=== PATIENT | male | born 1950 | race American Indian/Alaskan Native ===

== ENCOUNTER → 2017-07-09 | Outpatient (CLI) | payer MEDICARE ==
--- NOTE | 2017-07-09 12:11 | RADIOLOGY REPORT (SQ) ---
EXAM DESCRIPTION: HIP LEFT AP/LATERAL COMPLETED DATE/TIME: 07/09/2017 11:06 am REASON FOR STUDY: LEFT HIP PAIN (M25.552) M25.552 PAIN IN LEFT HIP COMPARISON: CT abdomen pelvis 08/07/2016 Left hip films 02/12/2010 NUMBER OF VIEWS: Two views. TECHNIQUE: AP pelvis and additional frog-leg view of the left hip. LIMITATIONS: None. FINDINGS: MINERALIZATION: Osteoporotic LEFT HIP: An old left femoral intertrochanteric fracture is present, stabilized by a left femoral rosa g intramedullary nail and lag screw. Hardware is unchanged from CT 08/07/2016. Healed fracture. No acute fracture. Moderate left hip joint space narrowing. RIGHT HIP: High-grade right hip joint space narrowing and bony spurring. No right proximal femoral f racture. PUBIS AND ISCHIUM: No fracture. PELVIS: No fracture. SACRUM: No fracture or dislocation. No worrisome bone lesions. LOWER LUMBAR SPINE: No fracture or dislocation. No worrisome bone lesions. No significant disc disea se. SOFT TISSUES: Right-sided pain pump at the edge of the field of view OTHER: No other significant finding. IMPRESSION: No acute fracture or malalignment left hip. Bony pelvis osteoporotic without fracture. No gross fracture right hip TECHNICAL DOCUMENTATION: JOB ID: [id number] [employer]- All Rights Reserved
== END ==
LOC: RAD 10:37
PROVIDERS: ATTEND Internal Medicine
DX: M25.552 Pain in left hip (principal)

== ENCOUNTER 2017-08-03 12:43 | Inpatient (IN) | payer MEDICARE ==
--- NOTE | 2017-08-03 13:10 | ER Document Report ---
ED General - General Chief Complaint: Chest Pain > 30 Stated Complaint: GENERAL WEAKNESS Time Seen by Provider: 08/03/17 12:55 Notes: This is a 66-year-old male who presents by EMS with chief complaint of chest pain, dizziness and constipation. Patient states he has long standing rheumatoid arthritis. Having nausea this morning. Thinks it is because he has not had good bowel movements. He did have a bowel movement this morning however he did not think it was enough. Started having some palpitations and feeling nauseated which his called EMS. TRAVEL OUTSIDE OF THE [place] IN LAST 30 DAYS: No - Related Data Allergies/Adverse Reactions: No Known Allergies Allergy (Verified 08/14/16 09:29) Past Medical History - General Information source: Patient - Social History Smoking Status: Current Every Day Smoker Family History: Reviewed & Not Pertinent - Past Medical History Cardiac Medical History: Reports: Hx Hypertension Denies: Hx Coronary Artery Disease, Hx Heart Attack Pulmonary Medical History: Denies: Hx Asthma, Hx Bronchitis, Hx COPD, Hx Pneumonia, Hx Tuberculosis Neurological Medical History: Denies: Hx Cerebrovascular Accident, Hx Seizures Musculoskeltal Medical History: Reports Hx Arthritis - rheumatoid arthritis Past Surgical History: Reports: Hx Orthopedic Surgery - pins in hip. Denies: Hx Pacemaker - Immunizations Hx Diphtheria, Pertussis, Tetanus Vaccination: Yes Review of Systems - Review of Systems Constitutional: No symptoms reported, Weakness EENT: No symptoms reported Cardiovascular: No symptoms reported, Palpitations, Heart racing, Lightheaded Respiratory: No symptoms reported Gastrointestinal: No symptoms reported, Constipation Genitourinary: No symptoms reported Male Genitourinary: No symptoms reported Musculoskeletal: No symptoms reported Skin: No symptoms reported Hematologic/Lymphatic: No symptoms reported, Other - Chronic joint pain from rheumatoid arthritis Neurological/Psychological: No symptoms reported Physical Exam - Vital signs Vitals: Resp 26 H 08/03/17 12:57 Interpretation: Normal - General General appearance: Appears well, Alert - HEENT Head: Normocephalic, Atraumatic Eyes: Normal Pupils: PERRL - Respiratory Respiratory status: No respiratory distress Chest status: Nontender Breath sounds: Normal Chest palpation: Normal - Cardiovascular Rhythm: Regular, Irregularly irregular Heart sounds: Normal auscultation Murmur: No - Abdominal Inspection: Normal - Implanted device in the right lower abdomen consistent with stated history of a pain pump Distension: No distension Bowel sounds: Normal Tenderness: Nontender Organomegaly: No organomegaly - Back Back: Normal, Nontender - Extremities General upper extremity: Normal inspection - Multiple joint deformities consistent with rheumatoid arthritis disease, Nontender, Normal color, Normal ROM, Normal temperature General lower extremity: Normal inspection, Nontender, Normal color, Normal ROM , Normal temperature, Normal weight bearing. No: Cammy's sign - Neurological Neuro grossly intact: Yes Cognition: Normal Orientation: AAOx4 Olegario Coma Scale Eye Opening: Spontaneous Olegario Coma Scale Verbal: Oriented Lyman Coma Scale Motor: Obeys Commands Lyman Coma Scale Total: 15 Speech: Normal Motor strength normal: LUE, RUE, LLE, RLE Sensory: Normal - Psychological Associated symptoms: Normal affect, Normal mood - Skin Skin Temperature: Warm Skin Moisture: Dry Skin Color: Normal Course - Re-evaluation Re-evalutation: 08/03/17 14:18 Patient with intermittent runs of SVT with an occasional run of V. tach. Having chest pain. Comfortable discharging at this time. Patient will need to be admitted. An initial dose of Cardizem was given as well as potassium as he has a potassium of 3.0 which could be causing some irritation as well. Of note patient had a heart rate of 212 nurses at bedside. Valsalva maneuver was performed and heart rate came back down. There could be an element of SVT versus A. fib with RVR. Either way uncomfortable discharging so will consult for admit. 08/03/17 14:24 consulted hospitsalist who recommended talk to the field operator. Spoke with field operator who is comfortable admitting here. Will reconsult with the hospitalist. Manager [employer] recommends getting him a stat echo as well. 08/03/17 15:[address] Nickerson who is agreed to admit patient at this time. Also consulted with field operator. - Vital Signs Vital signs: Temp Pulse Resp BP Pulse Ox 98.0 F 106 H 22 H 173/87 H 99 08/03/17 13:15 08/03/17 13:15 08/03/17 13:15 08/03/17 13:15 08/03/17 13:15 - Laboratory Result Diagrams: 08/03/17 13:05 08/03/17 13:05 Laboratory results interpreted by me: 08/03/17 08/03/17 13:05 13:05 WBC 11.6 H Seg Neutrophils % 82.1 H Lymphocytes % 10.2 L Absolute Neutrophils 9.5 H Potassium 3.0 L* BUN 21 H Glucose 123 H Direct Bilirubin 0.6 H Total Protein 8.7 H - EKG Interpretation by Me Rhythm: A.Fib Critical Care Note - Critical Care Note Total time excluding time spent on procedures (mins): 60 Comments: SVT, arrhythmia, hypertension Discharge - Discharge Clinical Impression: Chest pain, Atrial fibrillation with rapid ventricular response, SVT ( supraventricular tachycardia) Condition: Fair Disposition: ADMITTED INPATIENT Admitting Provider: Nellie Unit Admitted: [facility] Referrals: DIONICIO ROWLAND MD [Primary Care Provider] - Follow up as needed
[2017-08-03 13:23] LABS: ABSOLUTE BASOPHILS # (AUTO) 0.1 10^3/uL (0.0-0.2); ABSOLUTE LYMPHOCYTES (AUTO) 1.2 10^3/uL (0.5-4.7); ABSOLUTE MONOCYTES (AUTO) 0.8 10^3/uL (0.1-1.4); ABSOLUTE NEUT (AUTO) 9.5 10^3/uL (1.7-8.2); BASOPHILS % (AUTO) 0.5 % (0-2); EOSINOPHILS % (AUTO) 0.2 % (0-6); HEMATOCRIT 48.2 % (37.9-51.0); HEMOGLOBIN 16.4 g/dL (13.5-17.0); LYMPHOCYTES % (AUTO) 10.2 % (13-45); MEAN CORPUSCULAR HEMOGLOBIN 31.5 pg (27.0-33.4); MEAN CORPUSCULAR HGB CONC 34.1 g/dL (32.0-36.0); MEAN CORPUSCULAR VOLUME 93 fl (80-97); RED BLOOD COUNT 5.21 10^6/uL (4.35-5.55); RED CELL DISTRIBUTION WIDTH 13.8 % (11.5-14.0); SEGMENTED NEUTROPHILS % (AUTO) 82.1 % (42-78); WHITE BLOOD COUNT 11.6 10^3/uL (4.0-10.5)
--- NOTE | 2017-08-03 13:41 | EKG REPORT ---
SEVERITY:- ABNORMAL ECG - SINUS TACHYCARDIA ATRIAL PREMATURE COMPLEXES : Confirmed by: Corey Jimenes MD 03-Aug-2017 13:41:00
[2017-08-03 13:47] LABS: ALANINE AMINOTRANSFERASE 27 U/L (21-72); ALBUMIN 4.7 g/dL (3.5-5.0); ALKALINE PHOSPHATASE 96 U/L (38-126); ANION GAP 17 (5-19); ASPARTATE AMINO TRANSFERASE 26 U/L (17-59); BILIRUBIN,DIRECT 0.6 mg/dL (0.0-0.4); BILIRUBIN,TOTAL 1.1 mg/dL (0.2-1.3); BLOOD UREA NITROGEN 21 mg/dL (7-20); CALCIUM 10.1 mg/dL (8.4-10.2); CARBON DIOXIDE 26 mmol/L (22-30); CHLORIDE 102 mmol/L (98-107); CREATINE KINASE 114 U/L (55-170); CREATININE RESULT 0.77 mg/dL (0.52-1.25); GLUCOSE 123 mg/dL (75-110); SODIUM 144.5 mmol/L (137-145); TOTAL PROTEIN 8.7 g/dL (6.3-8.2)
[2017-08-03 13:57] LABS: CREATINE KINASE MB 1.77 ng/mL (<4.55)
[2017-08-03 13:58] LABS: TROPONIN I < 0.012 ng/mL
[2017-08-03] MEDS ORDERED: DILTIAZEM HCL INJ 25 MG/5 ML VIAL IV ONE (14:13)
[2017-08-03] MEDS ORDERED: DILTIAZEM HCL 30 MG TABLET PO ONE (14:13)
[2017-08-03] MEDS ORDERED: ONDANSETRON HCL INJ/PF 4 MG/2 ML SDV IV ONE (14:13)
[2017-08-03] MEDS ORDERED: POTASSIUM CHLORIDE 10 MEQ TABLET.SA PO ONE (14:13)
--- NOTE | 2017-08-03 14:14 | RADIOLOGY REPORT (SQ) ---
EXAM DESCRIPTION: ACUTE ABDOMEN SERIES COMPLETED DATE/TIME: 08/03/2017 1:49 pm REASON FOR STUDY: abdominal pain COMPARISON: Two-view chest 02/26/2015 CT abdomen pelvis 01/24/2016, 08/07/2016 NUMBER OF VIEWS: Three views. TECHNIQUE: Frontal chest, supine abdomen and upright abdomen radiographic images acquired. LIMITATIONS: None. FINDINGS: CHEST: No acute infiltrates. Bandlike scarring right lung apex, very mild increased inter stitial markings are stable compared to chest films from 2015. Calcified granuloma left lung base. No pleural effusion. No pneumothorax. FREE AIR: None. No abnormal gas collections. BOWEL GAS PATTERN: Nonspecific bowel gas pattern. Air-fluid level in the stomach. Air in nondistend ed small bowel loops in the mid abdomen. No constipation. CALCIFICATIONS: No suspicious calcifications. HARDWARE: There is a intrathecal baclofen pump or pain pump over the right lower quadrant. Left-side d intramedullary nail post ORIF intertrochanteric fracture. SOFT TISSUES: No gross mass or suggestion of organomegaly. BONES: Osteoporotic. Multiple old healed bilateral rib fractures. OTHER: No other significant finding. IMPRESSION: Nonspecific bowel gas pattern. No acute infiltrates. Osteoporosis. Pain pump and left hip hardware as above TECHNICAL DOCUMENTATION: JOB ID: [id number] [employer]- All Rights Reserved
[2017-08-03] MEDS ORDERED: ASPIRIN 325 MG TABLET PO ONE (15:17)
[2017-08-03] MEDS ORDERED: ENOXAPARIN SODIUM INJ 60 MG/0.6 ML DISP.SYRIN SUBCUT ONE (15:18)
[2017-08-03] MEDS ORDERED: DILTIAZEM HCL/D5W 125 MG/125 ML RTUINJ IV PRN (15:21)
[2017-08-03] MEDS ORDERED: POTASSI CL 20 MEQ/50 ML RIDER 20 MEQ/50 ML RTUPB IV ONE (15:22)
[2017-08-03] MEDS ORDERED: ACETAMINOPHEN 325 MG TABLET PO PRN (17:20)
[2017-08-03] MEDS ORDERED: POLYETHYLENE GLYCOL 3350 POWDER 17 GM/1 PACKET PO PRN (17:29)
[2017-08-03] MEDS ORDERED: DIAZEPAM 5 MG TABLET PO PRN (17:29)
--- NOTE | 2017-08-03 17:54 | PDOC H&P ---
History of Present Illness Admission Date/PCP: 08/03/17 15:42 DIONICIO ROWLAND Patient complains of: Chest pain, dyspnea, palpitaions, nausea, constipation History of Present Illness: CHERRY ROLDAN is a 66 year old male with hx of HTN/ A-fib/Rheumatoid arthritis /Back pain/Neck pain/OA/Hep. C/Constipation/BPH/Chronic smoker who started having chest pain. dyspnea, associated with palpaitations, dizziness and nausea this am; he also has worsening constipation. He called EMS and was brought to ER for eval. At ER he was in Afib with RVR and potassium was 3.3. He was given KCL 60 MEQ at ED; was given Cardizem IV and Cardizem drip at 5mg /hr; he is admitted to [facility] for mgt. Past Medical History Cardiac Medical History: Reports: Hypertension Denies: Coronary Artery Disease, Myocardial Infarction Pulmonary Medical History: Denies: Asthma, Bronchitis, Chronic Obstructive Pulmonary Disease (COPD), Pneumonia, Tuberculosis Neurological Medical History: Denies: Seizures Musculoskeltal Medical History: Reports: Arthritis - rheumatoid arthritis Hematology: Denies: Anemia Past Surgical History Past Surgical History: Reports: Orthopedic Surgery - pins in hip Denies: Pacemaker Social History Smoking Status: Current Every Day Smoker Hx Recreational Drug Use: No Hx Prescription Drug Abuse: No Family History Family History: Reviewed & Not Pertinent Parental Family History Reviewed: Yes Children Family History Reviewed: Yes Sibling(s) Family History Reviewed.: Yes Medication/Allergy Home Medications: Amlodipine Besylate [Norvasc 10 mg Tablet] 10 mg PO DAILY 08/03/17 Celecoxib [Celebrex 200 mg Capsule] 200 mg PO DAILY 08/03/17 Diazepam [Valium 5 mg Tablet] 5 mg PO DAILYP PRN 08/03/17 Finasteride [Proscar 5 mg Tablet] 5 mg PO DAILY 08/03/17 Linaclotide [Linzess] 290 mcg PO QAM 08/03/17 Lisinopril/Hydrochlorothiazide [Lisinopril-Hctz 20-12.5 mg Tab] 1 each PO DAILY 08/03/17 Oxycodone HCl [Oxy-Ir 5 mg Tablet] 15 mg PO QIDP PRN 08/03/17 Polyethylene Glycol 3350 [Miralax Powder 17 gm/Packet] 17 gm PO DAILYP PRN 08/03 Prednisone [Deltasone 5 mg Tablet] 10 mg PO DAILY 08/03/17 Allergies/Adverse Reactions: No Known Allergies Allergy (Verified 08/14/16 09:29) Review of Systems All systems: as per PMH Constitutional: PRESENT: weakness Eyes: PRESENT: as per HPI Ears: PRESENT: as per HPI Nose, Mouth, and Throat: PRESENT: as per HPI Cardiovascular: PRESENT: chest pain, dyspnea on exertion, palpitations Respiratory: PRESENT: as per HPI, dyspnea Gastrointestinal: PRESENT: constipation, nausea Genitourinary: PRESENT: as per HPI Musculoskeletal: PRESENT: as per HPI Integumentary: PRESENT: as per HPI Neurological: PRESENT: dizziness Psychiatric: PRESENT: as per HPI Endocrine: PRESENT: as per HPI Hematologic/Lymphatic: PRESENT: as per HPI Physical Exam Vital Signs: Temp Pulse Resp BP Pulse Ox 98.0 F 106 H 22 H 173/87 H 99 08/03/17 13:15 08/03/17 13:15 08/03/17 13:15 08/03/17 13:15 08/03/17 13:15 General appearance: PRESENT: no acute distress, well-developed, well-nourished Head exam: PRESENT: atraumatic, normocephalic Eye exam: PRESENT: EOMI, PERRLA Ear exam: PRESENT: TM's normal bilaterally Mouth exam: PRESENT: moist, neck supple, tongue midline Respiratory exam: PRESENT: clear to auscultation karina, symmetrical Cardiovascular exam: PRESENT: irregular rhythm, +S1, +S2 Pulses: PRESENT: +2 pedal pulses bilateral Vascular exam: PRESENT: normal capillary refill GI/Abdominal exam: PRESENT: normal bowel sounds, soft Rectal exam: PRESENT: deferred Extremities exam: PRESENT: full ROM Neurological exam: PRESENT: alert, awake, oriented to person, oriented to place , oriented to time, CN II-XII grossly intact Psychiatric exam: PRESENT: normal mood Results Impressions: Acute Abdomen Series 08/03/17 13:12 IMPRESSION: Nonspecific bowel gas pattern. No acute infiltrates. Osteoporosis. Pain pump and left hip hardware as above Assessment & Plan - Diagnosis (1) Atrial fibrillation with rapid ventricular response Is this a current diagnosis for this admission?: Yes Plan: Ct with Cardizem drip at 5 mg/hr; Eliquis 5 mg BID po; f/u ECHO and cardologist consult with Dr Park. (2) Chest pain Qualifiers: Chest pain type: unspecified Qualified Code(s): R07.9 - Chest pain, unspecified Is this a current diagnosis for this admission?: Yes Plan: Ct with ASA 81 mg qd po; EKG and cardiac enzymes to rule out GA; F/U ECHO; F/U goggles assembler consult with Dr Park. (3) Hypokalemia Is this a current diagnosis for this admission?: Yes Plan: He was given KCL - total of 60 MEQ at ED; we will add KCL 10 MEQ qd po; f/u daily chem. 7. (4) Leukocytosis Qualifiers: Leukocytosis type: unspecified Qualified Code(s): D72.829 - Elevated white blood cell count, unspecified Is this a current diagnosis for this admission?: Yes Plan: F/u UA and repeat CBC. This may be due to medications- Xeljanz. (5) Constipation Qualifiers: Constipation type: unspecified constipation type Qualified Code(s): K59.00 - Constipation, unspecified Is this a current diagnosis for this admission?: Yes Plan: Ct with Linzess 290 mg qd po; Colace 100 mg BID prn PO; Miralax 17 g qd po prn. (6) Lumbago Qualifiers: Back pain laterality: unspecified Is this a current diagnosis for this admission?: Yes Plan: Ct with Celebrex 200 mg qd; Oxycodone 15 mg q6h prn po. (7) Rheumatoid arthritis Qualifiers: Rheumatoid arthritis location: unspecified site Is this a current diagnosis for this admission?: Yes Plan: Ct with Prednisone 10 mg qd po; Xeljanz 5 mg qd po. (8) BPH (benign prostatic hyperplasia) Qualifiers: Lower urinary tract symptom detail: unspecified Is this a current diagnosis for this admission?: Yes Plan: Ct with Flomax 4 mg qd po; Proscar 5 mg qd po. (9) Anxiety disorder Qualifiers: Phobia type: social phobia, unspecified Is this a current diagnosis for this admission?: Yes Plan: Ct with Diazepam 5 mg qd prn po. (10) DVT prophylaxis Is this a current diagnosis for this admission?: Yes Plan: Ct with SCD; ct with Eliquis 5mg BID. (11) Smoker Is this a current diagnosis for this admission?: Yes Plan: Ct with Nicotine patch 14 mg qd . - Time Time Spent: 30 to 50 Minutes Smoking Cessation Education: 3 to 10 minutes Medications reviewed and adjusted accordingly: Yes Anticipated discharge: Home Within: within 72 hours - Inpatient Certification Based on my medical assessment, after consideration of the patient's comorbidities, presenting symptoms, or acuity I expect that the services needed warrant INPATIENT care.: Yes I certify that my determination is in accordance with my understanding of Medicare's requirements for reasonable and necessary INPATIENT services [42 CFR 412.3e].: Yes Medical Necessity: Failure to Improve With Outpatient Therapy, Significant Comorbidiites Make Outpatient Treatment Too Risky, Need Close Monitoring Due to Risk of Patient Decompensation, Need For Continuous Telemetry Monitoring, Need for IV Antibiotics, Risk of Complication if Not Cared For in Hospital, Risk of Diagnosis Which Will Require Inpatient Eval/Care/Monitoring
[2017-08-03] MEDS ORDERED: NICOTINE 14 MG/24 HR PATCH.TD24 TD ONE (19:00)
[2017-08-03] MEDS ORDERED: DILTIAZEM HCL 120 MG CAP.SR.24H PO ONE (19:00)
[2017-08-03 19:03] LABS: APPEARANCE,URINE CLEAR; BILIRUBIN,URINE NEGATIVE (NEGATIVE); GLUCOSE, URINE NEGATIVE (NEGATIVE); KETONES,URINE TRACE mg/dL (NEGATIVE); LEUKOCYTE ESTERASE,URINE NEGATIVE (NEGATIVE); NITRITE,URINE NEGATIVE (NEGATIVE); PROTEIN,URINE NEGATIVE (NEGATIVE); URINE SPECIFIC GRAVITY 1.006; UROBILINOGEN,URINE NEGATIVE mg/dL (<2.0)
--- NOTE | 2017-08-03 19:44 | PDOC CONSULTATION ---
Consultation Consult Date: 08/03/17 Attending physician:: DIONICIO ROWLAND Consult reason:: Shortness of breath and palpitations History of Present Illness Admission Date/PCP: 08/03/17 17:20 DIONICIO ROWLAND Patient complains of: Shortness of breath History of Present Illness: CHERRY ROLDAN is a 66 year old male with hx of HTN/ A-fib/Rheumatoid arthritis /Back pain/Neck pain/OA/Hep. C/Constipation/BPH/Chronic smoker who started having chest pain. dyspnea, associated with palpaitations, dizziness and nausea this am; he also has worsening constipation. He called EMS and was brought to ER for eval. At ER he was in Afib with RVR and potassium was 3.3. He was given KCL 60 MEQ at ED; was given Cardizem IV and Cardizem drip at 5mg /hr; he is admitted to [facility] for mgt. This history was reviewed and confirmed. Patient had telemetry strips available for review. Patient was noted to have atrial fibrillation with very rapid ventricular response of over 200 bpm. In addition patient also had wide- complex tachycardia which is felt to be related to aberrant conduction rather than ventricular tachycardia. Patient currently converted spontaneously to sinus rhythm. Orders written in the chart. Patient actually denied any chest pain when interviewed by me. Patient however did mention that he had chest pain to the ER physician. He claims that he does not feel palpitations and did not feel particularly bad. Recent however is noted to be a poor historian. Past Medical History Cardiac Medical History: Reports: Hypertension Denies: Coronary Artery Disease, Myocardial Infarction Pulmonary Medical History: Denies: Asthma, Bronchitis, Chronic Obstructive Pulmonary Disease (COPD), Pneumonia, Tuberculosis Neurological Medical History: Denies: Seizures Musculoskeltal Medical History: Reports: Arthritis - rheumatoid arthritis Hematology: Denies: Anemia Past Surgical History Past Surgical History: Reports: Orthopedic Surgery - pins in hip Denies: Pacemaker Social History Information Source: Patient Smoking Status: Current Every Day Smoker Hx Recreational Drug Use: No Hx Prescription Drug Abuse: No - Advance Directive Resuscitation Status: Full Code Surrogate healthcare decision maker:: Patient daughter who lives in [place] is the surrogate decision-maker. Patient does not have close relatives locally. Family History Family History: Hypertension Parental Family History Reviewed: Yes Children Family History Reviewed: Yes Sibling(s) Family History Reviewed.: Yes Medication/Allergy Home Medications: Celecoxib [Celebrex 200 mg Capsule] 200 mg PO DAILY 08/03/17 Diazepam [Valium 5 mg Tablet] 5 mg PO DAILYP PRN 08/03/17 Finasteride [Proscar 5 mg Tablet] 5 mg PO DAILY 08/03/17 Linaclotide [Linzess] 290 mcg PO QAM 08/03/17 Oxycodone HCl [Oxy-Ir 5 mg Tablet] 15 mg PO QIDP PRN 08/03/17 Polyethylene Glycol 3350 [Miralax Powder 17 gm/Packet] 17 gm PO DAILYP PRN 08/03 Prednisone [Deltasone 5 mg Tablet] 10 mg PO DAILY 08/03/17 Apixaban [Eliquis 5 mg Tablet] 5 mg PO BID #60 tablet 08/05/17 Aspirin [Aspirin 81 mg Chewable Tablet] 81 mg PO DAILY #30 tab.chew 08/05/17 Diltiazem HCl [Cardizem Cd 120 mg Capsule] 120 mg PO DAILY #30 cap.sr.24h Ondansetron HCl [Zofran 4 mg Tablet] 1 tab PO TID #60 tablet 08/05/17 Potassium Chloride [Klor-Con 10 Meq Tablet.sa] 10 meq PO DAILY #30 tablet.sa 09/11 Allergies/Adverse Reactions: No Known Allergies Allergy (Verified 08/14/16 09:29) Review of Systems Review of Systems: Please see history of present illness and past medical history as wall. Constitutional: No fever or chills reported. Head : No recent chronic headaches, recent head injury. Eyes: No recent eye pain, diplopia, redness, discharge, acute visual changes. Ears: No recent chronic ear pain, acute hearing loss, ear discharge. Oral cavity: No recent ulcerations, bleeding, oral cavity discomfort. Neck: No recent acute neck pain reported. Hematologic: No recent easy bruising or bleeding or hematologic malignancy reported. Lymphatic: No recent lymphatic malignancy, chronic lymphadenopathy reported yet Cardiovascular system review: See history of present illness. Patient denies any previous cardiac problems. Please see HPI for details Respiratory system review: No recent chronic cough, hemoptysis, blood clots in the lungs reported. Mild Shortness of breath on exertion Gastrointestinal system review: Negative for any recent acute or chronic abdominal pain, hematemesis, melena, recent change in bowel habits. Vented with some nausea. Patient denied any chronic GI problem. Genitourinary system review: No recent acute or chronic hematuria, flank pain, UTI etc. reported. Skin system review: Negative for any recent abnormal bruising, no rash, no pruritus reported. Neurologic: No prior history of strokes, mini strokes, seizure disorder. Psychologic: No history of major psychosis or major depression reported. Musculoskeletal: Minor aches and pains reported. No acute joint swelling reported. Endocrine: No recent polyuria, polydipsia, recent heat or cold intolerance. Physical Exam Vital Signs: Temp Pulse Resp BP Pulse Ox 98.0 F 88 18 137/84 H 99 08/03/17 13:15 08/03/17 18:25 08/03/17 17:01 08/03/17 17:01 08/03/17 15:46 Exam: GENERAL: well-nourished and in no acute distress. Alert and oriented x3 HEAD: Atraumatic, normocephalic. EYES: Pupils equal round and reactive to light, extraocular movements intact, sclera anicteric, conjunctiva are normal. ENT: TMs normal, nares patent, oropharynx clear without exudates. Moist mucous membranes. No oral ulcerations or bleeding gums noted NECK: supple without lymphadenopathy. Trachea is central. No cervical or axillary lymphadenopathy noted. Carotids are 2+, JVD WNL LUNGS: Respiration seems nonlabored, no significant accessory muscle action noted. Breath sounds clear to auscultation bilaterally and equal noted. No wheezes rales or rhonchi noted. No significant dullness noted on percussion. CHEST: Palpation of the chest wall shows no significant chest wall tenderness. No other significant abnormalities noted. 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 ABDOMEN: Soft, no significant tenderness appreciated, normoactive bowel sounds. No guarding, no rebound. No rigidity noted . No masses appreciated. EXTREMITIES: Pedal pulses are 1-2+, no calf tenderness noted. No clubbing or cyanosis.trace pedal edema noted NEUROLOGICAL: Focused neurological exam showed no significant neurologic deficit. Normal speech, no focal weakness appreciated. PSYCH: Normal mood, normal affect. Judgment and insight within normal limits. SKIN: No significant ecchymosis, rash, ulcerations or signs of pruritus noted. MUSCULOSKELETAL EXAM: No significant joint swelling noted. Osteoarthritic and rheumatoid arthritis changes noted on both upper extremity and lower extremity. Patient walks with a cane. Results Laboratory Results: 08/03/17 18:50 Urine Color STRAW Urine Appearance CLEAR Urine pH 6.0 Ur Specific [place] 1.006 Urine Protein NEGATIVE Urine Glucose (UA) NEGATIVE Urine Ketones TRACE H Urine Blood SMALL H Urine Nitrite NEGATIVE Ur Leukocyte Esterase NEGATIVE Urine WBC (Auto) 0 Urine RBC (Auto) 0 EKG Comments: Twelve-lead EKG, multiple reviewed. Initial one showed atrial fibrillation with rapid ventricular response. EKG strips shows wide-complex tachycardia and also narrow complex tachycardia with some secondary ST-T wave changes. Impressions: Acute Abdomen Series 08/03/17 13:12 IMPRESSION: Nonspecific bowel gas pattern. No acute infiltrates. Osteoporosis. Pain pump and left hip hardware as above Assessment & Plan - Diagnosis (1) Atrial fibrillation with rapid ventricular response Is this a current diagnosis for this admission?: Yes (2) Hypokalemia Is this a current diagnosis for this admission?: Yes (3) Rheumatoid arthritis Qualifiers: Rheumatoid arthritis location: unspecified site Is this a current diagnosis for this admission?: Yes (4) Smoker Is this a current diagnosis for this admission?: Yes (5) Anxiety disorder Qualifiers: Phobia type: social phobia, unspecified Is this a current diagnosis for this admission?: Yes (6) Chest pain Qualifiers: Chest pain type: unspecified Qualified Code(s): R07.9 - Chest pain, unspecified Is this a current diagnosis for this admission?: Yes - Notes Notes: Atrial fibrillation with rapid ventricular response: Agree with Juno boles. Patient has converted to sinus rhythm by the time I saw the patient and was noted to be quite comfortable. Patient has no other significant risk factors and his chads score seems to be low and possibly at increased risk of bleeding. Feel that just aspirin therapy would be enough. Patient denied any prior history of strokes or mini strokes. Chest pain: Most likely related to supply demand mismatch. Patient has not had any recurrence of chest pain. Hypokalemia: Recommend replacement therapy. Check magnesium level and replace his hypomagnesemia noted Rheumatoid arthritis: Currently is stable. Tobacco abuse: Patient has been advised to quit smoking. Anxiety disorder: Currently stable. Patient to report any further problems. - Time Time Spent: 30 to 50 Minutes - CODE STATUS was discussed, patient remains full code. Surrogate decision-maker unchanged. Multiple medical problems were addressed. More than 50% of the time spent coordinating care, discussing management plans with involved caregivers. Management plans discussed with involved personnels. Medical decision making was of moderate to high complexity , patient's has multiple comorbidities. Orders written in the chart as regards management plans. Medications reviewed and adjusted accordingly: Yes
[2017-08-03] MEDS: ONDANSETRON HCL INJ/PF 4 MG/2 ML SDV IV PRN (19:48)
[2017-08-03] MEDS ORDERED: WATER IV ONE (20:00)
[2017-08-03] MEDS ORDERED: DEXTROSE 5% IV ONE (20:00)
[2017-08-03] MEDS ORDERED: AMIODARONE HCL IV ONE (20:00)
[2017-08-03] MEDS: APIXABAN 5 MG TABLET PO SCH (20:26)
[2017-08-03] MEDS: DOCUSATE SODIUM 100 MG CAPSULE PO PRN (20:28)
[2017-08-03] MEDS ORDERED: DEXTROSE 5%-WATER 500 ML with AMIODARONE HCL 900 MG IV PRN ×2 (20:30)
[2017-08-03] MEDS: TOFACITINIB 5 MG PO SCH (21:01)
[2017-08-03] MEDS: OXYCODONE HCL IR 5 MG TABLET PO PRN (21:01)
[2017-08-03] MEDS: ZOLPIDEM TARTRATE 5 MG TABLET PO PRN (21:01)
[2017-08-03] MEDS ORDERED: DILTIAZEM HCL 60 MG TABLET PO SCH (22:00)
[2017-08-03] MEDS ORDERED: AMIODARONE HCL INJ 150 MG/3 ML VIAL IV ONE (22:42)
[2017-08-04] MEDS ORDERED: INFLUENZA ADLT QUAD (36MOS+) 2017-18 VAC 0.5 ML SYR IM PRN (00:10)
[2017-08-04 00:44] LABS: CREATINE KINASE MB 0.94 ng/mL (<4.55); TROPONIN I 0.025 ng/mL
[2017-08-04] MEDS: LANSOPRAZOLE 30 MG TAB.RAP.DR PO SCH (05:39)
[2017-08-04 06:03] LABS: ABSOLUTE BASOPHILS # (AUTO) 0.1 10^3/uL (0.0-0.2); ABSOLUTE EOSINOPHILS # (AUTO) 0.1 10^3/uL (0.0-0.6); ABSOLUTE LYMPHOCYTES (AUTO) 2.4 10^3/uL (0.5-4.7); ABSOLUTE NEUT (AUTO) 5.9 10^3/uL (1.7-8.2); BASOPHILS % (AUTO) 0.7 % (0-2); EOSINOPHILS % (AUTO) 0.9 % (0-6); HEMATOCRIT 43.9 % (37.9-51.0); HEMOGLOBIN 14.9 g/dL (13.5-17.0); HGB HCT DIFFERENCE 0.8; LYMPHOCYTES % (AUTO) 25.8 % (13-45); MEAN CORPUSCULAR HEMOGLOBIN 31.4 pg (27.0-33.4); MEAN CORPUSCULAR VOLUME 92 fl (80-97); MONOCYTES % (AUTO) 10.6 % (3-13); RED BLOOD COUNT 4.75 10^6/uL (4.35-5.55); RED CELL DISTRIBUTION WIDTH 13.7 % (11.5-14.0); WHITE BLOOD COUNT 9.5 10^3/uL (4.0-10.5)
[2017-08-04 06:22] LABS: ALANINE AMINOTRANSFERASE 26 U/L (21-72); ALBUMIN 3.7 g/dL (3.5-5.0); ALKALINE PHOSPHATASE 66 U/L (38-126); ANION GAP 13 (5-19); ASPARTATE AMINO TRANSFERASE 18 U/L (17-59); BILIRUBIN,DIRECT 0.5 mg/dL (0.0-0.4); BILIRUBIN,TOTAL 1.2 mg/dL (0.2-1.3); BLOOD UREA NITROGEN 16 mg/dL (7-20); CALCIUM 9.4 mg/dL (8.4-10.2); CARBON DIOXIDE 27 mmol/L (22-30); CHLORIDE 105 mmol/L (98-107); CHOLESTEROL 186.29 mg/dL (0-200); CREATININE RESULT 1.25 mg/dL (0.52-1.25); Direct HDL 37 mg/dL (>40); GLUCOSE 103 mg/dL (75-110); POTASSIUM 3.8 mmol/L (3.6-5.0); TOTAL PROTEIN 6.6 g/dL (6.3-8.2); TRIGLYCERIDES 136 mg/dL (<150)
[2017-08-04 06:26] LABS: CREATINE KINASE MB 0.82 ng/mL (<4.55); TROPONIN I 0.022 ng/mL
[2017-08-04 06:33] LABS: DIRECT LDL 136 mg/dL (<100)
[2017-08-04] MEDS: PREDNISONE 5 MG TABLET PO SCH (08:09)
[2017-08-04] MEDS: CELECOXIB 200 MG CAPSULE PO SCH (08:09)
[2017-08-04] MEDS: TOFACITINIB 5 MG PO SCH ×2 (08:10→21:48)
--- NOTE | 2017-08-04 08:15 | EKG REPORT ---
SEVERITY:- ABNORMAL ECG - SINUS TACHYCARDIA RUN OF VENTRICULAR PREMATURE COMPLEXES VS SUPRAVENTRICULAR ABERRENCY BORDERLINE LEFT AXIS DEVIATION : Confirmed by: Corey Jimenes MD 04-Aug-2017 08:14:28
--- NOTE | 2017-08-04 08:15 | EKG REPORT ---
SEVERITY:- ABNORMAL ECG - SINUS TACHYCARDIA MULTIPLE ATRIAL PREMATURE COMPLEXES LEFT AXIS DEVIATION : Confirmed by: Corey Jimenes MD 04-Aug-2017 08:14:37
[2017-08-04] MEDS: POTASSIUM CHLORIDE 10 MEQ TABLET.SA PO SCH (09:48)
[2017-08-04] MEDS: NICOTINE 14 MG/24 HR PATCH.TD24 TD SCH (09:48)
[2017-08-04] MEDS: FINASTERIDE 5 MG TABLET PO SCH (09:48)
[2017-08-04] MEDS: DOCUSATE SODIUM 100 MG CAPSULE PO PRN ×2 (09:48→17:31)
[2017-08-04] MEDS: DILTIAZEM HCL 120 MG CAP.SR.24H PO SCH (09:48)
[2017-08-04] MEDS: APIXABAN 5 MG TABLET PO SCH ×2 (09:48→17:31)
[2017-08-04] MEDS: ASPIRIN 81 MG TABLET, CHEWABLE PO SCH (09:48)
[2017-08-04] MEDS: OXYCODONE HCL IR 5 MG TABLET PO PRN ×2 (09:49→15:56)
[2017-08-04] MEDS ORDERED: LISINOPRIL 10 MG TABLET PO SCH (10:00)
[2017-08-04] MEDS ORDERED: AMLODIPINE BESYLATE 10 MG TABLET PO SCH (10:00)
[2017-08-04] MEDS ORDERED: HYDROCHLOROTHIAZIDE 12.5 MG CAPSULE PO SCH (10:00)
[2017-08-04] MEDS ORDERED: (PENDING PHARMACY ID) (Lisinopril/Hydrochlorothiazide [Lisinopril-Hctz 20-12.5 Mg Tab] 1 E PO SCH (10:00)
[2017-08-04] MEDS ORDERED: XELJANZ 5 MG PO SCH (10:00)
--- NOTE | 2017-08-04 13:02 | XCELERA REPORT ---
[address] [address] Transthoracic Echocardiogram Report Name: CHERRY ROLDAN Age: 66 yrs Gender: Male : 1950 Patient Status: Emergency Patient Location: ER Study Date: 08/03/2017 02:49 PM Height: 66 in Weight: 132 lb BSA: 1.7 m2 Procedure: A complete two-dimensional transthoracic echocardiogram was performed (2D, M-mode, spectral and color flow Doppler). The study was technically difficult with many images being suboptimal in quality. Reason For Study: tachycardia Ordering Physician: LINDA LEMUS Performed By: Marry Prasad Interpretation Summary The study was technically difficult with many images being suboptimal in quality. The left ventricular ejection fraction is normal. There is borderline concentric left ventricular hypertrophy. Doppler measurements suggest pseudonormalized left ventricular relaxation, which is associated with grade II/IV or mild to moderate diastolic dysfunction The left ventricle is grossly normal size. Wall motion cannot be accurately commented on, but no definite regional wall motion abnormalities noted. The right ventricle is mild to moderately dilated. Borderline left atrial enlargement. The right atrium is normal in size There is a trace amount of mitral regurgitation There is no mitral valve stenosis. No aortic regurgitation is present. There is no aortic valve stenosis The aortic root is not well visualized but is probably normal size. The inferior vena cava appeared normal and decreased > 50% with respiration (RAP 5-10 mmHg) There is no pericardial effusion. MMode/2D Measurements & Calculations RVDd: 2.7 cm LVIDd: 4.6 cm FS: 37.7 % Ao root diam: 3.0 cm IVSd: 0.97 cm LVIDs: 2.9 cm EDV(Teich): 97.3 ml LVPWd: 1.0 cm ESV(Teich): 31.3 ml Ao root area: 6.9 cm2 EF(Teich): 67.8 % LA dimension: 3.7 cm Doppler Measurements & Calculations MV E max prince: MV P1/2t max prince: Ao V2 max: LV V1 max P.2 cm/sec 63.7 cm/sec 169.7 cm/sec 4.2 mmHg MV A max prince: MV P1/2t: 85.9 msec Ao max PG: LV V1 max: 88.8 cm/sec 11.5 mmHg 102.2 cm/sec MV E/A: 0.72 MVA(P1/2t): 2.6 cm2 MV dec slope: 217.1 cm/sec2 MV dec time: 0.28 sec PA V2 max: TR max prince: 86.9 cm/sec 291.8 cm/sec PA max PG: TR max P.1 mmHg 3.0 mmHg Left Ventricle The left ventricle is grossly normal size. There is borderline concentric left ventricular hypertrophy. The left ventricular ejection fraction is normal. Doppler measurements suggest pseudonormalized left ventricular relaxation, which is associated with grade II/IV or mild to moderate diastolic dysfunction. Wall motion cannot be accurately commented on, but no definite regional wall motion abnormalities noted. Right Ventricle The right ventricle is mild to moderately dilated. There is normal right ventricular wall thickness. The right ventricular systolic function is normal. Atria The right atrium is normal in size. Borderline left atrial enlargement. Interarterial septum not well visualized and not well dopplered. Cannot comment on ASD/PFO presence. Mitral Valve The mitral valve leaflets are sclerotic, but show no functional abnormalities. There is no mitral valve stenosis. There is a trace amount of mitral regurgitation. Aortic Valve The aortic valve is mildly calcified. There is no aortic valve stenosis. No aortic regurgitation is present. Tricuspid Valve The tricuspid valve is not well visualized, but is grossly normal. There is no tricuspid stenosis. There is a trace to mild amount of tricuspid regurgitation. There is mild pulmonary hypertension by echo. Right ventricular systolic pressure is estimated to be elevated at 30-40mmHg. Pulmonic Valve The pulmonic valve is not well visualized. Great Vessels The aortic root is not well visualized but is probably normal size. The inferior vena cava appeared normal and decreased > 50% with respiration (RAP 5-10 mmHg). Effusions There is no pericardial effusion. : LINDA LEMUS > [place]
--- NOTE | 2017-08-04 14:58 | PDOC PROGRESS REPORT ---
Subjective Progress Note for:: 08/04/17 Subjective:: He is feeling better; no chest pain, dyspnea, dizziness. Potassium is normal and he is no longer in A-fib , but in sinus rhythm. We appreciate input of dye colorist dyer, Dr Park in the management of this pt. Physical Exam Vital Signs: Temp Pulse Resp BP Pulse Ox 98.6 F 82 18 90/60 L 93 08/04/17 11:57 08/04/17 11:57 08/04/17 08:01 08/04/17 12:24 08/04/17 11:57 Intake & Output 08/03/17 08/04/17 08/05/17 06:59 06:59 06:59 Output Total 625 Balance -625 Weight 64.5 kg General appearance: PRESENT: no acute distress, cooperative, well-developed, well-nourished Head exam: PRESENT: atraumatic, normocephalic Eye exam: PRESENT: EOMI, PERRLA Ear exam: PRESENT: normal external ear exam, TM's normal bilaterally Mouth exam: PRESENT: moist, neck supple, tongue midline Neck exam: PRESENT: full ROM Respiratory exam: PRESENT: clear to auscultation karina, symmetrical Cardiovascular exam: PRESENT: +S1, +S2 Pulses: PRESENT: +2 pedal pulses bilateral GI/Abdominal exam: PRESENT: normal bowel sounds, soft Rectal exam: PRESENT: deferred Extremities exam: PRESENT: full ROM Musculoskeletal exam: PRESENT: full ROM Neurological exam: PRESENT: alert, awake, oriented to person, oriented to place , oriented to time Psychiatric exam: PRESENT: normal mood Results Laboratory Results: 08/04/17 05:18 08/04/17 05:18 08/03/17 08/04/17 08/04/17 18:50 05:18 05:18 WBC 9.5 RBC 4.75 Hgb 14.9 Hct 43.9 MCV 92 MCH 31.4 MCHC 34.0 RDW 13.7 Plt Count 257 Seg Neutrophils % 62.0 Lymphocytes % 25.8 Monocytes % 10.6 Eosinophils % 0.9 Basophils % 0.7 Absolute Neutrophils 5.9 Absolute Lymphocytes 2.4 Absolute Monocytes 1.0 Absolute Eosinophils 0.1 Absolute Basophils 0.1 Sodium 145.0 Potassium 3.8 Chloride 105 Carbon Dioxide 27 Anion Gap 13 BUN 16 Creatinine 1.25 Est GFR ( Amer) > 60 Est GFR (Non-Af Amer) 58 L Glucose 103 Calcium 9.4 Magnesium 2.0 Total Bilirubin 1.2 AST 18 ALT 26 Alkaline Phosphatase 66 Total Protein 6.6 Albumin 3.7 Triglycerides 136 Cholesterol 186.29 LDL Cholesterol Direct 136 H VLDL Cholesterol 27.0 HDL Cholesterol 37 L TSH Urine Color STRAW Urine Appearance CLEAR Urine pH 6.0 Ur Specific [place] 1.006 Urine Protein NEGATIVE Urine Glucose (UA) NEGATIVE Urine Ketones TRACE H Urine Blood SMALL H Urine Nitrite NEGATIVE Ur Leukocyte Esterase NEGATIVE Urine WBC (Auto) 0 Urine RBC (Auto) 0 08/04/17 05:18 WBC RBC Hgb Hct MCV MCH MCHC RDW Plt Count Seg Neutrophils % Lymphocytes % Monocytes % Eosinophils % Basophils % Absolute Neutrophils Absolute Lymphocytes Absolute Monocytes Absolute Eosinophils Absolute Basophils Sodium Potassium Chloride Carbon Dioxide Anion Gap BUN Creatinine Est GFR ( Amer) Est GFR (Non-Af Amer) Glucose Calcium Magnesium Total Bilirubin AST ALT Alkaline Phosphatase Total Protein Albumin Triglycerides Cholesterol LDL Cholesterol Direct VLDL Cholesterol HDL Cholesterol TSH 5.07 H Urine Color Urine Appearance Urine pH Ur Specific [place] Urine Protein Urine Glucose (UA) Urine Ketones Urine Blood Urine Nitrite Ur Leukocyte Esterase Urine WBC (Auto) Urine RBC (Auto) 08/03/17 08/03/17 08/04/17 23:10 23:10 05:18 Creatine Kinase 90 74 CK-MB (CK-2) 0.94 Troponin I 0.025 08/04/17 05:18 Creatine Kinase CK-MB (CK-2) 0.82 Troponin I 0.022 Impressions: Acute Abdomen Series 08/03/17 13:12 IMPRESSION: Nonspecific bowel gas pattern. No acute infiltrates. Osteoporosis. Pain pump and left hip hardware as above Assessment & Plan - Diagnosis (1) Atrial fibrillation with rapid ventricular response Is this a current diagnosis for this admission?: Yes Plan: Ct with Cardizem CD 120 mg qd po Eliquis 5 mg BID po; f/u ECHO report and cardologist, Dr Park. (2) Chest pain Qualifiers: Chest pain type: unspecified Qualified Code(s): R07.9 - Chest pain, unspecified Is this a current diagnosis for this admission?: Yes Plan: Ct with ASA 81 mg qd po; OK has been ruled out. F/U ECHO report; F/U dye colorist dyer, Dr Park. (3) Hypokalemia Is this a current diagnosis for this admission?: Yes Plan: He was given KCL - total of 60 MEQ at ED; we will add KCL 10 MEQ qd po; f/u daily chem. 7. (4) Leukocytosis Qualifiers: Leukocytosis type: unspecified Qualified Code(s): D72.829 - Elevated white blood cell count, unspecified Is this a current diagnosis for this admission?: Yes Plan: Leukocytosis- resolved.This may be due to medications- Xeljanz/Prednisone.. (5) Constipation Qualifiers: Constipation type: unspecified constipation type Qualified Code(s): K59.00 - Constipation, unspecified Is this a current diagnosis for this admission?: Yes Plan: Ct with Linzess 290 mg qd po; Colace 100 mg BID prn PO; Miralax 17 g qd po prn. (6) Lumbago Qualifiers: Back pain laterality: unspecified Is this a current diagnosis for this admission?: Yes Plan: Ct with Celebrex 200 mg qd; Oxycodone 15 mg q6h prn po. (7) Rheumatoid arthritis Qualifiers: Rheumatoid arthritis location: unspecified site Is this a current diagnosis for this admission?: Yes Plan: Ct with Prednisone 10 mg qd po; Xeljanz 5 mg qd po. (8) BPH (benign prostatic hyperplasia) Qualifiers: Lower urinary tract symptom detail: unspecified Is this a current diagnosis for this admission?: Yes Plan: Ct with Flomax 4 mg qd po; Proscar 5 mg qd po. (9) Anxiety disorder Qualifiers: Phobia type: social phobia, unspecified Is this a current diagnosis for this admission?: Yes Plan: Ct with Diazepam 5 mg qd prn po. (10) DVT prophylaxis Is this a current diagnosis for this admission?: Yes Plan: Ct with SCD; ct with Eliquis 5mg BID. (11) Smoker Is this a current diagnosis for this admission?: Yes Plan: Ct with Nicotine patch 14 mg qd .
[2017-08-04] MEDS: ZOLPIDEM TARTRATE 5 MG TABLET PO PRN (21:48)
[2017-08-05 05:03] LABS: HEMATOCRIT 41.5 % (37.9-51.0); HEMOGLOBIN 14.2 g/dL (13.5-17.0); HGB HCT DIFFERENCE 1.1; MEAN CORPUSCULAR HEMOGLOBIN 31.8 pg (27.0-33.4); MEAN CORPUSCULAR HGB CONC 34.2 g/dL (32.0-36.0); MEAN CORPUSCULAR VOLUME 93 fl (80-97); RED BLOOD COUNT 4.47 10^6/uL (4.35-5.55); RED CELL DISTRIBUTION WIDTH 13.9 % (11.5-14.0); WHITE BLOOD COUNT 9.7 10^3/uL (4.0-10.5)
[2017-08-05] MEDS: LANSOPRAZOLE 30 MG TAB.RAP.DR PO SCH (05:16)
[2017-08-05 05:25] LABS: ALANINE AMINOTRANSFERASE 27 U/L (21-72); ALBUMIN 3.6 g/dL (3.5-5.0); ALKALINE PHOSPHATASE 58 U/L (38-126); ANION GAP 9 (5-19); ASPARTATE AMINO TRANSFERASE 14 U/L (17-59); BILIRUBIN,DIRECT 0.4 mg/dL (0.0-0.4); BILIRUBIN,TOTAL 0.6 mg/dL (0.2-1.3); BLOOD UREA NITROGEN 30 mg/dL (7-20); CALCIUM 9.5 mg/dL (8.4-10.2); CARBON DIOXIDE 28 mmol/L (22-30); CHLORIDE 105 mmol/L (98-107); CREATININE RESULT 1.05 mg/dL (0.52-1.25); GLUCOSE 101 mg/dL (75-110); POTASSIUM 3.7 mmol/L (3.6-5.0); SODIUM 142.4 mmol/L (137-145); TOTAL PROTEIN 6.6 g/dL (6.3-8.2)
[2017-08-05 05:32] LABS: APPEARANCE,URINE CLEAR; BILIRUBIN,URINE NEGATIVE (NEGATIVE); GLUCOSE, URINE NEGATIVE (NEGATIVE); KETONES,URINE NEGATIVE (NEGATIVE); LEUKOCYTE ESTERASE,URINE NEGATIVE (NEGATIVE); NITRITE,URINE NEGATIVE (NEGATIVE); PROTEIN,URINE NEGATIVE (NEGATIVE); URINE SPECIFIC GRAVITY 1.032
[2017-08-05] MEDS: OXYCODONE HCL IR 5 MG TABLET PO PRN (07:39)
[2017-08-05] MEDS: ONDANSETRON HCL INJ/PF 4 MG/2 ML SDV IV PRN (07:45)
[2017-08-05 08:26] VITALS: BP 140/83
[2017-08-05] MEDS: TOFACITINIB 5 MG PO SCH (09:55)
[2017-08-05] MEDS: DOCUSATE SODIUM 100 MG CAPSULE PO PRN (09:56)
[2017-08-05] MEDS: POTASSIUM CHLORIDE 10 MEQ TABLET.SA PO SCH (09:56)
[2017-08-05] MEDS: PREDNISONE 5 MG TABLET PO SCH (09:56)
[2017-08-05] MEDS: FINASTERIDE 5 MG TABLET PO SCH (09:57)
[2017-08-05] MEDS: DILTIAZEM HCL 120 MG CAP.SR.24H PO SCH (09:57)
[2017-08-05] MEDS: ASPIRIN 81 MG TABLET, CHEWABLE PO SCH (09:57)
[2017-08-05] MEDS: CELECOXIB 200 MG CAPSULE PO SCH (09:58)
[2017-08-05] MEDS: NICOTINE 14 MG/24 HR PATCH.TD24 TD SCH (09:58)
[2017-08-05] MEDS: APIXABAN 5 MG TABLET PO SCH (09:59)
--- NOTE | 2017-08-05 10:42 | PDOC DISCHARGE SUMMARY ---
General - Admit/Disc Date/PCP Admission Date/Primary Care Provider: 08/03/17 17:20 DIONICIO ROWLAND Discharge Date: 08/05/17 - Discharge Diagnosis (1) Atrial fibrillation with rapid ventricular response Is this a current diagnosis for this admission?: Yes (2) Chest pain Is this a current diagnosis for this admission?: Yes (3) Hypokalemia Is this a current diagnosis for this admission?: Yes (4) Leukocytosis Is this a current diagnosis for this admission?: Yes (5) Constipation Is this a current diagnosis for this admission?: Yes (6) Lumbago Is this a current diagnosis for this admission?: Yes (7) Rheumatoid arthritis Is this a current diagnosis for this admission?: Yes (8) BPH (benign prostatic hyperplasia) Is this a current diagnosis for this admission?: Yes (9) Anxiety disorder Is this a current diagnosis for this admission?: Yes (10) DVT prophylaxis Is this a current diagnosis for this admission?: Yes (11) Smoker Is this a current diagnosis for this admission?: Yes - Additional Information Resuscitation Status: Full Code Discharge Activity: Activity As Tolerated Home Medications: Celecoxib [Celebrex 200 mg Capsule] 200 mg PO DAILY 08/03/17 Diazepam [Valium 5 mg Tablet] 5 mg PO DAILYP PRN 08/03/17 Finasteride [Proscar 5 mg Tablet] 5 mg PO DAILY 08/03/17 Linaclotide [Linzess] 290 mcg PO QAM 08/03/17 Oxycodone HCl [Oxy-Ir 5 mg Tablet] 15 mg PO QIDP PRN 08/03/17 Polyethylene Glycol 3350 [Miralax Powder 17 gm/Packet] 17 gm PO DAILYP PRN 08/03 Prednisone [Deltasone 5 mg Tablet] 10 mg PO DAILY 08/03/17 Apixaban [Eliquis 5 mg Tablet] 5 mg PO BID #60 tablet 08/05/17 Aspirin [Aspirin 81 mg Chewable Tablet] 81 mg PO DAILY #30 tab.chew 08/05/17 Diltiazem HCl [Cardizem Cd 120 mg Capsule] 120 mg PO DAILY #30 cap.sr.24h Ondansetron HCl [Zofran 4 mg Tablet] 1 tab PO TID #60 tablet 08/05/17 Potassium Chloride [Klor-Con 10 Meq Tablet.sa] 10 meq PO DAILY #30 tablet.sa 09/11 History of Present Illness History of Present Illness: CHERRY ROLDAN is a 66 year old male with hx of HTN/ A-fib/Rheumatoid arthritis /Back pain/Neck pain/OA/Hep. C/Constipation/BPH/Chronic smoker who started having chest pain. dyspnea, associated with palpaitations, dizziness and nausea this am; he also has worsening constipation. He called EMS and was brought to ER for eval. At ER he was in Afib with RVR and potassium was 3.3. He was given KCL 60 MEQ at ED; was given Cardizem IV and Cardizem drip at 5mg /hr; he is admitted to [facility] for mgt. Hospital Course Hospital Course: 66 year old man who was admitted for A-fib with RVR/Hypokalemia and Chest pain- MA ruled out. He was put on Cardizem drip and eventually switched to cardizem CD 120 mg qd;was started on Eliquis 5 mg BID po.Had potassium replacement and continued on KCL 10 MEQ qd po. Had serial EKG and cardiac enzymes and mI was ruled out. Had ECHO- normal EF and no regional wall motion abnormalities. We appreciate input of yolk spray drier, Dr Park in management of this patient. Amlodipine and Lisinopril/HCTZ were discontinued due to relative hypotension. He is stable and will discharged home today to follow up with PCP and Dr Park within 1 week. Physical Exam Vital Signs: Temp Pulse Resp BP Pulse Ox 97.8 F 81 18 140/83 H 97 08/05/17 07:50 08/05/17 07:50 08/05/17 07:50 08/05/17 07:50 08/05/17 07:50 Intake & Output 08/04/17 08/05/17 08/06/17 06:59 06:59 06:59 Intake Total 1528 Output Total 625 1002 Balance -625 526 Weight 64.5 kg 64.9 kg General appearance: PRESENT: no acute distress, cooperative, well-developed, well-nourished Head exam: PRESENT: atraumatic, normocephalic Eye exam: PRESENT: EOMI, PERRLA Ear exam: PRESENT: normal external ear exam, TM's normal bilaterally Mouth exam: PRESENT: moist, neck supple, tongue midline Neck exam: PRESENT: full ROM Respiratory exam: PRESENT: clear to auscultation karina, symmetrical Cardiovascular exam: PRESENT: +S1, +S2 Pulses: PRESENT: +2 pedal pulses bilateral GI/Abdominal exam: PRESENT: normal bowel sounds, soft Rectal exam: PRESENT: deferred Extremities exam: PRESENT: full ROM Neurological exam: PRESENT: alert, awake, oriented to person, oriented to place , oriented to time Psychiatric exam: PRESENT: normal mood Results Laboratory Results: 08/05/17 04:44 08/05/17 04:44 08/05/17 08/05/17 08/05/17 04:44 04:44 04:50 WBC 9.7 RBC 4.47 Hgb 14.2 Hct 41.5 MCV 93 MCH 31.8 MCHC 34.2 RDW 13.9 Plt Count 265 Sodium 142.4 Potassium 3.7 Chloride 105 Carbon Dioxide 28 Anion Gap 9 BUN 30 H Creatinine 1.05 Est GFR ( Amer) > 60 Est GFR (Non-Af Amer) > 60 Glucose 101 Calcium 9.5 Total Bilirubin 0.6 AST 14 L ALT 27 Alkaline Phosphatase 58 Total Protein 6.6 Albumin 3.6 Urine Color YELLOW Urine Appearance CLEAR Urine pH 5.0 Ur Specific [place] 1.032 Urine Protein NEGATIVE Urine Glucose (UA) NEGATIVE Urine Ketones NEGATIVE Urine Blood NEGATIVE Urine Nitrite NEGATIVE Ur Leukocyte Esterase NEGATIVE Urine WBC (Auto) 2 Urine RBC (Auto) 5 08/03/17 08/03/17 08/04/17 23:10 23:10 05:18 Creatine Kinase 90 74 CK-MB (CK-2) 0.94 Troponin I 0.025 08/04/17 05:18 Creatine Kinase CK-MB (CK-2) 0.82 Troponin I 0.022 Impressions: Acute Abdomen Series 08/03/17 13:12 IMPRESSION: Nonspecific bowel gas pattern. No acute infiltrates. Osteoporosis. Pain pump and left hip hardware as above
--- NOTE | 2017-08-05 19:45 | PDOC PROGRESS REPORT ---
Subjective Progress Note for:: 08/04/17 Subjective:: Patient seems to be doing better with gradual improvement. Pt is denying any chest arm or neck discomfort. Patient denying any PND, orthopnea. Patient denied any sustained palpitations, dizziness, syncope, near syncope. Patient denying any fever chills. Patient denying any other significant discomfort. Patient is maintaining sinus rhythm. Patient had short episode transition to atrial fibrillation, but converted back to sinus rhythm. Review of systems: Rest review of systems negative. Medications: Medications have been reviewed. Physical Exam Vital Signs: Temp Pulse Resp BP Pulse Ox 98.5 F 77 18 81/47 L 96 08/04/17 16:42 08/04/17 19:00 08/04/17 16:42 08/04/17 16:42 08/04/17 16:42 Intake & Output 08/03/17 08/04/17 08/05/17 06:59 06:59 06:59 Intake Total 532 Output Total 625 301 Balance -625 231 Weight 64.5 kg 64.5 kg Exam: GENERAL: well-nourished and in no acute distress. Alert and oriented x3 HEAD: Atraumatic, normocephalic. EYES: Pupils equal round and reactive to light, extraocular movements intact, sclera anicteric, conjunctiva are normal. ENT: TMs normal, nares patent, oropharynx clear without exudates. Moist mucous membranes. No oral ulcerations or bleeding gums noted NECK: supple without lymphadenopathy. Trachea is central. No cervical or axillary lymphadenopathy noted. Carotids are 2+, JVD WNL LUNGS: Respiration seems nonlabored, no significant accessory muscle action noted. Breath sounds clear to auscultation bilaterally and equal noted. No wheezes rales or rhonchi noted. No significant dullness noted on percussion. CHEST: Palpation of the chest wall shows no significant chest wall tenderness. No other significant abnormalities noted. 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 ABDOMEN: Soft, no significant tenderness appreciated, normoactive bowel sounds. No guarding, no rebound. No rigidity noted . No masses appreciated. EXTREMITIES: Pedal pulses are 1-2+, no calf tenderness noted. No clubbing or cyanosis.trace pedal edema noted NEUROLOGICAL: Focused neurological exam showed no significant neurologic deficit. Normal speech, no focal weakness appreciated. PSYCH: Normal mood, normal affect. Judgment and insight within normal limits. SKIN: No significant ecchymosis, rash, ulcerations or signs of pruritus noted. MUSCULOSKELETAL EXAM: No significant joint swelling noted. Osteoarthritic and rheumatoid arthritic changes noted both upper and lower extremity. Results Laboratory Results: 08/04/17 05:18 08/04/17 05:18 08/04/17 08/04/17 08/04/17 05:18 05:18 05:18 WBC 9.5 RBC 4.75 Hgb 14.9 Hct 43.9 MCV 92 MCH 31.4 MCHC 34.0 RDW 13.7 Plt Count 257 Seg Neutrophils % 62.0 Lymphocytes % 25.8 Monocytes % 10.6 Eosinophils % 0.9 Basophils % 0.7 Absolute Neutrophils 5.9 Absolute Lymphocytes 2.4 Absolute Monocytes 1.0 Absolute Eosinophils 0.1 Absolute Basophils 0.1 Sodium 145.0 Potassium 3.8 Chloride 105 Carbon Dioxide 27 Anion Gap 13 BUN 16 Creatinine 1.25 Est GFR ( Amer) > 60 Est GFR (Non-Af Amer) 58 L Glucose 103 Calcium 9.4 Magnesium 2.0 Total Bilirubin 1.2 AST 18 ALT 26 Alkaline Phosphatase 66 Total Protein 6.6 Albumin 3.7 Triglycerides 136 Cholesterol 186.29 LDL Cholesterol Direct 136 H VLDL Cholesterol 27.0 HDL Cholesterol 37 L TSH 5.07 H 08/03/17 08/03/17 08/04/17 23:10 23:10 05:18 Creatine Kinase 90 74 CK-MB (CK-2) 0.94 Troponin I 0.025 08/04/17 05:18 Creatine Kinase CK-MB (CK-2) 0.82 Troponin I 0.022 EKG Comments: Telemetry strips shows patient maintaining sinus rhythm with short transition to atrial fibrillation last night Impressions: Acute Abdomen Series 08/03/17 13:12 IMPRESSION: Nonspecific bowel gas pattern. No acute infiltrates. Osteoporosis. Pain pump and left hip hardware as above Assessment & Plan - Diagnosis (1) Atrial fibrillation with rapid ventricular response Is this a current diagnosis for this admission?: Yes (2) Chest pain Qualifiers: Chest pain type: unspecified Qualified Code(s): R07.9 - Chest pain, unspecified Is this a current diagnosis for this admission?: Yes (3) Hypokalemia Is this a current diagnosis for this admission?: Yes (4) Smoker Is this a current diagnosis for this admission?: Yes (5) Anxiety disorder Qualifiers: Phobia type: social phobia, unspecified Is this a current diagnosis for this admission?: Yes - Notes Notes: Chest pain: Most likely related to supply demand mismatch. No recurrence since heart rate has been well controlled. Will consider a nuclear stress test as an outpatient. Atrial fibrillation with rapid ventricular response: Agree with Cardizem drip. Patient has converted to sinus rhythm. Patient has no other significant risk factors and his chads score seems to be low and possibly at increased risk of bleeding. Feel that just aspirin therapy would be enough. Patient denied any prior history of strokes or mini strokes. Hypokalemia: Recommend replacement therapy. Check magnesium level and replace his hypomagnesemia noted Rheumatoid arthritis: Currently is stable. Tobacco abuse: Patient has been advised to quit smoking. Anxiety disorder: Currently stable. Patient to report any further problems. - Time Time with patient: 15-25 minutes - CODE STATUS was discussed, patient remains full code. Surrogate decision-maker unchanged. Multiple medical problems were addressed. More than 50% of the time spent coordinating care, discussing management plans with involved caregivers. Management plans discussed with involved personnels. Medical decision making was of moderate to high complexity , patient's has multiple comorbidities. Medications reviewed and adjusted accordingly: Yes
--- NOTE | 2017-08-05 19:48 | PDOC PROGRESS REPORT ---
Subjective Progress Note for:: 08/05/17 Subjective:: Patient seems to be doing better with significant improvement. There was no recurrence of atrial fibrillation over the last 24 hours.. Pt is denying any chest arm or neck discomfort. Patient denying any PND, orthopnea. Patient denied any sustained palpitations, dizziness, syncope, near syncope. Patient denying any fever chills. Patient denying any other significant discomfort. Patient is maintaining sinus rhythm. Review of systems: Rest review of systems negative. Medications: Medications have been reviewed. Physical Exam Vital Signs: Temp Pulse Resp BP Pulse Ox 97.8 F 81 18 140/83 H 97 08/05/17 11:14 08/05/17 11:14 08/05/17 11:14 08/05/17 11:14 08/05/17 11:14 Intake & Output 08/04/17 08/05/17 08/06/17 06:59 06:59 06:59 Intake Total 1528 Output Total 625 1002 Balance -625 526 Weight 64.5 kg 64.9 kg Exam: GENERAL: well-nourished and in no acute distress. Alert and oriented x3 HEAD: Atraumatic, normocephalic. EYES: Pupils equal round and reactive to light, extraocular movements intact, sclera anicteric, conjunctiva are normal. ENT: TMs normal, nares patent, oropharynx clear without exudates. Moist mucous membranes. No oral ulcerations or bleeding gums noted NECK: supple without lymphadenopathy. Trachea is central. No cervical or axillary lymphadenopathy noted. Carotids are 2+, JVD WNL LUNGS: Respiration seems nonlabored, no significant accessory muscle action noted. Breath sounds clear to auscultation bilaterally and equal noted. No wheezes rales or rhonchi noted. No significant dullness noted on percussion. CHEST: Palpation of the chest wall shows no significant chest wall tenderness. No other significant abnormalities noted. 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 ABDOMEN: Soft, no significant tenderness appreciated, normoactive bowel sounds. No guarding, no rebound. No rigidity noted . No masses appreciated. EXTREMITIES: Pedal pulses are 1-2+, no calf tenderness noted. No clubbing or cyanosis.trace to 1+ pedal edema noted NEUROLOGICAL: Focused neurological exam showed no significant neurologic deficit. Normal speech, no focal weakness appreciated. PSYCH: Normal mood, normal affect. Judgment and insight within normal limits. SKIN: No significant ecchymosis, rash, ulcerations or signs of pruritus noted. MUSCULOSKELETAL EXAM: No significant joint swelling noted. Rheumatoid arthritic changes noted both both hands. Patient does walk with a cane. Results Laboratory Results: 08/05/17 04:44 08/05/17 04:44 08/05/17 08/05/17 08/05/17 04:44 04:44 04:50 WBC 9.7 RBC 4.47 Hgb 14.2 Hct 41.5 MCV 93 MCH 31.8 MCHC 34.2 RDW 13.9 Plt Count 265 Sodium 142.4 Potassium 3.7 Chloride 105 Carbon Dioxide 28 Anion Gap 9 BUN 30 H Creatinine 1.05 Est GFR ( Amer) > 60 Est GFR (Non-Af Amer) > 60 Glucose 101 Calcium 9.5 Total Bilirubin 0.6 AST 14 L ALT 27 Alkaline Phosphatase 58 Total Protein 6.6 Albumin 3.6 Urine Color YELLOW Urine Appearance CLEAR Urine pH 5.0 Ur Specific [place] 1.032 Urine Protein NEGATIVE Urine Glucose (UA) NEGATIVE Urine Ketones NEGATIVE Urine Blood NEGATIVE Urine Nitrite NEGATIVE Ur Leukocyte Esterase NEGATIVE Urine WBC (Auto) 2 Urine RBC (Auto) 5 08/03/17 08/03/17 08/04/17 23:10 23:10 05:18 Creatine Kinase 90 74 CK-MB (CK-2) 0.94 Troponin I 0.025 08/04/17 05:18 Creatine Kinase CK-MB (CK-2) 0.82 Troponin I 0.022 EKG Comments: Patient noted to be maintaining sinus rhythm. Impressions: Acute Abdomen Series 08/03/17 13:12 IMPRESSION: Nonspecific bowel gas pattern. No acute infiltrates. Osteoporosis. Pain pump and left hip hardware as above Assessment & Plan - Diagnosis (1) Atrial fibrillation with rapid ventricular response Is this a current diagnosis for this admission?: Yes (2) Hypokalemia Is this a current diagnosis for this admission?: Yes (3) Rheumatoid arthritis Qualifiers: Rheumatoid arthritis location: unspecified site Is this a current diagnosis for this admission?: Yes (4) Smoker Is this a current diagnosis for this admission?: Yes (5) Anxiety disorder Qualifiers: Phobia type: social phobia, unspecified Is this a current diagnosis for this admission?: Yes (6) Chest pain Qualifiers: Chest pain type: unspecified Qualified Code(s): R07.9 - Chest pain, unspecified Is this a current diagnosis for this admission?: Yes - Notes Notes: Chest pain: Resolved. No recurrence. Atrial fibrillation with rapid ventricular response: Patient has been switched over to Cardizem. Patient has maintained sinus rhythm for last 24 hours. 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 Agree with this. Hypokalemia: Recommend replacement therapy. Potassium level has normalized. Rheumatoid arthritis: Currently is stable. Tobacco abuse: Patient has been advised to quit smoking. Anxiety disorder: Currently stable. Patient to report any further problems. - Time Time with patient: 15-25 minutes Medications reviewed and adjusted accordingly: Yes
== END 2017-08-05 11:57 | disposition home or self-care (01) | DRG 310 ==
LOC: ER 12:43 → EH 15:42 → UNDOADMIN 15:42 → 3W 17:20 → EH 17:43
PROVIDERS: ADMIT Internal Medicine; ATTEND Internal Medicine
DX: I48.0 Paroxysmal atrial fibrillation (principal); R07.9 Chest pain, unspecified; E83.42 Hypomagnesemia; E87.6 Hypokalemia; I10 Essential (primary) hypertension; I47.1 Supraventricular tachycardia; F41.9 Anxiety disorder, unspecified; M06.9 Rheumatoid arthritis, unspecified; N40.0 Benign prostatic hyperplasia without lower urinary tract symptoms; M54.5 Low back pain; D72.829 Elevated white blood cell count, unspecified; K59.00 Constipation, unspecified; F17.210 Nicotine dependence, cigarettes, uncomplicated
CPT/HCPCS: 36415; 74022; 80053; 80061; 81001; 82550; 82553; 83735; 84443; 84484; 85025; 85027; 93005; 93010; 93306; 99291; G8978-GP; G8979-GP; G8980-GP; G8987-GO; G8988-GO; G8989-GO; J1650; J2405; J3480; J3490; J7512

== ENCOUNTER 2017-10-17 13:27 | Emergency (ER) | payer MEDICARE, MEDICAID ==
[2017-10-17] MEDS ORDERED: PANTOPRAZOLE SODIUM 40 MG VIAL IV ONE (14:08)
[2017-10-17] MEDS ORDERED: DILTIAZEM HCL INJ 25 MG/5 ML VIAL IV ONE (14:09)
[2017-10-17] MEDS ORDERED: PANTOPRAZOLE SODIUM 40 MG VIAL IV PRN (14:14)
[2017-10-17 14:27] LABS: ABSOLUTE BASOPHILS # (AUTO) 0.1 10^3/uL (0.0-0.2); ABSOLUTE MONOCYTES (AUTO) 0.5 10^3/uL (0.1-1.4); ABSOLUTE NEUT (AUTO) 9.4 10^3/uL (1.7-8.2); BASOPHILS % (AUTO) 0.7 % (0-2); EOSINOPHILS % (AUTO) 0.2 % (0-6); HEMATOCRIT 50.2 % (37.9-51.0); HEMOGLOBIN 17.2 g/dL (13.5-17.0); HGB HCT DIFFERENCE 1.4; LYMPHOCYTES % (AUTO) 9.4 % (13-45); MEAN CORPUSCULAR HEMOGLOBIN 31.8 pg (27.0-33.4); MEAN CORPUSCULAR HGB CONC 34.2 g/dL (32.0-36.0); MEAN CORPUSCULAR VOLUME 93 fl (80-97); MONOCYTES % (AUTO) 4.8 % (3-13); RED CELL DISTRIBUTION WIDTH 14.9 % (11.5-14.0); SEGMENTED NEUTROPHILS % (AUTO) 84.9 % (42-78); WHITE BLOOD COUNT 11.1 10^3/uL (4.0-10.5)
[2017-10-17] MEDS: NORMAL SALINE 1000 ML 1,000 ML IV PRN ×2 (14:35→15:05)
[2017-10-17] MEDS: DILTIAZEM HCL/D5W 125 MG/125 ML RTUINJ IV PRN ×2 (14:36→15:06)
[2017-10-17 14:38] LABS: PROTHROMBIN TIME 23.4 SEC (11.4-15.4)
--- NOTE | 2017-10-17 14:41 | ER Document Report ---
ED General - General Chief Complaint: Black/Tarry Stools Stated Complaint: BLOODY STOOL Time Seen by Provider: 10/17/17 13:50 Mode of Arrival: Ambulatory Information source: Patient Notes: 67-year-old male history of atrial fibrillation who is on Xarelto presents with complaints of rectal bleeding. Patient is a bleeding started this morning. He denies any abdominal pain denies any shortness of breath difficulty breathing. Patient does note that the blood in dark red. Patient did take his xarelto this morning TRAVEL OUTSIDE OF THE [place] IN LAST 30 DAYS: No - HPI Onset: Just prior to arrival Onset/Duration: Sudden Quality of pain: No pain Severity: Moderate Pain Level: Denies Associated symptoms: Other Exacerbated by: Denies Relieved by: Denies Similar symptoms previously: Yes Recently seen / treated by doctor: Yes - Related Data Allergies/Adverse Reactions: No Known Allergies Allergy (Verified 08/14/16 09:29) Past Medical History - Social History Smoking Status: Current Every Day Smoker Cigarette use (# per day): Yes Chew tobacco use (# tins/day): No Smoking Education Provided: No Family History: Hypertension - Past Medical History Cardiac Medical History: Reports: Hx Hypertension Denies: Hx Coronary Artery Disease, Hx Heart Attack Pulmonary Medical History: Denies: Hx Asthma, Hx Bronchitis, Hx COPD, Hx Pneumonia, Hx Tuberculosis Neurological Medical History: Denies: Hx Cerebrovascular Accident, Hx Seizures Renal/ Medical History: Denies: Hx Peritoneal Dialysis Musculoskeltal Medical History: Reports Hx Arthritis - rheumatoid arthritis Psychiatric Medical History: Denies: Hx Depression Past Surgical History: Reports: Hx Abdominal Surgery, Hx Orthopedic Surgery - pins in hip. Denies: Hx Pacemaker - Immunizations Hx Diphtheria, Pertussis, Tetanus Vaccination: Yes Review of Systems - Review of Systems Notes: REVIEW OF SYSTEMS: CONSTITUTIONAL : Denies fever, chills, or sweats. Denies recent illness. EENT: Denies eye, ear, throat, or mouth pain or symptoms. Denies nasal or sinus congestion or discharge. Denies throat, tongue, or mouth swelling or difficulty swallowing. CARDIOVASCULAR: Denies chest pain. Denies palpitations or racing or irregular heart beat. Denies ankle edema. RESPIRATORY: Denies cough, cold, or chest congestion. Denies shortness of breath, difficulty breathing, or wheezing. GASTROINTESTINAL: Admits to rectal bleeding GENITOURINARY: Denies difficulty urinating, painful urination, burning, frequency, blood in urine, or discharge. MUSCULOSKELETAL: Denies back or neck pain or stiffness. Denies joint pain or swelling. SKIN: Denies rash, lesions or sores. HEMATOLOGIC : Denies easy bruising or bleeding. LYMPHATIC: Denies swollen, enlarged glands. NEUROLOGICAL: Denies confusion or altered mental status. Denies passing out or loss of consciousness. Denies dizziness or lightheadedness. Denies headache. Denies weakness or paralysis or loss of use of either side. Denies problems with gait or speech. Denies sensory loss, numbness, or tingling. Denies seizures. PSYCHIATRIC: Denies anxiety or stress. Denies depression, suicidal ideation, or homicidal ideation. ALL OTHER SYSTEMS REVIEWED AND NEGATIVE. Dictation was performed using [employer] voice recognition software PHYSICAL EXAMINATION: GENERAL: Well-appearing, well-nourished and in no acute distress. HEAD: Atraumatic, normocephalic. EYES: Pupils equal round and reactive to light, extraocular movements intact, sclera anicteric, conjunctiva are normal. ENT: Nares patent, oropharynx clear without exudates. Moist mucous membranes. NECK: Normal range of motion, supple without lymphadenopathy LUNGS: Breath sounds clear to auscultation bilaterally and equal. No wheezes rales or rhonchi. HEART: A. fib RVR ABDOMEN: Soft, nontender, nondistended abdomen. No guarding, no rebound. No masses appreciated. Bright red rectal blood noted Musculoskeletal: Normal range of motion, no pitting or edema. No cyanosis. NEUROLOGICAL: Cranial nerves grossly intact. Normal speech, normal gait. Normal sensory, motor exams PSYCH: Normal mood, normal affect. SKIN: Warm, Dry, normal turgor, no rashes or lesions noted. Physical Exam - Vital signs Vitals: Temp Pulse Resp BP Pulse Ox 99.3 F 92 14 152/83 H 96 10/17/17 13:39 10/17/17 13:39 10/17/17 13:39 10/17/17 13:39 10/17/17 13:39 Course - Re-evaluation Re-evalutation: Patient is on Xarelto and currently bleeding and has taken his dose today, he is also noted to be in A. fib RVR, Cardizem bolus drip ordered, Protonix bolus drip ordered, 2 L normal saline ordered 10/17/17 14:39 sara astorga paged 10/17/17 15:43 Dr Spivey accepts patient for transfer, request transfusion of blood while patient waits 10/17/17 16:04 - Vital Signs Vital signs: Temp Pulse Resp BP Pulse Ox 99.3 F 92 14 152/83 H 96 10/17/17 13:39 10/17/17 13:39 10/17/17 13:39 10/17/17 13:39 10/17/17 13:39 - Laboratory Result Diagrams: 10/17/17 14:05 10/17/17 14:05 Laboratory results interpreted by me: 10/17/17 10/17/17 10/17/17 14:05 14:05 14:05 WBC 11.1 H Hgb 17.2 H RDW 14.9 H Seg Neutrophils % 84.9 H Lymphocytes % 9.4 L Absolute Neutrophils 9.4 H PT 23.4 H Sodium 145.1 H BUN 28 H Glucose 161 H Calcium 10.6 H ALT 19 L Alkaline Phosphatase 138 H Total Protein 8.3 H Crossmatch 10/17/17 14:05 WBC Hgb RDW Seg Neutrophils % Lymphocytes % Absolute Neutrophils PT Sodium BUN Glucose Calcium ALT Alkaline Phosphatase Total Protein Crossmatch See Detail Critical Care Note - Critical Care Note Total time excluding time spent on procedures (mins): 51 Comments: 51 minutes of critical care time spent in direct contact evaluating and reevaluating the patient, treating symptoms, reviewing labs and studies and speaking with family and consultants excluding any procedures Discharge - Discharge Clinical Impression: Atrial fibrillation with rapid ventricular response, Rectal bleed Condition: Serious Disposition: [facility] Referrals: DIONICIO ROWLAND MD [Primary Care Provider] - Follow up as needed
[2017-10-17 14:46] LABS: ALANINE AMINOTRANSFERASE 19 U/L (21-72); ALBUMIN 4.9 g/dL (3.5-5.0); ALKALINE PHOSPHATASE 138 U/L (38-126); ANION GAP 15 (5-19); ASPARTATE AMINO TRANSFERASE 20 U/L (17-59); BILIRUBIN,DIRECT 0.3 mg/dL (0.0-0.4); BILIRUBIN,TOTAL 0.7 mg/dL (0.2-1.3); BLOOD UREA NITROGEN 28 mg/dL (7-20); CALCIUM 10.6 mg/dL (8.4-10.2); CARBON DIOXIDE 27 mmol/L (22-30); CHLORIDE 103 mmol/L (98-107); CREATININE RESULT 1.04 mg/dL (0.52-1.25); GLUCOSE 161 mg/dL (75-110); POTASSIUM 3.7 mmol/L (3.6-5.0); SODIUM 145.1 mmol/L (137-145); TOTAL PROTEIN 8.3 g/dL (6.3-8.2)
[2017-10-17] MEDS ORDERED: NORMAL SALINE 250 ML IV PRN ×2 (15:42)
[2017-10-17 21:42] LABS: ABSOLUTE LYMPHOCYTES (AUTO) 1.3 10^3/uL (0.5-4.7); ABSOLUTE MONOCYTES (AUTO) 0.8 10^3/uL (0.1-1.4); ABSOLUTE NEUT (AUTO) 7.2 10^3/uL (1.7-8.2); BASOPHILS % (AUTO) 0.4 % (0-2); EOSINOPHILS % (AUTO) 0.5 % (0-6); HEMATOCRIT 41.4 % (37.9-51.0); HGB HCT DIFFERENCE 0.3; LYMPHOCYTES % (AUTO) 13.8 % (13-45); MEAN CORPUSCULAR HEMOGLOBIN 31.2 pg (27.0-33.4); MEAN CORPUSCULAR HGB CONC 33.7 g/dL (32.0-36.0); MEAN CORPUSCULAR VOLUME 93 fl (80-97); MONOCYTES % (AUTO) 8.1 % (3-13); RED BLOOD COUNT 4.46 10^6/uL (4.35-5.55); RED CELL DISTRIBUTION WIDTH 14.4 % (11.5-14.0); SEGMENTED NEUTROPHILS % (AUTO) 77.2 % (42-78); WHITE BLOOD COUNT 9.4 10^3/uL (4.0-10.5)
[2017-10-17 22:26] LABS: HEMOGLOBIN 13.9 g/dL (13.5-17.0)
[2017-10-17 22:47] VITALS: BP 102/65
== END 2017-10-17 23:15 | disposition short-term general hospital (02) ==
LOC: ER 13:27
DX: I48.91 Unspecified atrial fibrillation (principal); R19.5 Other fecal abnormalities; Z79.01 Long term (current) use of anticoagulants; F17.210 Nicotine dependence, cigarettes, uncomplicated
CPT/HCPCS: 96376; 99291; 96365; 96366; 96368; 86900; 86901; 36415; 86850; 85025; 85610; 82272; 80053; 86920; J3490 ×2; C9113; J7030; S0164

== ENCOUNTER 2019-09-26 03:25 | Emergency (ER) | payer MEDICARE, MEDICAID ==
[2019-09-26 04:12] LABS: ABSOLUTE BASOPHILS # (AUTO) 0.1 10^3/uL (0.0-0.2); ABSOLUTE EOSINOPHILS # (AUTO) 0.1 10^3/uL (0.0-0.6); ABSOLUTE LYMPHOCYTES (AUTO) 1.3 10^3/uL (0.5-4.7); ABSOLUTE MONOCYTES (AUTO) 1.2 10^3/uL (0.1-1.4); ABSOLUTE NEUT (AUTO) 7.2 10^3/uL (1.7-8.2); BASOPHILS % (AUTO) 0.7 % (0-2); EOSINOPHILS % (AUTO) 1.3 % (0-6); HEMATOCRIT 43.4 % (37.9-51.0); HEMOGLOBIN 14.7 g/dL (13.5-17.0); LYMPHOCYTES % (AUTO) 13.1 % (13-45); MEAN CORPUSCULAR HEMOGLOBIN 30.7 pg (27.0-33.4); MEAN CORPUSCULAR HGB CONC 33.9 g/dL (32.0-36.0); MEAN CORPUSCULAR VOLUME 91 fl (80-97); MONOCYTES % (AUTO) 12.5 % (3-13); PLATELET COUNT 327 10^3/uL (150-450); RED BLOOD COUNT 4.79 10^6/uL (4.35-5.55); RED CELL DISTRIBUTION WIDTH 14.7 % (11.5-14.0); SEGMENTED NEUTROPHILS % (AUTO) 72.4 % (42-78); TOTAL CELLS COUNTED % (AUTO) 100 %
[2019-09-26 04:27] LABS: APPEARANCE,URINE CLEAR; BILIRUBIN,URINE NEGATIVE (NEGATIVE); COLOR,URINE COLORLESS; GLUCOSE, URINE NEGATIVE (NEGATIVE); KETONES,URINE NEGATIVE (NEGATIVE); LEUKOCYTE ESTERASE,URINE NEGATIVE (NEGATIVE); NITRITE,URINE NEGATIVE (NEGATIVE); PROTEIN,URINE NEGATIVE (NEGATIVE); URINE SPECIFIC GRAVITY 1.005; UROBILINOGEN,URINE NEGATIVE mg/dL (<2.0)
[2019-09-26 04:34] LABS: ALBUMIN 4.8 g/dL (3.5-5.0); ALKALINE PHOSPHATASE 82 U/L (38-126); ANION GAP 12 (5-19); ASPARTATE AMINO TRANSFERASE 37 U/L (17-59); BILIRUBIN,DIRECT 0.2 mg/dL (0.0-0.4); BILIRUBIN,TOTAL 0.9 mg/dL (0.2-1.3); BLOOD UREA NITROGEN 12 mg/dL (7-20); CALCIUM 10.4 mg/dL (8.4-10.2); CARBON DIOXIDE 33 mmol/L (22-30); CHLORIDE 96 mmol/L (98-107); GLUCOSE 136 mg/dL (75-110); POTASSIUM 3.7 mmol/L (3.6-5.0); TOTAL PROTEIN 8.6 g/dL (6.3-8.2)
[2019-09-26] MEDS ORDERED: KETOROLAC TROMETHAMINE INJ/PF 30 MG/1 ML SDV IV ONE (04:52)
[2019-09-26] MEDS ORDERED: MAGNESIUM CITRATE 296 ML BOTTLE PO ONE (05:01)
--- NOTE | 2019-09-26 05:05 | RADIOLOGY REPORT (SQ) ---
EXAM DESCRIPTION: XR ABDOMEN 1 VIEW (KUB) COMPLETED DATE/TME: 09/26/2019 04:12 CLINICAL HISTORY: 68 years, Male, pain and constipation COMPARISON: None. NUMBER OF VIEWS: 1 TECHNIQUE: AP abdomen LIMITATIONS: None. FINDINGS: Catheter projects over the lower thoracic spine. The bowel gas pattern is nonspecific. Osteopenia. Large amount of stool in the colon. Post surgical change left hip IMPRESSION: Abundant stool in the colon copyright 2010 [employer]- All Rights Reserved
--- NOTE | 2019-09-26 05:06 | ER Document Report ---
HPI - HPI Time Seen by Provider: 09/26/19 04:10 Pain Level: 5 Context: 68-year-old male on a chronic morphine subcutaneous LOG DECK TENDER with PRN oxycodone that he takes multiple times a day presents to the emergency department with constipation x3 days. Patient states last bowel movement was very little. Patient is passing gas. Patient denies any fevers, denies any nausea or vomiting, is able to tolerate oral intake, no bloody stools or bloody diarrhea. No other complaints - CONSTITUTIONAL Constitutional: DENIES: Fever, Chills - REPRODUCTIVE Reproductive: DENIES: : Past Medical History - Social History Smoking Status: Current Every Day Smoker Frequency of alcohol use: None Drug Abuse: None Family History: Hypertension Patient has suicidal ideation: No Patient has homicidal ideation: No - Past Medical History Cardiac Medical History: Reports: Hx Atrial Fibrillation - with RVR, Hx Hypertension Denies: Hx Coronary Artery Disease, Hx Heart Attack Pulmonary Medical History: Denies: Hx Asthma, Hx Bronchitis, Hx COPD, Hx Pneumonia, Hx Tuberculosis Neurological Medical History: Denies: Hx Cerebrovascular Accident, Hx Seizures Renal/ Medical History: Denies: Hx Peritoneal Dialysis Musculoskeletal Medical History: Reports Hx Arthritis - rheumatoid arthritis Psychiatric Medical History: Denies: Hx Depression Past Surgical History: Reports: Hx Abdominal Surgery, Hx Orthopedic Surgery - pins in hip. Denies: Hx Pacemaker - Immunizations Hx Diphtheria, Pertussis, Tetanus Vaccination: Yes Vertical Provider Document - CONSTITUTIONAL Notes: PHYSICAL EXAMINATION: Reviewed vital signs and charting by RN GENERAL: Alert, interacts well. Lactic HEAD: Normocephalic, atraumatic. EYES: Pupils equal and round. Extraocular movements intact. ENT: Oral mucosa moist, tongue midline. NECK: Full range of motion. Trachea midline. LUNGS: Clear to auscultation bilaterally, no wheezes, rales, or rhonchi. No respiratory distress. HEART: Regular rate and rhythm. No murmur ABDOMEN: soft, non-tender. Subcutaneous LOG DECK TENDER pump protruding from the right lower quadrant no distention. Bowel sounds present EXTREMITIES: Moves all 4 extremities spontaneously. No edema, No cyanosis. PSYCH: Normal affect, normal mood. SKIN: Warm, dry, normal turgor. No rashes or lesions noted. - INFECTION CONTROL TRAVEL OUTSIDE OF THE [place] IN LAST 30 DAYS: No Course - Re-evaluation Re-evalutation: 09/26/19 05:04 Overall nontoxic-appearing. Patient is passing gas and a KUB was obtained it did not show any air-fluid levels but showed moderate constipation. 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 I have very low suspicion for any other acute intra-abdominal pathology and do not feel we need to do any advanced imaging at this point. I am going to give him a bottle of magnesium citrate and have instructed him on MiraLAX use. I also instructed him to follow-up with his primary doctor in the next 24 to 48 hours to discuss Relistor prescription. He is stable for discharge. - Vital Signs Vital signs: Temp Pulse Resp BP Pulse Ox 97.7 F 88 22 H 190/108 H 99 09/26/19 03:33 09/26/19 03:33 09/26/19 03:33 09/26/19 03:33 09/26/19 03:33 - Laboratory Result Diagrams: 09/26/19 03:50 09/26/19 03:50 Laboratory results interpreted by me: 09/26/19 09/26/19 09/26/19 03:50 03:50 03:50 RDW 14.7 H Chloride 96 L Carbon Dioxide 33 H Glucose 136 H Calcium 10.4 H Total Protein 8.6 H Lipase 15.6 L Urine Blood MODERATE H Discharge - Discharge Clinical Impression: Therapeutic opioid-induced constipation (OIC) Condition: Good Disposition: HOME, SELF-CARE Additional Instructions: You are constipated. The x-ray was reassuring and there were no air-fluid levels to be concerned about a bowel obstruction. Also you are passing gas. Please chicken picker some [id number] MiraLAX and start taking it per directions on the bottle. Also, follow-up with your primary doctor in the next 24 to 48 hours. Please return if you develop severe abdominal pain and are unable to pass gas, your abdomen becomes extremely rigid, you have intractable nausea or vomiting, or you have any other concerning symptoms. Referrals: DIONICOI ROWLAND MD [Primary Care Provider] - 09/26/19
[2019-09-26 08:36] VITALS: BP 169/89
== END 2019-09-26 10:00 | disposition home or self-care (01) ==
LOC: ER 03:25
DX: K59.03 Drug induced constipation (principal); Z79.899 Other long term (current) drug therapy; F17.200 Nicotine dependence, unspecified, uncomplicated; I48.91 Unspecified atrial fibrillation; I10 Essential (primary) hypertension
CPT/HCPCS: 99284; 96374; 36415; 83690; 85025; 80053; 81001; 74018; A9270; J1885; J3490

== ENCOUNTER 2019-10-14 11:45 | Emergency (ER) | payer MEDICARE, MEDICAID ==
--- NOTE | 2019-10-14 12:25 | ER Document Report ---
ED Medical Screen (RME) - General Chief Complaint: Black/Tarry Stools Stated Complaint: DARK STOOL Time Seen by Provider: 10/14/19 12:20 Primary Care Provider: DIONICIO ROWLAND MD [Primary Care Provider] - Follow up as needed Mode of Arrival: Wheelchair Information source: Patient Notes: 69-year-old male presented to ED for complaint of achy crampy lower pain in his abdomen with nausea and black tarry stools. He has a history of GI bleed. He states that the dark stools have been for a while he just noticed the more this morning as they were darker. Patient is alert oriented respirations regular nonlabored speaking in full sentences. He states he does not know what his diagnosis was last time he had bloody stools. He denies colon cancer or diverticulitis. He states he does have COPD. I have greeted and performed a rapid initial assessment of this patient. A comprehensive ED assessment and evaluation of the patient, analysis of test results and completion of medical decision making process will be conducted by an additional ED providers. He has a history of: TRAVEL OUTSIDE OF THE [place] IN LAST 30 DAYS: No - Related Data Allergies/Adverse Reactions: No Known Allergies Allergy (Verified 08/14/16 09:29) Past Medical History - Social History Cigarette use (# per day): Yes - 15 cigarettes a day any alcohol Lives with: Friend - He has a history of - Past Medical History Cardiac Medical History: Reports: Hx Atrial Fibrillation - with RVR, Hx Hypercholesterolemia, Hx Hypertension Pulmonary Medical History: Reports: None EENT Medical History: Reports: None Neurological Medical History: Reports: None Endocrine Medical History: Reports: None Renal/ Medical History: Reports: Other - Acute renal failure last week Malignancy Medical History: Reports None GI Medical History: Reports: Hx Colonoscopy, Hx Endoscopy, Other - GI bleed last colonoscopy Musculoskeltal Medical History: Reports Hx Arthritis - rheumatoid arthritis Skin Medical History: Reports None Psychiatric Medical History: Reports: None Traumatic Medical History: Reports: None Infectious Medical History: Reports: None Past Surgical History: Reports: Hx Orthopedic Surgery - pins in hip, neck fusion, Other - Morphine pump placement - Immunizations Hx Diphtheria, Pertussis, Tetanus Vaccination: Yes Physical Exam - Vital signs Vitals: Temp Pulse Resp BP Pulse Ox 97.7 F 72 16 106/50 L 90 L 10/14/19 12:16 10/14/19 12:16 10/14/19 12:16 10/14/19 12:16 10/14/19 12:16 Course - Vital Signs Vital signs: Temp Pulse Resp BP Pulse Ox 97.7 F 72 16 106/50 L 90 L 10/14/19 12:16 10/14/19 12:16 10/14/19 12:16 10/14/19 12:16 10/14/19 12:16 Doctor's Discharge - Discharge Referrals: DIONICIO ROWLAND MD [Primary Care Provider] - Follow up as needed
[2019-10-14] MEDS ORDERED: NORMAL SALINE 500 ML IV ONE (12:27)
--- NOTE | 2019-10-14 13:39 | ER Document Report ---
ED General - General Chief Complaint: Black/Tarry Stools Stated Complaint: DARK STOOL Time Seen by Provider: 10/14/19 12:20 Primary Care Provider: DIONICIO ROWLAND MD [Primary Care Provider] - Follow up as needed Mode of Arrival: Wheelchair TRAVEL OUTSIDE OF THE [place] IN LAST 30 DAYS: No - HPI Notes: 69 year old male to the ED with C/O black tarry stool that has been present for sometime, but got much deeper in color this AM. Patient states he has some intermittent lower abdominal pain but nothing significant in pain. States he has had a GI bleed in the past and had a recent colonoscopy but he is not sure when or who did that colonoscopy. Denies fevers, chills. Does admit to dizziness and weakness but denies syncope. Denies CP or SOB. He is on Eliquis 5 mg BID and on daily aspirin. States he has had increase in stool production today but denies any diarrhea. - Related Data Allergies/Adverse Reactions: No Known Allergies Allergy (Verified 10/14/19 12:20) Past Medical History - General Information source: Patient - Social History Smoking Status: Current Every Day Smoker Cigarette use (# per day): Yes - 15 cigarettes a day any alcohol Lives with: Friend - He has a history of Family History: Hypertension Patient has suicidal ideation: No Patient has homicidal ideation: No - Past Medical History Cardiac Medical History: Reports: Hx Atrial Fibrillation - with RVR, Hx Hypercholesterolemia, Hx Hypertension Pulmonary Medical History: Reports: None EENT Medical History: Reports: None Neurological Medical History: Reports: None Endocrine Medical History: Reports: None Renal/ Medical History: Reports: Other - Acute renal failure last week Malignancy Medical History: Reports None GI Medical History: Reports: Hx Colonoscopy, Hx Endoscopy, Other - GI bleed last colonoscopy Musculoskeletal Medical History: Reports Hx Arthritis - rheumatoid arthritis Skin Medical History: Reports None Psychiatric Medical History: Reports: None Traumatic Medical History: Reports: None Infectious Medical History: Reports: None Past Surgical History: Reports: Hx Orthopedic Surgery - pins in hip, neck f usion, Other - Morphine pump placement - Immunizations Hx Diphtheria, Pertussis, Tetanus Vaccination: Yes Review of Systems - Review of Systems Constitutional: denies: Chills, Fever EENT: No symptoms reported Cardiovascular: denies: Chest pain, Palpitations, Heart racing, Orthopnea, Dyspnea, Syncope, Dizziness, Lightheaded Respiratory: denies: Cough, Short of breath Gastrointestinal: See HPI, Abdominal pain, Black stools. denies: Diarrhea, Nausea, Vomiting Genitourinary: No symptoms reported Male Genitourinary: No symptoms reported Musculoskeletal: No symptoms reported Skin: No symptoms reported Hematologic/Lymphatic: No symptoms reported Neurological/Psychological: No symptoms reported -: Yes All other systems reviewed and negative Physical Exam - Vital signs Vitals: Temp Pulse Resp BP Pulse Ox 97.7 F 72 16 106/50 L 90 L 10/14/19 12:16 10/14/19 12:16 10/14/19 12:16 10/14/19 12:16 10/14/19 12:16 Interpretation: Normal - General General appearance: Appears well, Alert In distress: None - HEENT Head: Normocephalic, Atraumatic Eyes: Normal Pupils: PERRL - Respiratory Respiratory status: No respiratory distress Chest status: Nontender Breath sounds: Normal. No: Rales, Rhonchi, Stridor, Wheezing Chest palpation: Normal - Cardiovascular Rhythm: Regular Heart sounds: Normal auscultation Murmur: No - Abdominal Inspection: Normal Distension: No distension Bowel sounds: Normal Tenderness: Nontender. No: Tender, McBurney's point, Eagle's sign, Guarding, Rebound Organomegaly: No organomegaly, Mass - morphine pump to the right lower quadrant - Rectal Stool: Other - stool provided -- it is dark in color. no amanda bright red blood. - Skin Skin Temperature: Warm Skin Moisture: Dry Skin Color: Ecchymosis - several areas of ecchymosis to the arms, neck. Course - Re-evaluation Re-evalutation: 10/14/[address] Casey. He suggest going ahead and covering patient for possible pneumonia and hospital-acquired. Will place phone call for [facility] for transfer for GI coverage since we do not have GI superintendent radio communications for GI bleed. Spoke with Dr. Broussard, hospitalist for [facility]. He is aware of patient's H&H, positive fecal occult test, black tarry stool, Eliquis 5 mg twice daily, aspirin. He did request for an NG tube to be placed in a Gastroccult but patient could not tolerate. Also discussed CT findings with him with leukocytosis and recent discharge from the hospital. Concern for possible pneumonia. He agrees with plan for giving Zosyn and vancomycin for hospital-a cquired pneumonia. He accepts patient to his service and request that a demographics sheet as well as a complete transfer summary be sent to [facility]. We will also send a disc for his CT. Updated patient about the plan. He agrees with the plan. Dr. Casey, ER attending agrees with the plan. IMpression: GI bleed on eliquis and ASA daily, anemia. Possible pneumonia on CT of the abdomen with leukocytosis and left shift. Will transfer to [facility] in [place], predominantly for the capability to have GI consultation. Dr. Kingsley Broussard is the accepting physician. - Vital Signs Vital signs: Temp Pulse Resp BP Pulse Ox 97.7 F 72 20 117/73 95 10/14/19 12:20 10/14/19 12:20 10/14/19 17:00 10/14/19 16:02 10/14/19 20:00 - Laboratory Result Diagrams: 10/14/19 14:20 10/14/19 14:20 Laboratory results interpreted by me: 10/14/19 10/14/19 10/14/19 14:20 14:20 14:29 WBC 15.2 H RBC 3.35 L Hgb 10.2 L Hct 30.6 L RDW 15.3 H Seg Neuts % (Manual) 92 H Band Neutrophils % 1 L Lymphocytes % (Manual) 2 L Abs Neuts (Manual) 14.1 H Abs Lymphs (Manual) 0.3 L Carbon Dioxide 32 H BUN 24 H Glucose 128 H AST 14 L Total Protein 5.8 L Albumin 3.2 L Urine Glucose (UA) 50 H Urine Ketones TRACE H Urine Blood SMALL H Urine Urobilinogen 4.0 H - Diagnostic Test Radiology reviewed: Image reviewed, Reports reviewed Discharge - Discharge Clinical Impression: Leukocytosis GI bleed Qualifiers: GI bleed type/associated pathology: unspecified gastrointestinal hemorrhage type Qualified Code(s): K92.2 - Gastrointestinal hemorrhage, unspecified Pneumonia Qualifiers: Pneumonia type: due to unspecified organism Condition: Stable Disposition: [facility] Referrals: DIONICIO ROWLAND MD [Primary Care Provider] - Follow up as needed
[2019-10-14] MEDS ORDERED: PANTOPRAZOLE SODIUM 40 MG VIAL IV ONE (13:51)
[2019-10-14] MEDS ORDERED: PANTOPRAZOLE SODIUM 40 MG VIAL IV PRN (13:51)
[2019-10-14 14:41] LABS: HEMATOCRIT 30.6 % (37.9-51.0); HEMOGLOBIN 10.2 g/dL (13.5-17.0); MEAN CORPUSCULAR HEMOGLOBIN 30.3 pg (27.0-33.4); MEAN CORPUSCULAR HGB CONC 33.2 g/dL (32.0-36.0); MEAN CORPUSCULAR VOLUME 91 fl (80-97); PLATELET COUNT 282 10^3/uL (150-450); RED BLOOD COUNT 3.35 10^6/uL (4.35-5.55); RED CELL DISTRIBUTION WIDTH 15.3 % (11.5-14.0); WHITE BLOOD COUNT 15.2 10^3/uL (4.0-10.5)
[2019-10-14 14:53] LABS: APPEARANCE,URINE CLEAR; BILIRUBIN,URINE NEGATIVE (NEGATIVE); COLOR,URINE YELLOW; GLUCOSE, URINE 50 mg/dL (NEGATIVE); KETONES,URINE TRACE mg/dL (NEGATIVE); PROTEIN,URINE NEGATIVE (NEGATIVE); URINE SPECIFIC GRAVITY 1.014
[2019-10-14 15:04] LABS: ALBUMIN 3.2 g/dL (3.5-5.0); ALKALINE PHOSPHATASE 52 U/L (38-126); ANION GAP 7 (5-19); ASPARTATE AMINO TRANSFERASE 14 U/L (17-59); BILIRUBIN,DIRECT 0.3 mg/dL (0.0-0.4); BILIRUBIN,TOTAL 0.7 mg/dL (0.2-1.3); BLOOD UREA NITROGEN 24 mg/dL (7-20); CALCIUM 8.9 mg/dL (8.4-10.2); CARBON DIOXIDE 32 mmol/L (22-30); CHLORIDE 99 mmol/L (98-107); GLUCOSE 128 mg/dL (75-110); POTASSIUM 4.4 mmol/L (3.6-5.0); TOTAL PROTEIN 5.8 g/dL (6.3-8.2)
[2019-10-14 15:05] LABS: ABSOLUTE LYMPHOCYTES# (MANUAL) 0.3 10^3/uL (0.5-4.7); ABSOLUTE MONOCYTES # (MANUAL) 0.8 10^3/uL (0.1-1.4); ANISOCYTOSIS SLIGHT; BAND NEUTROPHILS % (MANUAL) 1 % (3-5); BASOPHILS % (MANUAL) 0 % (0-2); EOSINOPHILS % (MANUAL) 0 % (0-6); LYMPHOCYTES % (MANUAL) 2 % (13-45); MONOCYTES % (MANUAL) 5 % (3-13); SEGMENTED NEUTROPHILS % (MAN) 92 % (42-78); TOTAL CELLS COUNTED 100
[2019-10-14 15:06] LABS: PLATELET COMMENT ADEQUATE
--- NOTE | 2019-10-14 16:49 | RADIOLOGY REPORT (SQ) ---
EXAM DESCRIPTION: CT ABD/PELVIS WITH IV ONLY COMPLETED DATE/TIME: 10/14/2019 4:25 pm REASON FOR STUDY: low abd pain, tarry stools, leukocytosis COMPARISON: None. TECHNIQUE: CT scan of the abdomen and pelvis performed using helical scanning technique with dynamic intravenous contrast injection. No oral contrast. Images reviewed with lung, soft tissue, and bone windows. Reconstructed coronal and sagittal MPR images reviewed. Delayed images for evaluation of the urinary system also acquired. All images stored on PACS. All CT scanners at this facility use dose modulation, iterative reconstruction, and/or weight based d osing when appropriate to reduce radiation dose to as low as reasonably achievable (ALARA). [facility]: Dose Right [facility]: CareDose [facility]: Dose Right [facility]: Teradose 4D [facility]: [employer] CONTRAST TYPE AND DOSE: Contrast/concentration: Isovue 350.00 mg/ml; Total Contrast Delivered: 70.0 ml; Total Saline Delivered: 54.8 ml RENAL FUNCTION: Creatinine 0.84 milligrams/deciliter RADIATION DOSE: CT Rad equipment meets quality standard of care and radiation dose reduction techniq ues were employed. CTDIvol: 6.7 - 9.4 mGy. DLP: 802 mGy-cm.. LIMITATIONS: None. FINDINGS: LOWER CHEST: The heart is enlarged and there is severe atherosclerotic calcification of th e coronary arteries. There is no pericardial effusion. There are small bilateral pleural effusions associated with patchy areas of consolidation in the lower lobes that could represent either atelecta sis or pneumonia. There is a calcified granuloma in the left lower lobe (image 6 of series 3). LIVER: The morphology of the liver is non cirrhotic. The subcentimeter hypodensities within segments 3 and 7 of the liver that measure less than 10 mm are too small to characterize. The portal veins a re patent. There is no hepatic mass. SPLEEN: No splenomegaly or splenic mass. PANCREAS: No abnormality of the pancreas. GALLBLADDER: Mild thickening of the gallbladder wall. The intra- and extrahepatic bile ducts are nor mal in caliber. ADRENAL GLANDS: No mass or asymmetry. RIGHT KIDNEY AND URETER: The subcentimeter hypodense lesion that projects from the posterior cortex o f the lower pole (image 37 of series 3) is too small to characterize. There is a 3 mm calculus withi n an interpolar calyx. There is no associated hydronephrosis, hydroureter or ureterolithiasis. LEFT KIDNEY AND URETER: Dilated extrarenal pelvis. There is a 3 mm calcification in the ureterovesic ular junction (image 32 of 601 and 37 of series 3). AORTA AND VESSELS: No aneurysm or dissection of the abdominal aorta. RETROPERITONEUM: No retroperitoneal adenopathy, hemorrhage or mass. BOWEL AND PERITONEAL CAVITY: Colonic diverticulosis without other associated ancillary findings to in dicate an acute diverticulitis. There is no bowel obstruction, bowel wall thickening, or pericolonic / perienteric inflammation. There is no mesenteric adenopathy, free intraperitoneal fluid or mesente martine/ omental inflammation. APPENDIX: Normal. PELVIS: The urinary bladder is partially distended. The prostate gland measures 3.6 cm in transvers e diameter. ABDOMINAL WALL: The generator pack of a spinal stimulator is located in the right ventral abdomen. There is anasarca. BONES: No acute findings. OTHER: No other finding. IMPRESSION: 1. Cardiomegaly with findings of volume overload including anasarca and bilateral pleura l effusions. As stated above, the patchy areas of consolidation in the lower lobes could represent e ither atelectasis or pneumonia - clinical correlation is recommended. 2. 3 mm calculus in the ureterovesicular junction associated with mild dilatation of the extrarenal pelvis ; the renal calices are nondilated. 3. Thickening of the gallbladder wall is nonspecific and could be related to the generalized volume overload. 4. Colonic diverticulosis without diverticulitis. TECHNICAL DOCUMENTATION: JOB ID: [id number] Quality ID # [id number]: Final reports with documentation of one or more dose reduction techniques (e.g., Au tomated exposure control, adjustment of the mA and/or kV according to patient size, use of iterative reconstruction technique) 2010 [employer]- All Rights Reserved Reading location - IP/workstation name: [email or web address]
[2019-10-14] MEDS ORDERED: PHARMACY COMMUNICATION ORDER MC NR (19:15)
[2019-10-14] MEDS ORDERED: PIPERACILLIN/TAZOBACTAM 3.375 GM VIAL IV ONE (20:20)
[2019-10-14] MEDS ORDERED: VANCOMYCIN HCL INJ 1000 MG VIAL IV ONE (21:00)
[2019-10-14 22:06] VITALS: BP 114/62
== END 2019-10-14 22:21 | disposition short-term general hospital (02) ==
LOC: ER 11:45
DX: K92.2 Gastrointestinal hemorrhage, unspecified (principal); D64.9 Anemia, unspecified; R58 Hemorrhage, not elsewhere classified; J18.9 Pneumonia, unspecified organism; D72.829 Elevated white blood cell count, unspecified; R10.30 Lower abdominal pain, unspecified; Z98.890 Other specified postprocedural states; R42 Dizziness and giddiness; R53.1 Weakness; F17.210 Nicotine dependence, cigarettes, uncomplicated; I10 Essential (primary) hypertension; I48.91 Unspecified atrial fibrillation; Z79.01 Long term (current) use of anticoagulants; Z79.82 Long term (current) use of aspirin
CPT/HCPCS: 99285; 96365; 96366; 96368; 86900; 86901; 36415; 87040; 87045; 89055; 87205; 86850; 85025; 87077; 80053; 81001; 87150 ×26; 74177; C9113; J7040; J3370; J2543; 87186

== ENCOUNTER 2020-01-19 04:58 | Inpatient (IN) | payer MEDICARE, MEDICAID ==
--- NOTE | 2020-01-19 05:15 | ER Document Report ---
ED General - General Chief Complaint: Low Blood Pressure Stated Complaint: HYPOTENSION Time Seen by Provider: 01/19/20 05:06 Notes: Patient is a 69-year-old male that comes emergency department for chief complaint of generalized weakness. He comes by EMS. EMS reports that family stated that for the past several days he has been very weak and has no energy, they also state that he has barely been eating or drinking anything at all. On arrival EMS found patient to have hypotension with initial blood pressure of 70/50, patient was given a bolus of lactated Ringer's reportedly, after the bolus his blood pressure did normalize. Patient denies any pain, fever, vomiting, abdominal pain, or any other complaints. He denies bloody stools. Patient does have history of A. fib, hypertension, rheumatoid arthritis with chronic pain including morphine pump in the lower abdominal wall on the right. He is also on oxycodone 20 mg 4 times daily. He is on Eliquis for afib. TRAVEL OUTSIDE OF THE [place] IN LAST 30 DAYS: No - Related Data Allergies/Adverse Reactions: No Known Allergies Allergy (Verified 10/14/19 12:20) Past Medical History - General Information source: Patient, Emergency Med Personnel - Social History Smoking Status: Unknown if Ever Smoked Frequency of alcohol use: None Drug Abuse: None Lives with: Family Family History: Hypertension - Past Medical History Cardiac Medical History: Reports: Hx Atrial Fibrillation - with RVR, Hx Hypercholesterolemia, Hx Hypertension GI Medical History: Reports: Hx Colonoscopy, Hx Endoscopy Musculoskeletal Medical History: Reports Hx Arthritis - rheumatoid arthritis Past Surgical History: Reports: Hx Orthopedic Surgery - pins in hip, neck fusion, Other - Morphine pump placement - Immunizations Hx Diphtheria, Pertussis, Tetanus Vaccination: Yes Review of Systems - Review of Systems Constitutional: See HPI EENT: No symptoms reported Cardiovascular: See HPI Respiratory: No symptoms reported Gastrointestinal: No symptoms reported Genitourinary: No symptoms reported Male Genitourinary: No symptoms reported Musculoskeletal: No symptoms reported Skin: No symptoms reported Hematologic/Lymphatic: No symptoms reported Neurological/Psychological: No symptoms reported Physical Exam - Vital signs Vitals: Resp 15 01/19/20 05:05 - Notes Notes: GENERAL: Slightly sluggish but does not appear to be in distress. Cooperative. HEAD: Normocephalic, atraumatic. EYES: Pupils equal, round, and reactive to light. Extraocular movements intact. ENT: Oral mucosa moist, tongue midline. Oropharynx unremarkable. Airway patent. LUNGS: Clear to auscultation bilaterally, no wheezes, rales, or rhonchi. No respiratory distress. HEART: Regular rate and rhythm. No murmur ABDOMEN: Soft, non-tender. Non-distended. Morphine pump in place in the right midabdomen. EXTREMITIES: Moves all 4 extremities spontaneously. No edema, normal radial and dorsalis pedis pulses bilaterally. No cyanosis. BACK: no cervical, thoracic, lumbar midline tenderness. No saddle anesthesia, normal distal neurovascular exam. Moves all extremities in full range of motion. NEUROLOGICAL: Alert and oriented x3. Normal speech. Cranial nerves II through XII grossly intact. PSYCH: Slightly irritable but cooperative SKIN: Warm, dry, normal turgor. Course - Re-evaluation Re-evalutation: Patient is alert, asymptomatic, well-appearing. After IV fluid bolus from EMS patient's blood pressure is normal. He will be monitored, work-up pending. 01/19/20 We are having difficulty obtaining good IV access and lab workup, work-up still pending. 01/19/20 06:30 I noticed on the monitor that patient suddenly dropped into the 60s systolic. I reevaluated patient at bedside, he is slightly more sluggish but he is still alert and talkative. He denies any symptoms. He is not diaphoretic. This was rechecked on the monitor and confirmed, rechecked manually and his manual blood pressure is 68 systolic. Patient placed in Trendelenburg, I placed an additional IV, giving IV fluid bolus. Patient states that he probably "took an extra one of my medications". He states he is unsure if he took the morning or evening one and he is unable to tell me which when he might of taken extra for, he states he has done this in the past and gets confused. Unfortunately patient is both on calcium channel amador and beta-blockers in addition to the opiates. 01/19/20 06:36 Recycled blood pressure is 87 systolic. Patient is improving with IV fluid resuscitation. Unfortunately initial labs hemolyzed with chemistry, still pending. Chest x-ray unremarkable. 01/19/20 07:24 Patient's blood pressure did drop back down into the 60s systolic. He remained alert and interactive, he did not report any symptoms. Heart rate did not change. We lost 2 more peripheral IVs. Because he was not respond IV fluids, discussed with Dr. Dickerson, will place central line (will place femoral because patient is on Eliquis), will start on Levophed and admit to the ICU for suspected beta-amador and calcium channel amador overdose causing hypotension. Patient was noted to have very flat blood vessels during central line placement, we will continue IV fluid resuscitation. 01/19/20 07:30 Systolic blood pressure is 102 on vasopressor, patient is much more alert, he states he feels much better. Updated Dr. Dickerson unfortunately labs are still pending, however I will discuss with ICU financial supervisor for additional recommendations. 01/19/20 07:[address] Denson, financial supervisor, patient accepted to his service. 01/19/20 08:[address] Denson back, updated him on chemistry findings including cre atinine of greater than 6 which was previously normal. - Vital Signs Vital signs: Temp Pulse Resp BP Pulse Ox 12 102/68 99 01/19/20 08:01 01/19/20 08:01 01/19/20 08:01 - Laboratory Result Diagrams: 01/19/20 05:20 01/19/20 07:20 Laboratory results interpreted by me: 01/19/20 01/19/20 01/19/20 05:20 07:20 07:20 WBC 12.7 H RDW 15.3 H Lymph % (Auto) 12.0 L Absolute Neuts (auto) 9.6 H VBG pH VBG pCO2 Sodium 133.0 L Chloride 94 L BUN 66 H Creatinine 6.07 H Est GFR ( Amer) 11 L Est GFR (MDRD) Non-Af 9 L Glucose 114 H Lactic Acid 0.6 L Direct Bilirubin 0.5 H Total Protein 5.9 L Albumin 3.1 L 01/19/20 07:20 WBC RDW Lymph % (Auto) Absolute Neuts (auto) VBG pH 7.19 L* VBG pCO2 77.3 H* Sodium Chloride BUN Creatinine Est GFR ( Amer) Est GFR (MDRD) Non-Af Glucose Lactic Acid Direct Bilirubin Total Protein Albumin Procedures - Central Line Right Femoral Consent obtained: Yes - verbal Central line pre-insertion: Sterile PPE donned, Chloraprep applied, Sterile drapes applied Central line lumen type: Triple Anesthetic type: 1% Lidocaine mL's of anesthesia: 4 Ultrasound guided: Yes Line secured with sutures: Yes Central line post-insertion: Blood return from lumens - left only, all flush easily, Biopatch applied, Sutured, Sterile dressing applied Number of attempts: 1 Complications: No Critical Care Note - Critical Care Note Total time excluding time spent on procedures (mins): 40 - hypotension, acute renal failure Comments: Please allow 40 minutes of critical care time for management of patient with severe hypotension requiring IV fluid resuscitation, vasopressor. Patient with acute renal failure. Multiple re-evaluations performed. Time spent discussing with patient and in consultation and admission to the ICU. Discharge - Discharge Clinical Impression: Generalized weakness Hypotension Qualifiers: Hypotension type: unspecified hypotension type Qualified Code(s): I95.9 - Hypotension, unspecified Acute renal failure Qualifiers: Acute renal failure type: unspecified Qualified Code(s): N17.9 - Acute kidney failure, unspecified Condition: Serious Disposition: ADMITTED INPATIENT Admitting Provider: Dr. Denson ([facility] Operator) Unit Admitted: ICU
[2020-01-19 05:37] LABS: ABSOLUTE BASOPHILS # (AUTO) 0.1 10^3/uL (0.0-0.2); ABSOLUTE EOSINOPHILS # (AUTO) 0.2 10^3/uL (0.0-0.6); ABSOLUTE LYMPHOCYTES (AUTO) 1.5 10^3/uL (0.5-4.7); ABSOLUTE MONOCYTES (AUTO) 1.3 10^3/uL (0.1-1.4); ABSOLUTE NEUT (AUTO) 9.6 10^3/uL (1.7-8.2); BASOPHILS % (AUTO) 0.9 % (0-2); EOSINOPHILS % (AUTO) 1.2 % (0-6); HEMATOCRIT 42.7 % (37.9-51.0); HEMOGLOBIN 14.2 g/dL (13.5-17.0); MEAN CORPUSCULAR HEMOGLOBIN 29.6 pg (27.0-33.4); MEAN CORPUSCULAR HGB CONC 33.2 g/dL (32.0-36.0); MEAN CORPUSCULAR VOLUME 89 fl (80-97); MONOCYTES % (AUTO) 10.4 % (3-13); PLATELET COUNT 324 10^3/uL (150-450); RED BLOOD COUNT 4.78 10^6/uL (4.35-5.55); RED CELL DISTRIBUTION WIDTH 15.3 % (11.5-14.0); SEGMENTED NEUTROPHILS % (AUTO) 75.5 % (42-78); TOTAL CELLS COUNTED % (AUTO) 100 %; WHITE BLOOD COUNT 12.7 10^3/uL (4.0-10.5)
--- NOTE | 2020-01-19 06:00 | RADIOLOGY REPORT (SQ) ---
EXAM: XR Chest, 1 View EXAM DATE/TIME: 01/19/2020 5:33 AM CLINICAL HISTORY: The patient is 69 years old and is Male; hypotension TECHNIQUE: Frontal view of the chest. COMPARISON: Chest radiograph from 09/30/2019, CT thorax from 01/10/2020 FINDINGS: LUNGS: There is mild right apical scarring. The lungs are otherwise clear. No consolidation. PLEURAL SPACE: Unremarkable. No pneumothorax. HEART: No significant enlargement of the cardiac silhouette. MEDIASTINUM: Unremarkable. BONES/JOINTS: No acute osseous findings. IMPRESSION: No acute findings visualized in the chest.
[2020-01-19] MEDS ORDERED: NORMAL SALINE 1000 ML 1,000 ML IV ONE ×2 (06:32→07:18)
[2020-01-19] MEDS ORDERED: NOREPINEPHRINE BITARTRATE INJ/PF 4 MG/4 ML SDV IV ONE (06:53)
[2020-01-19] MEDS ORDERED: DEXTROSE 5%-WATER 250 ML with NOREPINEPHRINE BITARTRATE 4 MG IV PRN ×4 (07:18→17:23)
[2020-01-19 07:54] LABS: VENOUS BLOOD BASE EXCESS -2.4 mmol/L; VENOUS BLOOD HCO3 28.5 mmol/L (20-32)
[2020-01-19 07:56] LABS: VENOUS BLOOD PCO2 77.3 mmHg (35-63); VENOUS BLOOD PH 7.19 (7.30-7.42)
[2020-01-19 08:05] LABS: ALBUMIN 3.1 g/dL (3.5-5.0); ALKALINE PHOSPHATASE 62 U/L (38-126); ANION GAP 11 (5-19); ASPARTATE AMINO TRANSFERASE 18 U/L (17-59); BILIRUBIN,DIRECT 0.5 mg/dL (0.0-0.4); BILIRUBIN,TOTAL 0.5 mg/dL (0.2-1.3); BLOOD UREA NITROGEN 66 mg/dL (7-20); CALCIUM 8.4 mg/dL (8.4-10.2); CARBON DIOXIDE 28 mmol/L (22-30); CHLORIDE 94 mmol/L (98-107); GLUCOSE 114 mg/dL (75-110); POTASSIUM 3.9 mmol/L (3.6-5.0); TOTAL PROTEIN 5.9 g/dL (6.3-8.2)
[2020-01-19] MEDS ORDERED: ACETAMINOPHEN 325 MG TABLET PO PRN (08:25)
--- NOTE | 2020-01-19 08:34 | EKG REPORT ---
SEVERITY:- NORMAL ECG - SINUS RHYTHM : Confirmed by: Corey Jimenes MD 19-Jan-2020 08:32:08
--- NOTE | 2020-01-19 08:34 | EKG REPORT ---
SEVERITY:- ABNORMAL ECG - SINUS RHYTHM NONSPECIFIC INTRAVENTRICULAR CONDUCTION DELAY : Confirmed by: Corey Jimenes MD 19-Jan-2020 08:32:34
[2020-01-19 09:11] LABS: APPEARANCE,URINE CLOUDY; BILIRUBIN,URINE NEGATIVE (NEGATIVE); COLOR,URINE DARK YELLOW; GLUCOSE, URINE NEGATIVE (NEGATIVE); KETONES,URINE NEGATIVE (NEGATIVE); LEUKOCYTE ESTERASE,URINE TRACE (NEGATIVE); NITRITE,URINE NEGATIVE (NEGATIVE); PROTEIN,URINE NEGATIVE (NEGATIVE); URINE SPECIFIC GRAVITY 1.018
[2020-01-19] MEDS ORDERED: NORMAL SALINE INJ/PF 0.9% 10 ML SDV IV PRN (10:01)
[2020-01-19] MEDS: NORMAL SALINE 1000 ML 1,000 ML IV PRN (11:09)
--- NOTE | 2020-01-19 11:23 | CRITICAL CARE ADMISSION REPORT ---
HPI Date:: 01/19/20 Reason for ICU Reason:: Hypotension, acute renal failure HPI: 69-year-old white male with a long history of rheumatoid arthritis. He has chronic pain and has an implantable morphine pump over his right lower quadrant managed by Dr. Marquez. He has had poor p.o. intake recently. He states he broke his left knee several weeks ago but did not need any intervention. At cruz t time he could no longer live on his own and has been staying with some friends. He is not a very good historian but he almost certainly is very chronically debilitated and has difficulty caring for himself. He does acknowledge that poor p.o. intake probably contributed to this presentation along with the multiple antihypertensives that he is on. - Diagnosis/Plan (1) Hypotension Qualifiers: Hypotension type: hypotension due to hypovolemia Qualified Code(s): I95.89 - Other hypotension; E86.1 - Hypovolemia Is this a current diagnosis for this admission?: Yes Past Medical History Cardiac Medical History: Reports: Atrial Fibrillation - with RVR, Hyperlipidema, Hypertension Musculoskeltal Medical History: Reports: Arthritis - rheumatoid arthritis Hematology: Denies: Anemia Past Surgical History Past Surgical History: Reports: Orthopedic Surgery - pins in hip, neck fusion, Other - Morphine pump placement Social/Family History - Social History Lives with: Friend Smoking Status: Former Smoker Frequency of Alcohol Use: None Hx Recreational Drug Use: No Drugs: None Hx Prescription Drug Abuse: No - Medication/Allergies Home Medications: Diltiazem HCl [Diltiazem 24Hr ER (Cd)] 120 mg PO DAILY 09/30/19 Finasteride [Proscar 5 mg Tablet] 5 mg PO DAILY 09/30/19 Lisinopril [Prinivil 40 mg Tablet] 40 mg PO DAILY 09/30/19 Prednisone [Deltasone 10 mg Tablet] 10 mg PO DAILY 09/30/19 Tamsulosin HCl [Flomax 0.4 mg Cap.sr] 0.4 mg PO DAILY 09/30/19 Amiodarone HCl [Cordarone 200 mg Tablet] 200 mg PO DAILY #30 tablet 10/09/19 Metoprolol Succinate [Kapspargo Sprinkle] 50 mg PO Q12 01/19/20 Pantoprazole Sodium [Protonix [address] Tablet] 40 mg PO BID 03/26/20 Allergies/Adverse Reactions: No Known Allergies Allergy (Verified 10/14/19 12:20) Review of Systems Constitutional: PRESENT: headache(s), weight loss. ABSENT: fever(s) Nose, Mouth, and Throat: ABSENT: headache(s), sore throat Cardiovascular: ABSENT: edema Respiratory: ABSENT: cough, dyspnea Gastrointestinal: ABSENT: melena, nausea, vomiting Musculoskeletal: PRESENT: joint swelling. ABSENT: deformity Neurological: PRESENT: focal weakness Physical Exam Vital Signs: Temp Pulse Resp BP Pulse Ox 97.3 F 68 20 107/65 100 01/19/20 09:34 01/19/20 09:34 01/19/20 09:34 01/19/20 09:34 01/19/20 09:34 Intake & Output 01/18/20 01/19/20 01/20/20 06:59 06:59 06:59 Intake Total 1999 Balance 1999 Weight 58.3 kg 61.2 kg Weight/Height Weight 61.2 kg Height 5 ft 6 in General appearance: PRESENT: mild distress Head exam: PRESENT: normocephalic Eye exam: PRESENT: conjunctival injection, EOMI, PERRLA Mouth exam: PRESENT: dry mucosa Throat exam: ABSENT: tonsillogmegaly Neck exam: ABSENT: JVD, lymphadenopathy Respiratory exam: PRESENT: unlabored. ABSENT: accessory muscle use, rales, tachypnea Cardiovascular exam: PRESENT: RRR. ABSENT: systolic murmur Pulses: PRESENT: +1 pedal pulses bilateral GI/Abdominal exam: PRESENT: soft. ABSENT: tenderness Rectal exam: PRESENT: deferred Extremities exam: PRESENT: other - Typical changes of rheumatoid arthritis. ABSENT: pedal edema Neurological exam: PRESENT: alert Skin exam: PRESENT: dry, warm Laboratory/Radiographs Laboratory Results: 01/19/20 05:20 01/19/20 07:20 01/19/20 01/19/20 01/19/20 05:20 05:20 07:20 WBC 12.7 H RBC 4.78 Hgb 14.2 Hct 42.7 MCV 89 MCH 29.6 MCHC 33.2 RDW 15.3 H Plt Count 324 Seg Neutrophils % 75.5 VBG pH VBG pCO2 VBG HCO3 VBG Base Excess Sodium Cancelled 133.0 L Potassium Cancelled 3.9 Chloride Cancelled 94 L Carbon Dioxide Cancelled 28 Anion Gap Cancelled 11 BUN Cancelled 66 H Creatinine Cancelled 6.07 H Est GFR ( Amer) Cancelled 11 L Est GFR (Non-Af Amer) Cancelled Glucose Cancelled 114 H Lactic Acid Calcium Cancelled 8.4 Total Bilirubin Cancelled 0.5 AST Cancelled 18 Alkaline Phosphatase Cancelled 62 Total Protein Cancelled 5.9 L Albumin Cancelled 3.1 L Urine Color Urine Appearance Urine pH Ur Specific Kerby Urine Protein Urine Glucose (UA) Urine Ketones Urine Blood Urine Nitrite Ur Leukocyte Esterase Urine WBC (Auto) Urine RBC (Auto) 01/19/20 01/19/20 01/19/20 07:20 07:20 08:46 WBC RBC Hgb Hct MCV MCH MCHC RDW Plt Count Seg Neutrophils % VBG pH 7.19 L* VBG pCO2 77.3 H* VBG HCO3 28.5 VBG Base Excess -2.4 Sodium Potassium Chloride Carbon Dioxide Anion Gap BUN Creatinine Est GFR ( Amer) Est GFR (Non-Af Amer) Glucose Lactic Acid 0.6 L Calcium Total Bilirubin AST Alkaline Phosphatase Total Protein Albumin Urine Color DARK YELLOW Urine Appearance CLOUDY Urine pH 5.0 Ur Specific Kerby 1.018 Urine Protein NEGATIVE Urine Glucose (UA) NEGATIVE Urine Ketones NEGATIVE Urine Blood NEGATIVE Urine Nitrite NEGATIVE Ur Leukocyte Esterase TRACE H Urine WBC (Auto) 13 Urine RBC (Auto) 5 01/19/20 01/19/20 05:20 07:20 Troponin I Cancelled < 0.012 Impressions: Chest X-Ray 01/19/20 05:15 IMPRESSION: No acute findings visualized in the chest. Impression: Rheumatoid arthritis Chronic pain History of hypertension with multiple medications Poor p.o. intake Hypovolemia and hypotension Acute renal failure likely secondary to above Plan: 2 L saline given in ER Continue 75 an hour Right femoral line placed in ER Check CVP to guide fluid resuscitation Hold all BP meds He was on low-dose prednisone so he will be covered Further care will depend on his clinical course Critical Time Critical Time (minutes): 40 -: The care of a critically ill patient is dynamic. This note represents a static moment in the admission process. Orders and treatments may be given simultaneously and urgently, and time is not customer development representative of the treatment process. This patient requires Critical Care secondary to life threatening organ or limb dysfunction. Without Critical Care services, the patient is at risk for increased mortality and morbidity.
[2020-01-19] MEDS ORDERED: INFLUENZA QUAD (6MOS+) 2019-20 VAC 0.5 ML SYR IM ONE (13:22)
[2020-01-19] MEDS: HYDROCORTISONE SOD SUCCINATE INJ/PF 100 MG/2 ML SDV IV SCH ×2 (14:49→21:11)
[2020-01-20] MEDS: NORMAL SALINE 1000 ML 1,000 ML IV PRN ×3 (00:21→18:46)
[2020-01-20 03:48] LABS: ARTERIAL BLOOD BASE EXCESS -2.3 mmol/L; ARTERIAL BLOOD H2CO3 1.56 mmol/L (1.05-1.35); ARTERIAL BLOOD HCO3 24.7 mmol/L (20-24); ARTERIAL BLOOD O2 SATURATION 95.4 % (94-98); ARTERIAL BLOOD PCO2 51.7 mmHg (35-45); ARTERIAL BLOOD PO2 85.6 mmHg (80-100); ARTERIAL BLOOD TOTAL CO2 26.3 mmol/L (23-27)
[2020-01-20 03:50] LABS: ARTERIAL BLOOD FIO2 ROOM AIR; HEMATOCRIT 37.8 % (37.9-51.0); HEMOGLOBIN 12.5 g/dL (13.5-17.0); MEAN CORPUSCULAR HEMOGLOBIN 29.5 pg (27.0-33.4); MEAN CORPUSCULAR HGB CONC 33.2 g/dL (32.0-36.0); MEAN CORPUSCULAR VOLUME 89 fl (80-97); PLATELET COUNT 262 10^3/uL (150-450); RED BLOOD COUNT 4.25 10^6/uL (4.35-5.55); RED CELL DISTRIBUTION WIDTH 14.6 % (11.5-14.0); WHITE BLOOD COUNT 11.6 10^3/uL (4.0-10.5)
[2020-01-20 03:59] LABS: INTERNATIONAL RATION (INR) 1.16; PROTHROMBIN TIME 14.8 SEC (11.4-15.4)
[2020-01-20 04:00] LABS: PARTIAL THROMBOPLASTIN TIME 37.2 SEC (23.5-35.8)
[2020-01-20 04:06] LABS: ALBUMIN 2.7 g/dL (3.5-5.0); ALKALINE PHOSPHATASE 61 U/L (38-126); ANION GAP 10 (5-19); ASPARTATE AMINO TRANSFERASE 12 U/L (17-59); BILIRUBIN,DIRECT 0.4 mg/dL (0.0-0.4); BILIRUBIN,TOTAL 0.4 mg/dL (0.2-1.3); BLOOD UREA NITROGEN 55 mg/dL (7-20); CALCIUM 8.3 mg/dL (8.4-10.2); CARBON DIOXIDE 26 mmol/L (22-30); CHLORIDE 101 mmol/L (98-107); GLUCOSE 141 mg/dL (75-110); POTASSIUM 4.6 mmol/L (3.6-5.0); TOTAL PROTEIN 5.4 g/dL (6.3-8.2)
[2020-01-20 04:10] LABS: ABSOLUTE LYMPHOCYTES# (MANUAL) 0.5 10^3/uL (0.5-4.7); ABSOLUTE MONOCYTES # (MANUAL) 0.6 10^3/uL (0.1-1.4); BAND NEUTROPHILS % (MANUAL) 1 % (3-5); BASOPHILS % (MANUAL) 0 % (0-2); EOSINOPHILS % (MANUAL) 0 % (0-6); LYMPHOCYTES % (MANUAL) 0 % (13-45); MONOCYTES % (MANUAL) 5 % (3-13); SEGMENTED NEUTROPHILS % (MAN) 90 % (42-78); TOTAL CELLS COUNTED 100
[2020-01-20 04:11] LABS: ANISOCYTOSIS SLIGHT; PLATELET COMMENT ADEQUATE
[2020-01-20] MEDS: HYDROCORTISONE SOD SUCCINATE INJ/PF 100 MG/2 ML SDV IV SCH ×2 (05:41→13:35)
[2020-01-20] MEDS ORDERED: PANTOPRAZOLE SODIUM 40 MG TABLET.DR PO SCH (06:00)
[2020-01-20] MEDS ORDERED: NORMAL SALINE 1000 ML 1,000 ML IV PRN (12:33)
--- NOTE | 2020-01-20 14:27 | Progress Note ---
Provider Note Provider Note: ICU downgrade to medical floor. Received signout from latin americ[place] studies professor. Briefly, patient is a 69-year-old male with a history of rheumatoid arthritis, chronic atrial fibrillation, hypertension, BPH, who was brought in to the hospital yesterday with generalized weakness and significant fatigue. In the ER patient was noted to be hypotensive and given multiple IV fluid boluses. He was subsequently sent to the ICU where he was started on Levophed. Patient was suspected to be in hypovolemic shock secondary to poor p.o. intake. Patient was also notably on antihypertensive lisinopril and several medications for his atrial fibrillation including metoprolol, diltiazem and amiodarone which will held. Patient has received several fluid boluses and his blood pressure has normalized and has been taken off Levophed at this time. Notably, patient also has severe RAISSA upon presentation and has improved with IV fluids. Carrington was placed in the ER. It is uncertain and was not documented how much was retrieved upon placement of the Carrington. Patient's creatinine continues to improve with fluids. On discussion with the lat[place] american studies professor, it was believed that patient's metabolic acidosis was secondary to his RAISSA. On discussion with patient today, patient does not have very good memories about why he was brought into the hospital but does state that he has not been eating or drinking much recently. He also states that he has deformity in his hands from his rheumatoid arthritis limits his ability to feed himself. Otherwise he states he feels well. Denies any chest pain, fevers chills, nausea, vomiting, abdomen pain. Vital signs within normal limits though mildly hypertensive. Mild ptosis of the left eye. No acute distress, lungs are clear bilaterally, S1-S2 auscultated, breathing is unlabored, abdomen is nontender and not distended, patient is fully awake and alert. Patient is fully conversational. No evidence of pedal edema. A/P Hypovolemic shock-from poor p.o. intake. Resolved with IV fluids. Off Levophed. Hypotension-likely secondary to hypovolemia as well as metabolic acidosis. Resolved at this time. RAISSA-prerenal azotemia from hypotension or postrenal RAISSA from BPH. Continue IV fluids through today. Carrington in place. I will resume tamsulosin and finasteride. Attempt to remove Carrington tomorrow and perform voiding trials. Trend BMP. Anion gap metabolic acidosis-secondary to RAISSA. Currently resolved. Chronic atrial fibrillation-I will resume amiodarone and diltiazem today. If blood pressure still adequate tomorrow, can consider resuming metoprolol as patient notably bounced into A. fib with RVR on prior admission after these meds were held. Rheumatoid arthritis-resume prednisone. Discontinue hydrocortisone which was started in ICU. Patient's deformity his hands seem to be significantly affecting his ability to feed himself which may have contributed to his hypovolemic shock. Poor p.o. intake
[2020-01-20] MEDS ORDERED: AMIODARONE HCL 200 MG TABLET PO ONE (15:00)
[2020-01-20] MEDS: PANTOPRAZOLE SODIUM 40 MG TABLET.DR PO SCH (17:04)
[2020-01-20] MEDS: HEPARIN SOD (PORCINE) 5,000 UNIT/ML 1 ML VIAL SUBCUT SCH (22:12)
[2020-01-21] MEDS: NORMAL SALINE 1000 ML 1,000 ML IV PRN (07:39)
[2020-01-21 08:34] LABS: ABSOLUTE BASOPHILS # (AUTO) 0.1 10^3/uL (0.0-0.2); ABSOLUTE EOSINOPHILS # (AUTO) 0.1 10^3/uL (0.0-0.6); ABSOLUTE LYMPHOCYTES (AUTO) 1.4 10^3/uL (0.5-4.7); ABSOLUTE MONOCYTES (AUTO) 0.8 10^3/uL (0.1-1.4); ABSOLUTE NEUT (AUTO) 6.4 10^3/uL (1.7-8.2); BASOPHILS % (AUTO) 0.7 % (0-2); EOSINOPHILS % (AUTO) 1.1 % (0-6); HEMATOCRIT 35.1 % (37.9-51.0); HEMOGLOBIN 11.9 g/dL (13.5-17.0); MEAN CORPUSCULAR HEMOGLOBIN 29.7 pg (27.0-33.4); MEAN CORPUSCULAR HGB CONC 33.9 g/dL (32.0-36.0); MEAN CORPUSCULAR VOLUME 88 fl (80-97); PLATELET COUNT 309 10^3/uL (150-450); RED CELL DISTRIBUTION WIDTH 14.6 % (11.5-14.0); SEGMENTED NEUTROPHILS % (AUTO) 73.2 % (42-78); TOTAL CELLS COUNTED % (AUTO) 100 %; WHITE BLOOD COUNT 8.7 10^3/uL (4.0-10.5)
[2020-01-21 08:53] LABS: ALBUMIN 2.7 g/dL (3.5-5.0); ALKALINE PHOSPHATASE 55 U/L (38-126); ANION GAP 7 (5-19); ASPARTATE AMINO TRANSFERASE 13 U/L (17-59); BILIRUBIN,DIRECT 0.4 mg/dL (0.0-0.4); BILIRUBIN,TOTAL 0.5 mg/dL (0.2-1.3); BLOOD UREA NITROGEN 37 mg/dL (7-20); CALCIUM 8.7 mg/dL (8.4-10.2); CARBON DIOXIDE 26 mmol/L (22-30); CHLORIDE 107 mmol/L (98-107); GLUCOSE 88 mg/dL (75-110); POTASSIUM 3.5 mmol/L (3.6-5.0); TOTAL PROTEIN 5.5 g/dL (6.3-8.2)
[2020-01-21] MEDS: PREDNISONE 10 MG TABLET PO SCH (10:42)
[2020-01-21] MEDS: HEPARIN SOD (PORCINE) 5,000 UNIT/ML 1 ML VIAL SUBCUT SCH ×2 (10:42→21:16)
[2020-01-21] MEDS: PANTOPRAZOLE SODIUM 40 MG TABLET.DR PO SCH ×2 (10:42→17:09)
[2020-01-21] MEDS: AMIODARONE HCL 200 MG TABLET PO SCH (10:42)
[2020-01-21] MEDS: TAMSULOSIN HCL 0.4 MG CAP.SR.24H PO SCH (10:42)
[2020-01-21] MEDS: FINASTERIDE 5 MG TABLET PO SCH (10:43)
[2020-01-21] MEDS: DILTIAZEM HCL 120 MG CAP.SR.24H PO SCH (10:43)
--- NOTE | 2020-01-21 11:33 | PDOC PROGRESS REPORT ---
Subjective Progress Note for:: 01/21/20 Subjective:: 01/21/[id number]-pcuy-old male with history of rheumatoid arthritis, chronic atrial fibrillation, hypertension, BPH came to the hospital for generalized weakness and significant fatigue. In the ER he was found to be hypotensive given multiple IV fluid boluses. And he was admitted to ICU started on Levophed. He was also presented with RAISSA. Once the blood pressures are stabilized patient was downgraded to medical floor. This morning blood pressure is 112/60. Pulse ox is 95%. Comfortable in the bed communicating well. Requesting to remove the Carrington's catheter. Reason For Visit: HYPOTENSION,ACUTE RENAL FAILURE Physical Exam Vital Signs: Temp Pulse Resp BP Pulse Ox 98.4 F 79 21 H 150/57 H 94 01/21/20 08:00 01/21/20 08:00 01/21/20 08:00 01/21/20 08:00 01/21/20 08:00 Intake & Output 01/20/20 01/21/20 01/22/20 06:59 06:59 06:59 Intake Total 3079 1009 1000 Output Total 1260 960 Balance 1819 49 1000 Weight 61.9 kg 60.4 kg General appearance: PRESENT: no acute distress, well-developed Head exam: PRESENT: atraumatic Eye exam: PRESENT: PERRLA Mouth exam: PRESENT: moist, tongue midline Teeth exam: PRESENT: poor dentation Neck exam: ABSENT: carotid bruit, JVD, lymphadenopathy, thyromegaly Respiratory exam: PRESENT: decreased breath sounds Cardiovascular exam: PRESENT: RRR. ABSENT: diastolic murmur, rubs, systolic murmur GI/Abdominal exam: PRESENT: normal bowel sounds, soft. ABSENT: distended, guarding, mass, organolmegaly, rebound, tenderness Rectal exam: PRESENT: deferred Gentrourinary exam: PRESENT: indwelling catheter Extremities exam: PRESENT: full ROM. ABSENT: calf tenderness, clubbing, pedal edema Neurological exam: PRESENT: alert, awake, oriented to person, oriented to place, oriented to time, oriented to situation, CN II-XII grossly intact. ABSENT: motor sensory deficit Psychiatric exam: PRESENT: appropriate affect, normal mood. ABSENT: homicidal ideation, suicidal ideation Skin exam: PRESENT: dry, intact, warm. ABSENT: cyanosis, rash Results Laboratory Results: 01/21/20 08:15 03/28/20 08:15 01/21/20 01/21/20 08:15 08:15 WBC 8.7 RBC 4.00 L Hgb 11.9 L Hct 35.1 L MCV 88 MCH 29.7 MCHC 33.9 RDW 14.6 H Plt Count 309 Seg Neutrophils % 73.2 Sodium 139.9 Potassium 3.5 L Chloride 107 Carbon Dioxide 26 Anion Gap 7 BUN 37 H Creatinine 0.97 Est GFR ( Amer) > 60 Glucose 88 Calcium 8.7 Magnesium 2.2 Total Bilirubin 0.5 AST 13 L Alkaline Phosphatase 55 Total Protein 5.5 L Albumin 2.7 L 01/19/20 01/19/20 01/20/20 05:20 07:20 03:33 Troponin I Cancelled < 0.012 NT-Pro-B Natriuret Pep 1460 H Impressions: Chest X-Ray 01/19/20 05:15 IMPRESSION: No acute findings visualized in the chest. Assessment and Plan - Diagnosis (1) Acute renal failure Qualifiers: Acute renal failure type: unspecified Qualified Code(s): N17.9 - Acute kidney failure, unspecified Is this a current diagnosis for this admission?: Yes Plan: 01/21/2020-acute renal failure is resolved. Creatinine today is 0.97. Admission creatinine is 6.07. Plan is to discontinue IV fluids from today. (2) Generalized weakness Is this a current diagnosis for this admission?: Yes Plan: 01/21/2020-patient came in with generalized weakness resolving. It may be secondary to underlying rheumatoid arthritis. Physical therapy consult will be requested. (3) Hypotension Qualifiers: Hypotension type: hypotension due to hypovolemia Qualified Code(s): I95.89 - Other hypotension; E86.1 - Hypovolemia Is this a current diagnosis for this admission?: Yes Plan: 01/21/2020-patient admitted with significant hypotension requiring pressors in the ICU. Today blood pressure is 112/60 improved. Plan is to discontinue IV fluids from today. (4) Atrial fibrillation Is this a current diagnosis for this admission?: No Plan: 01/21/2020-heart rate today is in the 60s. Presently on amiodarone and diltiazem . (5) Rheumatoid arthritis Qualifiers: Rheumatoid arthritis location: unspecified site Is this a current diagnosis for this admission?: No Plan: 01/21/2020-patient has history of chronic rheumatoid arthritis to resume prednisone.
[2020-01-22 07:08] LABS: ABSOLUTE BASOPHILS # (AUTO) 0.1 10^3/uL (0.0-0.2); ABSOLUTE EOSINOPHILS # (AUTO) 0.1 10^3/uL (0.0-0.6); ABSOLUTE LYMPHOCYTES (AUTO) 1.4 10^3/uL (0.5-4.7); ABSOLUTE MONOCYTES (AUTO) 0.7 10^3/uL (0.1-1.4); ABSOLUTE NEUT (AUTO) 4.9 10^3/uL (1.7-8.2); BASOPHILS % (AUTO) 1.2 % (0-2); EOSINOPHILS % (AUTO) 1.1 % (0-6); HEMATOCRIT 35.9 % (37.9-51.0); HEMOGLOBIN 12.4 g/dL (13.5-17.0); LYMPHOCYTES % (AUTO) 19.7 % (13-45); MEAN CORPUSCULAR HEMOGLOBIN 30.1 pg (27.0-33.4); MEAN CORPUSCULAR HGB CONC 34.5 g/dL (32.0-36.0); MEAN CORPUSCULAR VOLUME 87 fl (80-97); MONOCYTES % (AUTO) 9.8 % (3-13); PLATELET COUNT 336 10^3/uL (150-450); RED BLOOD COUNT 4.11 10^6/uL (4.35-5.55); RED CELL DISTRIBUTION WIDTH 14.3 % (11.5-14.0); SEGMENTED NEUTROPHILS % (AUTO) 68.2 % (42-78); TOTAL CELLS COUNTED % (AUTO) 100 %; WHITE BLOOD COUNT 7.2 10^3/uL (4.0-10.5)
[2020-01-22 07:30] LABS: ALBUMIN 2.8 g/dL (3.5-5.0); ALKALINE PHOSPHATASE 54 U/L (38-126); ANION GAP 5 (5-19); ASPARTATE AMINO TRANSFERASE 18 U/L (17-59); BILIRUBIN,TOTAL 0.5 mg/dL (0.2-1.3); CALCIUM 8.6 mg/dL (8.4-10.2); CARBON DIOXIDE 30 mmol/L (22-30); CHLORIDE 105 mmol/L (98-107); GLUCOSE 84 mg/dL (75-110); POTASSIUM 3.3 mmol/L (3.6-5.0); TOTAL PROTEIN 5.5 g/dL (6.3-8.2)
[2020-01-22 07:50] LABS: BLOOD UREA NITROGEN 17 mg/dL (7-20)
[2020-01-22] MEDS: HEPARIN SOD (PORCINE) 5,000 UNIT/ML 1 ML VIAL SUBCUT SCH (09:46)
[2020-01-22] MEDS: DILTIAZEM HCL 120 MG CAP.SR.24H PO SCH (09:55)
[2020-01-22] MEDS: FINASTERIDE 5 MG TABLET PO SCH (09:56)
[2020-01-22] MEDS: TAMSULOSIN HCL 0.4 MG CAP.SR.24H PO SCH (09:56)
[2020-01-22] MEDS: AMIODARONE HCL 200 MG TABLET PO SCH (09:57)
[2020-01-22] MEDS: PREDNISONE 10 MG TABLET PO SCH (09:58)
[2020-01-22] MEDS: PANTOPRAZOLE SODIUM 40 MG TABLET.DR PO SCH (09:58)
--- NOTE | 2020-01-22 09:58 | PDOC DISCHARGE SUMMARY ---
Impression - Admit/DC Date/PCP Admission Date/Primary Care Provider: 01/19/20 07:58 DIONICIO ROWLAND Discharge Date: 01/22/20 - Discharge Diagnosis (1) Hypotension Is this a current diagnosis for this admission?: Yes (2) Hypovolemic shock Is this a current diagnosis for this admission?: Yes (3) RAISSA (acute kidney injury) Is this a current diagnosis for this admission?: Yes (4) Normal anion gap metabolic acidosis Is this a current diagnosis for this admission?: Yes (5) Chronic atrial fibrillation, unspecified Is this a current diagnosis for this admission?: Yes (6) Hypertension Is this a current diagnosis for this admission?: Yes (7) Dehydration Is this a current diagnosis for this admission?: Yes (8) Rheumatoid arthritis Is this a current diagnosis for this admission?: Yes - Additional Information Discharge Diet: Cardiac Discharge Activity: Activity As Tolerated Referrals: DIONICIO ROWLAND MD [Primary Care Provider] - Prescriptions: Prednisone [Deltasone 10 mg Tablet] 10 mg PO DAILY #20 Tamsulosin HCl [Flomax 0.4 mg Cap.sr] 0.4 mg PO DAILY #30 Lisinopril [Prinivil 10 mg Tablet] 10 mg PO DAILY #30 tablet Finasteride [Proscar 5 mg Tablet] 5 mg PO DAILY #30 Metoprolol Succinate [Toprol Xl 25 mg Tab.sr] 25 mg PO Q12 #60 tab.sr.24h Home Medications: Diltiazem HCl [Diltiazem 24Hr ER (Cd)] 120 mg PO DAILY 09/30/19 Amiodarone HCl [Cordarone 200 mg Tablet] 200 mg PO DAILY #30 tablet 10/09/19 Pantoprazole Sodium [Protonix [address] Tablet] 40 mg PO BID 01/19/20 Finasteride [Proscar 5 mg Tablet] 5 mg PO DAILY #30 01/22/20 Lisinopril [Prinivil 10 mg Tablet] 10 mg PO DAILY #30 tablet 01/22/20 Metoprolol Succinate [Toprol Xl 25 mg Tab.sr] 25 mg PO Q12 #60 tab.sr.24h 01/22/20 Prednisone [Deltasone 10 mg Tablet] 10 mg PO DAILY #20 01/22/20 Tamsulosin HCl [Flomax 0.4 mg Cap.sr] 0.4 mg PO DAILY #30 01/22/20 History of Present Illiness History of Present Illness: CHERRY ROLDAN is a 69-year-old white male with a long history of rheumatoid arthritis. He has chronic pain and has an implantable morphine pump over his right lower quadrant managed by Dr. Marquez. He has had poor p.o. intake recently. He states he broke his left knee several weeks ago but did not need any intervention. At that time he could no longer live on his own and has been staying with some friends. He is not a very good historian but he almost certainly is very chronically debilitated and has difficulty caring for himself. He does acknowledge that poor p.o. intake probably contributed to this presentation along with the multiple antihypertensives that he is on. Hospital Course Hospital Course: 69-year-old male with a history of rheumatoid arthritis, chronic atrial fibrillation, hypertension, BPH, who was brought in to the hospital yesterday with generalized weakness and significant fatigue. In the ER patient was noted to be hypotensive and given multiple IV fluid boluses. He was subsequently sent to the ICU where he was started on Levophed. Patient was suspected to be in hypovolemic shock secondary to poor p.o. intake. Also contributing to patient's hypotension was his severe metabolic acidosis on presentation likely from his RAISSA. Patient was also notably on antihypertensive lisinopril and several medications for his atrial fibrillation including metoprolol, diltiazem and amiodarone which were held. Patient received several fluid boluses and his blood pressure has normalized and has been taken off Levophed at this time. Notably, patient also has severe RAISSA upon presentation and has improved with IV fluids. Carrington was placed in the ER. It is uncertain and was not documented how much was retrieved upon placement of the Carrington. Patient's creatinine improved back to normal limits with fluids. His tamsulosin and finasteride were also resumed. Patient's hypotension resolved and patient actually became hypertensive once again. His medications for atrial fibrillation were restarted. His metoprolol succinate was also restarted at a decreased dose of 25 mg twice a day from 50 mg twice daily and his lisinopril was restarted at a decreased dose of 10 mg daily. Patient is doing well and his Carrington has been removed. He has been voiding adequately since Carrington removal. At this time patient is being discharged to follow-up outpatient with his primary care provider. He is being set up with home health with PT, OT and nursing home to help with medication administration. Physical Exam Vital Signs: Temp Pulse Resp BP Pulse Ox 98.9 F 72 14 148/84 H 94 01/22/20 07:25 01/22/20 07:25 01/22/20 07:25 01/22/20 07:25 01/22/20 07:25 Intake & Output 01/21/20 01/22/20 01/23/20 06:59 06:59 06:59 Intake Total 1009 2520 Output Total 960 1000 Balance 49 1520 Weight 60.4 kg 61.3 kg General appearance: PRESENT: no acute distress, cooperative Eye exam: PRESENT: EOMI Respiratory exam: PRESENT: unlabored. ABSENT: accessory muscle use, retraction, tachypnea Extremities exam: ABSENT: calf tenderness, pedal edema Musculoskeletal exam: PRESENT: deformity - hands fingers Neurological exam: PRESENT: alert, awake Results Laboratory Results: WBC 7.2 10^3/uL (4.0-10.5) 01/22/20 05:55 RBC 4.11 10^6/uL (4.35-5.55) L 01/22/20 05:55 Hgb 12.4 g/dL (13.5-17.0) L 01/22/20 05:55 Hct 35.9 % (37.9-51.0) L 01/22/20 05:55 MCV 87 fl (80-97) 01/22/20 05:55 MCH 30.1 pg (27.0-33.4) 01/22/20 05:55 MCHC 34.5 g/dL (32.0-36.0) 01/22/20 05:55 RDW 14.3 % (11.5-14.0) H 01/22/20 05:55 Plt Count 336 10^3/uL (150-450) 01/22/20 05:55 Lymph % (Auto) 19.7 % (13-45) 01/22/20 05:55 [place] % (Auto) 9.8 % (3-13) 01/22/20 05:55 Eos % (Auto) 1.1 % (0-6) 01/22/20 05:55 Baso % (Auto) 1.2 % (0-2) 01/22/20 05:55 Absolute Neuts (auto) 4.9 10^3/uL (1.7-8.2) 01/22/20 05:55 Absolute Lymphs (auto) 1.4 10^3/uL (0.5-4.7) 01/22/20 05:55 Absolute Monos (auto) 0.7 10^3/uL (0.1-1.4) 01/22/20 05:55 Absolute Eos (auto) 0.1 10^3/uL (0.0-0.6) 01/22/20 05:55 Absolute Basos (auto) 0.1 10^3/uL (0.0-0.2) 01/22/20 05:55 Total Counted 100 01/20/20 03:33 Seg Neutrophils % 68.2 % (42-78) 01/22/20 05:55 Seg Neuts % (Manual) 90 % (42-78) H 01/20/20 03:33 Band Neutrophils % 1 % (3-5) L 01/20/20 03:33 Lymphocytes % (Manual) 0 % (13-45) L 01/20/20 03:33 Atypical Lymphs % 4 % (0) 01/20/20 03:33 Monocytes % (Manual) 5 % (3-13) 01/20/20 03:33 Eosinophils % (Manual) 0 % (0-6) 01/20/20 03:33 Basophils % (Manual) 0 % (0-2) 01/20/20 03:33 Abs Neuts (Manual) 10.6 10^3/uL (1.7-8.2) H 01/20/20 03:33 Abs Lymphs (Manual) 0.5 10^3/uL (0.5-4.7) 01/20/20 03:33 Abs Monocytes (Manual) 0.6 10^3/uL (0.1-1.4) 01/20/20 03:33 Absolute Eos (Manual) 0.0 10^3/uL (0.0-0.6) 01/20/20 03:33 Abs Basophils (Manual) 0.0 10^3/uL (0.0-0.2) 01/20/20 03:33 Platelet Comment ADEQUATE 01/20/20 03:33 Anisocytosis SLIGHT 01/20/20 03:33 PT 14.8 SEC (11.4-15.4) 01/20/20 03:33 INR 1.16 01/20/20 03:33 APTT 37.2 SEC (23.5-35.8) H 01/20/20 03:33 Carbonic Acid 1.56 mmol/L (1.05-1.35) H 01/20/20 03:33 HCO3/H2CO3 Ratio 15:1 01/20/20 03:33 ABG pH 7.30 (7.35-7.45) L 01/20/20 03:33 ABG pCO2 51.7 mmHg (35-45) H 01/20/20 03:33 ABG pO2 85.6 mmHg (80-100) 01/20/20 03:33 ABG HCO3 24.7 mmol/L (20-24) H 01/20/20 03:33 ABG Total CO2 26.3 mmol/L (23-27) 01/20/20 03:33 ABG O2 Saturation 95.4 % (94-98) 01/20/20 03:33 ABG Base Excess -2.3 mmol/L 01/20/20 03:33 VBG pH 7.19 (7.30-7.42) L* 01/19/20 07:20 VBG pCO2 77.3 mmHg (35-63) H* 01/19/20 07:20 VBG HCO3 28.5 mmol/L (20-32) 01/19/20 07:20 VBG Base Excess -2.4 mmol/L 01/19/20 07:20 FiO2 ROOM AIR 01/20/20 03:33 Sodium 140.3 mmol/L (137-145) 01/22/20 05:55 Potassium 3.3 mmol/L (3.6-5.0) L 01/22/20 05:55 Chloride 105 mmol/L (98-107) 01/22/20 05:55 Carbon Dioxide 30 mmol/L (22-30) 01/22/20 05:55 Anion Gap 5 (5-19) 01/22/20 05:55 BUN 17 mg/dL (7-20) D 01/22/20 05:55 Creatinine 0.61 mg/dL (0.52-1.25) 01/22/20 05:55 Est GFR ( Amer) > 60 (>60) 01/22/20 05:55 Est GFR (Non-Af Amer) Cancelled 01/19/20 05:20 Est GFR (MDRD) Non-Af > 60 (>60) 01/22/20 05:55 Glucose 84 mg/dL (75-110) 01/22/20 05:55 Lactic Acid 0.6 mmol/L (0.7-2.1) L 01/19/20 07:20 Calcium 8.6 mg/dL (8.4-10.2) 01/22/20 05:55 Magnesium 1.8 mg/dL (1.6-2.3) 01/22/20 05:55 Total Bilirubin 0.5 mg/dL (0.2-1.3) 01/22/20 05:55 Direct Bilirubin 0.0 mg/dL (0.0-0.4) 01/22/20 05:55 Neonat Total Bilirubin Not Reportable 01/22/20 05:55 Neonat Direct Bilirubin Not Reportable 01/22/20 05:55 Neonat Indirect Bili Not Reportable 01/22/20 05:55 AST 18 U/L (17-59) 01/22/20 05:55 ALT 9 U/L (<50) 01/22/20 05:55 Alkaline Phosphatase 54 U/L (38-126) 01/22/20 05:55 Troponin I < 0.012 ng/mL 01/19/20 07:20 NT-Pro-B Natriuret Pep 1460 pg/mL (<125) H 01/20/20 03:33 Total Protein 5.5 g/dL (6.3-8.2) L 01/22/20 05:55 Albumin 2.8 g/dL (3.5-5.0) L 01/22/20 05:55 EGFR Cancelled 01/19/20 05:20 Urine Color DARK YELLOW 01/19/20 08:46 Urine Appearance CLOUDY 01/19/20 08:46 Urine pH 5.0 (5.0-9.0) 01/19/20 08:46 Ur Specific [place] 1.018 01/19/20 08:46 Urine Protein NEGATIVE mg/dL (NEGATIVE) 01/19/20 08:46 Urine Glucose (UA) NEGATIVE mg/dL (NEGATIVE) 01/19/20 08:46 Urine Ketones NEGATIVE mg/dL (NEGATIVE) 01/19/20 08:46 Urine Blood NEGATIVE (NEGATIVE) 01/19/20 08:46 Urine Nitrite NEGATIVE (NEGATIVE) 01/19/20 08:46 Urine Bilirubin NEGATIVE (NEGATIVE) 01/19/20 08:46 Urine Urobilinogen 2.0 mg/dL (<2.0) H 01/19/20 08:46 Ur Leukocyte Esterase TRACE (NEGATIVE) H 01/19/20 08:46 Urine WBC (Auto) 13 /HPF 01/19/20 08:46 Urine RBC (Auto) 5 /HPF 01/19/20 08:46 U Hyaline Cast (Auto) 27 /LPF 01/19/20 08:46 Urine Bacteria (Auto) TRACE /HPF 01/19/20 08:46 Squamous Epi Cells Auto 1 /HPF 01/19/20 08:46 Urine Mucus (Auto) OCC /LPF 01/19/20 08:46 Urine Ascorbic Acid NEGATIVE (NEGATIVE) 01/19/20 08:46 01/19/20 01/19/20 01/20/20 05:20 07:20 03:33 Troponin I Cancelled < 0.012 NT-Pro-B Natriuret Pep 1460 H Impressions: Chest X-Ray 01/19/20 05:15 IMPRESSION: No acute findings visualized in the chest. Plan Time Spent: Less than 30 Minutes Stroke Is this a Stroke Patient?: No Acute Heart Failure - Is this a Heart Failure Patient?: No
[2020-01-22] MEDS ORDERED: METOPROLOL SUCCINATE 25 MG TAB.SR.24H PO SCH (10:00)
[2020-01-22] MEDS ORDERED: LISINOPRIL 10 MG TABLET PO SCH (10:00)
[2020-01-22 11:44] VITALS: BP 171/87
== END 2020-01-22 12:50 | disposition home health service (06) | DRG 314 ==
LOC: ER 04:58 → EH 07:58 → ICU 09:22 → 4S 01-20 17:49
PROVIDERS: ADMIT Family Medicine; ATTEND Family Medicine
PROC: 06HY33Z Insertion of Infusion Device into Lower Vein, Percutaneous Approach (ICD-10-PCS; principal; 2020-01-19)
DX: I95.9 Hypotension, unspecified (principal); R57.1 Hypovolemic shock; N17.9 Acute kidney failure, unspecified; E87.2 Acidosis; I48.91 Unspecified atrial fibrillation; M06.9 Rheumatoid arthritis, unspecified; N40.0 Benign prostatic hyperplasia without lower urinary tract symptoms; Z96.89 Presence of other specified functional implants; Z79.01 Long term (current) use of anticoagulants; Z79.52 Long term (current) use of systemic steroids; Z79.899 Other long term (current) drug therapy
CPT/HCPCS: 36415; 71045; 80053; 81001; 82803; 83605; 83735; 83880; 84484; 85025; 85610; 85730; 93005; 93010; 96361; 96365; 99291; J1642; J1644; J1720; J3490; J7030; J7060; J7512

== ENCOUNTER 2020-03-20 09:07 | Emergency (ER) | payer MEDICARE, MEDICAID ==
--- NOTE | 2020-03-20 09:40 | ER Document Report ---
ED GI/ - General Chief Complaint: Urinary Frequency Stated Complaint: URINARY ISSUE Time Seen by Provider: 03/20/20 09:13 Primary Care Provider: DIONICIO ROWLAND MD [Primary Care Provider] - Follow up tomorrow Notes: Patient is a 69-year-old male who presents to the emergency department with a chief complaints of 2 days of urinary frequency and urgency. Patient states that he feels that there is urine there, but states that he does not want to push too hard because he is afraid of defecating on himself. Patient also reports dark urine. He is currently on finasteride. He states that he may have not been taking this medication correctly. He stopped taking his Finasteride because he thought he was urinating too much. Patient also has a history of atrial fibrillation, chronic pain, GERD, arthritis, renal failure a month ago, and hypertension. Patient also states that his last bowel movement was yester day. Patient denies any pain, he just states that he feels he has the urge to urinate. Current medications include Cardizem, amiodarone, oxycodone, morphine pump, temocillin, prednisone, Proscar, metoprolol, pantoprazole, and lisinopril. TRAVEL OUTSIDE OF THE [place] IN LAST 30 DAYS: No - Related Data Allergies/Adverse Reactions: No Known Allergies Allergy (Verified 10/14/19 12:20) Past Medical History - General Information source: Patient - Social History Smoking Status: Former Smoker Family History: Reviewed & Not Pertinent, Hypertension - Past Medical History Cardiac Medical History: Reports: Hx Atrial Fibrillation - with RVR, Hx Hypercholesterolemia, Hx Hypertension GI Medical History: Reports: Hx Colonoscopy, Hx Endoscopy Musculoskeletal Medical History: Reports Hx Arthritis - rheumatoid arthritis Past Surgical History: Reports: Hx Orthopedic Surgery - pins in hip, neck fusion, Other - Morphine pump placement - Immunizations Hx Diphtheria, Pertussis, Tetanus Vaccination: Yes Review of Systems - Review of Systems Notes: REVIEW OF SYSTEMS: CONSTITUTIONAL : Denies recent illness. Denies recent unintentional weight loss. Denies fever, chills, or sweats. EENT: Denies eye, ear, throat, or mouth pain, discharge, or symptoms. Denies nasal or sinus congestion. CARDIOVASCULAR: Denies chest pain. RESPIRATORY: Denies shortness of breath, cough, congestion, difficulty breathing, or wheezing. GASTROINTESTINAL: Denies nausea, vomiting, and diarrhea. Denies abdominal pain. Denies constipation. GENITOURINARY: See HPI. MUSCULOSKELETAL: Denies neck and back pain. Denies joint pain or swelling. SKIN: Denies rash, itchiness, or lesions HEMATOLOGIC : Denies easy bruising or bleeding. LYMPHATIC: Denies swollen, painful, enlarged glands. NEUROLOGICAL: Denies no numbness or tingling denies weakness. Denies headache. Denies altered mental status. Denies alteration in speech. PSYCHIATRIC: Denies stress, anxiety, alteration in sleep patterns, or depression. All other systems reviewed and negative. Physical Exam - Vital signs Vitals: Temp Pulse Resp BP Pulse Ox 99.8 F 89 18 178/80 H 93 03/20/20 09:27 03/20/20 09:27 03/20/20 09:27 03/20/20 09:03/20/20 09:27 - Notes Notes: PHYSICAL EXAMINATION: GENERAL: Appears well, healthy, well-nourished, no acute distress. HEAD: Normocephalic, atraumatic. EYES: PERRL, conjunctiva normal, all extraocular movements intact, sclera nonicteric ENT: Moist mucous membranes. NECK: Supple, no noticeable swelling, redness, rash. Normal range of motion. LUNGS: Equal breath sounds bilaterally and clear to auscultation. No wheezes rales or rhonchi. CARDIOVASCULAR: S1-S2, regular rate, regular rhythm. Radial pulses 2+, normal. ABDOMEN: Normoactive bowel sounds. Soft, mildly tender mid lower abdomen, mild guarding, no rebound tenderness, and no masses palpated. EXTREMITIES: Normal strength and range of motion, no pitting or edema. No cyanosis. NEUROLOGICAL: Moves all extremities upon command. Strength 5/5 in all extremities. PSYCH: Normal mood, normal affect. SKIN: Warm, dry. No rash, lesions, ulcerations noted. Normal skin turgor. Course - Re-evaluation Re-evalutation: 03/20/20 12:26 Nursing staff had a hard time finding IV access on the patient. I use ultrasound and did not find very good veins. Dr. Felipe came to bedside and I placed a left EJ. Patient tolerated procedure well. Labs also drawn. 03/20/20 14:49 Patient has a mild leukocytosis of 11,100 with a left shift. Urine culture has been sent. Urinalysis shows trace amount of leukocytes. He is 17 white blood cells and 1+ bacteria. Patient sodium was 131. He was given a liter of IV fluids. I had a lengthy conversation with the patient about the importance of taking his finasteride. He states that he will take it. He took his last pill today. I will refill that. His urine has cleared up now that he received IV fluids. He will follow-up with his primary care provider. Follow-up p recautions were given. Verbal discharge instructions were given to the patient. They verbalized understanding. They are stable for discharge. - Vital Signs Vital signs: Temp Pulse Resp BP Pulse Ox 100.5 F H 86 18 141/74 H 88 L 03/20/20 17:11 03/20/20 17:11 03/20/20 17:11 03/20/20 17:11 03/20/20 17:11 - Laboratory Result Diagrams: 03/20/20 12:06 03/20/20 12:06 Laboratory results interpreted by me: 03/20/20 03/20/20 03/20/20 09:59 12:06 12:06 WBC 11.1 H Hgb 12.5 L Hct 37.2 L RDW 15.1 H Lymph % (Auto) 8.2 L Absolute Neuts (auto) 8.9 H Seg Neutrophils % 80.5 H Sodium 131.3 L Chloride 93 L Total Protein 5.9 L Albumin 3.1 L Urine Ketones 20 H Urine Urobilinogen 4.0 H Ur Leukocyte Esterase TRACE H Discharge - Discharge Clinical Impression: Acute urinary retention Condition: Good Disposition: HOME, SELF-CARE Additional Instructions: You were seen today in the emergency department for urinary retention. You were very dehydrated and received IV fluids here in the emergency department. Please make sure you are drinking plenty of fluids. Please have your finasteride refilled and make sure you are taking it every day. This helps you urinate. Follow-up with your primary care provider tomorrow. Prescriptions: Finasteride [Proscar 5 mg Tablet] 5 mg PO DAILY #30 tablet Referrals: DIONICIO ROWLAND MD [Primary Care Provider] - Follow up tomorrow
[2020-03-20] MEDS ORDERED: NORMAL SALINE 1000 ML 1,000 ML IV ONE (09:51)
[2020-03-20 10:45] LABS: APPEARANCE,URINE SLIGHTLY-CLOUDY; BILIRUBIN,URINE NEGATIVE (NEGATIVE); COLOR,URINE YELLOW; GLUCOSE, URINE NEGATIVE (NEGATIVE); KETONES,URINE 20 mg/dL (NEGATIVE); LEUKOCYTE ESTERASE,URINE TRACE (NEGATIVE); NITRITE,URINE NEGATIVE (NEGATIVE); PROTEIN,URINE NEGATIVE (NEGATIVE); URINE SPECIFIC GRAVITY 1.012
[2020-03-20 12:38] LABS: ABSOLUTE BASOPHILS # (AUTO) 0.1 10^3/uL (0.0-0.2); ABSOLUTE EOSINOPHILS # (AUTO) 0.1 10^3/uL (0.0-0.6); ABSOLUTE LYMPHOCYTES (AUTO) 0.9 10^3/uL (0.5-4.7); ABSOLUTE NEUT (AUTO) 8.9 10^3/uL (1.7-8.2); BASOPHILS % (AUTO) 0.8 % (0-2); EOSINOPHILS % (AUTO) 1.2 % (0-6); HEMATOCRIT 37.2 % (37.9-51.0); HEMOGLOBIN 12.5 g/dL (13.5-17.0); LYMPHOCYTES % (AUTO) 8.2 % (13-45); MEAN CORPUSCULAR HEMOGLOBIN 27.6 pg (27.0-33.4); MEAN CORPUSCULAR HGB CONC 33.7 g/dL (32.0-36.0); MEAN CORPUSCULAR VOLUME 82 fl (80-97); MONOCYTES % (AUTO) 9.3 % (3-13); PLATELET COUNT 384 10^3/uL (150-450); RED BLOOD COUNT 4.54 10^6/uL (4.35-5.55); RED CELL DISTRIBUTION WIDTH 15.1 % (11.5-14.0); SEGMENTED NEUTROPHILS % (AUTO) 80.5 % (42-78); TOTAL CELLS COUNTED % (AUTO) 100 %; WHITE BLOOD COUNT 11.1 10^3/uL (4.0-10.5)
[2020-03-20 12:54] LABS: ALBUMIN 3.1 g/dL (3.5-5.0); ALKALINE PHOSPHATASE 51 U/L (38-126); ANION GAP 9 (5-19); ASPARTATE AMINO TRANSFERASE 21 U/L (17-59); BILIRUBIN,DIRECT 0.3 mg/dL (0.0-0.4); BLOOD UREA NITROGEN 14 mg/dL (7-20); CALCIUM 8.5 mg/dL (8.4-10.2); CARBON DIOXIDE 29 mmol/L (22-30); CHLORIDE 93 mmol/L (98-107); GLUCOSE 81 mg/dL (75-110); POTASSIUM 3.9 mmol/L (3.6-5.0); TOTAL PROTEIN 5.9 g/dL (6.3-8.2)
[2020-03-20 17:15] VITALS: BP 141/74
== END 2020-03-20 17:15 | disposition home or self-care (01) ==
LOC: ER 09:07
DX: R33.9 Retention of urine, unspecified (principal); R39.198 Other difficulties with micturition; R35.0 Frequency of micturition; R39.15 Urgency of urination; Z79.899 Other long term (current) drug therapy; I10 Essential (primary) hypertension; Z87.891 Personal history of nicotine dependence; I48.91 Unspecified atrial fibrillation; E78.00 Pure hypercholesterolemia, unspecified
CPT/HCPCS: 99283; 96360; 96361; 51702; 36415; 87086; 85025; 87088; 80053; 81001; J7030; 87186

== ENCOUNTER 2020-05-23 14:06 | Emergency (ER) | payer MEDICARE, MEDICAID ==
[2020-05-23 14:45] LABS: ABSOLUTE BASOPHILS # (AUTO) 0.1 10^3/uL (0.0-0.2); ABSOLUTE LYMPHOCYTES (AUTO) 1.1 10^3/uL (0.5-4.7); ABSOLUTE MONOCYTES (AUTO) 0.5 10^3/uL (0.1-1.4); ABSOLUTE NEUT (AUTO) 4.9 10^3/uL (1.7-8.2); BASOPHILS % (AUTO) 1.3 % (0-2); EOSINOPHILS % (AUTO) 0.5 % (0-6); HEMATOCRIT 35.5 % (37.9-51.0); HEMOGLOBIN 11.8 g/dL (13.5-17.0); LYMPHOCYTES % (AUTO) 16.9 % (13-45); MEAN CORPUSCULAR HEMOGLOBIN 26.6 pg (27.0-33.4); MEAN CORPUSCULAR HGB CONC 33.1 g/dL (32.0-36.0); MEAN CORPUSCULAR VOLUME 80 fl (80-97); MONOCYTES % (AUTO) 7.3 % (3-13); PLATELET COUNT 321 10^3/uL (150-450); RED BLOOD COUNT 4.42 10^6/uL (4.35-5.55); RED CELL DISTRIBUTION WIDTH 18.3 % (11.5-14.0); TOTAL CELLS COUNTED % (AUTO) 100 %; WHITE BLOOD COUNT 6.6 10^3/uL (4.0-10.5)
--- NOTE | 2020-05-23 14:59 | ER Document Report ---
ED Dizziness/Weakness - General Chief Complaint: Weakness Stated Complaint: WEAKNESS Time Seen by Provider: 05/23/20 14:34 Primary Care Provider: DIONICIO ROWLAND MD [Primary Care Provider] - Follow up tomorrow Mode of Arrival: Medic Information source: Patient Notes: Patient presents complaining of generalized weakness and increased sleeping for the past 2 days. Patient states that he has not ate or drink anything over the past 2 days due to increased sleepiness. Patient states that he has had something similar to this in the past. Patient states that he did get up this morning and took his usual medications. Patient denies any cough, fever, nausea vomiting or diarrhea. Patient denies any new pain symptoms aside from his usual chronic pain. Patient has chronic back pain as well as generalized difficulty walking joint pain due to rheumatoid arthritis. TRAVEL OUTSIDE OF THE [place] IN LAST 30 DAYS: No - HPI Patient complains to provider of: Weakness, Other - Increased sleepiness Onset: Other - 2 days Onset/Duration: Persistent Quality of pain: Achy Context: denies: Vertigo Associated symptoms: Weak all over. denies: Chest pain, Confused, Dizzy, Fainted, Nausea, Vomiting Baseline gait: Does not stand or walk - Related Data Allergies/Adverse Reactions: No Known Allergies Allergy (Verified 10/14/19 12:20) Past Medical History - General Information source: Patient - Social History Smoking Status: Current Every Day Smoker Frequency of alcohol use: None Drug Abuse: None Occupation: None Lives with: Friend Family History: Reviewed & Not Pertinent, Hypertension - Past Medical History Cardiac Medical History: Reports: Hx Atrial Fibrillation - with RVR, Hx Hypercholesterolemia, Hx Hypertension Pulmonary Medical History: Reports: Hx COPD GI Medical History: Reports: Hx Colonoscopy, Hx Endoscopy Musculoskeletal Medical History: Reports Hx Arthritis - rheumatoid arthritis Past Surgical History: Reports: Hx Orthopedic Surgery - pins in hip, neck fusion, Other - Morphine pump placement - Immunizations Hx Diphtheria, Pertussis, Tetanus Vaccination: Yes Review of Systems - Review of Systems Constitutional: Weakness, Other - Increased sleepiness. denies: Fever EENT: No symptoms reported Cardiovascular: No symptoms reported. denies: Chest pain Respiratory: No symptoms reported. denies: Cough, Short of breath Gastrointestinal: No symptoms reported. denies: Abdominal pain, Diarrhea, Nausea, Vomiting Genitourinary: No symptoms reported. denies: Dysuria Male Genitourinary: No symptoms reported Musculoskeletal: Back pain - Chronic back pain Skin: No symptoms reported Hematologic/Lymphatic: No symptoms reported Neurological/Psychological: Weakness Physical Exam - Vital signs Vitals: Temp Pulse Resp BP Pulse Ox 98 F 69 16 125/63 98 05/23/20 14:33 05/23/20 14:33 05/23/20 14:33 05/23/20 14:33 05/23/20 14:33 - General General appearance: Appears well, Alert In distress: None - HEENT Head: Normocephalic, Atraumatic Eyes: Normal Conjunctiva: Normal Nasal: Normal Mouth/Lips: Normal Mucous membranes: Normal Neck: Normal, Supple. No: Lymphadenopathy - Respiratory Respiratory status: No respiratory distress Chest status: Nontender Breath sounds: Normal. No: Rales, Rhonchi, Stridor, Wheezing Chest palpation: Normal - Cardiovascular Rhythm: Regular Heart sounds: S1 appreciated, S2 appreciated Murmur: No - Abdominal Inspection: Other - Notable bulge to right lower quadrant, patient reports this is his morphine pump Distension: No distension Bowel sounds: Normal Tenderness: Nontender Organomegaly: No organomegaly - Back Back: Normal. No: CVA tenderness - Extremities General upper extremity: Normal inspection, Normal strength General lower extremity: Nontender, Other - Neurological Neuro grossly intact: Yes Cognition: Normal [place] Coma Scale Eye Opening: Spontaneous [place] Coma Scale Verbal: Oriented [place] Coma Scale Motor: Obeys Commands [place]leg[place] Coma Scale Total: 15 - Psychological Associated symptoms: Normal affect, Normal mood - Skin Skin Temperature: Warm Skin Moisture: Dry Skin Color: Pale Course - Re-evaluation Re-evalutation: 05/23/20 15:02 Patient asked to use bedpan, RN states that patient is having a difficult to pass stool and is requesting something to help move his bowels. Fleets enema ordered at this time. 05/23/20 17:[address] galarza regarding patient presentation diagnostic evaluation. Advises adding on urine drug screen. Agrees with plan to culture and treat urine at this time. Patient on heavy doses of narcotics from his morphine pump in addition to his oral oxycodone that he takes 20 mg 4 times a day. Suspect that patient is likely overmedicated although patient denies any concerns about this at this time. 05/23/20 20:07 Urine drug screen positive for opiates, benzodiazepine drugs as well as marijuana. Patient advised that the medications that he is on can cause adverse interactions including sedation, increased sleepiness as well as . Patient advised that he needs to discuss with his primary doctor his increased drow siness in case his medications need to be adjusted. Patient also advised of UTI finding. Urine culture has been placed. Discussed worsening symptoms that patient should return immediately for. Patient verbalized understanding is agreeable with discharge plan of care. - Vital Signs Vital signs: Temp Pulse Resp BP Pulse Ox 98 F 69 16 114/64 99 05/23/20 14:33 05/23/20 14:33 05/23/20 14:33 05/23/20 20:00 05/23/20 20:00 - Laboratory Result Diagrams: 05/23/20 14:25 05/23/20 14:25 Laboratory results interpreted by me: 05/23/20 05/23/20 05/23/20 14:25 14:25 16:10 Hgb 11.8 L Hct 35.5 L MCH 26.6 L RDW 18.3 H Sodium 132.9 L BUN 22 H Albumin 3.1 L Urine Ketones 20 H Urine Urobilinogen 2.0 H Ur Leukocyte Esterase TRACE H - Diagnostic Test Radiology reviewed: Image reviewed, Reports reviewed - EKG Interpretation by Me EKG shows normal: Sinus rhythm Rate: Normal When compared to previous EKG there are: Changes noted Additional EKG results interpreted by me: 05/23/20 16:24 Sinus rhythm with a rate of 67, QTc 406. Patient with nonspecific T wave changes in anterior leads noted when compared to prior EKG from 01/19/2020 Discharge - Discharge Clinical Impression: Marijuana use, Sleepiness, Overuse of medication UTI (urinary tract infection) Qualifiers: Urinary tract infection type: site unspecified Hematuria presence: without hematuria Qualified Code(s): N39.0 - Urinary tract infection, site not specified Condition: Stable Disposition: HOME, SELF-CARE Instructions: Ciprofloxacin ([facility]), Urinary Tract Infection ([facility]) Additional Instructions: Speak with your doctor about your medication regimen. It is possible that the combination of your morphine pump, in addition to your oxycodone, in addition to the benzodiazepine drugs that you are taking are causing you to have increased sedation. Your doctor may need to adjust your medications to prevent any potential lethal interaction of these medications. Return immediately for any new or worsening symptoms Followup with your primary care provider, call tomorrow to make a followup appointment Urine culture is pending, we will call if you need any different treatment. Prescriptions: Ciprofloxacin HCl [Cipro 500 mg Tablet] 500 mg PO BID #14 tablet Referrals: DIONICIO ROWLAND MD [Primary Care Provider] - Follow up tomorrow
[2020-05-23] MEDS ORDERED: NA PHOS,M-B/NA PHOS,DI-BA (ADULT) 133 ML ENEMA PR ONE (15:05)
[2020-05-23 15:12] LABS: ALBUMIN 3.1 g/dL (3.5-5.0); ALKALINE PHOSPHATASE 51 U/L (38-126); ANION GAP 6 (5-19); ASPARTATE AMINO TRANSFERASE 19 U/L (17-59); BILIRUBIN,DIRECT 0.2 mg/dL (0.0-0.4); BILIRUBIN,TOTAL 0.7 mg/dL (0.2-1.3); BLOOD UREA NITROGEN 22 mg/dL (7-20); CALCIUM 8.7 mg/dL (8.4-10.2); CARBON DIOXIDE 28 mmol/L (22-30); CHLORIDE 99 mmol/L (98-107); GLUCOSE 100 mg/dL (75-110); POTASSIUM 3.9 mmol/L (3.6-5.0); TOTAL PROTEIN 6.4 g/dL (6.3-8.2)
--- NOTE | 2020-05-23 15:47 | RADIOLOGY REPORT (SQ) ---
EXAM DESCRIPTION: CHEST SINGLE VIEW IMAGES COMPLETED DATE/TIME: 05/23/2020 3:39 pm REASON FOR STUDY: general weakness COMPARISON: 01/19/2020 EXAM PARAMETERS: NUMBER OF VIEWS: One view. TECHNIQUE: Single frontal radiographic view of the chest acquired. RADIATION DOSE: NA LIMITATIONS: None. FINDINGS: LUNGS AND PLEURA: Emphysematous change with hyperinflation and flattening of the hemidiaph ragms. Unchanged right apical scarring in biapical pleural thickening. No new airspace disease, ple ural effusion or pneumothorax. MEDIASTINUM AND HILAR STRUCTURES: No masses. Contour normal. HEART AND VASCULAR STRUCTURES: Normal heart size. Vascular calcifications. BONES: No acute findings. HARDWARE: None in the chest. OTHER: No other significant finding. IMPRESSION: Emphysematous change without evidence of acute cardiopulmonary process. Unchanged right apical scarring. TECHNICAL DOCUMENTATION: JOB ID: [id number] 2010 [employer]- All Rights Reserved Reading location - IP/workstation name: [email or web address]
[2020-05-23 16:43] LABS: APPEARANCE,URINE SLIGHTLY-CLOUDY; BILIRUBIN,URINE NEGATIVE (NEGATIVE); COLOR,URINE YELLOW; GLUCOSE, URINE NEGATIVE (NEGATIVE); KETONES,URINE 20 mg/dL (NEGATIVE); LEUKOCYTE ESTERASE,URINE TRACE (NEGATIVE); NITRITE,URINE NEGATIVE (NEGATIVE); PROTEIN,URINE NEGATIVE (NEGATIVE); URINE SPECIFIC GRAVITY 1.013
[2020-05-23] MEDS ORDERED: CEFTRIAXONE 1 GM/D5W RTU 1 GM/50 ML RTUPB IV ONE (17:44)
[2020-05-23 19:25] LABS: URINE AMPHETAMINES SCREEN NEGATIVE; URINE BARBITURATES SCREEN NEGATIVE; URINE COCAINE SCREEN NEGATIVE; URINE METHADONE SCREEN NEGATIVE; URINE PHENCYCLIDINE SCREEN NEGATIVE
[2020-05-23 19:27] LABS: URINE BENZODIAZEPINES SCREEN UNCONFIRMED POSITIVE; URINE MARIJUANA (THC) SCREEN UNCONFIRMED POSITIVE
--- NOTE | 2020-05-23 20:07 | EKG REPORT ---
SEVERITY:- ABNORMAL ECG - SINUS RHYTHM BORDERLINE LEFT AXIS DEVIATION NONSPECIFIC T ABNORMALITIES, ANTERIOR LEADS : Confirmed by: Rufina Núñez MD 23-May-2020 20:05:58
[2020-05-23 22:16] VITALS: BP 106/62
== END 2020-05-23 22:27 | disposition home or self-care (01) ==
LOC: ER 14:06
DX: N39.0 Urinary tract infection, site not specified (principal); F12.10 Cannabis abuse, uncomplicated; Z91.14 Patient's other noncompliance with medication regimen; R53.1 Weakness; M54.9 Dorsalgia, unspecified; G89.29 Other chronic pain; F17.200 Nicotine dependence, unspecified, uncomplicated; J44.9 Chronic obstructive pulmonary disease, unspecified
CPT/HCPCS: 93005; 99285; 96365; 36415; 87086; 83735; 84443; 85025; 87088; 80053; 81001; 84484; 87186; 80307; 71045; 93010; J0696

== ENCOUNTER 2020-06-03 09:47 | Inpatient (IN) | payer MEDICAID, MEDICARE ==
--- NOTE | 2020-06-03 10:15 | RADIOLOGY REPORT (SQ) ---
EXAM DESCRIPTION: CHEST SINGLE VIEW IMAGES COMPLETED DATE/TIME: 06/03/2020 10:03 am REASON FOR STUDY: bed 9 sepsis alert COMPARISON: 05/23/2020 EXAM PARAMETERS: NUMBER OF VIEWS: One view. TECHNIQUE: Single frontal radiographic view of the chest acquired. RADIATION DOSE: NA LIMITATIONS: None. FINDINGS: LUNGS AND PLEURA: Hazy ground-glass attenuation in the right lung with sparing of the lung base. Calcified granuloma left costophrenic angle. Left lung otherwise clear. MEDIASTINUM AND HILAR STRUCTURES: No masses. Contour normal. HEART AND VASCULAR STRUCTURES: Heart normal in size. Normal vasculature. BONES: No acute findings. HARDWARE: None in the chest. OTHER: No other significant finding. IMPRESSION: Right upper lobe pneumonia. TECHNICAL DOCUMENTATION: JOB ID: [id number] 2010 [email or web address]- All Rights Reserved Reading location - IP/workstation name: [email or web address]
[2020-06-03] MEDS ORDERED: NORMAL SALINE 1000 ML 1,000 ML IV ONE ×3 (10:41→12:17)
[2020-06-03] MEDS ORDERED: ACETAMINOPHEN 325 MG SUPP.RECT PR ONE (10:45)
[2020-06-03] MEDS ORDERED: PANTOPRAZOLE SODIUM 40 MG VIAL IV ONE (10:49)
[2020-06-03] MEDS ORDERED: ONDANSETRON HCL INJ/PF 4 MG/2 ML SDV IV ONE (10:49)
[2020-06-03] MEDS ORDERED: VANCOMYCIN HCL INJ 1000 MG VIAL IV ONE (10:59)
[2020-06-03] MEDS ORDERED: CEFEPIME 1 GM/D5W RTU 1 GM/50 ML RTUPB IV ONE (10:59)
[2020-06-03 11:00] LABS: INTERNATIONAL RATION (INR) 1.42; PROTHROMBIN TIME 17.5 SEC (11.4-15.4)
[2020-06-03 11:02] LABS: ABSOLUTE EOSINOPHILS # (AUTO) 0.1 10^3/uL (0.0-0.6); ABSOLUTE LYMPHOCYTES (AUTO) 0.3 10^3/uL (0.5-4.7); ABSOLUTE MONOCYTES (AUTO) 0.6 10^3/uL (0.1-1.4); ABSOLUTE NEUT (AUTO) 5.2 10^3/uL (1.7-8.2); BASOPHILS % (AUTO) 0.4 % (0-2); EOSINOPHILS % (AUTO) 1.2 % (0-6); HEMATOCRIT 32.3 % (37.9-51.0); HEMOGLOBIN 10.5 g/dL (13.5-17.0); LYMPHOCYTES % (AUTO) 5.6 % (13-45); MEAN CORPUSCULAR HEMOGLOBIN 25.6 pg (27.0-33.4); MEAN CORPUSCULAR HGB CONC 32.4 g/dL (32.0-36.0); MEAN CORPUSCULAR VOLUME 79 fl (80-97); MONOCYTES % (AUTO) 10.1 % (3-13); PLATELET COUNT 468 10^3/uL (150-450); RED BLOOD COUNT 4.09 10^6/uL (4.35-5.55); RED CELL DISTRIBUTION WIDTH 18.6 % (11.5-14.0); SEGMENTED NEUTROPHILS % (AUTO) 82.7 % (42-78); TOTAL CELLS COUNTED % (AUTO) 100 %; WHITE BLOOD COUNT 6.2 10^3/uL (4.0-10.5)
[2020-06-03 11:11] LABS: VENOUS BLOOD BASE EXCESS -3.8 mmol/L; VENOUS BLOOD HCO3 23.3 mmol/L (20-32); VENOUS BLOOD PCO2 51.2 mmHg (35-63); VENOUS BLOOD PH 7.28 (7.30-7.42)
[2020-06-03 11:12] LABS: ALBUMIN 2.9 g/dL (3.5-5.0); ALKALINE PHOSPHATASE 45 U/L (38-126); ANION GAP 15 (5-19); ASPARTATE AMINO TRANSFERASE 26 U/L (17-59); BILIRUBIN,DIRECT 0.3 mg/dL (0.0-0.4); BILIRUBIN,TOTAL 0.8 mg/dL (0.2-1.3); BLOOD UREA NITROGEN 59 mg/dL (7-20); CALCIUM 8.1 mg/dL (8.4-10.2); CARBON DIOXIDE 21 mmol/L (22-30); CHLORIDE 96 mmol/L (98-107); GLUCOSE 91 mg/dL (75-110); POTASSIUM 4.6 mmol/L (3.6-5.0); TOTAL PROTEIN 6.3 g/dL (6.3-8.2)
--- NOTE | 2020-06-03 12:09 | RADIOLOGY REPORT (SQ) ---
EXAM DESCRIPTION: ABDOMEN 2 VIEWS IMAGES COMPLETED DATE/TIME: 06/03/2020 11:56 am REASON FOR STUDY: abd pain/hemetemesis COMPARISON: 09/30/2019 NUMBER OF VIEWS: Two views. TECHNIQUE: Supine and erect/decubitus radiographic images of the abdomen acquired. LIMITATIONS: None. FINDINGS: FREE AIR: None. No abnormal gas collections. LUNG BASES: Clear. BOWEL GAS PATTERN: Abundant gas and fecal material throughout nondilated colon. CALCIFICATIONS: No suspicious calcifications. SOFT TISSUES: No gross mass or suggestion of organomegaly. HARDWARE: Battery pack right lower quadrant. Compression screw left hip. BONES: No acute fracture. No worrisome bone lesions. OTHER: No other significant finding. IMPRESSION: Mild fecal retention. TECHNICAL DOCUMENTATION: JOB ID: [id number] 2010 [email or web address]- All Rights Reserved Reading location - IP/workstation name: [email or web address]
[2020-06-03] MEDS ORDERED: AZITHROMYCIN INJ 500 MG VIAL IV ONE (12:20)
--- NOTE | 2020-06-03 12:50 | RADIOLOGY REPORT (SQ) ---
EXAM DESCRIPTION: CT ABD/PELVIS NO ORAL OR IV IMAGES COMPLETED DATE/TIME: 06/03/2020 12:38 pm REASON FOR STUDY: nausea/vomiting/pain COMPARISON: None recent. TECHNIQUE: CT scan of the abdomen and pelvis performed with oral contrast and no intravenous contras t. Images reviewed with lung, soft tissue, and bone windows. Reconstructed coronal and sagittal MPR i mages reviewed. All images stored on PACS. All CT scanners at this facility use dose modulation, iterative reconstruction, and/or weight based d osing when appropriate to reduce radiation dose to as low as reasonably achievable (ALARA). [facility]: Dose Right [facility]: CareDose [facility]: Dose Right [facility]: Teradose 4D [facility]: [employer] RADIATION DOSE: CT Rad equipment meets quality standard of care and radiation dose reduction techniq ues were employed. CTDIvol: 4.8 mGy. DLP: 236 mGy-cm. mGy. LIMITATIONS: Artifact from right lower quadrant battery pack. FINDINGS: LOWER CHEST: Gastroesophageal reflux. Trace pleural effusions. NON-CONTRASTED LIVER, SPLEEN, ADRENALS: Evaluation limited by lack of IV contrast. No identified sign ificant masses. PANCREAS: No masses. No peripancreatic inflammatory changes. GALLBLADDER: No identified stones by CT criteria. No inflammatory changes to suggest cholecystitis. RIGHT KIDNEY AND URETER: No suspicious masses. Assessment limited by lack of IV contrast. 2 mm ston e upper pole. No hydronephrosis or hydroureter. LEFT KIDNEY AND URETER: No suspicious masses. Assessment limited by lack of IV contrast. No signifi cant calcifications. No hydronephrosis or hydroureter. AORTA AND RETROPERITONEUM: No aneurysm. No retroperitoneal masses or adenopathy. BOWEL AND PERITONEAL CAVITY: No obvious masses or inflammatory changes. No free fluid. APPENDIX: Not visualized. PELVIS, BLADDER, AND ABDOMINAL WALL: No abnormal pelvic masses. No abdominal wall hernias. Bladder un remarkable. BONES: No significant findings. OTHER: No other significant finding. IMPRESSION: No acute findings. Small nonobstructing stone right kidney. TECHNICAL DOCUMENTATION: JOB ID: [id number] Quality ID # [id number]: Final reports with documentation of one or more dose reduction techniques (e.g., Au tomated exposure control, adjustment of the mA and/or kV according to patient size, use of iterative reconstruction technique) 2010 [employer]- All Rights Reserved Reading location - IP/workstation name: [email or web address]
[2020-06-03 13:17] LABS: AMORPHOUS SEDIMENT,URINE TRACE /HPF; APPEARANCE,URINE SLIGHTLY-CLOUDY; BILIRUBIN,URINE NEGATIVE (NEGATIVE); COLOR,URINE YELLOW; GLUCOSE, URINE NEGATIVE (NEGATIVE); KETONES,URINE TRACE mg/dL (NEGATIVE); PROTEIN,URINE 30 mg/dL (NEGATIVE); URINE SPECIFIC GRAVITY 1.013; UROBILINOGEN,URINE NEGATIVE mg/dL (<2.0)
[2020-06-03] MEDS ORDERED: DEXTROSE 5%-WATER 250 ML with NOREPINEPHRINE BITARTRATE 4 MG IV PRN ×2 (13:54)
[2020-06-03] MEDS ORDERED: NOREPINEPHRINE BITARTRATE INJ/PF 4 MG/4 ML SDV IV ONE (14:14)
[2020-06-03] MEDS: NORMAL SALINE 1000 ML 1,000 ML IV PRN ×2 (14:48→16:25)
--- NOTE | 2020-06-03 15:08 | EKG REPORT ---
SEVERITY:- ABNORMAL ECG - SINUS RHYTHM ST ELEVATION SUGGESTS PERICARDITIS PROLONGED QT INTERVAL : Confirmed by: Corey Jimenes MD 03-Jun-2020 15:07:46
[2020-06-03 17:30] LABS: ANION GAP 11 (5-19); BLOOD UREA NITROGEN 44 mg/dL (7-20); CARBON DIOXIDE 16 mmol/L (22-30); CHLORIDE 105 mmol/L (98-107); GLUCOSE 144 mg/dL (75-110); POTASSIUM 4.3 mmol/L (3.6-5.0)
[2020-06-03 17:54] LABS: CALCIUM 6.8 mg/dL (8.4-10.2)
[2020-06-03] MEDS ORDERED: CALCIUM CHLORIDE 10% PF/INJ 1000 MG/10 ML SDV IV STA (17:59)
[2020-06-03] MEDS ORDERED: CALCIUM CHLORIDE 10% PF/INJ 1000 MG/10 ML SDV IV ONE (19:15)
[2020-06-03] MEDS ORDERED: CALCIUM GLUCONATE 1000 MG/10 ML INJ IV ONE ×2 (19:31→21:36)
--- NOTE | 2020-06-03 20:32 | RADIOLOGY REPORT (SQ) ---
EXAM DESCRIPTION: X-ray, single view of the chest CLINICAL HISTORY: 69 years Male, post left IJ central line attempt COMPARISON: Portable view of the chest obtained earlier in the day at 10:00 AM FINDINGS: Lungs: Increasing multifocal parenchymal opacification is identified in both lungs. This is most pronounced in the right upper lobe. Right-sided pleural effusion has developed along the right lateral chest wall. No pneumothorax. Mediastinum: Cardiac and mediastinal silhouette are widened. Bones: Osseous structures are normal. IMPRESSION: Interval development of multifocal parenchymal opacification as well as a right-sided pleural effusion. No pneumothorax.
[2020-06-03] MEDS: MAGNESIUM SULFATE/D5W 1 GM/100 ML RTUPB IV SCH ×2 (21:51→23:46)
--- NOTE | 2020-06-03 23:46 | ER Document Report ---
Entered by JOSE GALLEGOS SCRIBE 06/03/20 1146 Acting as scribe for:KHANG ZAIDI MD ED General - General Information source: Patient, FORMERLY [facility], [facility]–1983 Records TRAVEL OUTSIDE OF THE [place] IN LAST 30 DAYS: No <KHANG ZAIDI - Last Filed: 06/03/20 23:46> <EDWIN MONET JOSE - Last Filed: 06/03/20 23:48> - General Chief Complaint: Fever Stated Complaint: FEVER Time Seen by Provider: 06/03/20 10:08 Primary Care Provider: DIONICIO ROWLAND MD [Primary Care Provider] - Follow up as needed Notes: This 69 year old male patient presents to the emergency department today with a fever and N/V. Patient states he recently visited the ED for a UTI. Patient states there has been light blood in his vomit. Denies chills, chest pain, or ulcers. Patient states he has not been eating or drinking the past x2 days. Per nurses, patient lives with a friend and has been acting differently. Patient is also bed ridden, with a history of Afib, HTN, COPD, and kidney failure. Patient states he also has chronic rheumatoid arthritis and a morphine pump in his abdomen. (KHANG ZAIDI) - Related Data Allergies/Adverse Reactions: No Known Allergies Allergy (Verified 10/14/19 12:20) Past Medical History - General Information source: Patient, FORMERLY [facility], 1928–[facility] Records - Social History Smoking Status: Unknown if Ever Smoked Lives with: Friend Family History: Reviewed & Not Pertinent, Hypertension - Past Medical History Cardiac Medical History: Reports: Hx Atrial Fibrillation - with RVR, Hx Hypercholesterolemia, Hx Hypertension Pulmonary Medical History: Reports: Hx COPD Renal/ Medical History: Reports: Other - Renal failure GI Medical History: Reports: Hx Colonoscopy, Hx Endoscopy Musculoskeletal Medical History: Reports Hx Arthritis - rheumatoid arthritis Psychiatric Medical History: Reports: Hx Anxiety Past Surgical History: Reports: Hx Orthopedic Surgery - pins in hip, neck fusion, Other - Morphine pump placement - Immunizations Hx Diphtheria, Pertussis, Tetanus Vaccination: Yes <KHANG ZAIDI - Last Filed: 06/03/20 23:46> Review of Systems - Review of Systems Constitutional: See HPI, Fever. denies: Chills EENT: No symptoms reported Cardiovascular: See HPI. denies: Chest pain Respiratory: No symptoms reported Gastrointestinal: See HPI, Nausea, Vomiting, Poor appetite, Poor fluid intake, Blood in vomit Genitourinary: See HPI, Other - recent UTI Male Genitourinary: No symptoms reported Musculoskeletal: No symptoms reported Skin: No symptoms reported Hematologic/Lymphatic: No symptoms reported Neurological/Psychological: See HPI -: Yes All other systems reviewed and negative <KHANG ZAIDI - Last Filed: 06/03/20 23:46> Physical Exam - General General appearance: Lethargic, Other - Emaciated - HEENT Head: Normocephalic, Atraumatic Eyes: Normal Pupils: PERRL - Respiratory Respiratory status: No respiratory distress Chest status: Nontender Breath sounds: Normal Chest palpation: Normal - Cardiovascular Rhythm: Regular Heart sounds: Normal auscultation, S1 appreciated, S2 appreciated Murmur: No - Abdominal Inspection: Other - MUSHROOM PACKER pump in RUQ Distension: No distension Bowel sounds: Normal Tenderness: Nontender. No: Rebound - Neurological Neuro grossly intact: Yes Cognition: Normal, Other - Arousable Orientation: AAOx4 Speech: Normal Sensory: Normal - Psychological Associated symptoms: Normal affect, Normal mood - Skin Skin Temperature: Warm Skin Moisture: Dry Skin Color: Normal <KHANG ZAIDI - Last Filed: 06/03/20 23:46> - Vital signs Vitals: Resp Pulse Ox 22 H 98 06/03/20 09:58 06/03/20 09:58 - Extremities Notes: Ecchymosis of bilateral upper and lower extremities. Bilateral lower extremities without edema. (KHANG ZAIDI) Course - Laboratory Result Diagrams: 06/03/20 10:40 06/03/20 16:47 - Diagnostic Test Radiology reviewed: Image reviewed, Reports reviewed <KHANG ZAIDI - Last Filed: 06/03/20 23:46> - Laboratory Result Diagrams: 06/03/20 10:40 06/03/20 16:47 - Consults FERMÍN Pimentel, dental ceramist assistant service Time consulted: 22:00 Dr. Holliday Time consulted: 23:00 - Dr. Holliday agreed to admit pt to IMCU <EDWIN MONET IV - Last Filed: 06/03/20 23:48> - Re-evaluation Re-evalutation: 06/03/20 19:55 Patient's course has been episodic with with episodes of hypotension requiring fluid challenge which patient's blood pressure responded beautifully over the day. Patient has received a total of 6 L of normal saline and is now showing urine output notes pastel yellow in color. Case discussed with the dental ceramist assistant team and they are coming down to evaluate patient for possible admission to the ICU. 06/03/20 20:01 Patient's vital signs now show a temp of 95 core temperature therefore patient will be placed on Deanne hugger warmer. Also will begin low-dose nor epi to maintain his systolic blood pressure between 95 and 100. 06/03/20 21:55 Discussed case with dental ceramist assistant service and their plan is to allow patient to be off of the nor epi for 1 hour and to reassess if patient's hemodynamic stable status is stable without the use of pressors. If patient blood pressure remains stable off norepinephrine the dental ceramist assistant service suggested patient be admitted to the hospitalist service. (KHANG ZAIDI) - Vital Signs Vital signs: Temp Pulse Resp BP Pulse Ox 96.8 F L 16 92/73 L 92 06/03/20 12:59 06/03/20 22:20 06/03/20 22:20 06/03/20 22:20 - Laboratory Laboratory results interpreted by hi: 06/03/20 06/03/20 06/03/20 10:40 10:40 10:40 RBC 4.09 L Hgb 10.5 L Hct 32.3 L MCV 79 L MCH 25.6 L RDW 18.6 H Plt Count 468 H Lymph % (Auto) 5.6 L Absolute Lymphs (auto) 0.3 L Seg Neutrophils % 82.7 H PT 17.5 H VBG pH Sodium 131.5 L Chloride 96 L Carbon Dioxide 21 L BUN 59 H Creatinine 7.96 H Est GFR ( Amer) 8 L Est GFR (MDRD) Non-Af 7 L Glucose Lactic Acid Calcium 8.1 L Magnesium Albumin 2.9 L Urine Protein Urine Ketones Urine Blood Leukocyte Esterase Rfl 06/03/20 06/03/20 06/03/20 10:51 12:39 13:28 RBC Hgb Hct MCV MCH RDW Plt Count Lymph % (Auto) Absolute Lymphs (auto) Seg Neutrophils % PT VBG pH 7.28 L Sodium Chloride Carbon Dioxide BUN Creatinine Est GFR ( Amer) Est GFR (MDRD) Non-Af Glucose Lactic Acid < 0.5 L Calcium Magnesium Albumin Urine Protein 30 H Urine Ketones TRACE H Urine Blood SMALL H Leukocyte Esterase Rfl TRACE H 06/03/20 06/03/20 16:47 16:47 RBC Hgb Hct MCV MCH RDW Plt Count Lymph % (Auto) Absolute Lymphs (auto) Seg Neutrophils % PT VBG pH Sodium 132.2 L Chloride Carbon Dioxide 16 L BUN 44 H Creatinine 6.45 H Est GFR ( Amer) 10 L Est GFR (MDRD) Non-Af 9 L Glucose 144 H Lactic Acid Calcium 6.8 L* Magnesium 1.4 L Albumin Urine Protein Urine Ketones Urine Blood Leukocyte Esterase Rfl - Diagnostic Test Radiology results interpreted by me: 06/03/20 19:53 Chest x-ray shows infiltrate in the right upper lung otherwise increased markings noted no other acute process CT abdomen and pelvis did not disclose any acute process. Incidental left nonobstructing renal stone. 06/03/20 19:55 Plain film x-ray abdomen shows stool retention otherwise no acute process. 06/03/20 20:08 Chest x-ray post central line attempt. No pneumothorax noted. (KHANG ZAIDI) - EKG Interpretation by Me Additional EKG results interpreted by me: 06/03/20 19:52 Twelve-lead EKG shows normal sinus rhythm and rate, questionable pericarditis due to anterior chest leads showing some ST elevations. Non-STEMI. No other acute ST-T wave changes. Prolonged QT interval. (KHANG ZAIDI) - Consults FERMÍN Pimentel, dental ceramist assistant service Reason for consultation: 06/03/20 23:01 FERMÍN Ruby followed up to say that given the patient's MAP is above 65 off Levophed, pt currently does not meet criteria to be admitted to ICU (EDWIN MONET IV) Dr. Holliday Reason for consultation: 06/03/20 23:03 Right upper lobe pneumonia, acute renal injury, fever, hypothermia (EDWIN KAUR IV) - Transfer of Care Notes: 06/03/20 21:[address] dugan who will discuss further with the dental ceramist assistant service over this trial. Of being off of the Norethin. 06/03/20 21:57 (KHANG ZAIDI) Procedures - Central Line Left Internal jugular Consent obtained: Yes Central line pre-insertion: Sterile PPE donned, Chloraprep applied Central line size (Fr.): 7 Central line lumen type: Triple Ultrasound guided: Yes Number of attempts: 1 - Unsuccessful in guiding triple lumen over the guidewire for complete placement of line. Complications: No <KHANG ZAIDI - Last Filed: 06/03/20 23:46> - Central Line Left Internal jugular Notes: 06/03/20 19:50 Postprocedure lungs were clear equal bilateral breath no evidence clinically for any pneumothorax patient sats respirations blood pressure remain the same. (KHANG ZAIDI) Critical Care Note - Critical Care Note Total time excluding time spent on procedures (mins): 55 - / <KHANG ZAIDI - Last Filed: 06/03/20 23:46> Discharge <KHANG ZAIDI - Last Filed: 06/03/20 23:46> - Discharge Admitting Provider: Miya (Hospitalist) Unit Admitted: IMCU <EDWIN MONET IV - Last Filed: 06/03/20 23:48> - Discharge Clinical Impression: Acute renal failure, Community acquired pneumonia of left upper lobe of lung, Rheumatoid arthritis, Chronic pain, Metabolic acidosis, Hypocalcemia, Sepsis associated hypotension Condition: Serious Disposition: ADMITTED INPATIENT Referrals: DIONICIO ROWLAND MD [Primary Care Provider] - Follow up as needed I personally performed the services described in the documentation, reviewed and edited the documentation which was dictated to the scribe in my presence, and it accurately records my words and actions.
[2020-06-04] MEDS ORDERED: MAGNESIUM HYDROXIDE SUSP 30 ML UDCUP PO PRN
[2020-06-04] MEDS ORDERED: LEVALBUTEROL HCL NEB 0.63 MG/3 ML AMPUL NEB PRN (00:08)
[2020-06-04] MEDS ORDERED: GUAIFENESIN SYRP 200 MG/10 ML UDC PO PRN (00:08)
[2020-06-04] MEDS: RINGERS SOLUTION,LACTATED 1,000 ML IV PRN ×3 (02:44→21:20)
[2020-06-04] MEDS ORDERED: DOPAMINE HCL/DEXTROSE 5%-WATER 800 MG/250 ML RTUINJ IV ONE (05:21)
[2020-06-04] MEDS: DOPAMINE HCL 800 MG/D5W 250 ML IV PRN (05:25)
[2020-06-04] MEDS ORDERED: PANTOPRAZOLE SODIUM 40 MG TABLET.DR PO SCH (06:00)
--- NOTE | 2020-06-04 06:28 | PDOC H&P ---
History of Present Illness Admission Date/PCP: 06/03/2020 23:08 DIONICIO ROWLAND Patient complains of: Fever History of Present Illness: CHERRY ROLDAN is a 69 year old male who presented the emergency room with a 3- day history of fever. He admits a persistent severe (subjective) fever with accompanying chills and associated anorexia, nausea and vomiting with small amounts of hematemesis over the course of the last 3 days. He denies other associated or accompanying signs and symptoms. He admits prior similar episodes with infections. He has not identified any aggravating or ameliorating factors for his fever. In the emergency room he was found to have a temperature 101 F and was noted to be hypotensive with a systolic blood pressure in the 70s to 80s. His chest x-ray revealed a multifocal bilateral pneumonia and his renal function studies demonstrated an acute kidney injury. Lactic acid levels were normal. He received high-volume fluids and initial antibiotic therapy in the emergency room. Patient was subsequently admitted to the hospital for further evaluation and treatment per the sepsis protocol. Past Medical History Cardiac Medical History: Reports: Atrial Fibrillation - Paroxysmal with RVR, Hyperlipidema, Hypertension Denies: Coronary Artery Disease, Myocardial Infarction Pulmonary Medical History: Reports: Chronic Obstructive Pulmonary Disease (COPD) Denies: Asthma EENT Medical History: Denies: Cataracts, Ears - Hearing aids Neurological Medical History: Denies: Hemorrhagic CVA, Ischemic CVA, Seizures Endocrine Medical History: Denies: Diabetes Mellitus Type 1, Diabetes Mellitus Type 2, Hyperthyroidism, Hypothyroidism Renal/ Medical History: Reports: Other - Acute renal failure, benign prostatic hyperplasia Denies: Chronic Kidney Disease, Nephrolithiasis Malignancy Medical History: Reports: None GI Medical History: Denies: Cirrhosis, Hepatitis, Peptic Ulcer Disease Musculoskeltal Medical History: Reports: Arthritis - rheumatoid arthritis and osteoarthritis involving multiple joints, Other - Chronic pain syndrome Skin Medical History: Denies: Eczema, Psoriasis Psychiatric Medical History: Reports: Tobacco Dependency Denies: Alcohol Dependency, Substance Abuse Traumatic Medical History: Reports: None Hematology: Denies: Anemia, Bleeding Tendencies Infectious Medical History: Reports: Hepatitis C Past Surgical History Past Surgical History: Reports: Orthopedic Surgery - ORIF left hip, cervical fusion, Other - Morphine ARTIST COLOR SEPARATION pump placement Social History Information Source: Patient Lives with: Friend Smoking Status: Former Smoker Electronic Cigarette use?: No Frequency of Alcohol Use: None Hx Recreational Drug Use: No Drugs: None Hx Prescription Drug Abuse: No - Advance Directive Resuscitation Status: Full Code Surrogate healthcare decision maker:: Kel Oliveira Family History Family History: Hypertension Parental Family History Reviewed: Yes Children Family History Reviewed: No Sibling(s) Family History Reviewed.: Yes Medication/Allergy Home Medications: Diltiazem HCl [Diltiazem 24Hr ER (Cd)] 120 mg PO DAILY 09/30/19 Amiodarone HCl [Cordarone 200 mg Tablet] 200 mg PO DAILY #30 tablet 10/09/19 Pantoprazole Sodium [Protonix [address] Tablet] 40 mg PO BID 01/19/20 Finasteride [Proscar 5 mg Tablet] 5 mg PO DAILY #30 01/22/20 Lisinopril [Prinivil] 20 mg PO DAILY #30 tablet 01/22/20 Metoprolol Succinate [Toprol Xl 25 mg Tab.sr] 25 mg PO Q12 #60 tab.sr.24h 01/22/20 Prednisone [Deltasone 10 mg Tablet] 10 mg PO DAILY #20 01/22/20 Tamsulosin HCl [Flomax 0.4 mg Cap.sr] 0.4 mg PO DAILY #30 01/22/20 Finasteride [Proscar 5 mg Tablet] 5 mg PO DAILY #30 tablet 03/20/20 Ciprofloxacin HCl [Cipro 500 mg Tablet] 500 mg PO BID #14 tablet 05/23/20 Allergies/Adverse Reactions: No Known Allergies Allergy (Verified 10/14/19 12:20) Review of Systems Constitutional: PRESENT: as per HPI, anorexia, chills, fever(s) Eyes: ABSENT: visual disturbances, other - Eye pain Ears: ABSENT: hearing changes, other - Ear pain Nose, Mouth, and Throat: ABSENT: headache(s), sore throat Cardiovascular: ABSENT: chest pain, palpitations Respiratory: ABSENT: cough, dyspnea Gastrointestinal: PRESENT: nausea, vomiting. ABSENT: abdominal pain, constipati on, diarrhea Genitourinary: ABSENT: dysuria, hematuria Musculoskeletal: PRESENT: other - Chronic pain syndrome. ABSENT: joint swelling Integumentary: ABSENT: pruritus, rash Neurological: ABSENT: confusion, convulsions, focal weakness, memory loss, syncope Psychiatric: ABSENT: anxiety, depression Endocrine: ABSENT: cold intolerance, heat intolerance Hematologic/Lymphatic: ABSENT: easy bleeding, easy bruising Allergic/Immunologic: ABSENT: seasonal rhinorrhea Physical Exam Vital Signs: Temp Pulse Resp BP Pulse Ox 96.8 F L 16 92/73 L 92 06/03/20 12:59 06/03/20 22:20 06/03/20 22:20 06/03/20 22:20 Intake & Output 06/01/20 06/02/20 06/03/20 23:59 23:59 23:59 Intake Total 4055 Balance 4055 Weight 56.7 kg General appearance: PRESENT: no acute distress, cooperative, thin, other - Appears chronically ill Head exam: PRESENT: atraumatic, normocephalic Eye exam: PRESENT: conjunctiva pink. ABSENT: conjunctival injection, scleral icterus Ear exam: PRESENT: normal external ear exam. ABSENT: bleeding, drainage Mouth exam: PRESENT: dry mucosa, neck supple Neck exam: ABSENT: thyromegaly, tracheal deviation Respiratory exam: PRESENT: prolonged expiratory phas - Mildly prolonged expiratory phase noted no, rhonchi - Rare scattered rhonchi, symmetrical, tachypnea, wheezes - Minimal expiratory wheezes noted in all marrero Cardiovascular exam: PRESENT: RRR, systolic murmur. ABSENT: clicks, gallop, rubs Pulses: PRESENT: normal radial pulses, normal dorsalis pedis pul Vascular exam: PRESENT: normal capillary refill. ABSENT: pallor GI/Abdominal exam: PRESENT: normal bowel sounds, soft. ABSENT: tenderness Rectal exam: PRESENT: deferred Extremities exam: PRESENT: other - Left forearm with moderate edema secondary to IV infiltration. ABSENT: joint swelling, pedal edema Musculoskeletal exam: PRESENT: deformity - Mild rheumatoid contractures noted, other - Moderate disuse atrophy of musculature of the lower extremities. ABSENT: ambulatory, dislocation Neurological exam: PRESENT: alert, oriented to person, oriented to place, oriented to time, oriented to situation, CN II-XII grossly intact. ABSENT: m otor sensory deficit Psychiatric exam: PRESENT: appropriate affect, normal mood Skin exam: PRESENT: dry, intact, urticaria, warm, other - Decubitus skin changes noted in the bilateral buttocks and sacral region. ABSENT: jaundice, rash Results Laboratory Results: 06/03/20 10:40 06/03/20 16:47 06/03/20 06/03/20 06/03/20 10:40 10:40 10:40 WBC 6.2 RBC 4.09 L Hgb 10.5 L Hct 32.3 L MCV 79 L MCH 25.6 L MCHC 32.4 RDW 18.6 H Plt Count 468 H Seg Neutrophils % 82.7 H VBG pH VBG pCO2 VBG HCO3 VBG Base Excess Sodium 131.5 L Potassium 4.6 Chloride 96 L Carbon Dioxide 21 L Anion Gap 15 BUN 59 H Creatinine 7.96 H Est GFR ( Amer) 8 L Glucose 91 Lactic Acid 0.9 Calcium 8.1 L Magnesium Total Bilirubin 0.8 AST 26 Alkaline Phosphatase 45 Total Protein 6.3 Albumin 2.9 L Urine Color Urine Appearance Urine pH Ur Specific Morris Urine Protein Urine Glucose (UA) Urine Ketones Urine Blood Urine RBC (Auto) Blood Type Antibody Screen 06/03/20 06/03/20 06/03/20 10:51 12:39 12:39 WBC RBC Hgb Hct MCV MCH MCHC RDW Plt Count Seg Neutrophils % VBG pH 7.28 L VBG pCO2 51.2 VBG HCO3 23.3 VBG Base Excess -3.8 Sodium Potassium Chloride Carbon Dioxide Anion Gap BUN Creatinine Est GFR ( Amer) Glucose Lactic Acid Calcium Magnesium Total Bilirubin AST Alkaline Phosphatase Total Protein Albumin Urine Color YELLOW Urine Appearance SLIGHTLY-CLOUDY Urine pH 5.0 Ur Specific Morris 1.013 Urine Protein 30 H Urine Glucose (UA) NEGATIVE Urine Ketones TRACE H Urine Blood SMALL H Urine RBC (Auto) 1 Blood Type O NEGATIVE Antibody Screen NEGATIVE 06/03/20 06/03/20 06/03/20 13:28 15:18 16:47 WBC RBC Hgb Hct MCV MCH MCHC RDW Plt Count Seg Neutrophils % VBG pH VBG pCO2 VBG HCO3 VBG Base Excess Sodium 132.2 L Potassium 4.3 Chloride 105 Carbon Dioxide 16 L Anion Gap 11 BUN 44 H Creatinine 6.45 H Est GFR ( Amer) 10 L Glucose 144 H Lactic Acid < 0.5 L 0.9 Calcium 6.8 L* Magnesium Total Bilirubin AST Alkaline Phosphatase Total Protein Albumin Urine Color Urine Appearance Urine pH Ur Specific Morris Urine Protein Urine Glucose (UA) Urine Ketones Urine Blood Urine RBC (Auto) Blood Type Antibody Screen 06/03/20 16:47 WBC RBC Hgb Hct MCV MCH MCHC RDW Plt Count Seg Neutrophils % VBG pH VBG pCO2 VBG HCO3 VBG Base Excess Sodium Potassium Chloride Carbon Dioxide Anion Gap BUN Creatinine Est GFR ( Amer) Glucose Lactic Acid Calcium Magnesium 1.4 L Total Bilirubin AST Alkaline Phosphatase Total Protein Albumin Urine Color Urine Appearance Urine pH Ur Specific Morris Urine Protein Urine Glucose (UA) Urine Ketones Urine Blood Urine RBC (Auto) Blood Type Antibody Screen 06/03/20 06/03/20 10:40 16:47 Troponin I 0.033 0.023 Impressions: Abdomen/Pelvis CT 06/03/20 00:00 IMPRESSION: No acute findings. Small nonobstructing stone right kidney. Abdomen X-Ray 06/03/20 10:39 IMPRESSION: Mild fecal retention. Chest X-Ray 06/03/20 18:55 IMPRESSION: Interval development of multifocal parenchymal opacification as well as a right-sided pleural effusion. No pneumothorax. Assessment and Plan - Diagnosis (1) Sepsis with acute organ dysfunction and septic shock Qualifiers: Sepsis type: sepsis due to unspecified organism Severe sepsis acute organ dysfunction type: acute renal failure Acute renal failure type: unspecified Qualified Code(s): A41.9 - Sepsis, unspecified organism; R65.21 - Severe sepsis with septic shock; N17.9 - Acute kidney failure, unspecified Is this a current diagnosis for this admission?: Yes (2) Multifocal pneumonia Is this a current diagnosis for this admission?: Yes (3) RAISSA (acute kidney injury) Is this a current diagnosis for this admission?: Yes (4) Hypotension Qualifiers: Hypotension type: hypotension due to hypovolemia Qualified Code(s): I95.89 - Other hypotension; E86.1 - Hypovolemia Is this a current diagnosis for this admission?: Yes (5) Hyponatremia Is this a current diagnosis for this admission?: Yes (6) Hypomagnesemia Is this a current diagnosis for this admission?: Yes (7) Chronic obstructive pulmonary disease Qualifiers: COPD type: unspecified COPD Qualified Code(s): J44.9 - Chronic obstructive pulmonary disease, unspecified Is this a current diagnosis for this admission?: Yes (8) Rheumatoid arthritis Qualifiers: Rheumatoid arthritis location: multiple sites Rheumatoid factor presence: unspecified presence Qualified Code(s): M06.9 - Rheumatoid arthritis, unspecified Is this a current diagnosis for this admission?: Yes (9) BPH (benign prostatic hyperplasia) Qualifiers: Lower urinary tract symptom presence: unspecified whether lower urinary tract symptoms present Qualified Code(s): N40.0 - Benign prostatic hyperplasia without lower urinary tract symptoms Is this a current diagnosis for this admission?: Yes (10) Chronic pain disorder Is this a current diagnosis for this admission?: Yes (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 He will be treated with high-volume IV fluids and blood pressure support utilizing pressor agents as needed. He will receive supplemental oxygen as needed to maintain an adequate O2 saturation. He will receive IV antibiotics utilizing cefepime and azithromycin. He will receive a pulmonary toilet utilizing Xopenex, Atrovent and Pulmicort delivered via nebulizer. He will receive IV steroids utilizing Decadron 2 mg IV every 8 hours. He will receive Ativan 1 mg IV every 4 hours as needed for anxiety or restlessness. Further evaluation of his hematemesis/guaiac positive stool will be arranged once he is more stable. He will be continued on his chronic pain control utilizing his implanted morphine [employer]PAR[employer] pump as per his usual dose scheduling if possible. His usual home meds will be restarted, if appropriate, once his medication list has been verified and reconciled. He will be treated with a cardiac diet and encouraged to take oral fluids. - Time Time Spent with patient: 15-24 minutes Medications reviewed and adjusted accordingly: Yes Anticipated Discharge Disposition: [facility] Facility Anticipated Discharge Timeframe: Undetermined - Inpatient Certification Based on my medical assessment, after consideration of the patient's comorbidities, presenting symptoms, or acuity I expect that the services needed warrant INPATIENT care.: Yes I certify that my determination is in accordance with my understanding of Medicare's requirements for reasonable and necessary INPATIENT services [42 CFR 412.3e].: Yes Medical Necessity: Significant Comorbidiites Make Outpatient Treatment Too Risky, Need Close Monitoring Due to Risk of Patient Decompensation, Need For IV Fluids, Need For Continuous Telemetry Monitoring, Need for IV Antibiotics, Risk of Complication if Not Cared For in Hospital
[2020-06-04] MEDS: DEXAMETHASONE SOD PHOSPHATE INJ 4 MG/1 ML VIAL IV SCH ×3 (06:48→22:24)
[2020-06-04] MEDS: BUDESONIDE NEB 0.5 MG/2 ML AMPUL NEB SCH ×2 (09:10→20:34)
[2020-06-04] MEDS: LEVALBUTEROL HCL NEB 1.25 MG/3 ML AMPUL NEB SCH ×2 (09:10→16:20)
[2020-06-04] MEDS: IPRATROPIUM BROMIDE 0.02% NEB 0.5 MG/2.5 ML AMPUL NEB SCH ×2 (09:10→16:20)
[2020-06-04] MEDS ORDERED: ACETAMINOPHEN 650 MG SUPP.RECT PR PRN ×2 (10:00)
[2020-06-04] MEDS ORDERED: CEFEPIME HCL 2 GM in DEXTROSE 5%-WATER 50 ML IV SCH (10:00)
[2020-06-04] MEDS ORDERED: ACETAMINOPHEN 325 MG TABLET PO PRN ×2 (10:00)
[2020-06-04] MEDS ORDERED: CEFEPIME 2 GM/D5W RTU 2 GM/50 ML RTUPB IV SCH (10:00)
[2020-06-04 10:18] LABS: HEMATOCRIT 33.9 % (37.9-51.0); HEMOGLOBIN 10.9 g/dL (13.5-17.0); MEAN CORPUSCULAR HEMOGLOBIN 26.1 pg (27.0-33.4); MEAN CORPUSCULAR HGB CONC 32.2 g/dL (32.0-36.0); MEAN CORPUSCULAR VOLUME 81 fl (80-97); PLATELET COUNT 439 10^3/uL (150-450); RED BLOOD COUNT 4.17 10^6/uL (4.35-5.55); RED CELL DISTRIBUTION WIDTH 19.5 % (11.5-14.0)
[2020-06-04 10:40] LABS: ABSOLUTE LYMPHOCYTES# (MANUAL) 0.3 10^3/uL (0.5-4.7); ABSOLUTE MONOCYTES # (MANUAL) 0.1 10^3/uL (0.1-1.4); BAND NEUTROPHILS % (MANUAL) 9 % (3-5); BASOPHILS % (MANUAL) 0 % (0-2); EOSINOPHILS % (MANUAL) 1 % (0-6); LYMPHOCYTES % (MANUAL) 3 % (13-45); MONOCYTES % (MANUAL) 1 % (3-13); PLATELET COMMENT ADEQUATE; SEGMENTED NEUTROPHILS % (MAN) 86 % (42-78); TOTAL CELLS COUNTED 100
[2020-06-04 10:41] LABS: ANISOCYTOSIS 1+; BURR CELLS 3+; POIKILOCYTOSIS 3+
[2020-06-04] MEDS: CEFEPIME 1 GM/D5W RTU 1 GM/50 ML RTUPB IV SCH (10:42)
[2020-06-04 10:50] LABS: ALBUMIN 2.5 g/dL (3.5-5.0); ALKALINE PHOSPHATASE 38 U/L (38-126); ANION GAP 10 (5-19); ASPARTATE AMINO TRANSFERASE 25 U/L (17-59); BILIRUBIN,DIRECT 0.4 mg/dL (0.0-0.4); BILIRUBIN,TOTAL 0.7 mg/dL (0.2-1.3); BLOOD UREA NITROGEN 43 mg/dL (7-20); CALCIUM 7.6 mg/dL (8.4-10.2); CARBON DIOXIDE 16 mmol/L (22-30); CHLORIDE 108 mmol/L (98-107); GLUCOSE 115 mg/dL (75-110); POTASSIUM 4.7 mmol/L (3.6-5.0); TOTAL PROTEIN 5.8 g/dL (6.3-8.2)
--- NOTE | 2020-06-04 15:16 | RADIOLOGY REPORT (SQ) ---
EXAM DESCRIPTION: PICC INSERTION IMAGES COMPLETED DATE/TIME: 06/04/2020 3:05 pm REASON FOR STUDY: poor IV access COMPARISON: None. FLUOROSCOPY TIME: 1.0 MINUTES 1 images saved to PACS. TECHNIQUE: Fluoroscopic and ultrasound guided PICC placement. LIMITATIONS: None. PROCEDURE: After written consent and assessment were obtained, the patient was brought into the fluo roscopy room and placed supine on the table. Ultrasound evaluation of potential access sites were per formed. After successfully identifying a patent right upper extremity basilic vein, the right upper a rm was prepped and draped in a sterile fashion along with the ultrasound probe. The entry site was an esthetized with 1% lidocaine. A 21 gauge 7 cm needle was advanced through the skin and into the basil ic vein under live ultrasound guidance. An ultrasound image was saved to PACS confirming access site . A .018 guide wire was then inserted through the needle and into the venous system. The needle was then removed and an 11 blade scalpel was used to make a 1cm skin incision. A 5 fr peel-away sheath w as advanced over the wire and into the venous system. A measurement was then made using the existing wire and live fluoroscopic guidance. The wire was then removed and trimmed. The PICC was advanced thr ough the peel-away sheath and into the venous system. The peel-away sheath was removed and the cathet er was adhered to the patients arm with a stat lock. The catheter was then aspirated and flushed and a sterile bandage was placed over the access site. A fluoroscopic spot image was saved to PACS confi rming the catheter tip within the SVC. IMPRESSION: SUCCESSFUL PLACEMENT OF A 5 FR DUAL LUMEN 40 CM PICC IN THE RIGHT BASILIC VEIN. COMMENT: Patient medication list reviewed: Yes- Quality ID# 130:Eligible professional attests to doc umenting in the medical record they obtained, updated, or reviewed the patient's current medications. . Quality ID 145: Final reports for procedures using fluoroscopy that document radiation exposure darrel karolina, or exposure time and number of fluorographic images (if radiation exposure indices are not avail able) Quality ID #76: The patient was prepped and draped using maximum sterile barrier technique including cap, mask, sterile gown, sterile gloves, a large sterile sheet, hand hygiene, and 2% Chlorhexidine fo r cutaneous antisepsis. When ultrasound is used, sterile ultrasound techniques are followed requiring sterile gel and sterile probes. TECHNICAL DOCUMENTATION: JOB ID: [id number] 2010 [employer]- All Rights Reserved rev Reading location - IP/workstation name: [email or web address]
--- NOTE | 2020-06-04 15:25 | PDOC PROGRESS REPORT ---
Subjective Progress Note for:: 06/04/20 Subjective:: Patient just returned from PICC line insertion. Limited interaction. Reason For Visit: SEPSIS WITH SEPTIC SHOCK,MULTIFOCAL PNEUMONIA Physical Exam Vital Signs: Temp Pulse Resp BP Pulse Ox 97.4 F 83 14 109/38 L 89 L 06/04/20 11:24 06/04/20 13:45 06/04/20 09:11 06/04/20 13:00 06/04/20 13:45 Intake & Output 06/03/20 06/04/20 06/05/20 06:59 06:59 06:59 Intake Total 4257 1017 Output Total 400 Balance 3857 1017 Weight 55.3 kg General appearance: PRESENT: other - Severely ill appearing Head exam: PRESENT: atraumatic, normocephalic Mouth exam: PRESENT: dry mucosa, tongue midline Respiratory exam: PRESENT: rhonchi, symmetrical. ABSENT: rales, tachypnea, wheezes Cardiovascular exam: PRESENT: RRR, +S1, +S2, systolic murmur. ABSENT: bradycardia, diastolic murmur, irregular rhythm GI/Abdominal exam: PRESENT: normal bowel sounds, soft. ABSENT: tenderness Rectal exam: PRESENT: deferred Gentrourinary exam: PRESENT: indwelling catheter Extremities exam: PRESENT: pedal edema, other - Upper extremity edema Musculoskeletal exam: ABSENT: ambulatory - Extremely weak, deformity, dislocation Neurological exam: PRESENT: awake, oriented to person - Appears to be, oriented to place - Appears to be. ABSENT: alert - Mumbled answers Psychiatric exam: PRESENT: flat affect. ABSENT: agitated, anxious Results Laboratory Results: 06/04/20 09:43 06/04/20 09:43 06/03/20 06/03/20 06/03/20 15:18 16:47 16:47 WBC RBC Hgb Hct MCV MCH MCHC RDW Plt Count Seg Neutrophils % Sodium 132.2 L Potassium 4.3 Chloride 105 Carbon Dioxide 16 L Anion Gap 11 BUN 44 H Creatinine 6.45 H Est GFR ( Amer) 10 L Glucose 144 H Lactic Acid 0.9 Calcium 6.8 L* Magnesium 1.4 L Total Bilirubin AST Alkaline Phosphatase Total Protein Albumin 06/04/20 06/04/20 06/04/20 01:37 09:43 09:43 WBC 9.0 RBC 4.17 L Hgb 10.9 L Hct 33.9 L MCV 81 MCH 26.1 L MCHC 32.2 RDW 19.5 H Plt Count 439 Seg Neutrophils % Not Reportable Sodium Potassium Chloride Carbon Dioxide Anion Gap BUN Creatinine Est GFR ( Amer) Glucose Lactic Acid 0.9 0.8 Calcium Magnesium Total Bilirubin AST Alkaline Phosphatase Total Protein Albumin 06/04/20 06/04/20 09:43 14:50 WBC RBC Hgb Hct MCV MCH MCHC RDW Plt Count Seg Neutrophils % Sodium 133.8 L Potassium 4.7 Chloride 108 H Carbon Dioxide 16 L Anion Gap 10 BUN 43 H Creatinine 5.90 H Est GFR ( Amer) 12 L Glucose 115 H Lactic Acid 0.6 L Calcium 7.6 L Magnesium 1.8 Total Bilirubin 0.7 AST 25 Alkaline Phosphatase 38 Total Protein 5.8 L Albumin 2.5 L 06/03/20 06/03/20 10:40 16:47 Troponin I 0.033 0.023 Impressions: Abdomen/Pelvis CT 06/03/20 00:00 IMPRESSION: No acute findings. Small nonobstructing stone right kidney. Abdomen X-Ray 06/03/20 10:39 IMPRESSION: Mild fecal retention. Chest X-Ray 06/03/20 18:55 IMPRESSION: Interval development of multifocal parenchymal opacification as well as a right-sided pleural effusion. No pneumothorax. PICC Line Insertion 06/04/20 00:00 IMPRESSION: SUCCESSFUL PLACEMENT OF A 5 FR DUAL LUMEN 40 CM PICC IN THE RIGHT BASILIC VEIN. Assessment and Plan - Diagnosis (1) Sepsis with acute organ dysfunction and septic shock Qualifiers: Sepsis type: sepsis due to unspecified organism Severe sepsis acute organ dysfunction type: acute renal failure Acute renal failure type: with acute tubular necrosis Qualified Code(s): A41.9 - Sepsis, unspecified organism; R65.21 - Severe sepsis with septic shock; N17.0 - Acute kidney failure with tubular necrosis Is this a current diagnosis for this admission?: Yes Plan: Sepsis likely due from pneumonia based on exam. Infection emanating from the coccyx ulcer cannot be excluded. Urine and blood cultures are negative so far. The patient's map varies from 60-65. Occasionally in the high 60s. We will increase the dopamine infusion to 10 mcg. He is also getting IV fluids. (2) Multifocal pneumonia Is this a current diagnosis for this admission?: Yes Plan: He had a negative PCR for COVID. He is on cefepime and azithromycin. Aspiration is a possibility. He is also on immunosuppressant therapy for his rheumatoid arthritis and this would make him susceptible to infection. (3) RAISSA (acute kidney injury) Is this a current diagnosis for this admission?: Yes Plan: Severe. Serum creatinine was 7.96 on admission and is down to 5.64. BUN was 59 and is down to 42. In December she presented with a serum creatinine greater than 6.0. It subsequently returned to normal. We will continue IV fluids. His albumin is only 2.5 and he may benefit from IV albumin. This might improve perfusion. (4) Hypomagnesemia Is this a current diagnosis for this admission?: Yes Plan: Supplement magnesium and follow electrolytes (5) Hyponatremia Is this a current diagnosis for this admission?: Yes Plan: Monitor with aggressive fluid resuscitation sodium is only minimally improved from admission (6) Chronic obstructive pulmonary disease Qualifiers: COPD type: unspecified COPD Qualified Code(s): J44.9 - Chronic obstructive pulmonary disease, unspecified Is this a current diagnosis for this admission?: Yes Plan: Continue inhaler regimen, antibiotics and systemic steroids (7) BPH (benign prostatic hyperplasia) Qualifiers: Lower urinary tract symptom presence: unspecified whether lower urinary tract symptoms present Qualified Code(s): N40.0 - Benign prostatic hyperplasia without lower urinary tract symptoms Is this a current diagnosis for this admission?: Yes Plan: Resume finasteride when clinically stable (8) Rheumatoid arthritis Qualifiers: Rheumatoid arthritis location: multiple sites Rheumatoid factor presence: unspecified presence Qualified Code(s): M06.9 - Rheumatoid arthritis, unspecified Is this a current diagnosis for this admission?: Yes Plan: No acute treatment at this time as we are holding his Xeljanz. The patient will be on systemic steroids for respiratory failure and this may help symptoms. (9) Chronic pain disorder Is this a current diagnosis for this admission?: Yes Plan: Appears to be on oxycodone at home. Will utilize oral morphine at this time. (10) Morphine dependence Is this a current diagnosis for this admission?: Yes Plan: IV morphine for pain management (11) Decubitus ulcer of coccygeal region, unstageable Is this a current diagnosis for this admission?: Yes Plan: The patient has a large eschar with extensive erythema. This could be a source of infection. May need to have surgical debridement. (12) Longstanding persistent atrial fibrillation Is this a current diagnosis for this admission?: Yes Plan: Continue amiodarone - Plan Summary Summary: Patient will be admitted to the [facility] where he received routine supportive and symptomatic cares. He will be treated with high-volume IV fluids and blood pressure support utilizing pressor agents as needed. He will receive supplemental oxygen as needed to maintain an adequate O2 saturation. He will receive IV antibiotics utilizing cefepime and azithromycin. He will receive a pulmonary toilet utilizing Xopenex, Atrovent and Pulmicort delivered via nebulizer. He will receive IV steroids utilizing Decadron 2 mg IV every 8 hours. He will receive Ativan 1 mg IV every 4 hours as needed for anxiety or restlessness. Further evaluation of his hematemesis/guaiac positive stool will be arranged once he is more stable. He will be continued on his chronic pain control utilizing his implanted morphine [employer]YABLE REPRESENTATIVE pump as per his usual dose scheduling if possible. His usual home meds will be restarted, if appropriate, once his medication list has been verified and reconciled. He will be treated with a cardiac diet and encouraged to take oral fluids. - Time Time Spent with patient: 25-34 minutes Anticipated Discharge Disposition: Alf Facility Anticipated Discharge Timeframe: Greater than 72 hours
[2020-06-04] MEDS: PANTOPRAZOLE SODIUM 40 MG TABLET.DR PO SCH (17:50)
[2020-06-04] MEDS: ALBUMIN HUMAN 12.5 GM/50 ML RTUINJ IV SCH ×2 (17:50→18:03)
[2020-06-04] MEDS ORDERED: DIGOXIN INJ 0.5 MG/2 ML AMPULE ONE (21:29)
[2020-06-04] MEDS ORDERED: DIGOXIN INJ 0.5 MG/2 ML AMPULE IV ONE (22:00)
[2020-06-04 22:11] LABS: HEMATOCRIT 32.8 % (37.9-51.0); HEMOGLOBIN 10.3 g/dL (13.5-17.0); MEAN CORPUSCULAR HEMOGLOBIN 25.7 pg (27.0-33.4); MEAN CORPUSCULAR HGB CONC 31.5 g/dL (32.0-36.0); MEAN CORPUSCULAR VOLUME 82 fl (80-97); PLATELET COUNT 449 10^3/uL (150-450); RED BLOOD COUNT 4.01 10^6/uL (4.35-5.55); RED CELL DISTRIBUTION WIDTH 19.8 % (11.5-14.0); WHITE BLOOD COUNT 10.8 10^3/uL (4.0-10.5)
[2020-06-04] MEDS: AZITHROMYCIN 500 MG in DEXTROSE 5%-WATER 250 ML IV SCH (22:26)
[2020-06-04 22:27] LABS: ANION GAP 11 (5-19); BLOOD UREA NITROGEN 42 mg/dL (7-20); CALCIUM 7.6 mg/dL (8.4-10.2); CARBON DIOXIDE 15 mmol/L (22-30); CHLORIDE 106 mmol/L (98-107); CREATINE KINASE 30 U/L (55-170); GLUCOSE 150 mg/dL (75-110); POTASSIUM 4.8 mmol/L (3.6-5.0)
[2020-06-04 22:39] LABS: CREATINE KINASE MB 0.96 ng/mL (<4.55)
[2020-06-04 22:44] LABS: TROPONIN I < 0.012 ng/mL
--- NOTE | 2020-06-04 23:18 | EKG REPORT ---
SEVERITY:- ABNORMAL ECG - ATRIAL FIBRILLATION NONSPECIFIC IVCD WITH LAD PROBABLE INFERIOR INFARCT, AGE INDETERMINATE LOW VOLTAGE FRONTAL LEADS : Confirmed by: [place] 04-Jun-2020 23:17:27
--- NOTE | 2020-06-04 23:18 | EKG REPORT ---
SEVERITY:- ABNORMAL ECG - SINUS RHYTHM LOW VOLTAGE IN FRONTAL LEADS : Confirmed by: [place] 04-Jun-2020 23:16:39
[2020-06-05] MEDS: IPRATROPIUM BROMIDE 0.02% NEB 0.5 MG/2.5 ML AMPUL NEB SCH ×3 (00:33→16:12)
[2020-06-05] MEDS: LEVALBUTEROL HCL NEB 1.25 MG/3 ML AMPUL NEB SCH ×3 (00:33→16:12)
[2020-06-05] MEDS ORDERED: NORMAL SALINE 10 ML SDV (AFTER EACH USE) IV PRN (01:30)
[2020-06-05] MEDS: RINGERS SOLUTION,LACTATED 1,000 ML IV PRN ×2 (03:56→10:18)
[2020-06-05] MEDS: DEXAMETHASONE SOD PHOSPHATE INJ 4 MG/1 ML VIAL IV SCH ×3 (06:09→22:32)
[2020-06-05 07:05] LABS: CREATINE KINASE MB 1.03 ng/mL (<4.55)
[2020-06-05 07:06] LABS: TROPONIN I < 0.012 ng/mL
[2020-06-05 07:18] LABS: HEMATOCRIT 31.9 % (37.9-51.0); HEMOGLOBIN 10.2 g/dL (13.5-17.0); MEAN CORPUSCULAR HEMOGLOBIN 25.9 pg (27.0-33.4); MEAN CORPUSCULAR VOLUME 81 fl (80-97); PLATELET COUNT 455 10^3/uL (150-450); RED BLOOD COUNT 3.94 10^6/uL (4.35-5.55); RED CELL DISTRIBUTION WIDTH 19.6 % (11.5-14.0); WHITE BLOOD COUNT 12.7 10^3/uL (4.0-10.5)
[2020-06-05 07:45] LABS: ANION GAP 9 (5-19); BLOOD UREA NITROGEN 43 mg/dL (7-20); CALCIUM 8.1 mg/dL (8.4-10.2); CARBON DIOXIDE 15 mmol/L (22-30); CHLORIDE 109 mmol/L (98-107); DIGOXIN 0.94 ng/mL (0.8-2.0); GLUCOSE 162 mg/dL (75-110); POTASSIUM 4.7 mmol/L (3.6-5.0)
[2020-06-05] MEDS: BUDESONIDE NEB 0.5 MG/2 ML AMPUL NEB SCH ×2 (09:08→21:17)
[2020-06-05 09:23] LABS: ARTERIAL BLOOD BASE EXCESS -11.5 mmol/L; ARTERIAL BLOOD H2CO3 1.35 mmol/L (1.05-1.35); ARTERIAL BLOOD HCO3 16.3 mmol/L (20-24); ARTERIAL BLOOD O2 SATURATION 76.2 % (94-98); ARTERIAL BLOOD PCO2 44.8 mmHg (35-45); ARTERIAL BLOOD PO2 50.3 mmHg (80-100); ARTERIAL BLOOD TOTAL CO2 17.7 mmol/L (23-27)
[2020-06-05 10:02] LABS: ARTERIAL BLOOD FIO2 1L; ARTERIAL BLOOD PH 7.18 (7.35-7.45)
[2020-06-05] MEDS: NORMAL SALINE 10 ML SDV (SCHEDULED) IV SCH ×2 (10:12→22:40)
[2020-06-05] MEDS: CEFEPIME 1 GM/D5W RTU 1 GM/50 ML RTUPB IV SCH (10:15)
[2020-06-05] MEDS: PANTOPRAZOLE SODIUM 40 MG TABLET.DR PO SCH ×2 (10:15→20:06)
[2020-06-05] MEDS: DOPAMINE HCL 800 MG/D5W 250 ML IV PRN (10:17)
--- NOTE | 2020-06-05 12:00 | PDOC PROGRESS REPORT ---
Subjective Progress Note for:: 06/05/20 Subjective:: 69 year old male who presented the emergency room with a 3-day history of fever. He admits a persistent severe (subjective) fever with accompanying chills and associated anorexia, nausea and vomiting with small amounts of hematemesis over the course of the last 3 days. He denies other associated or accompanying signs and symptoms. He admits prior similar episodes with infections. He has not identified any aggravating or ameliorating factors for his fever. In the emergency room he was found to have a temperature 101 F and was noted to be hypotensive with a systolic blood pressure in the 70s to 80s. His chest x-ray revealed a multifocal bilateral pneumonia and his renal function studies demonstrated an acute kidney injury. Lactic acid levels were normal. He received high-volume fluids and initial antibiotic therapy in the emergency room. Patient was subsequently admitted to the hospital for further evaluation and treatment per the sepsis protocol. 06/04-Patient just returned from PICC line insertion. Limited interaction. 06/05/[id number]-fokv-old male comfortably in the bed communicating okay. Looks edematous with swelling of the upper and lower extremities. On examination of the chest crackles present at the bases. Patient is receiving Ringer lactate at 167 cc/h. Urinary output is 400 cc yesterday and 300 cc today. Consultation with Dr. Kolb is requested. In the ABG bicarb is 15 and pH is 7.18. To start him on Bicitra 13 mL p.o. twice daily. Acidosis most likely secondary to renal failure. Reason For Visit: SEPSIS WITH SEPTIC SHOCK,MULTIFOCAL PNEUMONIA Physical Exam Vital Signs: Temp Pulse Resp BP Pulse Ox 97.4 F 87 20 133/46 H 95 06/05/20 08:00 06/05/20 11:00 06/05/20 09:17 06/05/20 11:00 06/05/20 09:17 Intake & Output 06/04/20 06/05/20 06/06/20 06:59 06:59 06:59 Intake Total 4257 3431 1203 Output Total 400 300 Balance 3857 3131 1203 Weight 55.3 kg 64.9 kg General appearance: PRESENT: no acute distress, cooperative - looking patient., other - Severely ill Head exam: PRESENT: atraumatic Eye exam: PRESENT: conjunctiva pale, PERRLA Ear exam: PRESENT: normal external ear exam Mouth exam: PRESENT: neck supple Teeth exam: PRESENT: poor dentation Neck exam: ABSENT: carotid bruit, JVD, lymphadenopathy, thyromegaly Respiratory exam: PRESENT: crackles Cardiovascular exam: PRESENT: irregular rhythm Pulses: PRESENT: normal dorsalis pedis pul GI/Abdominal exam: PRESENT: normal bowel sounds, soft. ABSENT: distended, guarding, mass, organolmegaly, rebound, tenderness Rectal exam: PRESENT: deferred Gentrourinary exam: PRESENT: indwelling catheter Extremities exam: PRESENT: +1 edema, other - Third spacing seen in the upper and lower extremities. Neurological exam: PRESENT: alert, awake, oriented to person, oriented to place, oriented to time, oriented to situation, CN II-XII grossly intact. ABSENT: motor sensory deficit Psychiatric exam: PRESENT: appropriate affect, normal mood. ABSENT: homicidal ideation, suicidal ideation Results Laboratory Results: 06/05/20 07:00 06/05/20 07:00 06/04/20 06/04/20 06/04/20 14:50 21:46 21:57 WBC 10.8 H RBC 4.01 L Hgb 10.3 L Hct 32.8 L MCV 82 MCH 25.7 L MCHC 31.5 L RDW 19.8 H Plt Count 449 Carbonic Acid HCO3/H2CO3 Ratio ABG pH ABG pCO2 ABG pO2 ABG HCO3 ABG O2 Saturation ABG Base Excess FiO2 Sodium 132.3 L Potassium 4.8 Chloride 106 Carbon Dioxide 15 L Anion Gap 11 BUN 42 H Creatinine 5.64 H Est GFR ( Amer) 12 L Glucose 150 H Lactic Acid 0.6 L Calcium 7.6 L Magnesium 1.7 06/05/20 06/05/20 06/05/20 06:55 07:00 07:00 WBC 12.7 H RBC 3.94 L Hgb 10.2 L Hct 31.9 L MCV 81 MCH 25.9 L MCHC 32.0 RDW 19.6 H Plt Count 455 H Carbonic Acid Cancelled HCO3/H2CO3 Ratio Cancelled ABG pH Cancelled ABG pCO2 Cancelled ABG pO2 Cancelled ABG HCO3 Cancelled ABG O2 Saturation Cancelled ABG Base Excess Cancelled FiO2 Cancelled Sodium 133.1 L Potassium 4.7 Chloride 109 H Carbon Dioxide 15 L Anion Gap 9 BUN 43 H Creatinine 5.53 H Est GFR ( Amer) 12 L Glucose 162 H Lactic Acid Calcium 8.1 L Magnesium 1.8 06/05/20 09:15 WBC RBC Hgb Hct MCV MCH MCHC RDW Plt Count Carbonic Acid 1.35 HCO3/H2CO3 Ratio 12:1 ABG pH 7.18 L* ABG pCO2 44.8 ABG pO2 50.3 L ABG HCO3 16.3 L ABG O2 Saturation 76.2 L ABG Base Excess -11.5 FiO2 1L Sodium Potassium Chloride Carbon Dioxide Anion Gap BUN Creatinine Est GFR ( Amer) Glucose Lactic Acid Calcium Magnesium 06/03/20 12:39 Catheterized Urine Urine Culture - Final NO GROWTH 2 DAYS 06/03/20 06/03/20 06/04/20 10:40 16:47 21:46 Creatine Kinase 30 L CK-MB (CK-2) Troponin I 0.033 0.023 06/04/20 06/05/20 06/05/20 21:46 04:00 04:00 Creatine Kinase 35 L CK-MB (CK-2) 0.96 1.03 Troponin I < 0.012 < 0.012 Impressions: Abdomen/Pelvis CT 06/03/20 00:00 IMPRESSION: No acute findings. Small nonobstructing stone right kidney. Abdomen X-Ray 06/03/20 10:39 IMPRESSION: Mild fecal retention. Chest X-Ray 06/03/20 18:55 IMPRESSION: Interval development of multifocal parenchymal opacification as well as a right-sided pleural effusion. No pneumothorax. PICC Line Insertion 06/04/20 00:00 IMPRESSION: SUCCESSFUL PLACEMENT OF A 5 FR DUAL LUMEN 40 CM PICC IN THE RIGHT BASILIC VEIN. Assessment and Plan - Diagnosis (1) Sepsis with acute organ dysfunction and septic shock Qualifiers: Sepsis type: sepsis due to unspecified organism Severe sepsis acute organ dysfunction type: acute renal failure Acute renal failure type: with acute tubular necrosis Qualified Code(s): A41.9 - Sepsis, unspecified organism; R65.21 - Severe sepsis with septic shock; N17.0 - Acute kidney failure with tubular necrosis Is this a current diagnosis for this admission?: Yes Plan: Sepsis likely due from pneumonia based on exam. Infection emanating from the coccyx ulcer cannot be excluded. Urine and blood cultures are negative so far. The patient's map varies from 60-65. Occasionally in the high 60s. We will in crease the dopamine infusion to 10 mcg. He is also getting IV fluids. 06/05/2020-patient admitted with sepsis with acute organ failure. Creatinine is 5.5 with urinary output is less than 500 on daily basis. He received at least 10 L of fluids since the admission. Consultation with Dr. Kolb is requested. Third spacing of the fluid is seen on examination. Patient is presently on cefepime and azithromycin. Patient is also on dopamine drip. pt looks severely ill. (2) Multifocal pneumonia Is this a current diagnosis for this admission?: Yes Plan: He had a negative PCR for COVID. He is on cefepime and azithromycin. Aspiration is a possibility. He is also on immunosuppressant therapy for his rheumatoid arthritis and this would make him susceptible to infection. 06/05/2020-COVID test is negative. Patient is presently on IV cefepime and azithromycin. He is a receiving immunosuppressants for rheumatoid arthritis. WBC count is 27,700 today patient is afebrile. On examination third spacing of the fluid seen. Creatinine is around 5.5 patient is oliguric at this time. Blood cultures urine cultures no growth so far. Most likely community-acquired pneumonia. (3) RAISSA (acute kidney injury) Is this a current diagnosis for this admission?: Yes Plan: Severe. Serum creatinine was 7.96 on admission and is down to 5.64. BUN was 59 and is down to 42. In December she presented with a serum creatinine greater than 6.0. It subsequently returned to normal. We will continue IV fluids. His albumin is only 2.5 and he may benefit from IV albumin. This might improve perfusion. 06/05/2020-serum creatinine is 7.9 on admission today it is 5.5. Patient is oliguric urinary output is less than 400 cc/day. ABG shows pH of 7.18, bicarb is 15. To start him on p.o. Bicitra at this time. He is malnourished with albumin is of 2.5 to start him on IV albumin at this time. (4) Hypomagnesemia Is this a current diagnosis for this admission?: Yes Plan: Supplement magnesium and follow electrolytes (5) Chronic obstructive pulmonary disease Qualifiers: COPD type: unspecified COPD Qualified Code(s): J44.9 - Chronic obstructive pulmonary disease, unspecified Is this a current diagnosis for this admission?: Yes Plan: Continue inhaler regimen, antibiotics and systemic steroids (6) BPH (benign prostatic hyperplasia) Qualifiers: Lower urinary tract symptom presence: unspecified whether lower urinary tract symptoms present Qualified Code(s): N40.0 - Benign prostatic hyperplasia w ithout lower urinary tract symptoms Is this a current diagnosis for this admission?: Yes Plan: Resume finasteride when clinically stable (7) Rheumatoid arthritis Qualifiers: Rheumatoid arthritis location: multiple sites Rheumatoid factor presence: unspecified presence Qualified Code(s): M06.9 - Rheumatoid arthritis, unspecified Is this a current diagnosis for this admission?: Yes Plan: No acute treatment at this time as we are holding his Xeljanz. The patient will be on systemic steroids for respiratory failure and this may help symptoms. (8) Longstanding persistent atrial fibrillation Is this a current diagnosis for this admission?: Yes Plan: Continue amiodarone 06/05/2020-patient is on amiodarone and the last night of entered A. fib with RVR patient was given a digoxin 1 dose heart rate is improved. Consultation with cardiology is requested today. (9) Decubitus ulcer of coccygeal region, unstageable Is this a current diagnosis for this admission?: Yes Plan: The patient has a large eschar with extensive erythema. This could be a source of infection. May need to have surgical debridement. 06/05/2020-patient has unstageable decubitus ulcer on the coccygeal area. Plan is to continue the daily dressings. (10) Chronic pain disorder Is this a current diagnosis for this admission?: Yes Plan: Appears to be on oxycodone at home. Will utilize oral morphine at this time. (11) Protein-energy malnutrition Qualifiers: Protein-calorie malnutrition severity: moderate Qualified Code(s): E44.0 - Moderate protein-calorie malnutrition Is this a current diagnosis for this admission?: Yes Plan: 06/03/2020-serum albumin is 2.5 and on examination third spacing of the fluid seen in the upper extremities. Started on IV albumin. Dietary consult will be requested. On examination wasting of the temporalis muscles, quadriceps muscles are seen. - Plan Summary Summary: Patient will be admitted to the [facility] where he received routine supportive and symptomatic cares. He will be treated with high-volume IV fluids and blood pressure support utilizing pressor agents as needed. He will receive supplemen gregory oxygen as needed to maintain an adequate O2 saturation. He will receive IV antibiotics utilizing cefepime and azithromycin. He will receive a pulmonary toilet utilizing Xopenex, Atrovent and Pulmicort delivered via nebulizer. He will receive IV steroids utilizing Decadron 2 mg IV every 8 hours. He will receive Ativan 1 mg IV every 4 hours as needed for anxiety or restlessness. Further evaluation of his hematemesis/guaiac positive stool will be arranged once he is more stable. He will be continued on his chronic pain control utilizing his implanted morphine BI MANAGER pump as per his usual dose scheduling if possible. His usual home meds will be restarted, if appropriate, once his medication list has been verified and reconciled. He will be treated with a cardiac diet and encouraged to take oral fluids. - Time Anticipated Discharge Disposition: [facility] Anticipated Discharge Timeframe: within 72 hours
[2020-06-05] MEDS: ALBUMIN HUMAN 12.5 GM/50 ML RTUINJ IV SCH ×3 (13:04→14:27)
[2020-06-05] MEDS ORDERED: TUBERCULIN,PURIF.PROT.DERIV. 5 TU/0.1 ML TEST 1 ML VIAL ID ONE (15:30)
[2020-06-05] MEDS: MORPHINE SULFATE 10 MG/ML INJ IV PRN (16:01)
[2020-06-05] MEDS ORDERED: FUROSEMIDE INJ/PF 40 MG/4 ML SDV IV ONE (17:00)
--- NOTE | 2020-06-05 19:14 | PDOC CONSULTATION ---
Consultation Consult Date: 06/05/20 Provider Consulted: MELISSA CAMPBELL Consult reason:: Atrial fibrillation rapid ventricular response History of Present Illness Admission Date/PCP: 06/03/20 23:55 DIONICIO ROWLAND Patient complains of: Patient is lethargic no complaints History of Present Illness: CHERRY ROLDAN is a 69 year old male Who has been admitted to the hospital with severe sepsis and multiorgan dysfunction including acute kidney injury and multifocal pneumonia. He required administration of pressors and broad-spectrum antibiotics. Cardiology consultation is requested on account of atrial fibrillation rapid ventricular response which occurred in the setting of sepsis. Patient at the present time is rather exhausted. He has control oxygen requirements on account of pneumonia and has been placed on BiPAP. Past Medical History Cardiac Medical History: Reports: Atrial Fibrillation - Paroxysmal with RVR, Hyperlipidema, Hypertension Denies: Coronary Artery Disease, Myocardial Infarction Pulmonary Medical History: Reports: Chronic Obstructive Pulmonary Disease (COPD) Denies: Asthma EENT Medical History: Denies: Cataracts, Ears - Hearing aids Neurological Medical History: Denies: Hemorrhagic CVA, Ischemic CVA, Seizures Endocrine Medical History: Denies: Diabetes Mellitus Type 1, Diabetes Mellitus Type 2, Hyperthyroidism, Hypothyroidism Renal/ Medical History: Reports: Other - Acute renal failure, benign prostatic hyperplasia Denies: Chronic Kidney Disease, Nephrolithiasis Malignancy Medical History: Reports: None GI Medical History: Denies: Cirrhosis, Hepatitis, Peptic Ulcer Disease Musculoskeltal Medical History: Reports: Arthritis - rheumatoid arthritis and osteoarthritis involving multiple joints, Other - Chronic pain syndrome Skin Medical History: Denies: Eczema, Psoriasis Psychiatric Medical History: Reports: Tobacco Dependency Denies: Alcohol Dependency, Depression, Substance Abuse Traumatic Medical History: Reports: None Hematology: Denies: Anemia, Bleeding Tendencies Infectious Medical History: Reports: Hepatitis C Past Surgical History Past Surgical History: Reports: Orthopedic Surgery - ORIF left hip, cervical fusion, Other - Morphine OPERATIONS PROCESSOR pump placement Social History Lives with: Friend Smoking Status: Former Smoker Electronic Cigarette use?: No Frequency of Alcohol Use: None Hx Recreational Drug Use: No Drugs: None Hx Prescription Drug Abuse: No - Advance Directive Resuscitation Status: Full Code Family History Family History: Hypertension Parental Family History Reviewed: No Children Family History Reviewed: NA Sibling(s) Family History Reviewed.: NA Medication/Allergy Home Medications: Diltiazem HCl [Diltiazem 24Hr ER (Cd)] 120 mg PO DAILY 09/30/19 Amiodarone HCl [Cordarone 200 mg Tablet] 200 mg PO DAILY #30 tablet 10/09/19 Pantoprazole Sodium [Protonix [address] Tablet] 40 mg PO BID 01/19/20 Finasteride [Proscar 5 mg Tablet] 5 mg PO DAILY #30 01/22/20 Metoprolol Succinate [Toprol Xl 25 mg Tab.sr] 25 mg PO Q12 #60 tab.sr.24h 01/22/20 Tamsulosin HCl [Flomax 0.4 mg Cap.sr] 0.4 mg PO DAILY #30 01/22/20 Ciprofloxacin HCl [Cipro 500 mg Tablet] 500 mg PO BID #14 tablet 05/23/20 Cefdinir 300 mg PO BID 06/04/20 Diazepam [Valium] 5 mg PO HSP PRN 06/04/20 Lisinopril [Prinivil] 10 mg PO DAILY 06/04/20 Oxycodone HCl 20 mg PO QID 06/04/20 Tofacitinib Citrate [Xeljanz] 5 mg PO BID 06/04/20 Allergies/Adverse Reactions: No Known Allergies Allergy (Verified 10/14/19 12:20) Review of Systems ROS unobtainable: Due to mental status Physical Exam Vital Signs: Temp Pulse Resp BP Pulse Ox 97.4 F 88 20 134/56 H 92 06/05/20 11:15 06/05/20 16:12 06/05/20 16:12 06/05/20 16:30 06/05/20 16:12 Intake & Output 06/04/20 06/05/20 06/06/20 06:59 06:59 06:59 Intake Total 4257 3431 1512 Output Total 400 300 200 Balance 3857 3131 1312 Weight 55.3 kg 64.9 kg General appearance: PRESENT: cooperative, mild distress, well-developed, well- nourished Head exam: PRESENT: atraumatic, normocephalic Eye exam: PRESENT: conjunctiva pale, EOMI Respiratory exam: PRESENT: decreased breath sounds, prolonged expiratory phas, symmetrical, tachypnea Cardiovascular exam: PRESENT: RRR, +S1, +S2 Pulses: PRESENT: normal radial pulses GI/Abdominal exam: PRESENT: distended, soft Rectal exam: PRESENT: deferred Neurological exam: PRESENT: awake, oriented to person Skin exam: PRESENT: dry, intact Results Laboratory Results: 06/05/20 07:00 06/05/20 07:00 06/04/20 06/04/20 06/05/20 21:46 21:57 06:55 WBC 10.8 H RBC 4.01 L Hgb 10.3 L Hct 32.8 L MCV 82 MCH 25.7 L MCHC 31.5 L RDW 19.8 H Plt Count 449 Carbonic Acid Cancelled HCO3/H2CO3 Ratio Cancelled ABG pH Cancelled ABG pCO2 Cancelled ABG pO2 Cancelled ABG HCO3 Cancelled ABG O2 Saturation Cancelled ABG Base Excess Cancelled FiO2 Cancelled Sodium 132.3 L Potassium 4.8 Chloride 106 Carbon Dioxide 15 L Anion Gap 11 BUN 42 H Creatinine 5.64 H Est GFR ( Amer) 12 L Glucose 150 H Calcium 7.6 L Magnesium 1.7 06/05/20 06/05/20 06/05/20 07:00 07:00 09:15 WBC 12.7 H RBC 3.94 L Hgb 10.2 L Hct 31.9 L MCV 81 MCH 25.9 L MCHC 32.0 RDW 19.6 H Plt Count 455 H Carbonic Acid 1.35 HCO3/H2CO3 Ratio 12:1 ABG pH 7.18 L* ABG pCO2 44.8 ABG pO2 50.3 L ABG HCO3 16.3 L ABG O2 Saturation 76.2 L ABG Base Excess -11.5 FiO2 1L Sodium 133.1 L Potassium 4.7 Chloride 109 H Carbon Dioxide 15 L Anion Gap 9 BUN 43 H Creatinine 5.53 H Est GFR ( Amer) 12 L Glucose 162 H Calcium 8.1 L Magnesium 1.8 06/03/20 12:39 Catheterized Urine Urine Culture - Final NO GROWTH 2 DAYS 06/03/20 06/03/20 06/04/20 10:40 16:47 21:46 Creatine Kinase 30 L CK-MB (CK-2) Troponin I 0.033 0.023 06/04/20 06/05/20 06/05/20 21:46 04:00 04:00 Creatine Kinase 35 L CK-MB (CK-2) 0.96 1.03 Troponin I < 0.012 < 0.012 EKG Comments: Twelve-lead EKG 06/03/2020. Independently reviewed by me. Sinus rhythm, 93 bpm, prolonged QTC Twelve-lead EKG 06/04/2020 Sinus rhythm 84 bpm, QTC is 440 ms. Low voltage Chest x-ray 06/03/2020 Multifocal parenchymal opacification and right-sided pleural effusion. Impressions: Abdomen/Pelvis CT 06/03/20 00:00 IMPRESSION: No acute findings. Small nonobstructing stone right kidney. Abdomen X-Ray 06/03/20 10:39 IMPRESSION: Mild fecal retention. Chest X-Ray 06/03/20 18:55 IMPRESSION: Interval development of multifocal parenchymal opacification as well as a right-sided pleural effusion. No pneumothorax. PICC Line Insertion 06/04/20 00:00 IMPRESSION: SUCCESSFUL PLACEMENT OF A 5 FR DUAL LUMEN 40 CM PICC IN THE RIGHT BASILIC VEIN. Assessment & Plan - Diagnosis (1) Atrial fibrillation with rapid ventricular response Is this a current diagnosis for this admission?: Yes Plan: Likely secondary to sepsis and multiorgan dysfunction Supportive care Rate control as necessary Review of telemetry presently shows suggestive of sinus rhythm Hold off on systemic anticoagulation Treat underlying condition (2) Sepsis with acute organ dysfunction and septic shock Qualifiers: Sepsis type: sepsis due to unspecified organism Severe sepsis acute organ dysfunction type: acute renal failure Acute renal failure type: with acute tubular necrosis Qualified Code(s): A41.9 - Sepsis, unspecified organism; R65.21 - Severe sepsis with septic shock; N17.0 - Acute kidney failure with tubular necrosis Is this a current diagnosis for this admission?: Yes Plan: Supportive care Antibiotics Pressor support as needed (3) RAISSA (acute kidney injury) Is this a current diagnosis for this admission?: Yes Plan: Plans for hemodialysis tomorrow.
--- NOTE | 2020-06-05 19:35 | Operative Report ---
Nonrecallable Operative Report DATE OF SURGERY: 06/05/20 PREOPERATIVE DIAGNOSIS: Renal failure POSTOPERATIVE DIAGNOSIS: Renal failure OPERATION: Trial assist catheter placement right groin SURGEON: KHOA SHELBY ANESTHESIA: Local TISSUE REMOVED OR ALTERED: None COMPLICATIONS: None ESTIMATED BLOOD LOSS: 25 cc INTRAOPERATIVE FINDINGS: See note PROCEDURE: Procedure; the procedure was done with the patient in his hospital bed in his hospital room. The right groin was prepped and draped in usual sterile fashion. After appropriate timeout site verification the procedure commenced. The area over the right femoral vein was anesthetized with 1% lidocaine plain. The right femoral vein was then cannulated with a 16-gauge needle. Through the needle a J-wire was placed into the inferior vena cava. The serial dilators were then utilized to dilate the tract then the triple-lumen trial assist catheter was placed over the wire into the inferior vena cava. It was fixed in place with 2-0 nylon suture. Sterile dressing was applied which completed the procedure. Estimated blood loss was less than 25 cc. The catheter was flushed with saline solution.
[2020-06-05] MEDS: CITRIC ACID/SODIUM CITRATE ORAL SOLN 15 ML UDCUP PO SCH (20:05)
[2020-06-05] MEDS ORDERED: SODIUM BICARBONATE 8.4% INJ 50 MEQ/50 ML DISP.SYRIN ONE ×2 (20:10→20:15)
[2020-06-05] MEDS ORDERED: FUROSEMIDE INJ/PF 100 MG/10 ML SDV ONE (20:10)
[2020-06-05] MEDS ORDERED: FUROSEMIDE INJ/PF 100 MG/10 ML SDV IV ONE (20:30)
[2020-06-05] MEDS ORDERED: SODIUM BICARBONATE 8.4% INJ 50 MEQ/50 ML DISP.SYRIN IV ONE (20:30)
--- NOTE | 2020-06-05 20:43 | PDOC CONSULTATION ---
Consultation Consult Date: 06/05/20 Provider Consulted: IESHA ROSADO Consult reason:: RAISSA History of Present Illness Admission Date/PCP: 06/03/20 23:55 DIONICIO ROWLAND History of Present Illness: CHERRY ROLDAN is a 69 year old male with history of atrial fibrillation, hyperlipidemia, hypertension, COPD, rheumatoid and osteoarthritis and a leg and history of hepatitis C as a child who was admitted on June 03 because of septic shock with multifocal pneumonia requiring pressors due to hypotension. Patient presented with 3-day history of fever associated with chills, anorexia, nausea, vomiting with minimal hematemesis. Patient is not a very good historian and he was lethargic when I was talking to him although he was responding to questions with slow response time. He indicated that he has not been passing urine for few days. He states that he has dysuria but I am not sure if this answer is reliable. He denies any gross hematuria, previous kidney disease, BPH, and no history of kidney stones. He denies any cough, shortness of breath, chest pains, abdominal pain or diarrhea. He was tested negative for COVID upon admission. His systolic blood pressure was in the 70s and 80s upon admission requiring initial Levoped which transitioned to dopamine. Since admission his intake and output balance is at least +8 L with urine output total of only about 800 mL cumulative. His blood pressure now is acceptable and dopamine is being tapered. On admission he has a BUN of 44, creatinine of 6.45 and today he has a BUN of 43 and creatinine of 5.53. His bicarbonate is decreased at 15. On May 23 2020, he had a creatinine of 0.9. ABG showed a pH of 7.18, PCO2 44.8 with bicarbonate of 16.3. Abdominal CT with oral contrast without any IV contrast on admission showed both kidneys have no masses, no hydronephrosis nor calcifications. Past Medical History Cardiac Medical History: Reports: Atrial Fibrillation - Paroxysmal with RVR, Hyperlipidemia, Hypertension-primary Pulmonary Medical History: Reports: Chronic Obstructive Pulmonary Disease (COPD) Renal/ Medical History: Reports: Benign Prostatic Hyperplasia, Other - Acute renal failure Musculoskeltal Medical History: Reports: Arthritis - rheumatoid arthritis and osteoarthritis involving multiple joints, Rheumatoid Arthritis, Other - Chronic pain syndrome Psychiatric Medical History: Reports: Tobacco Dependency Infectious Medical History: Reports: Hepatitis C Past Surgical History Past Surgical History: Reports: Orthopedic Surgery - ORIF left hip, cervical fusion, Other - [employer] pump placement Social History Information Source: Patient, REPLACED BY [facility] Records Lives with: Friend Smoking Status: Former Smoker Electronic Cigarette use?: No Frequency of Alcohol Use: None Hx Recreational Drug Use: No Drugs: None Hx Prescription Drug Abuse: No - Advance Directive Resuscitation Status: Full Code Family History Family History: Patient states that he does not know much of his family history. Parental Family History Reviewed: Yes Children Family History Reviewed: Yes Sibling(s) Family History Reviewed.: Yes Medication/Allergy Home Medications: Diltiazem HCl [Diltiazem 24Hr ER (Cd)] 120 mg PO DAILY 09/30/19 Amiodarone HCl [Cordarone 200 mg Tablet] 200 mg PO DAILY #30 tablet 10/09/19 Pantoprazole Sodium [Protonix [address] Tablet] 40 mg PO BID 01/19/20 Finasteride [Proscar 5 mg Tablet] 5 mg PO DAILY #30 01/22/20 Metoprolol Succinate [Toprol Xl 25 mg Tab.sr] 25 mg PO Q12 #60 tab.sr.24h 01/22/20 Tamsulosin HCl [Flomax 0.4 mg Cap.sr] 0.4 mg PO DAILY #30 01/22/20 Ciprofloxacin HCl [Cipro 500 mg Tablet] 500 mg PO BID #14 tablet 05/23/20 Cefdinir 300 mg PO BID 06/04/20 Diazepam [Valium] 5 mg PO HSP PRN 06/04/20 Lisinopril [Prinivil] 10 mg PO DAILY 06/04/20 Oxycodone HCl 20 mg PO QID 06/04/20 Tofacitinib Citrate [Xeljanz] 5 mg PO BID 06/04/20 Allergies/Adverse Reactions: No Known Allergies Allergy (Verified 10/14/19 12:20) Review of Systems All systems: reviewed and no additional remarkable complaints except as stated Review of Systems: Constitutional: ABSENT: chills, fatigue, headache(s), weight gain, weight loss; positive fever and anorexia Eyes: ABSENT: visual disturbances Ears: ABSENT: hearing changes Cardiovascular: ABSENT: chest pain, dyspnea on exertion, edema, orthropnea, palpitations Respiratory: ABSENT: cough, dyspnea, hemoptysis Gastrointestinal: ABSENT: abdominal pain, constipation, diarrhea, hematemesis, hematochezia; reports nausea, and vomiting Genitourinary: ABSENT: hematuria; reports decreased urine output and questionable dysuria Musculoskeletal: ABSENT: joint swelling Integumentary: ABSENT: rash, wounds Neurological: ABSENT: abnormal gait, abnormal speech, confusion, dizziness, focal weakness, numbness, syncope Psychiatric: ABSENT: anxiety, depression Endocrine: ABSENT: cold intolerance, heat intolerance, polydipsia, polyuria Hematologic/Lymphatic: ABSENT: easy bleeding, easy bruising, lymphadenopathy Physical Exam Vital Signs: Temp Pulse Resp BP Pulse Ox 97.4 F 87 16 142/53 H 99 06/05/20 11:15 06/05/20 13:15 06/05/20 11:15 06/05/20 13:15 06/05/20 11:15 Intake & Output 06/04/20 06/05/20 06/06/20 06:59 06:59 06:59 Intake Total 4257 3431 1279 Output Total 400 300 Balance 3857 3131 1279 Weight 55.3 kg 64.9 kg Exam: General appearance: No acute distress, lethargic but communicative, appears older than his age Head exam: PRESENT: atraumatic, normocephalic Eye exam: PRESENT: Conjunctiva slightly pale, EOMI, PERRLA. ABSENT: conjunctival injection, scleral icterus Mouth exam: PRESENT: moist, neck supple, tongue midline Neck exam: PRESENT: full ROM. ABSENT: carotid bruit, JVD, lymphadenopathy, thyromegaly Respiratory exam: PRESENT: Diminished breath sounds to auscultation bilaterally. ABSENT: rales, rhonchi, stridor, wheezes Cardiovascular exam: PRESENT: RRR, +S1, +S2. Grade 1/6 systolic murmur Pulses: PRESENT: normal radial pulses, normal dorsalis pedis pulses GI/Abdominal exam: PRESENT: normal bowel sounds, soft. Implanted morphine pump on the right lower quadrant ABSENT: guarding, mass, tenderness Rectal exam: Deferred Extremities exam: PRESENT: full ROM. Bilateral upper extremity edema and trace to grade 1 bilateral lower extremity edema ABSENT: calf tenderness Musculoskeletal: PRESENT: full ROM. ABSENT: deformity Neurological exam: PRESENT: Lethargic, speech is somewhat garbled but still understandable, oriented to person, Oriented to place, but not to to time, r eflexes normal, CN II-XII grossly intact. ABSENT: motor sensory deficit Psychiatric exam: PRESENT: appropriate affect, normal mood. ABSENT: homicidal ideation, suicidal ideation Skin exam: PRESENT: intact, dry, warm. Positive skin breakdown on his buttocks ABSENT: rash Results Laboratory Results: 06/05/20 07:00 06/05/20 07:00 06/04/20 06/04/20 06/04/20 14:50 21:46 21:57 WBC 10.8 H RBC 4.01 L Hgb 10.3 L Hct 32.8 L MCV 82 MCH 25.7 L MCHC 31.5 L RDW 19.8 H Plt Count 449 Carbonic Acid HCO3/H2CO3 Ratio ABG pH ABG pCO2 ABG pO2 ABG HCO3 ABG O2 Saturation ABG Base Excess FiO2 Sodium 132.3 L Potassium 4.8 Chloride 106 Carbon Dioxide 15 L Anion Gap 11 BUN 42 H Creatinine 5.64 H Est GFR ( Amer) 12 L Glucose 150 H Lactic Acid 0.6 L Calcium 7.6 L Magnesium 1.7 06/05/20 06/05/20 06/05/20 06:55 07:00 07:00 WBC 12.7 H RBC 3.94 L Hgb 10.2 L Hct 31.9 L MCV 81 MCH 25.9 L MCHC 32.0 RDW 19.6 H Plt Count 455 H Carbonic Acid Cancelled HCO3/H2CO3 Ratio Cancelled ABG pH Cancelled ABG pCO2 Cancelled ABG pO2 Cancelled ABG HCO3 Cancelled ABG O2 Saturation Cancelled ABG Base Excess Cancelled FiO2 Cancelled Sodium 133.1 L Potassium 4.7 Chloride 109 H Carbon Dioxide 15 L Anion Gap 9 BUN 43 H Creatinine 5.53 H Est GFR ( Amer) 12 L Glucose 162 H Lactic Acid Calcium 8.1 L Magnesium 1.8 06/05/20 09:15 WBC RBC Hgb Hct MCV MCH MCHC RDW Plt Count Carbonic Acid 1.35 HCO3/H2CO3 Ratio 12:1 ABG pH 7.18 L* ABG pCO2 44.8 ABG pO2 50.3 L ABG HCO3 16.3 L ABG O2 Saturation 76.2 L ABG Base Excess -11.5 FiO2 1L Sodium Potassium Chloride Carbon Dioxide Anion Gap BUN Creatinine Est GFR ( Amer) Glucose Lactic Acid Calcium Magnesium 06/03/20 12:39 Catheterized Urine Urine Culture - Final NO GROWTH 2 DAYS 06/03/20 06/03/20 06/04/20 10:40 16:47 21:46 Creatine Kinase 30 L CK-MB (CK-2) Troponin I 0.033 0.023 06/04/20 06/05/20 06/05/20 21:46 04:00 04:00 Creatine Kinase 35 L CK-MB (CK-2) 0.96 1.03 Troponin I < 0.012 < 0.012 Impressions: Abdomen/Pelvis CT 06/03/20 00:00 IMPRESSION: No acute findings. Small nonobstructing stone right kidney. Abdomen X-Ray 06/03/20 10:39 IMPRESSION: Mild fecal retention. Chest X-Ray 06/03/20 18:55 IMPRESSION: Interval development of multifocal parenchymal opacification as well as a right-sided pleural effusion. No pneumothorax. PICC Line Insertion 06/04/20 00:00 IMPRESSION: SUCCESSFUL PLACEMENT OF A 5 FR DUAL LUMEN 40 CM PICC IN THE RIGHT BASILIC VEIN. Assessment & Plan - Diagnosis (1) RAISSA (acute kidney injury) Is this a current diagnosis for this admission?: Yes Plan: Most likely secondary to acute tubular necrosis due to septic shock. Patient with very minimal insignificant amounts of protein and blood in the urine. Currently oliguric with positive at least 8 L of fluid balance. Also with associated significant metabolic acidosis. The patient would need an acute renal replacement therapy. I discussed this with the patient including the procedure, benefits and complications including bleeding, infection, hemodynamic instability including cardiac arrest during dialysis. Also explained to the patient that we would need a catheter placed in order for dialysis to be done. Patient indicated that he would like to proceed with the procedure. His nurse, Christie was in the room when he told me this. Since the patient does not have next of kin to help him make decisions, I discussed this recommendation with Mary Perales and he agreed as well. I will consult her vascular surgeon to place dialysis catheter today and plan for acute hemodialysis treatment tomorrow. I spoke to Dr. Butt. Meanwhile we will try high dose of diuretics to see if it will improve his urine output today. (2) Sepsis with acute organ dysfunction and septic shock Qualifiers: Sepsis type: sepsis due to unspecified organism Severe sepsis acute organ dysfunction type: acute renal failure Acute renal failure type: with acute tubular necrosis Qualified Code(s): A41.9 - Sepsis, unspecified organism; R65.21 - Severe sepsis with septic shock; N17.0 - Acute kidney failure with tubular necrosis Is this a current diagnosis for this admission?: Yes Plan: Currently on dopamine drip with improved blood pressure. Also being treated for multifocal pneumonia. (3) Multifocal pneumonia Is this a current diagnosis for this admission?: Yes Plan: On IV cefepime and Zithromax. (4) Metabolic acidosis Is this a current diagnosis for this admission?: Yes Plan: I will give an amp of sodium bicarbonate x1 dose. Unfortunately we cannot give sodium bicarbonate drip was this will add up to the patient's positive fluid balance. Plan for dialysis tomorrow. (5) Hyponatremia Is this a current diagnosis for this admission?: Yes (6) Atrial fibrillation Is this a current diagnosis for this admission?: Yes (7) Decubitus ulcer of coccygeal region, unstageable Is this a current diagnosis for this admission?: Yes - Notes Notes: Thank you very much for this consultation. Discussed with Mary Perales. - Time Time Spent: Greater than 70 Minutes
[2020-06-05] MEDS: AZITHROMYCIN 500 MG in DEXTROSE 5%-WATER 250 ML IV SCH (22:32)
[2020-06-05 23:06] LABS: CREATINE KINASE MB 1.69 ng/mL (<4.55); TROPONIN I 0.016 ng/mL
[2020-06-06] MEDS: LEVALBUTEROL HCL NEB 1.25 MG/3 ML AMPUL NEB SCH ×3 (00:13→16:11)
[2020-06-06] MEDS: IPRATROPIUM BROMIDE 0.02% NEB 0.5 MG/2.5 ML AMPUL NEB SCH ×3 (00:13→16:11)
[2020-06-06] MEDS: METOPROLOL SUCCINATE 25 MG TAB.SR.24H PO SCH ×3 (00:38→21:38)
[2020-06-06 01:18] LABS: ARTERIAL BLOOD BASE EXCESS -11.9 mmol/L; ARTERIAL BLOOD H2CO3 1.21 mmol/L (1.05-1.35); ARTERIAL BLOOD HCO3 15.4 mmol/L (20-24); ARTERIAL BLOOD O2 SATURATION 88.2 % (94-98); ARTERIAL BLOOD PCO2 40.2 mmHg (35-45); ARTERIAL BLOOD PO2 65.2 mmHg (80-100); ARTERIAL BLOOD TOTAL CO2 16.6 mmol/L (23-27)
--- NOTE | 2020-06-06 01:21 | Progress Note ---
Provider Note Provider Note: AUTO BODY REPAIR ESTIMATOR called at approx. 0100 06 Jun 2020. BP has been improving and dopamine gtt d/c'd. Respiratory status has worsened. Have needed to increase FiO2 and increase BiPAP pressure settings to maintain SpO2 > 90%. Patient's mental status has deteriorated substantially since yesterday per report. HD planned in ICU later this morning. Patient received 100 mg IV Lasix without any output of note. RR now >30 consistently. When the whole picture of this patient is considered, his overall status is precarious and deteriorating precipitously. Consult to ICU for transfer for intubation and mechanical ventilation, because this patient is failing rapidly from a respiratory standpoint.
[2020-06-06 01:24] LABS: ARTERIAL BLOOD FIO2 80%
[2020-06-06] MEDS ORDERED: FUROSEMIDE INJ/PF 100 MG/10 ML SDV ONE (02:02)
[2020-06-06] MEDS ORDERED: FENTANYL CITRATE INJ/PF 100 MCG/2 ML AMPUL ONE (02:02)
[2020-06-06] MEDS ORDERED: SODIUM BICARBONATE 8.4% INJ 50 MEQ/50 ML DISP.SYRIN ONE (02:32)
[2020-06-06] MEDS ORDERED: SODIUM BICARBONATE 8.4% INJ 50 MEQ/50 ML DISP.SYRIN IV ONE (03:00)
[2020-06-06] MEDS ORDERED: FUROSEMIDE INJ/PF 100 MG/10 ML SDV IV ONE (03:00)
[2020-06-06] MEDS ORDERED: FENTANYL CITRATE INJ/PF 100 MCG/2 ML AMPUL IV ONE (03:00)
[2020-06-06] MEDS: MORPHINE SULFATE 10 MG/ML INJ IV PRN ×3 (03:19→22:49)
--- NOTE | 2020-06-06 04:23 | RADIOLOGY REPORT (SQ) ---
CLINICAL INDICATION: SOB, tachypneic. TECHNIQUE: A single portable AP view was obtained of the chest at 0357 hours. COMPARISON: June 03, 2020. FINDINGS: The cardiomediastinal silhouette is prominent but stable. The lungs demonstrate progressive interstitial changes both upper lobes. Mild associated alveolar space component. No significant pleural fluid. No pneumothorax. Gaseous distention of the stomach. Right-sided PICC tip in good position. IMPRESSION: Progressive parenchymal lung disease both upper lobes. Likely infectious inflammatory
[2020-06-06] MEDS ORDERED: HEPARIN SOD (PORCINE) 1,000 UNIT/ML 10 ML VIAL IV PRN (05:00)
[2020-06-06] MEDS ORDERED: NORMAL SALINE 1000 ML 1,000 ML IV PRN (05:00)
[2020-06-06] MEDS: DEXAMETHASONE SOD PHOSPHATE INJ 4 MG/1 ML VIAL IV SCH ×3 (05:09→21:38)
[2020-06-06 06:41] LABS: ARTERIAL BLOOD BASE EXCESS -10.5 mmol/L; ARTERIAL BLOOD H2CO3 1.25 mmol/L (1.05-1.35); ARTERIAL BLOOD HCO3 16.6 mmol/L (20-24); ARTERIAL BLOOD O2 SATURATION 82.9 % (94-98); ARTERIAL BLOOD PCO2 41.6 mmHg (35-45); ARTERIAL BLOOD PH 7.22 (7.35-7.45); ARTERIAL BLOOD PO2 55.5 mmHg (80-100); ARTERIAL BLOOD TOTAL CO2 17.9 mmol/L (23-27)
[2020-06-06 06:42] LABS: ARTERIAL BLOOD FIO2 60%
[2020-06-06 06:49] LABS: HEMATOCRIT 28.5 % (37.9-51.0); HEMOGLOBIN 9.1 g/dL (13.5-17.0); MEAN CORPUSCULAR HEMOGLOBIN 25.7 pg (27.0-33.4); MEAN CORPUSCULAR VOLUME 80 fl (80-97); PLATELET COUNT 346 10^3/uL (150-450); RED BLOOD COUNT 3.54 10^6/uL (4.35-5.55); WHITE BLOOD COUNT 15.8 10^3/uL (4.0-10.5)
[2020-06-06 07:07] LABS: ANION GAP 12 (5-19); BLOOD UREA NITROGEN 50 mg/dL (7-20); CALCIUM 8.1 mg/dL (8.4-10.2); CARBON DIOXIDE 18 mmol/L (22-30); CHLORIDE 105 mmol/L (98-107); GLUCOSE 192 mg/dL (75-110); POTASSIUM 4.1 mmol/L (3.6-5.0)
[2020-06-06 07:58] LABS: DIGOXIN 0.73 ng/mL (0.8-2.0); PHOSPHORUS 5.2 mg/dL (2.5-4.5)
[2020-06-06] MEDS ORDERED: NITROGLYCERIN 2% OINTMENT 1 GM PACKET ONE (08:40)
[2020-06-06] MEDS: BUDESONIDE NEB 0.5 MG/2 ML AMPUL NEB SCH (08:43)
[2020-06-06] MEDS ORDERED: NITROGLYCERIN 2% OINTMENT 1 GM PACKET TP ONE (09:30)
[2020-06-06] MEDS ORDERED: MORPHINE SULFATE 10 MG/ML INJ IV ONE (10:00)
[2020-06-06] MEDS: AMIODARONE HCL 200 MG TABLET PO SCH (11:14)
[2020-06-06] MEDS: CEFEPIME 1 GM/D5W RTU 1 GM/50 ML RTUPB IV SCH (11:14)
[2020-06-06] MEDS: TAMSULOSIN HCL 0.4 MG CAP.SR.24H PO SCH (11:16)
[2020-06-06] MEDS: NORMAL SALINE 10 ML SDV (SCHEDULED) IV SCH ×2 (11:23→21:39)
[2020-06-06] MEDS: PANTOPRAZOLE SODIUM 40 MG TABLET.DR PO SCH (11:23)
[2020-06-06] MEDS: FINASTERIDE 5 MG TABLET PO SCH (11:23)
[2020-06-06] MEDS: CITRIC ACID/SODIUM CITRATE ORAL SOLN 15 ML UDCUP PO SCH ×2 (11:24→17:28)
[2020-06-06] MEDS: LORAZEPAM INJ 2 MG/1 ML VIAL IV PRN ×3 (11:31→23:45)
[2020-06-06 12:57] LABS: ARTERIAL BLOOD BASE EXCESS -4.1 mmol/L; ARTERIAL BLOOD HCO3 22.4 mmol/L (20-24); ARTERIAL BLOOD PCO2 46.6 mmHg (35-45); ARTERIAL BLOOD PO2 53.2 mmHg (80-100); ARTERIAL BLOOD TOTAL CO2 23.8 mmol/L (23-27)
[2020-06-06 13:02] LABS: ARTERIAL BLOOD FIO2 60%
--- NOTE | 2020-06-06 16:27 | PDOC PROGRESS REPORT ---
Subjective Progress Note for:: 06/06/20 Subjective:: I am seeing the patient during dialysis this morning. Patient had clinically deteriorated overnight requiring BiPAP initially with high FiO2 requirement of 90% currently at 60%. His mentation has also deteriorated and currently does not verbalize much. When asked he said he feels alright and admits he is short of breath while on the BiPAP. Overnight he had received Lasix of 400 mg IV without much response. His urine output for the past 24 hours was only 665 mL and he is a still positive approximately 8 L. He also was very acidotic so he was given 2 amp of sodium bicarbonate. Currently he is tolerating dialysis so far. Reason For Visit: SEPSIS WITH SEPTIC SHOCK,MULTIFOCAL PNEUMONIA Physical Exam Vital Signs: Temp Pulse Resp BP Pulse Ox 97.6 F 85 31 H 147/64 H 91 L 06/06/20 05:16 06/06/20 01:57 06/06/20 06:25 06/06/20 06:25 06/06/20 06:25 Intake & Output 06/05/20 06/06/20 06/07/20 06:59 06:59 06:59 Intake Total 3431 1780 Output Total 300 665 Balance 3131 1115 Weight 64.9 kg 66.3 kg Vitals during dialysis: Blood pressure of 132/65, heart rate of 78, oxygen saturation of 93% with FiO2 of 60% on BiPAP, blood flow rate of 250 mL/min and dialysate flow rate of 600 mL/min. Exam: General appearance: PRESENT: Currently on BiPAP, very lethargic and answers couple questions only Head exam: PRESENT: atraumatic, normocephalic Eye exam: PRESENT: conjunctiva pale, PERRLA. ABSENT: scleral icterus Neck exam: ABSENT: JVD Respiratory exam: PRESENT: Diminished breath sounds. ABSENT: crackles, rales, rhonchi, unlabored, wheezes Cardiovascular exam: PRESENT: Regular rate rhythm -+S1, +S2. ABSENT: diastolic murmur, systolic murmur GI/Abdominal exam: PRESENT: normal bowel sounds, soft. ABSENT: guarding, mass, tenderness Extremities exam: Bilateral upper extremity edema and grade 1 bilateral lower extremity edema up to the thighs which seems to be worse than yesterday. Edema Neurological exam: PRESENT: Lethargic but responds to very minimal questions. Skin exam: PRESENT: dry, warm, he has skin breakdown on his buttocks Results Laboratory Results: 06/06/20 06:25 06/06/20 06:25 06/05/20 06/05/20 06/06/20 07:00 09:15 01:10 WBC RBC Hgb Hct MCV MCH MCHC RDW Plt Count Carbonic Acid 1.35 1.21 HCO3/H2CO3 Ratio 12:1 12:1 ABG pH 7.18 L* 7.20 L* ABG pCO2 44.8 40.2 ABG pO2 50.3 L 65.2 L ABG HCO3 16.3 L 15.4 L ABG O2 Saturation 76.2 L 88.2 L ABG Base Excess -11.5 -11.9 FiO2 1L 80% Sodium 133.1 L Potassium 4.7 Chloride 109 H Carbon Dioxide 15 L Anion Gap 9 BUN 43 H Creatinine 5.53 H Est GFR ( Amer) 12 L Glucose 162 H Calcium 8.1 L Magnesium 1.8 06/06/20 06/06/20 06/06/20 06:25 06:25 06:25 WBC 15.8 H RBC 3.54 L Hgb 9.1 L Hct 28.5 L MCV 80 MCH 25.7 L MCHC 32.0 RDW 20.0 H Plt Count 346 Carbonic Acid 1.25 HCO3/H2CO3 Ratio 13:1 ABG pH 7.22 L ABG pCO2 41.6 ABG pO2 55.5 L ABG HCO3 16.6 L ABG O2 Saturation 82.9 L ABG Base Excess -10.5 FiO2 60% Sodium 135.4 L Potassium 4.1 Chloride 105 Carbon Dioxide 18 L Anion Gap 12 BUN 50 H Creatinine 5.50 H Est GFR ( Amer) 13 L Glucose 192 H Calcium 8.1 L Magnesium 06/03/20 12:39 Catheterized Urine Urine Culture - Final NO GROWTH 2 DAYS 06/03/20 06/03/20 06/04/20 10:40 16:47 21:46 Creatine Kinase 30 L CK-MB (CK-2) Troponin I 0.033 0.023 06/04/20 06/05/20 06/05/20 21:46 04:00 04:00 Creatine Kinase 35 L CK-MB (CK-2) 0.96 1.03 Troponin I < 0.012 < 0.012 06/05/20 06/05/20 22:07 22:07 Creatine Kinase 36 L CK-MB (CK-2) 1.69 Troponin I 0.016 Impressions: Abdomen/Pelvis CT 06/03/20 00:00 IMPRESSION: No acute findings. Small nonobstructing stone right kidney. Abdomen X-Ray 06/03/20 10:39 IMPRESSION: Mild fecal retention. PICC Line Insertion 06/04/20 00:00 IMPRESSION: SUCCESSFUL PLACEMENT OF A 5 FR DUAL LUMEN 40 CM PICC IN THE RIGHT BASILIC VEIN. Chest X-Ray 06/06/20 00:00 IMPRESSION: Progressive parenchymal lung disease both upper lobes. Likely infectious inflammatory Assessment & Plan - Diagnosis (1) RAISSA (acute kidney injury) Is this a current diagnosis for this admission?: Yes Plan: Secondary to ATN due to septic shock. Still with decreased urine output and positive fluid balance. Currently being dialyzed. We will do dialysis today for 2.5 hours, using the patient's femoral dialysis catheter, with 2 potassium bath, blood flow rate of 250 mL per minute, dialysate flow rate of 600 mL per minute, ultrafiltration 2 to 3 L as tolerated, no heparin and no Procrit. Patient is currently monitored closely. After today's dialysis we will reevaluate the patient for further need for renal replacement therapy. (2) Sepsis with acute organ dysfunction and septic shock Qualifiers: Sepsis type: sepsis due to unspecified organism Severe sepsis acute organ dysfunction type: acute renal failure Acute renal failure type: with acute tubular necrosis Qualified Code(s): A41.9 - Sepsis, unspecified organism; R65.21 - Severe sepsis with septic shock; N17.0 - Acute kidney failure with tu bular necrosis Is this a current diagnosis for this admission?: Yes Plan: On IV antibiotics. Has been off dopamine and blood pressure is holding on. (3) Acute respiratory failure with hypoxia Is this a current diagnosis for this admission?: Yes Plan: Secondary to multifocal pneumonia. Currently on BiPAP. (4) Multifocal pneumonia Is this a current diagnosis for this admission?: Yes Plan: On IV azithromycin and IV cefepime. (5) Metabolic acidosis Is this a current diagnosis for this admission?: Yes Plan: Dialysis today. (6) Acute metabolic encephalopathy Is this a current diagnosis for this admission?: Yes Plan: Due to uremia and sepsis. (7) Hyponatremia Is this a current diagnosis for this admission?: Yes Plan: Slowly improved. (8) Atrial fibrillation Is this a current diagnosis for this admission?: Yes (9) Decubitus ulcer of coccygeal region, unstageable Is this a current diagnosis for this admission?: Yes - Notes Notes: Dr. Hernandez will be following the patient after today. - Time Time with patient: 15-25 minutes
[2020-06-06] MEDS: PANTOPRAZOLE SODIUM 40 MG PACKET.DR PO SCH (17:29)
[2020-06-06 17:47] LABS: DIGOXIN 0.72 ng/mL (0.8-2.0)
[2020-06-06 17:56] LABS: CREATINE KINASE MB 3.44 ng/mL (<4.55); TROPONIN I 0.017 ng/mL
--- NOTE | 2020-06-06 20:47 | CRITICAL CARE ADMISSION REPORT ---
HPI Date:: 06/06/20 Time:: 18:07 Reason for ICU Reason:: acute hypoxemic respiratory failure Admission Date/Time & PCP: Admission Date/Time: 06/03/20 23:55 Primary Care Provider: DIONICIO ROWLAND HPI: This 69-year-old male is seen in consultation at the request of Dr. Storm Hernandez for recommendations on further evaluation and management of acute hypoxemic respiratory failure. The patient transferred from the floor overnight, reportedly due to concerns of "imminent endotracheal intubation". However, discussion with the nighttime ICU staff reveals that after the patient was transferred (apparently by the GARAGE WORKER), neither the GARAGE WORKER nor the nighttime in room dining server felt that endotracheal intubation and mechanical ventilatory support was warranted. The patient was placed on BiPAP support and has avoided intubation all night. Earlier this morning, the patient was scheduled for his first hemodialysis session. Consequently, the patient was kept in the ICU. He was hooked up to hemodialysis and tolerated his first session with removal of 3.2 L of fluid. In fact, during his hemodialysis session, with fluid removal, the patient tolerated decreased BiPAP support. Ultimately, he finished up his session on BiPAP 12/4, FiO2 60%. Subsequent to his dialysis, he has been on CPAP 8, FiO2 70% with an SPO2 of 99% throughout the rest of the day. Case was discussed with Dr. Hernandez who felt that the patient was not going to be able to be managed in [facility]. Review of the records suggest that the patient presented on 06/03/2020 with a 3- day history of fever, chills, anorexia, nausea, vomiting and minimal hematemesis. He was admitted with a working diagnosis of septic shock with multifocal pneumonia. He also reported that he was anuretic with a known history of chronic kidney disease. He was negative for COVID. He was initially managed with IV fluid resuscitation (+8 L) along with Levophed and dopamine infusions. Again, review of the record suggests that his shock physiology was resolved during his care in the emergency department. History obtained from:: Dr. Hernandez - Diagnosis/Plan (1) Acute respiratory failure with hypoxia Is this a current diagnosis for this admission?: Yes Plan: CPAP 8. Wean FiO2 as tolerated to keep SPO2 93+%. Avoid any subsequent hypoxic insult. Check ABG to confirm that this is a purely hypoxemic respiratory failure. With decreased renal function, may be dependent on hemodialysis for optimization of fluid status. Continue to monitor urine output. The patient certainly has an abnormal chest x-ray that raises concern for acute pulmonary edema with changes that were not previously seen in 2019; however, in light of his use of amiodarone (unknown duration) amiodarone induced pulmonary toxicity may also need to be in the differential diagnosis, particularly if he fails to improve with optimization of volume status. (2) Sepsis with acute organ dysfunction and septic shock Qualifiers: Sepsis type: sepsis due to unspecified organism Severe sepsis acute organ dysfunction type: acute renal failure Acute renal failure type: with acute tubular necrosis Qualified Code(s): A41.9 - Sepsis, unspecified organism; R65.21 - Severe sepsis with septic shock; N17.0 - Acute kidney failure with tubular necrosis Is this a current diagnosis for this admission?: Yes Plan: On cefepime/azithromycin. (3) Chronic obstructive pulmonary disease Qualifiers: COPD type: unspecified COPD Qualified Code(s): J44.9 - Chronic obstructive pulmonary disease, unspecified Is this a current diagnosis for this admission?: Yes Plan: Stop Aleve albuterol. DuoNeb/Pulmicort scheduled. (4) Longstanding persistent atrial fibrillation Is this a current diagnosis for this admission?: Yes Plan: Home regimen includes amiodarone 200 mg p.o. daily, Cardizem CD 120 mg p.o. daily, Toprol-XL 25 mg p.o. twice daily. He is currently on amiodarone and metoprolol succinate. He has also received intermittent doses of digoxin. (5) Decubitus ulcer of coccygeal region, unstageable Is this a current diagnosis for this admission?: Yes (6) Metabolic acidosis Is this a current diagnosis for this admission?: Yes (7) Multifocal pneumonia Is this a current diagnosis for this admission?: Yes Plan: * Chest CT without contrast. He certainly has an abnormal chest x-ray; however, I am unsure at this time whether he has a bacterial pneumonia. * He is currently on cefepime/azithromycin. Prior to hospitalization, the patient was taking cefdinir and ciprofloxacin. * The patient's WBC count is rising; however, he is remained afebrile throughout his hospitalization. Of note, dexamethasone exposure is noted. (8) Acute renal failure Qualifiers: Acute renal failure type: unspecified Qualified Code(s): N17.9 - Acute kidney failure, unspecified Is this a current diagnosis for this admission?: Yes Plan: He is currently off of his lisinopril. Hemodialysis per nephrology. Avoid nephrotoxic drugs. Renal dosing of medications. (9) COVID-19 ruled out by laboratory testing Is this a current diagnosis for this admission?: Yes (10) Hypertension Is this a current diagnosis for this admission?: Yes Plan: His home antihypertensive regimen includes: Toprol-XL 25 mg p.o. twice daily, lisinopril 10 mg p.o. daily, Cardizem CD 120 mg p.o. daily in addition to potential antihypertensive effects of amiodarone 200 mg p.o. daily, Flomax 0.4 mg p.o. daily and Proscar 5 mg p.o. daily. In light of his acute renal failure, he is currently off of his lisinopril. He is on Toprol-XL, Flomax, Proscar and amiodarone. Past Medical History Cardiac Medical History: Reports: Atrial Fibrillation - Paroxysmal with RVR, Hyperlipidema, Hypertension Denies: Coronary Artery Disease, Myocardial Infarction Pulmonary Medical History: Reports: Chronic Obstructive Pulmonary Disease (COPD) Denies: Asthma EENT Medical History: Denies: Cataracts, Ears - Hearing aids Neurological Medical History: Denies: Hemorrhagic CVA, Ischemic CVA, Seizures Endocrine Medical History: Denies: Diabetes Mellitus Type 1, Diabetes Mellitus Type 2, Hyperthyroidism, Hypothyroidism Renal/ Medical History: Reports: Other - Acute renal failure Denies: Chronic Kidney Disease, Nephrolithiasis Malignancy Medical History: Reports: None GI Medical History: Denies: Cirrhosis, Hepatitis, Peptic Ulcer Disease Musculoskeltal Medical History: Reports: Arthritis - rheumatoid arthritis and osteoarthritis involving multiple joints, Other - Chronic pain syndrome Skin Medical History: Denies: Eczema, Psoriasis Psychiatric Medical History: Reports: Tobacco Dependency Denies: Alcohol Dependency, Depression, Substance Abuse Traumatic Medical History: Reports: None Hematology: Denies: Anemia, Bleeding Tendencies Infectious Medical History: Reports: Hepatitis C Past Surgical History Past Surgical History: Reports: Orthopedic Surgery - ORIF left hip, cervical fusion, Other - 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 Social/Family History - Social History Lives with: Friend Smoking Status: Former Smoker Frequency of Alcohol Use: None Hx Recreational Drug Use: No Drugs: None Hx Prescription Drug Abuse: No - Medication/Allergies Home Medications: Diltiazem HCl [Diltiazem 24Hr ER (Cd)] 120 mg PO DAILY 09/30/19 Amiodarone HCl [Cordarone 200 mg Tablet] 200 mg PO DAILY #30 tablet 10/09/19 Pantoprazole Sodium [Protonix [address] Tablet] 40 mg PO BID 01/19/20 Finasteride [Proscar 5 mg Tablet] 5 mg PO DAILY #30 01/22/20 Metoprolol Succinate [Toprol Xl 25 mg Tab.sr] 25 mg PO Q12 #60 tab.sr.24h 01/22/20 Tamsulosin HCl [Flomax 0.4 mg Cap.sr] 0.4 mg PO DAILY #30 01/22/20 Ciprofloxacin HCl [Cipro 500 mg Tablet] 500 mg PO BID #14 tablet 05/23/20 Cefdinir 300 mg PO BID 06/04/20 Diazepam [Valium] 5 mg PO HSP PRN 06/04/20 Lisinopril [Prinivil] 10 mg PO DAILY 06/04/20 Oxycodone HCl 20 mg PO QID 06/04/20 Tofacitinib Citrate [Xeljanz] 5 mg PO BID 06/04/20 Allergies/Adverse Reactions: No Known Allergies Allergy (Verified 10/14/19 12:) Physical Exam Vital Signs: Temp Pulse Resp BP Pulse Ox 97.7 F 81 31 H 141/73 H 100 06/06/20 16:00 06/06/20 16:11 06/06/20 16:48 06/06/20 16:48 06/06/20 16:48 Intake & Output 06/05/20 06/06/20 06/07/20 06:59 06:59 06:59 Intake Total 3431 1780 Output Total 405 385 0439 Balance 3131 1115 -3450 Weight 64.9 kg 66.3 kg 66.3 kg Weight/Height Weight 66.3 kg Height 1.7 m Laboratory/Radiographs Laboratory Results: 06/06/20 06:25 06/06/20 06:25 06/06/20 06/06/20 06/06/20 01:10 06:25 06:25 WBC 15.8 H RBC 3.54 L Hgb 9.1 L Hct 28.5 L MCV 80 MCH 25.7 L MCHC 32.0 RDW 20.0 H Plt Count 346 Carbonic Acid 1.21 HCO3/H2CO3 Ratio 12:1 ABG pH 7.20 L* ABG pCO2 40.2 ABG pO2 65.2 L ABG HCO3 15.4 L ABG O2 Saturation 88.2 L ABG Base Excess -11.9 FiO2 80% Sodium Cancelled Potassium Cancelled Chloride Cancelled Carbon Dioxide Cancelled Anion Gap Cancelled BUN Cancelled Creatinine Cancelled Est GFR ( Amer) Cancelled Est GFR (Non-Af Amer) Cancelled Glucose Cancelled Calcium Cancelled Phosphorus 5.2 H Magnesium 1.7 06/06/20 06/06/20 06/06/20 06:25 06:25 12:20 WBC RBC Hgb Hct MCV MCH MCHC RDW Plt Count Carbonic Acid 1.25 1.40 H HCO3/H2CO3 Ratio 13:1 16:1 ABG pH 7.22 L 7.30 L ABG pCO2 41.6 46.6 H ABG pO2 55.5 L 53.2 L ABG HCO3 16.6 L 22.4 ABG O2 Saturation 82.9 L 84.0 L ABG Base Excess -10.5 -4.1 FiO2 60% 60% Sodium 135.4 L Potassium 4.1 Chloride 105 Carbon Dioxide 18 L Anion Gap 12 BUN 50 H Creatinine 5.50 H Est GFR ( Amer) 13 L Est GFR (Non-Af Amer) Glucose 192 H Calcium 8.1 L Phosphorus Magnesium 06/03/20 06/03/20 06/04/20 10:40 16:47 21:46 Creatine Kinase 30 L CK-MB (CK-2) Troponin I 0.033 0.023 06/04/20 06/05/20 06/05/20 21:46 04:00 04:00 Creatine Kinase 35 L CK-MB (CK-2) 0.96 1.03 Troponin I < 0.012 < 0.012 06/05/20 06/05/20 06/06/20 22:07 22:07 17:00 Creatine Kinase 36 L 77 CK-MB (CK-2) 1.69 Troponin I 0.016 06/06/20 17:00 Creatine Kinase CK-MB (CK-2) 3.44 Troponin I 0.017 Impressions: Abdomen/Pelvis CT 06/03/20 00:00 IMPRESSION: No acute findings. Small nonobstructing stone right kidney. Abdomen X-Ray 06/03/20 10:39 IMPRESSION: Mild fecal retention. PICC Line Insertion 06/04/20 00:00 IMPRESSION: SUCCESSFUL PLACEMENT OF A 5 FR DUAL LUMEN 40 CM PICC IN THE RIGHT BASILIC VEIN. Chest X-Ray 06/06/20 00:00 IMPRESSION: Progressive parenchymal lung disease both upper lobes. Likely infectious inflammatory Critical Time Critical Time (minutes): 60 -: The care of a critically ill patient is dynamic. This note represents a static moment in the admission process. Orders and treatments may be given simultaneously and urgently, and time is not ambulatory services representative of the treatment process. This patient requires Critical Care secondary to life threatening organ or limb dysfunction. Without Critical Care services, the patient is at risk for increased mortality and morbidity.
[2020-06-06] MEDS: IPRATROPIUM/ALBUTEROL 0.5-2.5 MG/3 ML AMPUL NEB SCH (20:58)
[2020-06-06] MEDS: BUDESONIDE NEB 0.25 MG/2 ML AMPUL NEB SCH (20:58)
[2020-06-06 21:14] LABS: ARTERIAL BLOOD BASE EXCESS -4.4 mmol/L; ARTERIAL BLOOD H2CO3 1.29 mmol/L (1.05-1.35); ARTERIAL BLOOD HCO3 21.5 mmol/L (20-24); ARTERIAL BLOOD O2 SATURATION 85.4 % (94-98); ARTERIAL BLOOD PCO2 42.7 mmHg (35-45); ARTERIAL BLOOD PH 7.32 (7.35-7.45); ARTERIAL BLOOD PO2 53.9 mmHg (80-100); ARTERIAL BLOOD TOTAL CO2 22.8 mmol/L (23-27)
[2020-06-06 21:16] LABS: ARTERIAL BLOOD FIO2 60%
[2020-06-06] MEDS: AZITHROMYCIN 500 MG in DEXTROSE 5%-WATER 250 ML IV SCH (21:38)
[2020-06-07] MEDS: IPRATROPIUM/ALBUTEROL 0.5-2.5 MG/3 ML AMPUL NEB SCH ×4 (02:18→19:43)
[2020-06-07 04:57] LABS: HEMATOCRIT 27.3 % (37.9-51.0); HEMOGLOBIN 8.8 g/dL (13.5-17.0); MEAN CORPUSCULAR HEMOGLOBIN 25.5 pg (27.0-33.4); MEAN CORPUSCULAR HGB CONC 32.3 g/dL (32.0-36.0); MEAN CORPUSCULAR VOLUME 79 fl (80-97); PLATELET COUNT 241 10^3/uL (150-450); RED BLOOD COUNT 3.46 10^6/uL (4.35-5.55); RED CELL DISTRIBUTION WIDTH 20.1 % (11.5-14.0); WHITE BLOOD COUNT 15.8 10^3/uL (4.0-10.5)
[2020-06-07 04:58] LABS: ARTERIAL BLOOD BASE EXCESS -4.9 mmol/L; ARTERIAL BLOOD H2CO3 1.16 mmol/L (1.05-1.35); ARTERIAL BLOOD HCO3 20.4 mmol/L (20-24); ARTERIAL BLOOD O2 SATURATION 90.8 % (94-98); ARTERIAL BLOOD PCO2 38.6 mmHg (35-45); ARTERIAL BLOOD PH 7.34 (7.35-7.45); ARTERIAL BLOOD PO2 62.6 mmHg (80-100); ARTERIAL BLOOD TOTAL CO2 21.6 mmol/L (23-27)
[2020-06-07 05:01] LABS: ARTERIAL BLOOD FIO2 60%
[2020-06-07 05:15] LABS: ANION GAP 11 (5-19); BLOOD UREA NITROGEN 38 mg/dL (7-20); CALCIUM 7.9 mg/dL (8.4-10.2); CARBON DIOXIDE 24 mmol/L (22-30); CHLORIDE 102 mmol/L (98-107); CREATINE KINASE 68 U/L (55-170); GLUCOSE 144 mg/dL (75-110); PHOSPHORUS 4.4 mg/dL (2.5-4.5); POTASSIUM 3.7 mmol/L (3.6-5.0)
[2020-06-07 05:26] LABS: CREATINE KINASE MB 3.27 ng/mL (<4.55); TROPONIN I 0.016 ng/mL
[2020-06-07] MEDS: DEXAMETHASONE SOD PHOSPHATE INJ 4 MG/1 ML VIAL IV SCH (05:32)
[2020-06-07] MEDS: LORAZEPAM INJ 2 MG/1 ML VIAL IV PRN (08:09)
[2020-06-07] MEDS: BUDESONIDE NEB 0.25 MG/2 ML AMPUL NEB SCH ×2 (08:28→19:42)
--- NOTE | 2020-06-07 09:44 | RADIOLOGY REPORT (SQ) ---
EXAM DESCRIPTION: CHEST SINGLE VIEW IMAGES COMPLETED DATE/TIME: 06/07/2020 5:58 am REASON FOR STUDY: dyspnea COMPARISON: 06/06/2020 NUMBER OF VIEWS: One view. TECHNIQUE: Single frontal radiographic image of the chest acquired. LIMITATIONS: None. FINDINGS: LUNGS AND PLEURA: Diffuse bilateral airspace disease not significantly changed. MEDIASTINUM AND HEART: Stable heart size and mediastinal structures. SUPPORT DEVICES: Appropriate location without change. BONY STRUCTURES: No acute findings. HARDWARE: None. OTHER: No other significant finding. IMPRESSION: STABLE APPEARANCE OF THE CHEST. SUPPORT DEVICES UNCHANGED. Reading location - IP/workstation name: [email or web address]
[2020-06-07 10:37] LABS: HEPATITS B SURFACE ANTIGEN Negative (Negative)
[2020-06-07] MEDS: CEFEPIME 1 GM/D5W RTU 1 GM/50 ML RTUPB IV SCH (10:54)
[2020-06-07] MEDS: AMIODARONE HCL 200 MG TABLET PO SCH (10:55)
[2020-06-07] MEDS: METOPROLOL SUCCINATE 25 MG TAB.SR.24H PO SCH ×2 (10:55→21:21)
[2020-06-07] MEDS: NORMAL SALINE 10 ML SDV (SCHEDULED) IV SCH ×2 (10:56→21:20)
[2020-06-07 11:00] LABS: HEPATITIS B CORE AB TOT Positive (Negative)
[2020-06-07] MEDS: TAMSULOSIN HCL 0.4 MG CAP.SR.24H PO SCH (11:17)
[2020-06-07] MEDS: CITRIC ACID/SODIUM CITRATE ORAL SOLN 15 ML UDCUP PO SCH ×2 (11:17→21:17)
[2020-06-07] MEDS: FINASTERIDE 5 MG TABLET PO SCH (11:18)
[2020-06-07] MEDS: PANTOPRAZOLE SODIUM 40 MG PACKET.DR PO SCH ×2 (11:18→21:17)
--- NOTE | 2020-06-07 12:20 | PDOC PROGRESS REPORT ---
Subjective Progress Note for:: 06/07/20 Reason For Visit: Patient is admitted with multifocal pneumonia and septic shock and was aggressively fluid resuscitated along with the usage of pressor agents in the ER. Patient did respond to that in the ER and he was transferred to the floor. However patient has now been transferred back to the ICU because of worsening respiratory failure most likely secondary to congestive heart failure in the setting of RAISSA with anuria. He was also initiated on hemodialysis yesterday w ith removal of 3-4 L of fluid with some improvement but however patient still struggling to breathe on BiPAP with worsening settings. Therefore patient is reinitiated back on hemodialysis today and aim to remove at least 3-4 L of fluid again today and see how he responds to that. Patient was subsequently seen on dialysis. Blood pressure is rather tenuous and therefore we will be cautious of fluid removal. Labs and medications were reviewed.Dialysis orders were reviewed with the treating dialysis nurse Physical Exam Vital Signs: Temp Pulse Resp BP Pulse Ox 98.1 F 99 31 H 108/80 97 06/07/20 09:48 06/07/20 09:48 06/07/20 10:10 06/07/20 10:10 06/07/20 09:48 Intake & Output 06/06/20 06/07/20 06/08/20 06:59 06:59 06:59 Intake Total 1780 50 Output Total 665 3955 50 Balance 1115 -3905 -50 Weight 66.3 kg 61.6 kg General appearance: PRESENT: mild distress Respiratory exam: PRESENT: clear to auscultation karina, decreased breath sounds. ABSENT: crackles Cardiovascular exam: PRESENT: +S1, +S2 GI/Abdominal exam: PRESENT: normal bowel sounds, soft. ABSENT: organomegaly, tenderness Extremities exam: PRESENT: pedal edema Neurological exam: PRESENT: altered, awake, oriented to person Psychiatric exam: PRESENT: agitated Results Laboratory Results: 06/07/20 04:35 06/07/20 04:35 06/06/20 06/06/20 06/07/20 12: 20:39 04:35 WBC RBC Hgb Hct MCV MCH MCHC RDW Plt Count Carbonic Acid 1.40 H 1.29 HCO3/H2CO3 Ratio 16:1 16:1 ABG pH 7.30 L 7.32 L ABG pCO2 46.6 H 42.7 ABG pO2 53.2 L 53.9 L ABG HCO3 22.4 21.5 ABG O2 Saturation 84.0 L 85.4 L ABG Base Excess -4.1 -4.4 FiO2 60% 60% Sodium 136.9 L Potassium 3.7 Chloride 102 Carbon Dioxide 24 Anion Gap 11 BUN 38 H Creatinine 4.00 H Est GFR ( Amer) 18 L Glucose 144 H Calcium 7.9 L Ionized Calcium Rebeka Phosphorus 4.4 Magnesium 1.8 06/07/20 06/07/20 04:35 04:35 WBC 15.8 H RBC 3.46 L Hgb 8.8 L Hct 27.3 L MCV 79 L MCH 25.5 L MCHC 32.3 RDW 20.1 H Plt Count 241 Carbonic Acid 1.16 HCO3/H2CO3 Ratio 17:1 ABG pH 7.34 L ABG pCO2 38.6 ABG pO2 62.6 L ABG HCO3 20.4 ABG O2 Saturation 90.8 L ABG Base Excess -4.9 FiO2 60% Sodium Potassium Chloride Carbon Dioxide Anion Gap BUN Creatinine Est GFR ( Amer) Glucose Calcium Ionized Calcium Rebeka 1.14 Phosphorus Magnesium 06/03/20 06/03/20 06/04/20 10:40 16:47 21:46 Creatine Kinase 30 L CK-MB (CK-2) Troponin I 0.033 0.023 NT-Pro-B Natriuret Pep 06/04/20 06/05/20 06/05/20 21:46 04:00 04:00 Creatine Kinase 35 L CK-MB (CK-2) 0.96 1.03 Troponin I < 0.012 < 0.012 NT-Pro-B Natriuret Pep 06/05/20 06/05/20 06/06/20 22:07 22:07 17:00 Creatine Kinase 36 L 77 CK-MB (CK-2) 1.69 Troponin I 0.016 NT-Pro-B Natriuret Pep 06/06/20 06/07/20 06/07/20 17:00 04:35 04:35 Creatine Kinase 68 CK-MB (CK-2) 3.44 3.27 Troponin I 0.017 0.016 NT-Pro-B Natriuret Pep 17963 H Impressions: Abdomen/Pelvis CT 06/03/20 00:00 IMPRESSION: No acute findings. Small nonobstructing stone right kidney. Abdomen X-Ray 06/03/20 10:39 IMPRESSION: Mild fecal retention. PICC Line Insertion 06/04/20 00:00 IMPRESSION: SUCCESSFUL PLACEMENT OF A 5 FR DUAL LUMEN 40 CM PICC IN THE RIGHT BASILIC VEIN. Chest X-Ray 06/07/20 05:00 IMPRESSION: STABLE APPEARANCE OF THE CHEST. SUPPORT DEVICES UNCHANGED. Assessment & Plan - Diagnosis (1) RAISSA (acute kidney injury) Is this a current diagnosis for this admission?: Yes Plan: Patient was initiated on hemodialysis because of metabolic and fluid issues and had an uneventful dialysis on Thursday. Looks like even though urine output seems to be improving he still has metabolic issues and still has plenty of fluid to give. He is therefore undergoing further dialysis with predominant ultrafiltration currently. Labs and medications were reviewed and dialysis orders were reviewed with the dialysis nurse. Will plan for dialysis again in the morning. Orders have been placed. (2) CHF (congestive heart failure) Plan: Plan to initiate dialysis and remove fluid and see how he responds to that.Patient subsequently seen on dialysis and plan to remove between 2-3 L of fluid as tolerated. See the response after that. (3) Acute metabolic encephalopathy Is this a current diagnosis for this admission?: Yes Plan: He seems a little bit better than from what I have seen earlier. Continue to monitor. (4) Chronic obstructive pulmonary disease Qualifiers: COPD type: unspecified COPD Qualified Code(s): J44.9 - Chronic obstructive pulmonary disease, unspecified Is this a current diagnosis for this admission?: Yes Plan: Currently on BiPAP. (5) Multifocal pneumonia Is this a current diagnosis for this admission?: Yes Plan: On antibiotics and supportive measures. However patient in respiratory failure because of a combination of his pneumonic consolidation and element of fluid overload. Overall poor prognosis. Continue current guidelines.
[2020-06-07] MEDS ORDERED: HEPARIN SOD (PORCINE) 1,000 UNIT/ML 10 ML VIAL IV PRN (12:54)
--- NOTE | 2020-06-07 17:22 | RADIOLOGY REPORT (SQ) ---
EXAM DESCRIPTION: CT CHEST WITHOUT IMAGES COMPLETED DATE/TIME: 06/07/2020 4:49 pm REASON FOR STUDY: abnormal CXR: pulm edema vs ILD vs pneumonia COMPARISON: Chest films 06/07/2020, 06/06/2020, 09/30/2019, 02/26/2015 CT abdomen pelvis 06/03/2020, 10/14/2019, 08/07/2016 TECHNIQUE: CT scan performed of the chest without intravenous contrast. Images reviewed with lung, soft tissue and bone windows. Reconstructed coronal and sagittal MPR images reviewed. All images st ored on PACS. All CT scanners at this facility use dose modulation, iterative reconstruction, and/or weight based d osing when appropriate to reduce radiation dose to as low as reasonably achievable (ALARA). [facility]: Dose Right [facility]: CareDose [facility]: Dose Right [facility]: Teradose 4D [facility]: [employer] RADIATION DOSE: CT Rad equipment meets quality standard of care and radiation dose reduction techniq ues were employed. CTDIvol: 7.6 mGy. DLP: 244 mGy-cm. mGy. LIMITATIONS: No technical limitations. FINDINGS: LUNGS AND PLEURA: Patient has significant underlying obstructive lung disease. Small bilateral pleural effusions are present with fluid in the upper left major fissure and bilatera l posterior costophrenic sulci. There is diffuse thickening of interlobular septa throughout the upper lobes, and bilateral lower lob es with relative sparing of the anterior lung bases. This is similar compared to chest film 0, new compared to 09/30/2019. Findings are worrisome for fluid overload superimposed on advanced obs tructive lung disease. Chronic right posterior pleural plaques are present. Airways are patent. HILAR AND MEDIASTINAL STRUCTURES: No identified masses or abnormal nodes. No obvious aneurysm. HEART AND VASCULAR STRUCTURES: No aneurysm. No pericardial effusion. Mild cardiomegaly. Calcified aortic valve and coronary artery. UPPER ABDOMEN: No significant findings. Limited exam. THYROID AND OTHER SOFT TISSUES: No masses. No adenopathy. BONES: No significant finding. HARDWARE: Right PICC line tip right atrium. OTHER: No other significant findings. IMPRESSION: Advanced changes of obstructive lung disease. Trace bilateral pleural effusions with diffuse thickening of interlobular septa throughout the lungs worrisome for fluid overload or congestive failure TECHNICAL DOCUMENTATION: JOB ID: [id number] Quality ID # [id number]: Final reports with documentation of one or more dose reduction techniques (e.g., Au tomated exposure control, adjustment of the mA and/or kV according to patient size, use of iterative reconstruction technique) 2010 [employer]- All Rights Reserved Reading location - IP/workstation name: [email or web address]
--- NOTE | 2020-06-07 17:45 | PDOC CRITICAL CARE PROG REPORT ---
General Date:: 06/07/20 ICU Day:: 2 Hospital Day:: 5 Resuscitation Status: Full Code Events in the past 12 to 24 Hours:: This 69-year-old male was originally seen in consultation on 06/06/2020 at the request of Dr. Storm Hernandez for recommendations on further evaluation and management of acute hypoxemic respiratory failure. He transferred from the floor overnight due to concerns of "imminent endotracheal intubation"; however, the patient did avoid endotracheal intubation and mechanical ventilatory support. He did undergo hemodialysis in the ICU (his first hemodialysis session) with removal of 3.2 L of fluid. He was initially maintained with BiPAP and was able to transition to CPAP. 06/07: The patient remains on CPAP 8, FiO2 70%. Anticipating hemodialysis again today. Off pressors. Awake, alert, follows commands. WBC 15.8, stable. Afebrile, but on Decadron. Review of systems relevant to events:: Respiratory: Acute hypoxemic respiratory failure, volume overload, COPD Cardiovascular: Atrial fibrillation, on amiodarone; hypertension Skin: Decubitus ulcer (coccyx) Renal: Acute renal failure, hemodialysis Reason for ICU Addmission:: acute hypoxemic respiratory failure - Medications: Medications reviewed and adjusted accordingly: Yes Physical Exam Vital Signs: Temp Pulse Resp BP Pulse Ox 97.9 F 76 29 H 133/74 H 100 06/07/20 12:00 06/07/20 12:00 06/07/20 12:00 06/07/20 12:00 06/07/20 12:00 Intake & Output 06/06/20 06/07/20 06/08/20 06:59 06:59 06:59 Intake Total 1780 50 Output Total 665 3955 125 Balance 1115 -3905 -125 Weight 66.3 kg 61.6 kg Weight/Height Weight 61.6 kg Height 1.7 m General appearance: PRESENT: no acute distress, well-developed, well-nourished Head exam: PRESENT: atraumatic, normocephalic Eye exam: PRESENT: conjunctiva pink, EOMI, PERRLA. ABSENT: scleral icterus Ear exam: PRESENT: normal external ear exam Mouth exam: PRESENT: moist, tongue midline Neck exam: ABSENT: carotid bruit, JVD, lymphadenopathy, thyromegaly Respiratory exam: PRESENT: crackles, rales, rhonchi, unlabored. ABSENT: wheezes Cardiovascular exam: PRESENT: irregular rhythm. ABSENT: diastolic murmur, rubs, systolic murmur Pulses: PRESENT: normal dorsalis pedis pul GI/Abdominal exam: PRESENT: normal bowel sounds, soft. ABSENT: distended, guard ing, mass, organolmegaly, rebound, tenderness Extremities exam: PRESENT: full ROM. ABSENT: calf tenderness, clubbing, pedal edema Neurological exam: PRESENT: alert, awake, reflexes normal, CN II-XII grossly intact. ABSENT: motor sensory deficit Psychiatric exam: ABSENT: agitated, anxious Skin exam: PRESENT: other - Decubitus ulcer coccyx Tubes/Lines: PRESENT: Dialysis catheter Laboratory/Radiographs Laboratory Results: 06/07/20 04:35 06/07/20 04:35 06/06/20 06/06/20 06/07/20 12: 20:39 04:35 WBC RBC Hgb Hct MCV MCH MCHC RDW Plt Count Carbonic Acid 1.40 H 1.29 HCO3/H2CO3 Ratio 16:1 16:1 ABG pH 7.30 L 7.32 L ABG pCO2 46.6 H 42.7 ABG pO2 53.2 L 53.9 L ABG HCO3 22.4 21.5 ABG O2 Saturation 84.0 L 85.4 L ABG Base Excess -4.1 -4.4 FiO2 60% 60% Sodium 136.9 L Potassium 3.7 Chloride 102 Carbon Dioxide 24 Anion Gap 11 BUN 38 H Creatinine 4.00 H Est GFR ( Amer) 18 L Glucose 144 H Calcium 7.9 L Ionized Calcium Rebeka Phosphorus 4.4 Magnesium 1.8 06/07/20 06/07/20 04:35 04:35 WBC 15.8 H RBC 3.46 L Hgb 8.8 L Hct 27.3 L MCV 79 L MCH 25.5 L MCHC 32.3 RDW 20.1 H Plt Count 241 Carbonic Acid 1.16 HCO3/H2CO3 Ratio 17:1 ABG pH 7.34 L ABG pCO2 38.6 ABG pO2 62.6 L ABG HCO3 20.4 ABG O2 Saturation 90.8 L ABG Base Excess -4.9 FiO2 60% Sodium Potassium Chloride Carbon Dioxide Anion Gap BUN Creatinine Est GFR ( Amer) Glucose Calcium Ionized Calcium Rebeka 1.14 Phosphorus Magnesium 08/07/1506/03/20 06/04/20 10:40 16:47 21:46 Creatine Kinase 30 L CK-MB (CK-2) Troponin I 0.033 0.023 NT-Pro-B Natriuret Pep 06/04/20 06/05/20 06/05/20 21:46 04:00 04:00 Creatine Kinase 35 L CK-MB (CK-2) 0.96 1.03 Troponin I < 0.012 < 0.012 NT-Pro-B Natriuret Pep 06/05/20 06/05/20 06/06/20 22:07 22:07 17:00 Creatine Kinase 36 L 77 CK-MB (CK-2) 1.69 Troponin I 0.016 NT-Pro-B Natriuret Pep 06/06/20 06/07/20 06/07/20 17:00 04:35 04:35 Creatine Kinase 68 CK-MB (CK-2) 3.44 3.27 Troponin I 0.017 0.016 NT-Pro-B Natriuret Pep 54640 H Impressions: Abdomen/Pelvis CT 06/03/20 00:00 IMPRESSION: No acute findings. Small nonobstructing stone right kidney. Abdomen X-Ray 06/03/20 10:39 IMPRESSION: Mild fecal retention. PICC Line Insertion 06/04/20 00:00 IMPRESSION: SUCCESSFUL PLACEMENT OF A 5 FR DUAL LUMEN 40 CM PICC IN THE RIGHT BASILIC VEIN. Chest X-Ray 06/07/20 05:00 IMPRESSION: STABLE APPEARANCE OF THE CHEST. SUPPORT DEVICES UNCHANGED. All labs, radiographs, diagnostic studies and EKGs were personally reviewed: Yes In addition, reports of radiographic and diagnostic studies were read: Yes Assessment and Plan - Diagnosis (1) Acute respiratory failure with hypoxia Is this a current diagnosis for this admission?: Yes Plan: Continue CPAP. Wean FiO2 as tolerated to keep SPO2 93+%. As the patient does appear to continue to make some urine, will need to be vigilant and avoid any subsequent hypoxic insult. Awaiting hemodialysis. (2) Sepsis with acute organ dysfunction and septic shock Qualifiers: Sepsis type: sepsis due to unspecified organism Severe sepsis acute organ dysfunction type: acute renal failure Acute renal failure type: with acute tubular necrosis Qualified Code(s): A41.9 - Sepsis, unspecified organism; R65.21 - Severe sepsis with septic shock; N17.0 - Acute kidney failure with tubular necrosis Is this a current diagnosis for this admission?: Yes Plan: Sepsis likely due from pneumonia based on exam. Infection emanating from the coccyx ulcer cannot be excluded. Urine and blood cultures are negative so far. Off pressors. (3) Chronic obstructive pulmonary disease Is this a current diagnosis for this admission?: Yes Plan: DuoNeb/Pulmicort scheduled. (4) Longstanding persistent atrial fibrillation Is this a current diagnosis for this admission?: Yes Plan: Home regimen includes amiodarone 200 mg p.o. daily, Cardizem CD 120 mg p.o. daily, Toprol-XL 25 mg p.o. twice daily. He is currently on amiodarone and Toprol-XL. He also has received intermittent doses of digoxin. (5) Decubitus ulcer of coccygeal region, unstageable Is this a current diagnosis for this admission?: Yes (6) Metabolic acidosis Is this a current diagnosis for this admission?: Yes (7) Multifocal pneumonia Is this a current diagnosis for this admission?: Yes Plan: * COVID negative. * On empiric cefepime/azithromycin. * Immunocompromised patient: On immunomodulatory drugs for rheumatoid arthritis. * I will obtain a CT chest without contrast after hemodialysis today. He certainly has an abnormal chest x-ray; however, I am unsure at this time w hether he has a bacterial pneumonia. (8) Acute renal failure Qualifiers: Acute renal failure type: unspecified Qualified Code(s): N17.9 - Acute kidney failure, unspecified Is this a current diagnosis for this admission?: Yes Plan: Hemodialysis per nephrology. Help appreciated. Currently off lisinopril. Avoid nephrotoxic drugs. Renal dosing of medications. (9) COVID-19 ruled out by laboratory testing Is this a current diagnosis for this admission?: Yes (10) Hypertension Is this a current diagnosis for this admission?: Yes Plan: Home antihypertensive regimen: Toprol-XL 25 mg p.o. twice daily, lisinopril 10 mg p.o. daily, Cardizem CD 120 mg p.o. daily in addition to potential antihypertensive effects of amiodarone 200 mg p.o. daily, Flomax 0.4 mg p.o. d aily and Proscar 5 mg p.o. daily. In light of his acute renal failure, is currently off his lisinopril. Critical Time Critical Time (minutes): 60 Level of Care: ICU -: 1. The care of a critical patient is a dynamic process. This note is a agency sales representative synopsis but static in nature. The timeframe for treatments given in order is not necessarily the actual time these treatments may have been done. 2. This patient requires critical care secondary to ongoing requirements for therapy not offered or safe outside the critical care environment. Transfer to a lower level of care will result in altered life or limb morbidity and mortality. 3. Multidisciplinary rounds completed. 4. ABCDE bundle addressed.
[2020-06-07] MEDS ORDERED: DEXAMETHASONE SOD PHOSPHATE INJ 4 MG/1 ML VIAL IV SCH (18:00)
[2020-06-07] MEDS: AZITHROMYCIN 500 MG in DEXTROSE 5%-WATER 250 ML IV SCH (21:18)
[2020-06-07] MEDS: HEPARIN SOD (PORCINE) 5,000 UNIT/ML 1 ML VIAL SUBCUT SCH (21:19)
[2020-06-07] MEDS: METHYLPREDNISOLONE INJ 125 MG/2 ML SDV IV SCH (21:19)
[2020-06-07] MEDS: MORPHINE SULFATE 10 MG/ML INJ IV PRN (21:32)
[2020-06-07] MEDS ORDERED: HYDROCORTISONE SOD SUCCINATE INJ/PF 100 MG/2 ML SDV IV SCH (22:00)
[2020-06-08 01:36] LABS: HEPATITIS C QUANTITATION HCV Not Detected IU/mL (.)
[2020-06-08] MEDS: IPRATROPIUM/ALBUTEROL 0.5-2.5 MG/3 ML AMPUL NEB SCH ×4 (01:58→19:37)
[2020-06-08 04:23] LABS: ARTERIAL BLOOD BASE EXCESS -4.8 mmol/L; ARTERIAL BLOOD H2CO3 1.01 mmol/L (1.05-1.35); ARTERIAL BLOOD HCO3 19.6 mmol/L (20-24); ARTERIAL BLOOD O2 SATURATION 93.2 % (94-98); ARTERIAL BLOOD PCO2 33.6 mmHg (35-45); ARTERIAL BLOOD PH 7.38 (7.35-7.45); ARTERIAL BLOOD PO2 66.8 mmHg (80-100); ARTERIAL BLOOD TOTAL CO2 20.6 mmol/L (23-27)
[2020-06-08 04:24] LABS: HEMATOCRIT 27.2 % (37.9-51.0); MEAN CORPUSCULAR HEMOGLOBIN 25.8 pg (27.0-33.4); MEAN CORPUSCULAR HGB CONC 33.2 g/dL (32.0-36.0); MEAN CORPUSCULAR VOLUME 78 fl (80-97); PLATELET COUNT 237 10^3/uL (150-450); RED CELL DISTRIBUTION WIDTH 19.8 % (11.5-14.0); WHITE BLOOD COUNT 18.3 10^3/uL (4.0-10.5)
[2020-06-08 04:25] LABS: ARTERIAL BLOOD FIO2 60%
[2020-06-08 04:36] LABS: ALBUMIN 3.1 g/dL (3.5-5.0); ANION GAP 13 (5-19); BLOOD UREA NITROGEN 29 mg/dL (7-20); CALCIUM 7.9 mg/dL (8.4-10.2); CARBON DIOXIDE 25 mmol/L (22-30); CHLORIDE 101 mmol/L (98-107); GLUCOSE 135 mg/dL (75-110); POTASSIUM 3.5 mmol/L (3.6-5.0)
[2020-06-08] MEDS ORDERED: HEPARIN SOD (PORCINE) 1,000 UNIT/ML 10 ML VIAL IV PRN (05:00)
[2020-06-08] MEDS: HEPARIN SOD (PORCINE) 5,000 UNIT/ML 1 ML VIAL SUBCUT SCH ×3 (05:12→21:33)
[2020-06-08] MEDS: MORPHINE SULFATE 10 MG/ML INJ IV PRN ×4 (05:15→23:20)
[2020-06-08] MEDS: LORAZEPAM INJ 2 MG/1 ML VIAL IV PRN ×3 (07:30→23:20)
[2020-06-08] MEDS: BUDESONIDE NEB 0.25 MG/2 ML AMPUL NEB SCH ×2 (08:25→19:37)
[2020-06-08] MEDS: CITRIC ACID/SODIUM CITRATE ORAL SOLN 15 ML UDCUP PO SCH ×2 (09:44→19:41)
[2020-06-08] MEDS: FINASTERIDE 5 MG TABLET PO SCH (09:45)
[2020-06-08] MEDS: PANTOPRAZOLE SODIUM 40 MG PACKET.DR PO SCH ×2 (09:45→19:42)
[2020-06-08] MEDS: AMIODARONE HCL 200 MG TABLET PO SCH (09:46)
[2020-06-08] MEDS: TAMSULOSIN HCL 0.4 MG CAP.SR.24H PO SCH (09:46)
[2020-06-08] MEDS: METOPROLOL SUCCINATE 25 MG TAB.SR.24H PO SCH ×2 (09:46→21:33)
[2020-06-08] MEDS: CEFEPIME 1 GM/D5W RTU 1 GM/50 ML RTUPB IV SCH (09:53)
[2020-06-08] MEDS: METHYLPREDNISOLONE INJ 125 MG/2 ML SDV IV SCH ×2 (09:54→21:31)
[2020-06-08] MEDS: NORMAL SALINE 10 ML SDV (SCHEDULED) IV SCH ×2 (09:54→21:36)
--- NOTE | 2020-06-08 11:31 | PDOC PROGRESS REPORT ---
Subjective Progress Note for:: 06/08/20 Reason For Visit: Patient seen in the ICU today. Undergoing dialysis without any issues. Vital signs are stable. Dialysis orders were reviewed with the treating dialysis nurse. Labs and medications were reviewed. Physical Exam Vital Signs: Temp Pulse Resp BP Pulse Ox 97.6 F 107 H 23 H 113/61 100 06/08/20 08:29 06/08/20 08:29 06/08/20 09:55 06/08/20 09:55 06/08/20 09:00 Intake & Output 06/07/20 06/08/20 06/09/20 06:59 06:59 06:59 Intake Total 116 607 3200 Output Total 3955 3825 4000 Balance -6309 -3667 -3000 Weight 61.6 kg 61 kg General appearance: PRESENT: mild distress Respiratory exam: PRESENT: clear to auscultation karina, decreased breath sounds. ABSENT: crackles Cardiovascular exam: PRESENT: +S1, +S2 GI/Abdominal exam: PRESENT: normal bowel sounds, soft. ABSENT: organomegaly, tenderness Extremities exam: PRESENT: pedal edema Neurological exam: PRESENT: altered Results Laboratory Results: 06/08/20 04:15 06/08/20 04:15 06/08/20 06/08/20 06/08/20 04:15 04:15 04:15 WBC 18.3 H RBC 3.50 L Hgb 9.0 L Hct 27.2 L MCV 78 L MCH 25.8 L MCHC 33.2 RDW 19.8 H Plt Count 237 Carbonic Acid 1.01 L HCO3/H2CO3 Ratio 19:1 ABG pH 7.38 ABG pCO2 33.6 L ABG pO2 66.8 L ABG HCO3 19.6 L ABG O2 Saturation 93.2 L ABG Base Excess -4.8 FiO2 60% Sodium 138.9 Potassium 3.5 L Chloride 101 Carbon Dioxide 25 Anion Gap 13 BUN 29 H Creatinine 2.82 H Est GFR ( Amer) 27 L Glucose 135 H Calcium 7.9 L Magnesium 1.9 Albumin 3.1 L 06/03/20 10:40 Blood Blood Culture - Final NO GROWTH IN 5 DAYS 06/03/20 10:40 Blood Blood Culture - Final NO GROWTH IN 5 DAYS 06/03/20 06/03/20 06/04/20 10:40 16:47 21:46 Creatine Kinase 30 L CK-MB (CK-2) Troponin I 0.033 0.023 NT-Pro-B Natriuret Pep 06/04/20 06/05/20 06/05/20 21:46 04:00 04:00 Creatine Kinase 35 L CK-MB (CK-2) 0.96 1.03 Troponin I < 0.012 < 0.012 NT-Pro-B Natriuret Pep 06/05/20 06/05/20 06/06/20 22:07 22:07 17:00 Creatine Kinase 36 L 77 CK-MB (CK-2) 1.69 Troponin I 0.016 NT-Pro-B Natriuret Pep 06/06/20 06/07/20 06/07/20 17:00 04:35 04:35 Creatine Kinase 68 CK-MB (CK-2) 3.44 3.27 Troponin I 0.017 0.016 NT-Pro-B Natriuret Pep [id number] H 06/08/20 04:15 Creatine Kinase CK-MB (CK-2) Troponin I NT-Pro-B Natriuret Pep 74451 H Impressions: Abdomen/Pelvis CT 06/03/20 00:00 IMPRESSION: No acute findings. Small nonobstructing stone right kidney. Abdomen X-Ray 06/03/20 10:39 IMPRESSION: Mild fecal retention. PICC Line Insertion 06/04/20 00:00 IMPRESSION: SUCCESSFUL PLACEMENT OF A 5 FR DUAL LUMEN 40 CM PICC IN THE RIGHT BASILIC VEIN. Chest CT 06/07/20 00:00 IMPRESSION: Advanced changes of obstructive lung disease. Trace bilateral pleural effusions with diffuse thickening of interlobular septa throughout the lungs worrisome for fluid overload or congestive failure Chest X-Ray 06/07/20 05:00 IMPRESSION: STABLE APPEARANCE OF THE CHEST. SUPPORT DEVICES UNCHANGED. Assessment & Plan - Diagnosis (1) RAISSA (acute kidney injury) Is this a current diagnosis for this admission?: Yes Plan: Currently nonoliguric and therefore hopeful that he will make renal recovery. Patient was initiated on hemodialysis because of metabolic and fluid issues and had an uneventful dialysis on Thursday. Looks like even though urine output seems to be improving he still has metabolic issues and still has plenty of fluid to give. He is therefore undergoing further dialysis again today. Labs and medications were reviewed and dialysis orders were reviewed with the dialysis nurse. Plan to remove approximately 2 L as tolerated. (2) CHF (congestive heart failure) Plan: See the response to dialysis and fluid removal. Now being seen on dialysis and plan to remove between 2-3 L of fluid as tolerated. See the response after that.Dialysis orders were reviewed with the treating dialysis nurse. (3) Acute metabolic encephalopathy Is this a current diagnosis for this admission?: Yes Plan: He seems a little bit better than from what I have seen earlier. Continue to monitor. (4) Chronic obstructive pulmonary disease Qualifiers: COPD type: unspecified COPD Qualified Code(s): J44.9 - Chronic obstructive pulmonary disease, unspecified Is this a current diagnosis for this admission?: Yes Plan: Currently on BiPAP. (5) Multifocal pneumonia Is this a current diagnosis for this admission?: Yes Plan: On antibiotics and supportive measures. However patient in respiratory failure because of a combination of his pneumonic consolidation and element of fluid overload. Overall poor prognosis. Continue current guidelines.
[2020-06-08] MEDS ORDERED: LORAZEPAM INJ 2 MG/1 ML VIAL ONE (17:12)
[2020-06-08] MEDS ORDERED: OXYCODONE HCL SR 10 MG TABLET PO ONE (18:15)
--- NOTE | 2020-06-08 18:44 | PDOC CRITICAL CARE PROG REPORT ---
General Date:: 06/08/20 ICU Day:: 3 Hospital Day:: 6 Resuscitation Status: Full Code Events in the past 12 to 24 Hours:: This 69-year-old male was originally seen in consultation on 06/06/2020 at the request of Dr. Storm Hernandez for recommendations on further evaluation and management of acute hypoxemic respiratory failure. He transferred from the floor overnight due to concerns of "imminent endotracheal intubation"; however, the patient did avoid endotracheal intubation and mechanical ventilatory support. He did undergo hemodialysis in the ICU (his first hemodialysis session) with removal of 3.2 L of fluid. He was initially maintained with BiPAP and was able to transition to CPAP. 06/07: The patient remains on CPAP 8, FiO2 70%. Anticipating hemodialysis again today. Off pressors. Awake, alert, follows commands. WBC 15.8, stable. Afebrile, but on Decadron. 06/08: Got hemodialysis again this morning. Pressors. Awake, alert, follows commands. WBC 15.8>18.3, on Decadron. proBNP 33,600 today. On CPAP 10, FiO2 60%. Chest CT was obtained yesterday and reveals advanced changes of obstructive lung disease, trace bilateral pleural effusions with diffuse thickening of interlobular septa throughout the lungs. Review of systems relevant to events:: Respiratory: Acute hypoxemic respiratory failure, volume overload, COPD Cardiovascular: Atrial fibrillation, on amiodarone; hypertension Skin: Decubitus ulcer (coccyx) Renal: Acute renal failure, hemodialysis Reason for ICU Addmission:: respiratory distress - Medications: Medications reviewed and adjusted accordingly: Yes Physical Exam Vital Signs: Temp Pulse Resp BP Pulse Ox 97.6 F 95 22 H 128/75 H 100 06/08/20 08:29 06/08/20 13:32 06/08/20 13:32 06/08/20 11:53 06/08/20 13:32 Intake & Output 06/07/20 06/08/20 06/09/20 06:59 06:59 06:59 Intake Total 366 195 0236 Output Total 1094 7708 1325 Balance -1079 -4145 -2597 Weight 61.6 kg 61 kg Weight/Height Weight 61 kg Height 1.7 m General appearance: PRESENT: no acute distress, well-developed, well-nourished Head exam: PRESENT: atraumatic, normocephalic Eye exam: PRESENT: conjunctiva pink, EOMI, PERRLA. ABSENT: scleral icterus Mouth exam: PRESENT: moist, tongue midline Neck exam: ABSENT: carotid bruit, JVD, lymphadenopathy, thyromegaly Respiratory exam: PRESENT: crackles, rales, rhonchi, unlabored. ABSENT: wheezes Cardiovascular exam: PRESENT: RRR, tachycardia. ABSENT: diastolic murmur, rubs, systolic murmur Pulses: PRESENT: normal dorsalis pedis pul GI/Abdominal exam: PRESENT: normal bowel sounds, soft. ABSENT: distended, guarding, mass, organolmegaly, rebound, tenderness Extremities exam: PRESENT: full ROM. ABSENT: calf tenderness, clubbing, pedal edema Neurological exam: PRESENT: altered - But easily arousable, oriented to person, oriented to place, oriented to time, oriented to situation, CN II-XII grossly intact. ABSENT: motor sensory deficit Tubes/Lines: PRESENT: Dialysis catheter Laboratory/Radiographs Laboratory Results: 06/08/20 04:15 06/08/20 04:15 06/08/20 06/08/20 06/08/20 04:15 04:15 04:15 WBC 18.3 H RBC 3.50 L Hgb 9.0 L Hct 27.2 L MCV 78 L MCH 25.8 L MCHC 33.2 RDW 19.8 H Plt Count 237 Carbonic Acid 1.01 L HCO3/H2CO3 Ratio 19:1 ABG pH 7.38 ABG pCO2 33.6 L ABG pO2 66.8 L ABG HCO3 19.6 L ABG O2 Saturation 93.2 L ABG Base Excess -4.8 FiO2 60% Sodium 138.9 Potassium 3.5 L Chloride 101 Carbon Dioxide 25 Anion Gap 13 BUN 29 H Creatinine 2.82 H Est GFR ( Amer) 27 L Glucose 135 H Calcium 7.9 L Magnesium 1.9 Albumin 3.1 L 06/03/20 10:40 Blood Blood Culture - Final NO GROWTH IN 5 DAYS 06/03/20 10:40 Blood Blood Culture - Final NO GROWTH IN 5 DAYS 06/03/20 06/03/20 06/04/20 10:40 16:47 21:46 Creatine Kinase 30 L CK-MB (CK-2) Troponin I 0.033 0.023 NT-Pro-B Natriuret Pep 06/04/20 06/05/20 06/05/20 21:46 04:00 04:00 Creatine Kinase 35 L CK-MB (CK-2) 0.96 1.03 Troponin I < 0.012 < 0.012 NT-Pro-B Natriuret Pep 06/05/20 06/05/20 06/06/20 22:07 22:07 17:00 Creatine Kinase 36 L 77 CK-MB (CK-2) 1.69 Troponin I 0.016 NT-Pro-B Natriuret Pep 06/06/20 06/07/20 06/07/20 17:00 04:35 04:35 Creatine Kinase 68 CK-MB (CK-2) 3.44 3.27 Troponin I 0.017 0.016 NT-Pro-B Natriuret Pep [id number] H 06/08/20 04:15 Creatine Kinase CK-MB (CK-2) Troponin I NT-Pro-B Natriuret Pep [id number] H Impressions: Abdomen/Pelvis CT 06/03/20 00:00 IMPRESSION: No acute findings. Small nonobstructing stone right kidney. Abdomen X-Ray 06/03/20 10:39 IMPRESSION: Mild fecal retention. PICC Line Insertion 06/04/20 00:00 IMPRESSION: SUCCESSFUL PLACEMENT OF A 5 FR DUAL LUMEN 40 CM PICC IN THE RIGHT BASILIC VEIN. Chest CT 06/07/20 00:00 IMPRESSION: Advanced changes of obstructive lung disease. Trace bilateral pleural effusions with diffuse thickening of interlobular septa throughout the lungs worrisome for fluid overload or congestive failure Chest X-Ray 06/07/20 05:00 IMPRESSION: STABLE APPEARANCE OF THE CHEST. SUPPORT DEVICES UNCHANGED. All labs, radiographs, diagnostic studies and EKGs were personally reviewed: Yes In addition, reports of radiographic and diagnostic studies were read: Yes Assessment and Plan - Diagnosis (1) Acute respiratory failure with hypoxia Is this a current diagnosis for this admission?: Yes Plan: Wean CPAP. Wean FiO2 as tolerated to keep SPO2 93+%. Neurology help appreciated. (2) Multifocal pneumonia Is this a current diagnosis for this admission?: Yes Plan: * COVID negative. * On empiric cefepime/azithromycin. Stop azithromycin 06/08. * Immunocompromised patient: On immunomodulatory drugs for rheumatoid arthritis. * Chest CT is more concerning for pulmonary edema or interstitial lung disease. Additionally, there is clearly a baseline of advanced COPD/emphysema. (3) Chronic obstructive pulmonary disease Is this a current diagnosis for this admission?: Yes Plan: DuoNeb/Pulmicort scheduled. Has been started on Solu-Medrol 60 mg IV every 12 hours (switched from Decadron). (4) Longstanding persistent atrial fibrillation Is this a current diagnosis for this admission?: Yes Plan: Home regimen includes amiodarone 200 mg p.o. daily, Cardizem CD 120 mg p.o. daily, Toprol-XL 25 mg p.o. twice daily. He is currently on amiodarone and Toprol-XL. He also has received intermittent doses of digoxin. (5) Decubitus ulcer of coccygeal region, unstageable Is this a current diagnosis for this admission?: Yes (6) Metabolic acidosis Is this a current diagnosis for this admission?: Yes (7) Acute renal failure Qualifiers: Acute renal failure type: unspecified Qualified Code(s): N17.9 - Acute kidney failure, unspecified Is this a current diagnosis for this admission?: Yes (8) COVID-19 ruled out by laboratory testing Is this a current diagnosis for this admission?: Yes (9) Hypertension Is this a current diagnosis for this admission?: Yes (10) Sepsis with acute organ dysfunction and septic shock Qualifiers: Sepsis type: sepsis due to unspecified organism Severe sepsis acute organ dysfunction type: acute renal failure Acute renal failure type: with acute tubular necrosis Qualified Code(s): A41.9 - Sepsis, unspecified organism; R65.21 - Severe sepsis with septic shock; N17.0 - Acute kidney failure with tubular necrosis Is this a current diagnosis for this admission?: Yes Plan: I doubt that sepsis/septic shock was the reason for the patient's clinical deterioration, as blood and urine cultures from 06/03 have remained negative. Off pressors. On cefepime/azithromycin. Stop antibiotics. (11) Opiate withdrawal Is this a current diagnosis for this admission?: Yes Plan: Patient reports that he takes oxycodone 20 mg p.o. 4 times daily along with morphine. I suspect that his current tachycardia and psychomotor agitation reflect opiate withdrawal. He has morphine 2 or 4 mg IV every 4 hours PRN available to him. I will decrease the dosing interval to every 2 hours PRN. Additionally, I will restart oxycodone 20 mg p.o. twice daily. Critical Time Critical Time (minutes): 60 Level of Care: ICU -: 1. The care of a critical patient is a dynamic process. This note is a compliance representative dealer synopsis but static in nature. The timeframe for treatments given in order is not necessarily the actual time these treatments may have been done. 2. This patient requires critical care secondary to ongoing requirements for therapy not offered or safe outside the critical care environment. Transfer to a lower level of care will result in altered life or limb morbidity and morta lity. 3. Multidisciplinary rounds completed. 4. ABCDE bundle addressed.
[2020-06-08] MEDS: OXYCODONE HCL SR 10 MG TABLET PO SCH (21:33)
[2020-06-09] MEDS: IPRATROPIUM/ALBUTEROL 0.5-2.5 MG/3 ML AMPUL NEB SCH ×4 (02:36→19:42)
[2020-06-09 05:37] LABS: ANION GAP 11 (5-19); BLOOD UREA NITROGEN 31 mg/dL (7-20); CARBON DIOXIDE 27 mmol/L (22-30); CHLORIDE 100 mmol/L (98-107); GLUCOSE 127 mg/dL (75-110); POTASSIUM 3.5 mmol/L (3.6-5.0)
[2020-06-09] MEDS: HEPARIN SOD (PORCINE) 5,000 UNIT/ML 1 ML VIAL SUBCUT SCH ×3 (05:41→21:18)
[2020-06-09 05:44] LABS: PREALBUMIN 6.8 mg/dL (17.6-36.0)
[2020-06-09 06:14] LABS: ARTERIAL BLOOD BASE EXCESS 0 mmol/L; ARTERIAL BLOOD HCO3 25.2 mmol/L (20-24); ARTERIAL BLOOD O2 SATURATION 97.6 % (94-98); ARTERIAL BLOOD PCO2 43.3 mmHg (35-45); ARTERIAL BLOOD PH 7.38 (7.35-7.45); ARTERIAL BLOOD PO2 102.3 mmHg (80-100); ARTERIAL BLOOD TOTAL CO2 26.5 mmol/L (23-27)
[2020-06-09 06:39] LABS: ARTERIAL BLOOD FIO2 40%
[2020-06-09] MEDS: BUDESONIDE NEB 0.25 MG/2 ML AMPUL NEB SCH ×2 (08:08→19:42)
--- NOTE | 2020-06-09 10:13 | RADIOLOGY REPORT (SQ) ---
EXAM DESCRIPTION: CHEST SINGLE VIEW IMAGES COMPLETED DATE/TIME: 06/09/2020 5:56 am REASON FOR STUDY: Pulmonary edema COMPARISON: 06/07/2020 EXAM PARAMETERS: NUMBER OF VIEWS: One view. TECHNIQUE: Single frontal radiographic view of the chest acquired. RADIATION DOSE: NA LIMITATIONS: None. FINDINGS: LUNGS AND PLEURA: Somewhat improved aeration of the lungs with persistent mixed interstiti al and airspace opacities. Small bilateral pleural effusions. No pneumothorax. MEDIASTINUM AND HILAR STRUCTURES: No masses. Contour normal. HEART AND VASCULAR STRUCTURES: Heart normal in size. Normal vasculature. BONES: No acute findings. HARDWARE: Central vascular access catheter appears stable in position. OTHER: No other significant finding. IMPRESSION: Somewhat improved aeration of the lungs. Otherwise stable radiographic appearance of th e chest. TECHNICAL DOCUMENTATION: JOB ID: [id number] 2010 [employer]- All Rights Reserved Reading location - IP/workstation name: [email or web address]
[2020-06-09] MEDS: MORPHINE SULFATE 10 MG/ML INJ IV PRN ×3 (11:17→21:19)
[2020-06-09] MEDS: NORMAL SALINE 10 ML SDV (SCHEDULED) IV SCH ×2 (11:18→21:18)
[2020-06-09] MEDS: METHYLPREDNISOLONE INJ 125 MG/2 ML SDV IV SCH ×2 (11:18→21:17)
[2020-06-09] MEDS: CEFEPIME HCL 2 GM in DEXTROSE 5%-WATER 50 ML IV SCH (11:19)
[2020-06-09] MEDS: CITRIC ACID/SODIUM CITRATE ORAL SOLN 15 ML UDCUP PO SCH ×2 (12:00→17:14)
[2020-06-09] MEDS: LORAZEPAM INJ 2 MG/1 ML VIAL IV PRN (12:05)
[2020-06-09] MEDS ORDERED: POTASSIUM CHLORIDE 20 MEQ PACKET PO ONE (13:41)
[2020-06-09] MEDS ORDERED: MAGNESIUM SULFATE/D5W 1 GM/100 ML RTUPB IV ONE ×2 (13:41→17:04)
[2020-06-09] MEDS: OXYCODONE HCL SR 10 MG TABLET PO SCH ×3 (17:00→21:42)
[2020-06-09] MEDS: TAMSULOSIN HCL 0.4 MG CAP.SR.24H PO SCH (17:00)
[2020-06-09] MEDS: AMIODARONE HCL 200 MG TABLET PO SCH (17:00)
[2020-06-09] MEDS: PANTOPRAZOLE SODIUM 40 MG PACKET.DR PO SCH (17:01)
[2020-06-09] MEDS: METOPROLOL SUCCINATE 25 MG TAB.SR.24H PO SCH (17:01)
[2020-06-09] MEDS: FINASTERIDE 5 MG TABLET PO SCH (17:01)
[2020-06-09] MEDS: POTASSI CL 20 MEQ/50 ML RIDER 20 MEQ/50 ML RTUPB IV SCH ×2 (17:15→17:25)
[2020-06-09] MEDS: METOPROLOL TARTRATE PF/INJ 5 MG/5 ML SDV IV SCH ×2 (17:15→23:52)
--- NOTE | 2020-06-09 18:00 | PDOC CRITICAL CARE PROG REPORT ---
General Date:: 06/09/20 ICU Day:: 4 Hospital Day:: 7 Resuscitation Status: Full Code Events in the past 12 to 24 Hours:: This 69-year-old male was originally seen in consultation on 06/06/2020 at the request of Dr. Storm Hernandez for recommendations on further evaluation and management of acute hypoxemic respiratory failure. He transferred from the floor overnight due to concerns of "imminent endotracheal intubation"; however, the patient did avoid endotracheal intubation and mechanical ventilatory support. He did undergo hemodialysis in the ICU (his first hemodialysis session) with removal of 3.2 L of fluid. He was initially maintained with BiPAP and was able to transition to CPAP. 06/07: The patient remains on CPAP 8, FiO2 70%. Anticipating hemodialysis again today. Off pressors. Awake, alert, follows commands. WBC 15.8, stable. Afebrile, but on Decadron. 06/08: Got hemodialysis again this morning. Pressors. Awake, alert, follows commands. WBC 15.8>18.3, on Decadron. proBNP 33,600 today. On CPAP 10, FiO2 60%. Chest CT was obtained yesterday and reveals advanced changes of obstructive lung disease, trace bilateral pleural effusions with diffuse thickening of interlobular septa throughout the lungs. 06/09: The patient has been much more interactive and conversant since yesterday afternoon. Has had a total of 9 L removed by hemodialysis over the past 3 days. Was doing a lot of moaning and groaning yesterday, but was able to verbalize that he takes oxycodone 4 times daily at home in addition to having a morphine pump. Oxycodone was restarted with every 12 hours dosing in addition to as needed morphine. He appears more comfortable today. Off pressors. Awake, alert, follows commands. ABG this morning 7.38/43/102. Review of systems relevant to events:: Respiratory: Acute hypoxemic respiratory failure, volume overload, COPD Cardiovascular: Atrial fibrillation, on amiodarone; hypertension Skin: Decubitus ulcer (coccyx) Renal: Acute renal failure, hemodialysis Reason for ICU Addmission:: respiratory distress - Medications: Medications reviewed and adjusted accordingly: Yes Physical Exam Vital Signs: Temp Pulse Resp BP Pulse Ox 98.2 F 104 H 27 H 131/79 H 95 06/09/20 05:57 06/09/20 08:08 06/09/20 08:08 06/09/20 07:54 06/09/20 08:08 Intake & Output 06/08/20 06/09/20 06/10/20 06:59 06:59 06:59 Intake Total 300 1250 Output Total 3825 4345 Balance -3525 -3095 Weight 61 kg 56.9 kg Weight/Height Weight 56.9 kg Height 1.7 m General appearance: PRESENT: no acute distress, well-developed, well-nourished, other - Chronically ill in appearance Head exam: PRESENT: atraumatic, normocephalic Eye exam: PRESENT: conjunctiva pink, EOMI, PERRLA. ABSENT: scleral icterus Mouth exam: PRESENT: moist, tongue midline Neck exam: ABSENT: carotid bruit, JVD, lymphadenopathy, thyromegaly Respiratory exam: PRESENT: crackles Cardiovascular exam: PRESENT: RRR, tachycardia. ABSENT: diastolic murmur, rubs, systolic murmur Pulses: PRESENT: normal dorsalis pedis pul GI/Abdominal exam: PRESENT: normal bowel sounds, soft, other - Morphine pump elevated in the lower abdomen. ABSENT: distended, guarding, mass, organolmegaly, rebound, tenderness Gentrourinary exam: PRESENT: indwelling catheter Extremities exam: PRESENT: full ROM. ABSENT: calf tenderness, clubbing, pedal edema Musculoskeletal exam: PRESENT: other - Disfiguring arthritic changes of both hands Neurological exam: PRESENT: alert, awake, reflexes normal, CN II-XII grossly intact. ABSENT: motor sensory deficit Psychiatric exam: ABSENT: agitated, anxious Skin exam: PRESENT: dry, intact, warm. ABSENT: cyanosis, rash Tubes/Lines: PRESENT: Dialysis catheter Laboratory/Radiographs Laboratory Results: 06/08/20 04:15 06/09/20 04:32 06/09/20 06/09/20 04:32 05:30 Carbonic Acid 1.30 HCO3/H2CO3 Ratio 19:1 ABG pH 7.38 ABG pCO2 43.3 ABG pO2 102.3 H ABG HCO3 25.2 H ABG O2 Saturation 97.6 ABG Base Excess 0 FiO2 40% Sodium 137.5 Potassium 3.5 L Chloride 100 Carbon Dioxide 27 Anion Gap 11 BUN 31 H Creatinine 2.12 H Est GFR ( Amer) 38 L Glucose 127 H Calcium 8.0 L Magnesium 1.9 Prealbumin 6.8 L 06/03/20 10:40 Blood Blood Culture - Final NO GROWTH IN 5 DAYS 06/03/20 10:40 Blood Blood Culture - Final NO GROWTH IN 5 DAYS 06/03/20 06/03/20 06/04/20 10:40 16:47 21:46 Creatine Kinase 30 L CK-MB (CK-2) Troponin I 0.033 0.023 NT-Pro-B Natriuret Pep 06/04/20 06/05/20 06/05/20 21:46 04:00 04:00 Creatine Kinase 35 L CK-MB (CK-2) 0.96 1.03 Troponin I < 0.012 < 0.012 NT-Pro-B Natriuret Pep 06/05/20 06/05/20 06/06/20 22:07 22:07 17:00 Creatine Kinase 36 L 77 CK-MB (CK-2) 1.69 Troponin I 0.016 NT-Pro-B Natriuret Pep 06/06/20 06/07/20 06/07/20 17:00 04:35 04:35 Creatine Kinase 68 CK-MB (CK-2) 3.44 3.27 Troponin I 0.017 0.016 NT-Pro-B Natriuret Pep 91535 H 06/08/20 06/09/20 04:15 04:32 Creatine Kinase CK-MB (CK-2) Troponin I NT-Pro-B Natriuret Pep 71772 H 12040 H Impressions: Abdomen/Pelvis CT 06/03/20 00:00 IMPRESSION: No acute findings. Small nonobstructing stone right kidney. Abdomen X-Ray 06/03/20 10:39 IMPRESSION: Mild fecal retention. PICC Line Insertion 06/04/20 00:00 IMPRESSION: SUCCESSFUL PLACEMENT OF A 5 FR DUAL LUMEN 40 CM PICC IN THE RIGHT BASILIC VEIN. Chest CT 06/07/20 00:00 IMPRESSION: Advanced changes of obstructive lung disease. Trace bilateral pleural effusions with diffuse thickening of interlobular septa throughout the lungs worrisome for fluid overload or congestive failure Chest X-Ray 06/09/20 05:00 IMPRESSION: Somewhat improved aeration of the lungs. Otherwise stable radiographic appearance of the chest. Assessment and Plan - Diagnosis (1) Acute respiratory failure with hypoxia Is this a current diagnosis for this admission?: Yes Plan: Wean CPAP as tolerated. Wean FiO2 as tolerated to keep SPO2 93+%. (2) Multifocal pneumonia Is this a current diagnosis for this admission?: Yes Plan: * COVID negative. * On empiric cefepime/azithromycin. Stop azithromycin 06/08. * Immunocompromised patient: On immunomodulatory drugs for rheumatoid arthritis. * Chest CT is more concerning for pulmonary edema or interstitial lung disease. Additionally, there is clearly a baseline of advanced COPD/emphysema. (3) Chronic obstructive pulmonary disease Is this a current diagnosis for this admission?: Yes Plan: DuoNeb/Pulmicort scheduled. Continue Solu-Medrol 60 mg IV every 12 hours (switched from Decadron). (4) Longstanding persistent atrial fibrillation Is this a current diagnosis for this admission?: Yes Plan: Home regimen includes amiodarone 200 mg p.o. daily, Cardizem CD 120 mg p.o. daily, Toprol-XL 25 mg p.o. twice daily. He is currently on amiodarone and Toprol-XL. He also has received intermittent doses of digoxin. 2D echo (08/03/2017) revealed grade 2/4 diastolic dysfunction. (5) Decubitus ulcer of coccygeal region, unstageable Is this a current diagnosis for this admission?: Yes (6) Metabolic acidosis Is this a current diagnosis for this admission?: Yes (7) Acute renal failure Qualifiers: Acute renal failure type: unspecified Qualified Code(s): N17.9 - Acute kidney failure, unspecified Is this a current diagnosis for this admission?: Yes (8) COVID-19 ruled out by laboratory testing Is this a current diagnosis for this admission?: Yes (9) Hypertension Is this a current diagnosis for this admission?: Yes (10) Sepsis with acute organ dysfunction and septic shock Qualifiers: Sepsis type: sepsis due to unspecified organism Severe sepsis acute organ dysfunction type: acute renal failure Acute renal failure type: with acute tubular necrosis Qualified Code(s): A41.9 - Sepsis, unspecified organism; R65.21 - Severe sepsis with septic shock; N17.0 - Acute kidney failure with tubular necrosis Is this a current diagnosis for this admission?: Yes (11) Opiate withdrawal Is this a current diagnosis for this admission?: Yes Plan: Patient reports that he takes oxycodone 20 mg p.o. 4 times daily along with morphine (he has an intra-abdominal morphine pump). He has morphine 2 or 4 mg IV every 4 hours PRN available to him. I will de crease the dosing interval to every 2 hours PRN. Continue oxycodone 20 mg p.o. twice daily. Critical Time Critical Time (minutes): 60 Level of Care: ICU -: 1. The care of a critical patient is a dynamic process. This note is a public health representative synopsis but static in nature. The timeframe for treatments giv en in order is not necessarily the actual time these treatments may have been done. 2. This patient requires critical care secondary to ongoing requirements for therapy not offered or safe outside the critical care environment. Transfer to a lower level of care will result in altered life or limb morbidity and mortality. 3. Multidisciplinary rounds completed. 4. ABCDE bundle addressed.
[2020-06-09] MEDS: PANTOPRAZOLE SODIUM 40 MG VIAL IV SCH (21:18)
[2020-06-10] MEDS: LORAZEPAM INJ 2 MG/1 ML VIAL IV PRN ×2 (01:44→18:42)
[2020-06-10] MEDS: MORPHINE SULFATE 10 MG/ML INJ IV PRN ×4 (01:44→17:00)
[2020-06-10] MEDS: IPRATROPIUM/ALBUTEROL 0.5-2.5 MG/3 ML AMPUL NEB SCH ×4 (04:20→19:45)
[2020-06-10 04:37] LABS: ARTERIAL BLOOD BASE EXCESS -4.1 mmol/L; ARTERIAL BLOOD H2CO3 1.04 mmol/L (1.05-1.35); ARTERIAL BLOOD HCO3 20.3 mmol/L (20-24); ARTERIAL BLOOD O2 SATURATION 73.7 % (94-98); ARTERIAL BLOOD PCO2 34.5 mmHg (35-45); ARTERIAL BLOOD PH 7.39 (7.35-7.45); ARTERIAL BLOOD TOTAL CO2 21.3 mmol/L (23-27)
[2020-06-10 04:38] LABS: ARTERIAL BLOOD FIO2 35%; ARTERIAL BLOOD PO2 39.1 mmHg (80-100)
[2020-06-10 04:39] LABS: HEMATOCRIT 29.1 % (37.9-51.0); HEMOGLOBIN 9.2 g/dL (13.5-17.0); MEAN CORPUSCULAR HEMOGLOBIN 25.3 pg (27.0-33.4); MEAN CORPUSCULAR HGB CONC 31.8 g/dL (32.0-36.0); MEAN CORPUSCULAR VOLUME 80 fl (80-97); PLATELET COUNT 198 10^3/uL (150-450); RED BLOOD COUNT 3.65 10^6/uL (4.35-5.55); RED CELL DISTRIBUTION WIDTH 20.3 % (11.5-14.0); WHITE BLOOD COUNT 15.5 10^3/uL (4.0-10.5)
[2020-06-10 04:50] LABS: ANION GAP 13 (5-19); BLOOD UREA NITROGEN 46 mg/dL (7-20); CALCIUM 8.1 mg/dL (8.4-10.2); CARBON DIOXIDE 23 mmol/L (22-30); CHLORIDE 103 mmol/L (98-107); GLUCOSE 165 mg/dL (75-110)
[2020-06-10 05:08] LABS: POTASSIUM 4.4 mmol/L (3.6-5.0)
[2020-06-10 05:12] LABS: ARTERIAL BLOOD BASE EXCESS -3.3 mmol/L; ARTERIAL BLOOD HCO3 21.3 mmol/L (20-24); ARTERIAL BLOOD O2 SATURATION 94.3 % (94-98); ARTERIAL BLOOD PCO2 36.7 mmHg (35-45); ARTERIAL BLOOD PH 7.38 (7.35-7.45); ARTERIAL BLOOD PO2 71.7 mmHg (80-100); ARTERIAL BLOOD TOTAL CO2 22.4 mmol/L (23-27)
[2020-06-10 05:14] LABS: ARTERIAL BLOOD FIO2 35%
[2020-06-10] MEDS: HEPARIN SOD (PORCINE) 5,000 UNIT/ML 1 ML VIAL SUBCUT SCH ×3 (06:04→21:02)
[2020-06-10] MEDS: METOPROLOL TARTRATE PF/INJ 5 MG/5 ML SDV IV SCH ×4 (06:04→23:13)
[2020-06-10] MEDS: BUDESONIDE NEB 0.25 MG/2 ML AMPUL NEB SCH ×2 (08:50→19:45)
[2020-06-10] MEDS: CITRIC ACID/SODIUM CITRATE ORAL SOLN 15 ML UDCUP PO SCH ×2 (09:53→18:43)
[2020-06-10] MEDS: FINASTERIDE 5 MG TABLET PO SCH (09:54)
[2020-06-10] MEDS: TAMSULOSIN HCL 0.4 MG CAP.SR.24H PO SCH (09:54)
[2020-06-10] MEDS: OXYCODONE HCL SR 10 MG TABLET PO SCH ×4 (09:54→23:12)
[2020-06-10] MEDS: AMIODARONE HCL 200 MG TABLET PO SCH (09:54)
[2020-06-10] MEDS: PANTOPRAZOLE SODIUM 40 MG VIAL IV SCH ×2 (09:54→21:02)
[2020-06-10] MEDS: NORMAL SALINE 10 ML SDV (SCHEDULED) IV SCH ×2 (09:55→21:02)
[2020-06-10] MEDS: METHYLPREDNISOLONE INJ 125 MG/2 ML SDV IV SCH (09:55)
[2020-06-10] MEDS: CEFEPIME HCL 2 GM in DEXTROSE 5%-WATER 50 ML IV SCH (11:01)
--- NOTE | 2020-06-10 17:39 | PDOC CRITICAL CARE PROG REPORT ---
General Date:: 06/10/20 ICU Day:: 5 Hospital Day:: 8 Resuscitation Status: Full Code Events in the past 12 to 24 Hours:: This 69-year-old male was originally seen in consultation on 06/06/2020 at the request of Dr. Storm Hernandez for recommendations on further evaluation and management of acute hypoxemic respiratory failure. He transferred from the floor overnight due to concerns of "imminent endotracheal intubation"; however, the patient did avoid endotracheal intubation and mechanical ventilatory support. He did undergo hemodialysis in the ICU (his first hemodialysis session) with removal of 3.2 L of fluid. He was initially maintained with BiPAP and was able to transition to CPAP. 06/07: The patient remains on CPAP 8, FiO2 70%. Anticipating hemodialysis again today. Off pressors. Awake, alert, follows commands. WBC 15.8, stable. Afebrile, but on Decadron. 06/08: Got hemodialysis again this morning. Pressors. Awake, alert, follows commands. WBC 15.8>18.3, on Decadron. proBNP 33,600 today. On CPAP 10, FiO2 60%. Chest CT was obtained yesterday and reveals advanced changes of obstructive lung disease, trace bilateral pleural effusions with diffuse thickening of interlobular septa throughout the lungs. 06/09: The patient has been much more interactive and conversant since yesterday afternoon. Has had a total of 9 L removed by hemodialysis over the past 3 days. Was doing a lot of moaning and groaning yesterday, but was able to verbalize that he takes oxycodone 4 times daily at home in addition to having a morphine pump. Oxycodone was restarted with every 12 hours dosing in addition to as needed morphine. He appears more comfortable today. Off pressors. Awake, alert, follows commands. ABG this morning 7.38/43/102. 06/10: Awake. Much more talkative and interactive. Able to take p.o. meds. Able to eat/drink. Frequently complains of pain. Has a morphine pump intra- abdominally. Additional morphine PRN doses are available. On oxycodone twice daily. Notably, the patient does take oxycodone 4 times daily at home. He does not demonstrate any alteration in mental status with administration of narcotic analgesics. On 5 LPM via nasal cannula. Review of systems relevant to events:: Respiratory: Acute hypoxemic respiratory failure, volume overload, COPD Cardiovascular: Atrial fibrillation, on amiodarone; hypertension Skin: Decubitus ulcer (coccyx) Renal: Acute renal failure, hemodialysis Reason for ICU Addmission:: respiratory distress - Medications: Medications reviewed and adjusted accordingly: Yes Physical Exam Vital Signs: Temp Pulse Resp BP Pulse Ox 96.6 F L 93 23 H 123/84 97 06/10/20 06:00 06/10/20 08:50 06/10/20 08:50 06/10/20 06:54 06/10/20 08:50 Intake & Output 06/09/20 06/10/20 06/11/20 06:59 06:59 06:59 Intake Total 1250 130 Output Total 4345 240 Balance -3095 -110 Weight 56.9 kg 52.3 kg Weight/Height Weight 52.3 kg Height 1.7 m General appearance: PRESENT: no acute distress, thin, well-developed, well-nourished Head exam: PRESENT: atraumatic, normocephalic Eye exam: PRESENT: conjunctiva pink, EOMI, PERRLA. ABSENT: scleral icterus Mouth exam: PRESENT: moist, tongue midline Teeth exam: PRESENT: poor dentation Neck exam: ABSENT: carotid bruit, JVD, lymphadenopathy, thyromegaly Respiratory exam: PRESENT: crackles. ABSENT: rales, rhonchi, wheezes Cardiovascular exam: PRESENT: RRR. ABSENT: diastolic murmur, rubs, systolic murmur Pulses: PRESENT: normal dorsalis pedis pul GI/Abdominal exam: PRESENT: normal bowel sounds, soft. ABSENT: distended, guarding, mass, organolmegaly, rebound, tenderness Extremities exam: PRESENT: full ROM. ABSENT: calf tenderness, clubbing, pedal edema Musculoskeletal exam: PRESENT: other - Disfiguring RA/OA arthritic changes, worst in the hands Neurological exam: PRESENT: alert, awake, reflexes normal, CN II-XII grossly intact. ABSENT: motor sensory deficit Psychiatric exam: PRESENT: agitated - Insufficient pain control. ABSENT: anxious Skin exam: PRESENT: dry, intact, warm. ABSENT: cyanosis, rash Tubes/Lines: PRESENT: Central Line - Right PICC, Dialysis catheter Laboratory/Radiographs Laboratory Results: 06/10/20 04:28 06/10/20 04:28 06/10/20 06/10/20 06/10/20 04:28 04:28 04:28 WBC 15.5 H RBC 3.65 L Hgb 9.2 L Hct 29.1 L MCV 80 MCH 25.3 L MCHC 31.8 L RDW 20.3 H Plt Count 198 Carbonic Acid 1.04 L HCO3/H2CO3 Ratio 19:1 ABG pH 7.39 ABG pCO2 34.5 L ABG pO2 39.1 L* ABG HCO3 20.3 ABG O2 Saturation 73.7 L ABG Base Excess -4.1 FiO2 35% Sodium 139.0 Potassium 4.4 Chloride 103 Carbon Dioxide 23 Anion Gap 13 BUN 46 H Creatinine 2.07 H Est GFR ( Amer) 39 L Glucose 165 H Calcium 8.1 L Phosphorus 3.0 Magnesium 2.3 06/10/20 05:03 WBC RBC Hgb Hct MCV MCH MCHC RDW Plt Count Carbonic Acid 1.10 HCO3/H2CO3 Ratio 19:1 ABG pH 7.38 ABG pCO2 36.7 ABG pO2 71.7 L ABG HCO3 21.3 ABG O2 Saturation 94.3 ABG Base Excess -3.3 FiO2 35% Sodium Potassium Chloride Carbon Dioxide Anion Gap BUN Creatinine Est GFR ( Amer) Glucose Calcium Phosphorus Magnesium 06/03/20 06/03/20 06/04/20 10:40 16:47 21:46 Creatine Kinase 30 L CK-MB (CK-2) Troponin I 0.033 0.023 NT-Pro-B Natriuret Pep 06/04/20 06/05/20 06/05/20 21:46 04:00 04:00 Creatine Kinase 35 L CK-MB (CK-2) 0.96 1.03 Troponin I < 0.012 < 0.012 NT-Pro-B Natriuret Pep 06/05/20 06/05/20 06/06/20 22:07 22:07 17:00 Creatine Kinase 36 L 77 CK-MB (CK-2) 1.69 Troponin I 0.016 NT-Pro-B Natriuret Pep 06/06/20 06/07/20 06/07/20 17:00 04:35 04:35 Creatine Kinase 68 CK-MB (CK-2) 3.44 3.27 Troponin I 0.017 0.016 NT-Pro-B Natriuret Pep 44190 H 06/08/20 06/09/20 04:15 04:32 Creatine Kinase CK-MB (CK-2) Troponin I NT-Pro-B Natriuret Pep 07208 H 21149 H Impressions: Abdomen/Pelvis CT 06/03/20 00:00 IMPRESSION: No acute findings. Small nonobstructing stone right kidney. Abdomen X-Ray 06/03/20 10:39 IMPRESSION: Mild fecal retention. PICC Line Insertion 06/04/20 00:00 IMPRESSION: SUCCESSFUL PLACEMENT OF A 5 FR DUAL LUMEN 40 CM PICC IN THE RIGHT BASILIC VEIN. Chest CT 06/07/20 00:00 IMPRESSION: Advanced changes of obstructive lung disease. Trace bilateral pleural effusions with diffuse thickening of interlobular septa throughout the lungs worrisome for fluid overload or congestive failure Chest X-Ray 06/09/20 05:00 IMPRESSION: Somewhat improved aeration of the lungs. Otherwise stable radiographic appearance of the chest. All labs, radiographs, diagnostic studies and EKGs were personally reviewed: Yes In addition, reports of radiographic and diagnostic studies were read: Yes Assessment and Plan - Diagnosis (1) Acute respiratory failure with hypoxia Is this a current diagnosis for this admission?: Yes Plan: CPAP 10 nightly and during sleep. FiO2 30%. FiO2 may be titrated to maintain SPO2 93%. (2) Multifocal pneumonia Is this a current diagnosis for this admission?: Yes Plan: * COVID negative. * On empiric cefepime. Azithromycin stopped on 06/08. No culture data to support continued antibiotic therapy. I suspect the patient's leukocytosis is secondary to steroid exposure. * Immunocompromised patient: On immunomodulatory drugs for rheumatoid arthritis. * Chest CT is more concerning for pulmonary edema or interstitial lung disease. Additionally, there is clearly a baseline of advanced COPD/emphysema. (3) Chronic obstructive pulmonary disease Is this a current diagnosis for this admission?: Yes Plan: DuoNeb/Pulmicort scheduled. Decrease Solu-Medrol to 60 mg IV daily. (4) Longstanding persistent atrial fibrillation Is this a current diagnosis for this admission?: Yes Plan: Home regimen includes amiodarone 200 mg p.o. daily, Cardizem CD 120 mg p.o. daily, Toprol-XL 25 mg p.o. twice daily. He is currently on amiodarone and Toprol-XL. He also has received intermittent doses of digoxin. 2D echo (08/03/2017) revealed grade 2/4 diastolic dysfunction. (5) Decubitus ulcer of coccygeal region, unstageable Is this a current diagnosis for this admission?: Yes (6) Metabolic acidosis Is this a current diagnosis for this admission?: Yes (7) Acute renal failure Qualifiers: Acute renal failure type: unspecified Qualified Code(s): N17.9 - Acute kidney failure, unspecified Is this a current diagnosis for this admission?: Yes Plan: Hemodialysis per nephrology. Help appreciated. Currently off lisinopril. Avoid nephrotoxic drugs. Renal dosing of medications. (8) COVID-19 ruled out by laboratory testing Is this a current diagnosis for this admission?: Yes (9) Hypertension Is this a current diagnosis for this admission?: Yes (10) Sepsis with acute organ dysfunction and septic shock Qualifiers: Sepsis type: sepsis due to unspecified organism Severe sepsis acute organ dysfunction type: acute renal failure Acute renal failure type: with acute tubular necrosis Qualified Code(s): A41.9 - Sepsis, unspecified organism; R65.21 - Severe sepsis with septic shock; N17.0 - Acute kidney failure with tubular necrosis Is this a current diagnosis for this admission?: Yes (11) Opiate withdrawal Is this a current diagnosis for this admission?: Yes Plan: * Takes oxycodone 20 mg p.o. 4 times daily along with morphine (he has an intra- abdominal morphine pump). * He has morphine 2 or 4 mg IV every 4 hours PRN available to him. I will decrease the dosing interval to every 2 hours PRN. * Increase oxycodone 20 mg p.o. 2 4 times daily. Plan Summary: OK to transfer to [facility] from pulmonary/critical care standpoint. Critical Time Critical Time (minutes): 45 Level of Care: ICU -: 1. The care of a critical patient is a dynamic process. This note is a artist's representative synopsis but static in nature. The timeframe for treatments given in order is not necessarily the actual time these treatments may have been done. 2. This patient requires critical care secondary to ongoing requirements for therapy not offered or safe outside the critical care environment. Transfer to a lower level of care will result in altered life or limb morbidity and mortality. 3. Multidisciplinary rounds completed. 4. ABCDE bundle addressed.
[2020-06-10] MEDS ORDERED: DEXTROSE 50%-WATER 25 GM/50 ML DISP.SYRIN IV PRN ×2 (23:52)
[2020-06-10] MEDS ORDERED: GLUCAGON,HUMAN RECOMB 1 MG INJ IM PRN (23:52)
[2020-06-10] MEDS ORDERED: DEXTROSE 40% GEL 15 GM TUBE PO PRN ×2 (23:52)
[2020-06-11 03:50] LABS: HEMATOCRIT 26.8 % (37.9-51.0); HEMOGLOBIN 8.6 g/dL (13.5-17.0); MEAN CORPUSCULAR HEMOGLOBIN 25.5 pg (27.0-33.4); MEAN CORPUSCULAR HGB CONC 32.2 g/dL (32.0-36.0); MEAN CORPUSCULAR VOLUME 79 fl (80-97); PLATELET COUNT 168 10^3/uL (150-450); RED BLOOD COUNT 3.39 10^6/uL (4.35-5.55); RED CELL DISTRIBUTION WIDTH 19.9 % (11.5-14.0); WHITE BLOOD COUNT 15.4 10^3/uL (4.0-10.5)
[2020-06-11] MEDS: IPRATROPIUM/ALBUTEROL 0.5-2.5 MG/3 ML AMPUL NEB SCH ×4 (03:57→20:29)
[2020-06-11 04:10] LABS: ABSOLUTE LYMPHOCYTES# (MANUAL) 0.6 10^3/uL (0.5-4.7); ABSOLUTE MONOCYTES # (MANUAL) 0.2 10^3/uL (0.1-1.4); BAND NEUTROPHILS % (MANUAL) 7 % (3-5); BASOPHILS % (MANUAL) 0 % (0-2); EOSINOPHILS % (MANUAL) 0 % (0-6); LYMPHOCYTES % (MANUAL) 4 % (13-45); MONOCYTES % (MANUAL) 1 % (3-13); NUCLEATED RED BLOOD CELLS 3 /100 WBC (0); SEGMENTED NEUTROPHILS % (MAN) 88 % (42-78); TOTAL CELLS COUNTED 100
[2020-06-11 04:11] LABS: ANISOCYTOSIS 2+; HYPOCHROMASIA 1+; PLATELET COMMENT ADEQUATE; POLYCHROMASIA 2+
[2020-06-11 04:18] LABS: ALBUMIN 2.8 g/dL (3.5-5.0); ALKALINE PHOSPHATASE 56 U/L (38-126); ANION GAP 11 (5-19); ASPARTATE AMINO TRANSFERASE 20 U/L (17-59); BILIRUBIN,DIRECT 0.2 mg/dL (0.0-0.4); BILIRUBIN,TOTAL 0.6 mg/dL (0.2-1.3); BLOOD UREA NITROGEN 58 mg/dL (7-20); CARBON DIOXIDE 25 mmol/L (22-30); CHLORIDE 103 mmol/L (98-107); GLUCOSE 192 mg/dL (75-110); POTASSIUM 4.1 mmol/L (3.6-5.0)
[2020-06-11 04:26] LABS: PREALBUMIN 9.2 mg/dL (17.6-36.0)
[2020-06-11] MEDS: METOPROLOL TARTRATE PF/INJ 5 MG/5 ML SDV IV SCH (05:21)
[2020-06-11] MEDS: HEPARIN SOD (PORCINE) 5,000 UNIT/ML 1 ML VIAL SUBCUT SCH ×3 (05:21→21:07)
[2020-06-11] MEDS: OXYCODONE HCL SR 10 MG TABLET PO SCH (05:22)
[2020-06-11] MEDS: BUDESONIDE NEB 0.25 MG/2 ML AMPUL NEB SCH ×2 (08:11→20:29)
--- NOTE | 2020-06-11 08:17 | RADIOLOGY REPORT (SQ) ---
EXAM DESCRIPTION: CHEST SINGLE VIEW IMAGES COMPLETED DATE/TIME: 06/11/2020 6:10 am REASON FOR STUDY: dyspnea, pleural effusions COMPARISON: 06/09/2020 NUMBER OF VIEWS: One view. TECHNIQUE: Single frontal radiographic image of the chest acquired. LIMITATIONS: None. FINDINGS: LUNGS AND PLEURA: Stable appearance. Right-sided PICC line remains in place. MEDIASTINUM AND HILAR STRUCTURES: Stable heart size and mediastinal structures. HEART AND VASCULAR STRUCTURES: Stable appearance. BONES: No acute findings. HARDWARE: None in the chest. OTHER: No other significant finding. IMPRESSION: STABLE APPEARANCE OF THE CHEST. TECHNICAL DOCUMENTATION: JOB ID: [id number] 2010 [employer] All Rights Reserved Reading location - IP/workstation name: [email or web address]
[2020-06-11] MEDS: MORPHINE SULFATE 10 MG/ML INJ IV PRN (09:09)
[2020-06-11] MEDS: TAMSULOSIN HCL 0.4 MG CAP.SR.24H PO SCH (09:12)
[2020-06-11] MEDS: FINASTERIDE 5 MG TABLET PO SCH (09:12)
[2020-06-11] MEDS: AMIODARONE HCL 200 MG TABLET PO SCH (09:12)
[2020-06-11] MEDS: PANTOPRAZOLE SODIUM 40 MG VIAL IV SCH (09:17)
[2020-06-11] MEDS: NORMAL SALINE 10 ML SDV (SCHEDULED) IV SCH ×2 (09:17→21:14)
[2020-06-11] MEDS: CITRIC ACID/SODIUM CITRATE ORAL SOLN 15 ML UDCUP PO SCH ×2 (09:17→17:21)
[2020-06-11] MEDS ORDERED: DIAZEPAM 5 MG TABLET PO PRN (09:25)
[2020-06-11] MEDS: INSULIN LISPRO 100 UNIT/ML 3 ML VIAL SUBCUT SCH ×3 (09:32→18:08)
[2020-06-11] MEDS ORDERED: (PENDING PHARMACY ID) (Tofacitinib Citrate [Xeljanz] 5 MG) PO SCH (10:00)
[2020-06-11] MEDS ORDERED: METHYLPREDNISOLONE INJ 125 MG/2 ML SDV IV SCH (10:00)
--- NOTE | 2020-06-11 10:58 | PDOC PROGRESS REPORT ---
Subjective Progress Note for:: 06/11/20 Reason For Visit: Saw patient in the ICU today. He is awake and conversive unlike earlier before. He is obviously demented and does not answer appropriately to questions though. APS staff is in the room with him as he does not have any next of kin. He denies any pains. Poor intake. Labs and medications were reviewed. Poor urine output.His last dialysis was on Thursday. Physical Exam Vital Signs: Temp Pulse Resp BP Pulse Ox 97.3 F 102 H 17 115/73 99 06/11/20 03:45 06/11/20 08:11 06/11/20 10:00 06/11/20 09:55 06/11/20 09:55 Intake & Output 06/10/20 06/11/20 06/12/20 06:59 06:59 06:59 Intake Total 130 200 50 Output Total 240 235 40 Balance -110 -35 10 Weight 52.3 kg 54.1 kg 54.1 kg General appearance: PRESENT: no acute distress Respiratory exam: PRESENT: clear to auscultation karina, decreased breath sounds. ABSENT: crackles Cardiovascular exam: PRESENT: +S1, +S2 GI/Abdominal exam: PRESENT: normal bowel sounds, soft. ABSENT: organomegaly, tenderness Extremities exam: ABSENT: pedal edema Neurological exam: PRESENT: alert, awake. ABSENT: oriented to person, oriented to place Psychiatric exam: PRESENT: appropriate affect Skin exam: PRESENT: dry. ABSENT: erythema, mottled, rash Results Laboratory Results: 06/11/20 03:13 06/11/20 03:13 06/11/20 06/11/20 03:13 03:13 WBC 15.4 H RBC 3.39 L Hgb 8.6 L Hct 26.8 L MCV 79 L MCH 25.5 L MCHC 32.2 RDW 19.9 H Plt Count 168 Seg Neutrophils % Not Reportable Sodium 138.8 Potassium 4.1 Chloride 103 Carbon Dioxide 25 Anion Gap 11 BUN 58 H Creatinine 2.11 H Est GFR ( Amer) 38 L Glucose 192 H Calcium 8.0 L Magnesium 2.2 Total Bilirubin 0.6 AST 20 Alkaline Phosphatase 56 Total Protein 5.0 L Albumin 2.8 L Prealbumin 9.2 L 06/03/20 06/03/20 06/04/20 10:40 16:47 21:46 Creatine Kinase 30 L CK-MB (CK-2) Troponin I 0.033 0.023 NT-Pro-B Natriuret Pep 06/04/20 06/05/20 06/05/20 21:46 04:00 04:00 Creatine Kinase 35 L CK-MB (CK-2) 0.96 1.03 Troponin I < 0.012 < 0.012 NT-Pro-B Natriuret Pep 06/05/20 06/05/20 06/06/20 22:07 22:07 17:00 Creatine Kinase 36 L 77 CK-MB (CK-2) 1.69 Troponin I 0.016 NT-Pro-B Natriuret Pep 06/06/20 06/07/20 06/07/20 17:00 04:35 04:35 Creatine Kinase 68 CK-MB (CK-2) 3.44 3.27 Troponin I 0.017 0.016 NT-Pro-B Natriuret Pep [id number] H 06/08/20 06/09/20 04:15 04:32 Creatine Kinase CK-MB (CK-2) Troponin I NT-Pro-B Natriuret Pep 64887 H 27965 H Impressions: Abdomen/Pelvis CT 06/03/20 00:00 IMPRESSION: No acute findings. Small nonobstructing stone right kidney. Abdomen X-Ray 06/03/20 10:39 IMPRESSION: Mild fecal retention. PICC Line Insertion 06/04/20 00:00 IMPRESSION: SUCCESSFUL PLACEMENT OF A 5 FR DUAL LUMEN 40 CM PICC IN THE RIGHT BASILIC VEIN. Chest CT 06/07/20 00:00 IMPRESSION: Advanced changes of obstructive lung disease. Trace bilateral pleural effusions with diffuse thickening of interlobular septa throughout the lungs worrisome for fluid overload or congestive failure Chest X-Ray 06/11/20 05:00 IMPRESSION: STABLE APPEARANCE OF THE CHEST. Assessment & Plan - Diagnosis (1) RAISSA (acute kidney injury) Is this a current diagnosis for this admission?: Yes Plan: Currently patient is oliguric. However he is clinically dehydrated with poor intake. At this point I am 1 to start him on normal saline 125 cc an hour. There is no indications for renal replacements at the moment. Also I believe given his age and the underlying dementia he is not a candidate for long-term dialysis. Discussed all of this with Dr. Leger heading maker. (2) CHF (congestive heart failure) Plan: Currently resolved and stable. In fact patient is clinically dry. Start him on IV fluids. Monitor. (3) Acute metabolic encephalopathy Is this a current diagnosis for this admission?: Yes Plan: Currently resolved and patient at baseline with with underlying dementia. (4) Chronic obstructive pulmonary disease Qualifiers: COPD type: unspecified COPD Qualified Code(s): J44.9 - Chronic obstructive pulmonary disease, unspecified Is this a current diagnosis for this admission?: Yes Plan: Stable. (5) Multifocal pneumonia Is this a current diagnosis for this admission?: Yes Plan: Stable.
[2020-06-11] MEDS: NORMAL SALINE 1000 ML 1,000 ML IV PRN ×2 (11:30→18:09)
--- NOTE | 2020-06-11 12:47 | PDOC CRITICAL CARE PROG REPORT ---
General Date:: 06/11/20 ICU Day:: 5 Hospital Day:: 8 Resuscitation Status: Full Code Events in the past 12 to 24 Hours:: Demented but respiratory issues resolved Review of systems relevant to events:: Respiratory, CV, neurological. Reason for ICU Addmission:: respiratory distress, resolved - Medications: Medications reviewed and adjusted accordingly: Yes Vasopressors:: None Sedation:: None Physical Exam Vital Signs: Temp Pulse Resp BP Pulse Ox 97.3 F 102 H 17 115/73 99 06/11/20 03:45 06/11/20 08:11 06/11/20 10:00 06/11/20 09:55 06/11/20 09:55 Intake & Output 06/10/20 06/11/20 06/12/20 06:59 06:59 06:59 Intake Total 130 200 50 Output Total 240 235 40 Balance -110 -35 10 Weight 52.3 kg 54.1 kg 54.1 kg Weight/Height Weight 54.1 kg Height 5 ft 7 in General appearance: PRESENT: no acute distress, thin Head exam: PRESENT: atraumatic, normocephalic Eye exam: PRESENT: conjunctiva pink, EOMI, PERRLA. ABSENT: scleral icterus Ear exam: PRESENT: normal external ear exam Mouth exam: PRESENT: moist, tongue midline Respiratory exam: PRESENT: clear to auscultation karina, decreased breath sounds. ABSENT: rales, rhonchi, wheezes Cardiovascular exam: PRESENT: RRR, tachycardia. ABSENT: diastolic murmur, rubs, systolic murmur GI/Abdominal exam: PRESENT: normal bowel sounds, soft. ABSENT: distended, guarding, mass, organolmegaly, rebound, tenderness Rectal exam: PRESENT: deferred Gentrourinary exam: PRESENT: indwelling catheter Extremities exam: PRESENT: full ROM. ABSENT: calf tenderness, clubbing, pedal edema Musculoskeletal exam: PRESENT: normal inspection Neurological exam: PRESENT: alert, altered, awake, CN II-XII grossly intact, other - Quite demented Psychiatric exam: PRESENT: appropriate affect, normal mood. ABSENT: homicidal ideation, suicidal ideation Skin exam: PRESENT: dry, intact, warm. ABSENT: cyanosis, rash Laboratory/Radiographs Laboratory Results: 06/11/20 03:13 06/11/20 03:13 06/11/20 06/11/20 03:13 03:13 WBC 15.4 H RBC 3.39 L Hgb 8.6 L Hct 26.8 L MCV 79 L MCH 25.5 L MCHC 32.2 RDW 19.9 H Plt Count 168 Seg Neutrophils % Not Reportable Sodium 138.8 Potassium 4.1 Chloride 103 Carbon Dioxide 25 Anion Gap 11 BUN 58 H Creatinine 2.11 H Est GFR ( Amer) 38 L Glucose 192 H Calcium 8.0 L Magnesium 2.2 Total Bilirubin 0.6 AST 20 Alkaline Phosphatase 56 Total Protein 5.0 L Albumin 2.8 L Prealbumin 9.2 L 06/03/20 06/03/20 06/04/20 10:40 16:47 21:46 Creatine Kinase 30 L CK-MB (CK-2) Troponin I 0.033 0.023 NT-Pro-B Natriuret Pep 06/04/20 06/05/20 06/05/20 21:46 04:00 04:00 Creatine Kinase 35 L CK-MB (CK-2) 0.96 1.03 Troponin I < 0.012 < 0.012 NT-Pro-B Natriuret Pep 06/05/20 06/05/20 06/06/20 22:07 22:07 17:00 Creatine Kinase 36 L 77 CK-MB (CK-2) 1.69 Troponin I 0.016 NT-Pro-B Natriuret Pep 06/06/20 06/07/20 06/07/20 17:00 04:35 04:35 Creatine Kinase 68 CK-MB (CK-2) 3.44 3.27 Troponin I 0.017 0.016 NT-Pro-B Natriuret Pep [id number] H 06/08/20 06/09/20 04:15 04:32 Creatine Kinase CK-MB (CK-2) Troponin I NT-Pro-B Natriuret Pep 03885 H 19855 H Impressions: Abdomen/Pelvis CT 06/03/20 00:00 IMPRESSION: No acute findings. Small nonobstructing stone right kidney. Abdomen X-Ray 06/03/20 10:39 IMPRESSION: Mild fecal retention. PICC Line Insertion 06/04/20 00:00 IMPRESSION: SUCCESSFUL PLACEMENT OF A 5 FR DUAL LUMEN 40 CM PICC IN THE RIGHT BASILIC VEIN. Chest CT 06/07/20 00:00 IMPRESSION: Advanced changes of obstructive lung disease. Trace bilateral pleural effusions with diffuse thickening of interlobular septa throughout the lungs worrisome for fluid overload or congestive failure Chest X-Ray 06/11/20 05:00 IMPRESSION: STABLE APPEARANCE OF THE CHEST. All labs, radiographs, diagnostic studies and EKGs were personally reviewed: Yes In addition, reports of radiographic and diagnostic studies were read: Yes Assessment and Plan - Diagnosis (1) COVID-19 ruled out by laboratory testing Is this a current diagnosis for this admission?: Yes Plan: Negative. (2) Decubitus ulcer of coccygeal region, unstageable Is this a current diagnosis for this admission?: Yes Plan: Present on admission (3) Protein-energy malnutrition Qualifiers: Protein-calorie malnutrition severity: moderate Qualified Code(s): E44.0 - Moderate protein-calorie malnutrition Is this a current diagnosis for this admission?: Yes Plan: Probably a consequence of dementia, as is not drinking (4) RAISSA (acute kidney injury) Is this a current diagnosis for this admission?: Yes Plan: He has gotten HD but is not in need today. His HD catheter is still in place. Dr. 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 There is not family or gaurdian but hospice is not an unreasonable alternative. (5) Opiate withdrawal Is this a current diagnosis for this admission?: Yes Plan: He is back on dilaudid for renal failure. Still with morphine pump. (6) Chronic atrial fibrillation, unspecified Is this a current diagnosis for this admission?: Yes Plan: This is persistent and controlled. (7) Hypertension Is this a current diagnosis for this admission?: Yes Plan: Controlled (8) Delirium due to another medical condition, acute, hyperactive Is this a current diagnosis for this admission?: Yes Plan: In addition to dementia I believe there to be a delirium that is multifactorial. Illness, ICU, disturbed sleep/wake cycle, narcotics all play a role and ativan will likely make this worse. Seraquel being tried. Plan Summary: Stable for downgrade. Case management to look into gaurdianship. Critical Time Critical Time (minutes): 30 Level of Care: MEDICAL Anticipated discharge: SNF Anticipated DC Timeframe: Other -: 1. The care of a critical patient is a dynamic process. This note is a financial services sales representative synopsis but static in nature. The timeframe for treatments given in order is not necessarily the actual time these treatments may have been done. 2. This patient requires critical care secondary to ongoing requirements for therapy not offered or safe outside the critical care environment. Transfer to a lower level of care will result in altered life or limb morbidity and mortality. 3. Multidisciplinary rounds completed. 4. ABCDE bundle addressed.
[2020-06-11] MEDS: OXYCODONE HCL IR 5 MG TABLET PO SCH ×2 (13:02→17:21)
[2020-06-11] MEDS: METOPROLOL SUCCINATE 25 MG TAB.SR.24H PO SCH ×2 (13:02→21:14)
[2020-06-11] MEDS: HYDROMORPHONE HCL INJ/PF 2 MG/ML AMPULE IV PRN ×2 (13:12→21:08)
[2020-06-11] MEDS ORDERED: OLANZAPINE INJ/PF 10 MG SDV IM PRN (20:29)
[2020-06-11] MEDS ORDERED: QUETIAPINE FUMARATE 25 MG TABLET PO SCH (22:00)
[2020-06-12] MEDS: HYDROMORPHONE HCL INJ/PF 2 MG/ML AMPULE IV PRN ×2 (01:38→15:42)
[2020-06-12] MEDS: IPRATROPIUM/ALBUTEROL 0.5-2.5 MG/3 ML AMPUL NEB SCH ×4 (02:07→20:30)
[2020-06-12] MEDS ORDERED: METHYLPREDNISOLONE INJ 125 MG/2 ML SDV ONE (02:13)
[2020-06-12] MEDS ORDERED: METHYLPREDNISOLONE INJ 125 MG/2 ML SDV IV ONE (02:30)
[2020-06-12] MEDS ORDERED: METOPROLOL TARTRATE PF/INJ 5 MG/5 ML SDV IV ONE ×2 (02:39→02:44)
[2020-06-12 02:56] LABS: ARTERIAL BLOOD HCO3 23.5 mmol/L (20-24); ARTERIAL BLOOD O2 SATURATION 99.8 % (94-98); ARTERIAL BLOOD PCO2 43.3 mmHg (35-45); ARTERIAL BLOOD PH 7.35 (7.35-7.45); ARTERIAL BLOOD PO2 439.6 mmHg (80-100); ARTERIAL BLOOD TOTAL CO2 24.9 mmol/L (23-27)
[2020-06-12 02:57] LABS: ARTERIAL BLOOD FIO2 100%
--- NOTE | 2020-06-12 03:38 | RADIOLOGY REPORT (SQ) ---
EXAM DESCRIPTION: X-ray single view chest. CLINICAL HISTORY: 69 years Male, decreased sat COMPARISON: 06/11/2020 and 06/09/2020 TECHNIQUE: Single portable x-ray view of the chest performed on 06/12/2020 at 3:02 AM FINDINGS: The lungs are well expanded. There are ongoing patchy interstitial opacities bilaterally. There is volume loss in the right lung base with blunting of the right lateral costophrenic sulcus. A pleural effusion is not excluded. There is no evidence of a pneumothorax. The cardiac silhouette is stable and is mildly prominent. The mediastinal contours are normal. No acute osseous abnormality is identified. No focal soft tissue abnormalities are seen. Lines and tubes: The tip of the right upper extremity PICC line catheter overlies the region of the cavoatrial junction. IMPRESSION: 1. Ongoing prominent interstitial opacities bilaterally with slightly increasing volume loss in the right lung base likely due to a pleural effusion and/or atelectasis. Findings may reflect interstitial edema and/or interstitial pneumonitis. 2. Stable right upper extremity PICC line catheter.
[2020-06-12] MEDS: HEPARIN SOD (PORCINE) 5,000 UNIT/ML 1 ML VIAL SUBCUT SCH ×3 (05:34→21:22)
[2020-06-12 05:58] LABS: HEMATOCRIT 27.8 % (37.9-51.0); HEMOGLOBIN 8.8 g/dL (13.5-17.0); MEAN CORPUSCULAR HEMOGLOBIN 25.4 pg (27.0-33.4); MEAN CORPUSCULAR HGB CONC 31.7 g/dL (32.0-36.0); MEAN CORPUSCULAR VOLUME 80 fl (80-97); PLATELET COUNT 209 10^3/uL (150-450); RED BLOOD COUNT 3.48 10^6/uL (4.35-5.55); RED CELL DISTRIBUTION WIDTH 20.4 % (11.5-14.0); WHITE BLOOD COUNT 20.6 10^3/uL (4.0-10.5)
[2020-06-12 06:11] LABS: ANION GAP 11 (5-19); BLOOD UREA NITROGEN 62 mg/dL (7-20); CALCIUM 8.2 mg/dL (8.4-10.2); CARBON DIOXIDE 25 mmol/L (22-30); CHLORIDE 108 mmol/L (98-107); GLUCOSE 172 mg/dL (75-110); POTASSIUM 4.6 mmol/L (3.6-5.0)
[2020-06-12 06:26] LABS: BASOPHILS % (MANUAL) 0 % (0-2); EOSINOPHILS % (MANUAL) 0 % (0-6); LYMPHOCYTES % (MANUAL) 5 % (13-45); MONOCYTES % (MANUAL) 0 % (3-13); NUCLEATED RED BLOOD CELLS 4 /100 WBC (0); SEGMENTED NEUTROPHILS % (MAN) 95 % (42-78); TOTAL CELLS COUNTED 100
[2020-06-12 06:28] LABS: ANISOCYTOSIS 2+; OVALOCYTES 2+; POIKILOCYTOSIS 2+; SCHISTOCYTES SLIGHT; TEAR DROP CELLS 2+; TOXIC GRANULATION 1+
[2020-06-12 06:29] LABS: BURR CELLS 1+; PLATELET COMMENT ADEQUATE
[2020-06-12] MEDS: BUDESONIDE NEB 0.25 MG/2 ML AMPUL NEB SCH ×2 (09:11→20:30)
[2020-06-12] MEDS ORDERED: RINGERS SOLUTION,LACTATED 1,000 ML IV PRN (09:40)
--- NOTE | 2020-06-12 09:40 | PDOC CRITICAL CARE PROG REPORT ---
General Date:: 06/12/20 Hospital Day:: 9 Resuscitation Status: Full Code Events in the past 12 to 24 Hours:: On bipap for part of night. Review of systems relevant to events:: Neurological, respiratory Reason for ICU Addmission:: respiratory distress, resolved - Medications: Medications reviewed and adjusted accordingly: Yes Vasopressors:: None Sedation:: None Physical Exam Vital Signs: Temp Pulse Resp BP Pulse Ox 98.2 F 112 H 22 H 154/118 H 94 06/12/20 07:21 06/12/20 09:13 06/12/20 09:13 06/12/20 07:21 06/12/20 09:13 Intake & Output 06/11/20 06/12/20 06/13/20 06:59 06:59 06:59 Intake Total 200 1442 Output Total 235 340 Balance -35 1102 Weight 54.1 kg 55.7 kg Weight/Height Weight 55.7 kg Height 5 ft 7 in General appearance: PRESENT: no acute distress, thin Head exam: PRESENT: atraumatic, normocephalic Eye exam: PRESENT: conjunctiva pink, EOMI, PERRLA. ABSENT: scleral icterus Ear exam: PRESENT: normal external ear exam Mouth exam: PRESENT: moist, tongue midline Respiratory exam: PRESENT: clear to auscultation karina, decreased breath sounds. ABSENT: rales, rhonchi, wheezes Cardiovascular exam: PRESENT: RRR, tachycardia. ABSENT: diastolic murmur, rubs, systolic murmur GI/Abdominal exam: PRESENT: normal bowel sounds, soft. ABSENT: distended, guarding, mass, organolmegaly, rebound, tenderness Rectal exam: PRESENT: deferred Gentrourinary exam: PRESENT: indwelling catheter Extremities exam: PRESENT: full ROM. ABSENT: calf tenderness, clubbing, pedal edema Neurological exam: PRESENT: alert, altered, awake, CN II-XII grossly intact Psychiatric exam: PRESENT: appropriate affect, normal mood. ABSENT: homicidal ideation, suicidal ideation Skin exam: PRESENT: dry, intact, warm. ABSENT: cyanosis, rash Laboratory/Radiographs Laboratory Results: 06/12/20 05:47 06/12/20 05:47 06/12/20 06/12/20 06/12/20 02:29 05:47 05:47 WBC 20.6 H RBC 3.48 L Hgb 8.8 L Hct 27.8 L MCV 80 MCH 25.4 L MCHC 31.7 L RDW 20.4 H Plt Count 209 Seg Neutrophils % Not Reportable Carbonic Acid 1.30 HCO3/H2CO3 Ratio 18:1 ABG pH 7.35 ABG pCO2 43.3 ABG pO2 439.6 H ABG HCO3 23.5 ABG O2 Saturation 99.8 H ABG Base Excess -2.0 FiO2 100% Sodium 144.1 Potassium 4.6 Chloride 108 H Carbon Dioxide 25 Anion Gap 11 BUN 62 H Creatinine 2.29 H Est GFR ( Amer) 34 L Glucose 172 H Calcium 8.2 L 06/03/20 06/03/20 06/04/20 10:40 16:47 21:46 Creatine Kinase 30 L CK-MB (CK-2) Troponin I 0.033 0.023 NT-Pro-B Natriuret Pep 06/04/20 06/05/20 06/05/20 21:46 04:00 04:00 Creatine Kinase 35 L CK-MB (CK-2) 0.96 1.03 Troponin I < 0.012 < 0.012 NT-Pro-B Natriuret Pep 06/05/20 06/05/20 06/06/20 22:07 22:07 17:00 Creatine Kinase 36 L 77 CK-MB (CK-2) 1.69 Troponin I 0.016 NT-Pro-B Natriuret Pep 06/06/20 06/07/20 06/07/20 17:00 04:35 04:35 Creatine Kinase 68 CK-MB (CK-2) 3.44 3.27 Troponin I 0.017 0.016 NT-Pro-B Natriuret Pep [id number] H 06/08/20 06/09/20 04:15 04:32 Creatine Kinase CK-MB (CK-2) Troponin I NT-Pro-B Natriuret Pep 29179 H 50405 H Impressions: Abdomen/Pelvis CT 06/03/20 00:00 IMPRESSION: No acute findings. Small nonobstructing stone right kidney. Abdomen X-Ray 06/03/20 10:39 IMPRESSION: Mild fecal retention. PICC Line Insertion 06/04/20 00:00 IMPRESSION: SUCCESSFUL PLACEMENT OF A 5 FR DUAL LUMEN 40 CM PICC IN THE RIGHT BASILIC VEIN. Chest CT 06/07/20 00:00 IMPRESSION: Advanced changes of obstructive lung disease. Trace bilateral pleural effusions with diffuse thickening of interlobular septa throughout the lungs worrisome for fluid overload or congestive failure Chest X-Ray 06/12/20 02:39 IMPRESSION: 1. Ongoing prominent interstitial opacities bilaterally with slightly increasing volume loss in the right lung base likely due to a pleural effusion and/or atelectasis. Findings may reflect interstitial edema and/or interstitial pneumonitis. 2. Stable right upper extremity PICC line catheter. All labs, radiographs, diagnostic studies and EKGs were personally reviewed: Yes In addition, reports of radiographic and diagnostic studies were read: Yes Assessment and Plan - Diagnosis (1) Delirium due to another medical condition, acute, hyperactive Is this a current diagnosis for this admission?: Yes Plan: This seems to be stable. Likely due to illness, ICU stay, baseline dementia playing roles. There is no medication to reliably counter this except getting him out of the ICU, re-orient and mobilize. (2) Decubitus ulcer of coccygeal region, unstageable Is this a current diagnosis for this admission?: Yes Plan: Present on admission. A consequence of his living environement. (3) Protein-energy malnutrition Qualifiers: Protein-calorie malnutrition severity: moderate Qualified Code(s): E44.0 - Moderate protein-calorie malnutrition Is this a current diagnosis for this admission?: Yes Plan: He is eating some. This also is a consequence of dementia. (4) RAISSA (acute kidney injury) Is this a current diagnosis for this admission?: Yes Plan: Cr and GFR about the same. He needs IVF for the next day or 2. prison is probably best served by hospice. (5) Opiate withdrawal Is this a current diagnosis for this admission?: Yes Plan: Stable (6) Chronic atrial fibrillation, unspecified Is this a current diagnosis for this admission?: Yes Plan: A bit tachycardic and hypertensive. Needs beta-blockade. He is a fall risk and too unreliable for anticoagulation right now. (7) Hypertension Is this a current diagnosis for this admission?: Yes Plan: Needs better control. Plan Summary: Remove bipap. Realize the pulse oxymeter does not correlate to pO2 Critical Time Critical Time (minutes): 25 Level of Care: IMCU Anticipated discharge: Hospice Anticipated DC Timeframe: Other -: 1. The care of a critical patient is a dynamic process. This note is a malt liquors sales representative synopsis but static in nature. The timeframe for treatments given in order is not necessarily the actual time these treatments may have been done. 2. This patient requires critical care secondary to ongoing requirements for therapy not offered or safe outside the critical care environment. Transfer to a lower level of care will result in altered life or limb morbidity and mortality. 3. Multidisciplinary rounds completed. 4. ABCDE bundle addressed.
[2020-06-12] MEDS: INSULIN LISPRO 100 UNIT/ML 3 ML VIAL SUBCUT SCH ×3 (10:41→16:04)
[2020-06-12] MEDS: FINASTERIDE 5 MG TABLET PO SCH (10:42)
[2020-06-12] MEDS: TAMSULOSIN HCL 0.4 MG CAP.SR.24H PO SCH (10:42)
[2020-06-12] MEDS ORDERED: METOPROLOL TARTRATE PF/INJ 5 MG/5 ML SDV IV SCH (12:00)
[2020-06-12] MEDS: METOPROLOL TARTRATE PF/INJ 5 MG/5 ML SDV IV SCH ×4 (12:01→23:35)
[2020-06-12] MEDS: NORMAL SALINE 10 ML SDV (SCHEDULED) IV SCH ×2 (12:01→21:22)
[2020-06-12] MEDS: CITRIC ACID/SODIUM CITRATE ORAL SOLN 15 ML UDCUP PO SCH ×2 (13:31→17:57)
[2020-06-12] MEDS: NORMAL SALINE 1000 ML 1,000 ML IV PRN ×2 (16:01→22:20)
--- NOTE | 2020-06-12 20:22 | PDOC PROGRESS REPORT ---
Subjective Progress Note for:: 06/12/20 Reason For Visit: Patient seen today in the ICU. He is currently off the bipap. He is still delirious and confused when one talks to him. Labs and medications were reviewed . Discussions were done with the treating RN and bi application developer. Physical Exam Vital Signs: Temp Pulse Resp BP Pulse Ox 97.2 F 92 25 H 96/60 L 95 06/12/20 16:00 06/12/20 16:00 06/12/20 18:00 06/12/20 17:54 06/12/20 16:40 Intake & Output 06/11/20 06/12/20 06/13/20 06:59 06:59 06:59 Intake Total 200 1442 Output Total 235 340 10 Balance -35 1102 -10 Weight 54.1 kg 55.7 kg General appearance: PRESENT: no acute distress Respiratory exam: PRESENT: clear to auscultation karina, decreased breath sounds. ABSENT: crackles Cardiovascular exam: PRESENT: +S1, +S2 GI/Abdominal exam: PRESENT: normal bowel sounds, soft. ABSENT: organomegaly, tenderness Extremities exam: ABSENT: pedal edema Neurological exam: PRESENT: altered Skin exam: PRESENT: dry. ABSENT: erythema, rash Results Laboratory Results: 06/12/20 05:47 06/12/20 05:47 06/12/20 06/12/20 06/12/20 02:29 05:47 05:47 WBC 20.6 H RBC 3.48 L Hgb 8.8 L Hct 27.8 L MCV 80 MCH 25.4 L MCHC 31.7 L RDW 20.4 H Plt Count 209 Seg Neutrophils % Not Reportable Carbonic Acid 1.30 HCO3/H2CO3 Ratio 18:1 ABG pH 7.35 ABG pCO2 43.3 ABG pO2 439.6 H ABG HCO3 23.5 ABG O2 Saturation 99.8 H ABG Base Excess -2.0 FiO2 100% Sodium 144.1 Potassium 4.6 Chloride 108 H Carbon Dioxide 25 Anion Gap 11 BUN 62 H Creatinine 2.29 H Est GFR ( Amer) 34 L Glucose 172 H Calcium 8.2 L 06/03/20 06/03/20 06/04/20 10:40 16:47 21:46 Creatine Kinase 30 L CK-MB (CK-2) Troponin I 0.033 0.023 NT-Pro-B Natriuret Pep 06/04/20 06/05/20 06/05/20 21:46 04:00 04:00 Creatine Kinase 35 L CK-MB (CK-2) 0.96 1.03 Troponin I < 0.012 < 0.012 NT-Pro-B Natriuret Pep 06/05/20 06/05/20 06/06/20 22:07 22:07 17:00 Creatine Kinase 36 L 77 CK-MB (CK-2) 1.69 Troponin I 0.016 NT-Pro-B Natriuret Pep 06/06/20 06/07/20 06/07/20 17:00 04:35 04:35 Creatine Kinase 68 CK-MB (CK-2) 3.44 3.27 Troponin I 0.017 0.016 NT-Pro-B Natriuret Pep [id number] H 06/08/20 06/09/20 04:15 04:32 Creatine Kinase CK-MB (CK-2) Troponin I NT-Pro-B Natriuret Pep 81688 H 70697 H Impressions: Abdomen/Pelvis CT 06/03/20 00:00 IMPRESSION: No acute findings. Small nonobstructing stone right kidney. Abdomen X-Ray 06/03/20 10:39 IMPRESSION: Mild fecal retention. PICC Line Insertion 06/04/20 00:00 IMPRESSION: SUCCESSFUL PLACEMENT OF A 5 FR DUAL LUMEN 40 CM PICC IN THE RIGHT BASILIC VEIN. Chest CT 06/07/20 00:00 IMPRESSION: Advanced changes of obstructive lung disease. Trace bilateral pleural effusions with diffuse thickening of interlobular septa throughout the lungs worrisome for fluid overload or congestive failure Chest X-Ray 06/12/20 02:39 IMPRESSION: 1. Ongoing prominent interstitial opacities bilaterally with slightly increasing volume loss in the right lung base likely due to a pleural effusion and/or atelectasis. Findings may reflect interstitial edema and/or interstitial pneumonitis. 2. Stable right upper extremity PICC line catheter. Assessment & Plan - Diagnosis (1) RAISSA (acute kidney injury) Is this a current diagnosis for this admission?: Yes Plan: Currently patient is oliguric. However he is clinically dehydrated with poor intake. Will continue on iVF but change to NS at 125 cc /hr. There is no indications for renal replacements at the moment. Also I believe given his age and the underlying dementia he is not a candidate for long-term dialysis. Discussed all of this with Dr. Leger bi application developer. (2) CHF (congestive heart failure) Plan: Currently resolved and stable. In fact patient is clinically dry. Continue on IV fluids. Monitor. (3) Acute metabolic encephalopathy Is this a current diagnosis for this admission?: Yes Plan: Currently resolved and patient at baseline with with underlying dementia. (4) Chronic obstructive pulmonary disease Qualifiers: COPD type: unspecified COPD Qualified Code(s): J44.9 - Chronic obstructive pulmonary disease, unspecified Is this a current diagnosis for this admission?: Yes Plan: Stable. (5) Multifocal pneumonia Is this a current diagnosis for this admission?: Yes Plan: Stable.
[2020-06-12] MEDS ORDERED: QUETIAPINE FUMARATE 25 MG TABLET PO SCH (22:00)
[2020-06-13] MEDS: IPRATROPIUM/ALBUTEROL 0.5-2.5 MG/3 ML AMPUL NEB SCH ×3 (02:58→13:57)
[2020-06-13] MEDS: HYDROMORPHONE HCL INJ/PF 2 MG/ML AMPULE IV PRN ×4 (04:12→15:59)
[2020-06-13] MEDS: METOPROLOL TARTRATE PF/INJ 5 MG/5 ML SDV IV SCH ×2 (05:11→12:38)
[2020-06-13] MEDS: HEPARIN SOD (PORCINE) 5,000 UNIT/ML 1 ML VIAL SUBCUT SCH ×2 (05:11→14:29)
[2020-06-13] MEDS: NORMAL SALINE 1000 ML 1,000 ML IV PRN ×2 (05:12→12:06)
[2020-06-13 05:58] LABS: HEMATOCRIT 28.2 % (37.9-51.0); HEMOGLOBIN 8.8 g/dL (13.5-17.0); MEAN CORPUSCULAR HEMOGLOBIN 25.1 pg (27.0-33.4); MEAN CORPUSCULAR HGB CONC 31.1 g/dL (32.0-36.0); MEAN CORPUSCULAR VOLUME 81 fl (80-97); PLATELET COUNT 172 10^3/uL (150-450); RED BLOOD COUNT 3.48 10^6/uL (4.35-5.55); RED CELL DISTRIBUTION WIDTH 20.7 % (11.5-14.0)
[2020-06-13 06:09] LABS: ANION GAP 10 (5-19); BLOOD UREA NITROGEN 62 mg/dL (7-20); CALCIUM 7.6 mg/dL (8.4-10.2); CARBON DIOXIDE 24 mmol/L (22-30); CHLORIDE 110 mmol/L (98-107); GLUCOSE 145 mg/dL (75-110); POTASSIUM 4.2 mmol/L (3.6-5.0)
[2020-06-13 06:26] LABS: ABSOLUTE LYMPHOCYTES# (MANUAL) 0.3 10^3/uL (0.5-4.7); BASOPHILS % (MANUAL) 0 % (0-2); EOSINOPHILS % (MANUAL) 0 % (0-6); LYMPHOCYTES % (MANUAL) 1 % (13-45); MONOCYTES % (MANUAL) 0 % (3-13); SEGMENTED NEUTROPHILS % (MAN) 99 % (42-78); TOTAL CELLS COUNTED 100
[2020-06-13 06:28] LABS: ANISOCYTOSIS 2+; OVALOCYTES 1+; TOXIC GRANULATION 1+
[2020-06-13 06:29] LABS: PLATELET COMMENT ADEQUATE
[2020-06-13 06:30] LABS: POIKILOCYTOSIS SLIGHT; POLYCHROMASIA SLIGHT
[2020-06-13] MEDS: BUDESONIDE NEB 0.25 MG/2 ML AMPUL NEB SCH (08:05)
[2020-06-13] MEDS: INSULIN LISPRO 100 UNIT/ML 3 ML VIAL SUBCUT SCH ×3 (08:12→17:58)
[2020-06-13] MEDS: CITRIC ACID/SODIUM CITRATE ORAL SOLN 15 ML UDCUP PO SCH ×2 (10:34→17:59)
[2020-06-13] MEDS: FINASTERIDE 5 MG TABLET PO SCH (10:34)
[2020-06-13] MEDS: TAMSULOSIN HCL 0.4 MG CAP.SR.24H PO SCH (10:34)
[2020-06-13] MEDS: NORMAL SALINE 10 ML SDV (SCHEDULED) IV SCH (11:04)
[2020-06-13] MEDS ORDERED: PROMETHAZINE HCL INJ 25 MG/1 ML VIAL IV PRN (16:13)
--- NOTE | 2020-06-13 16:30 | PDOC PROGRESS REPORT ---
Subjective Progress Note for:: 06/13/20 Subjective:: Patient transferred out of ICU overnight. Admitted with septic shock due to multifocal bilateral pneumonia, acute metabolic encephalopathy/delirium, RAISSA, hyponatremia, large unstageable sacral decubitus ulcer, chronic A. fib, COPD, rheumatoid arthritis, narcotics dependency. Treated with cefepime and azithromycin. Sent to ICU for progressive respiratory failure, maintained on positive pressure without intubation. Nephrology consulted and patient was started on dialysis. Sent back to medical floor when hemodynamically stable and breathing improved. COVID negative. Patient is on chronic amiodarone for chronic A. fib and there was consideration of possible pulmonary toxicity. This will need to be followed up with pulmonology outpatient. Patient has lo ngstanding narcotics dependency and underwent mild to moderate narcotics withdrawal while in the hospital. Patient has an intra-abdominal morphine pump reportedly. Patient continues to require intermittent BiPAP on the floor. He is clearly severely demented and is a rather poor historian. Patient cannot articulate complaints today. I think it would be worthwhile to have him evaluated for hospice given his prolonged complicated hospitalization with severe chronic comorbidities. Blood cultures from 06/03 are negative as well as negative urine cultures. Patient is completed his antibiotic course. If he does not go home with hospice, I recommend he go to SNF for extensive physical therapy. Reason For Visit: SEPSIS WITH SEPTIC SHOCK,MULTIFOCAL PNEUMONIA Physical Exam Vital Signs: Temp Pulse Resp BP Pulse Ox 97.5 F 92 22 H 108/51 L 95 06/13/20 10:00 06/13/20 14:00 06/13/20 13:57 06/13/20 08:48 06/13/20 13:57 Intake & Output 06/12/20 06/13/20 06/14/20 06:59 06:59 06:59 Intake Total 1442 1948 1030 Output Total 340 10 Balance 1102 1938 1030 Weight 55.7 kg 55.5 kg 55.5 kg General appearance: PRESENT: no acute distress, well-developed, well-nourished Head exam: PRESENT: atraumatic, normocephalic Eye exam: PRESENT: conjunctiva pink Mouth exam: PRESENT: moist Respiratory exam: PRESENT: rales - Mild at bases. ABSENT: rhonchi, wheezes Cardiovascular exam: PRESENT: irregular rhythm. ABSENT: diastolic murmur, rubs, systolic murmur GI/Abdominal exam: PRESENT: normal bowel sounds, soft. ABSENT: distended, guarding, mass, organolmegaly, rebound, tenderness Neurological exam: PRESENT: alert, awake, oriented to person, oriented to place Psychiatric exam: PRESENT: appropriate affect, normal mood Skin exam: PRESENT: dry, warm, other - Sacral ulcer unstageable Results Laboratory Results: 06/13/20 05:30 06/13/20 05:30 06/13/20 06/13/20 05:30 05:30 WBC 25.0 H RBC 3.48 L Hgb 8.8 L Hct 28.2 L MCV 81 MCH 25.1 L MCHC 31.1 L RDW 20.7 H Plt Count 172 Seg Neutrophils % Not Reportable Sodium 144.2 Potassium 4.2 Chloride 110 H Carbon Dioxide 24 Anion Gap 10 BUN 62 H Creatinine 1.90 H Est GFR ( Amer) 43 L Glucose 145 H Calcium 7.6 L 06/03/20 06/03/20 06/04/20 10:40 16:47 21:46 Creatine Kinase 30 L CK-MB (CK-2) Troponin I 0.033 0.023 NT-Pro-B Natriuret Pep 06/04/20 06/05/20 06/05/20 21:46 04:00 04:00 Creatine Kinase 35 L CK-MB (CK-2) 0.96 1.03 Troponin I < 0.012 < 0.012 NT-Pro-B Natriuret Pep 06/05/20 06/05/20 06/06/20 22:07 22:07 17:00 Creatine Kinase 36 L 77 CK-MB (CK-2) 1.69 Troponin I 0.016 NT-Pro-B Natriuret Pep 06/06/20 06/07/20 06/07/20 17:00 04:35 04:35 Creatine Kinase 68 CK-MB (CK-2) 3.44 3.27 Troponin I 0.017 0.016 NT-Pro-B Natriuret Pep 11967 H 06/08/20 06/09/20 04:15 04:32 Creatine Kinase CK-MB (CK-2) Troponin I NT-Pro-B Natriuret Pep 66632 H 47784 H Impressions: Abdomen/Pelvis CT 06/03/20 00:00 IMPRESSION: No acute findings. Small nonobstructing stone right kidney. Abdomen X-Ray 06/03/20 10:39 IMPRESSION: Mild fecal retention. PICC Line Insertion 06/04/20 00:00 IMPRESSION: SUCCESSFUL PLACEMENT OF A 5 FR DUAL LUMEN 40 CM PICC IN THE RIGHT BASILIC VEIN. Chest CT 06/07/20 00:00 IMPRESSION: Advanced changes of obstructive lung disease. Trace bilateral pleural effusions with diffuse thickening of interlobular septa throughout the lungs worrisome for fluid overload or congestive failure Chest X-Ray 06/12/20 02:39 IMPRESSION: 1. Ongoing prominent interstitial opacities bilaterally with slightly increasing volume loss in the right lung base likely due to a pleural effusion and/or atelectasis. Findings may reflect interstitial edema and/or interstitial pneumonitis. 2. Stable right upper extremity PICC line catheter. Assessment and Plan - Diagnosis (1) Acute metabolic encephalopathy Is this a current diagnosis for this admission?: Yes Plan: Multifactorial: Sepsis, respiratory failure, steroids, chronic narcotics Treat underlying cause of infection, reduce offending medications as able and appropriate Has underlying severe dementia as well which is likely amplified by the above medical problems May be appropriate for hospice evaluation PT/OT/ST (2) Acute respiratory failure with hypoxia Is this a current diagnosis for this admission?: Yes Plan: Continued on positive pressure which was started in the ICU Very slow gradual improvement, wean oxygen as able to maintain oxygen saturation 89 to 92% and COPD Duo nebs as needed Bronchial hygiene Needs pulmonology follow-up and repeat PFTs to evaluate for amiodarone toxicity (3) CHF (congestive heart failure) Is this a current diagnosis for this admission?: Yes Plan: Not in acute exacerbation Continue home meds, held lisinopril due to renal failure (4) Chronic obstructive pulmonary disease Qualifiers: COPD type: unspecified COPD Qualified Code(s): J44.9 - Chronic obstructive pulmonary disease, unspecified Is this a current diagnosis for this admission?: Yes Plan: DuoNeb/Pulmicort scheduled Systemic steroids completed (5) Decubitus ulcer of coccygeal region, unstageable Is this a current diagnosis for this admission?: Yes Plan: Present on admission. A consequence of his poor living environement. Unlikely patient would survive aggressive intervention/surgery Consider MRI of sacrum/pelvis High risk to develop chronic osteomyelitis if ulcer progresses Needs outpatient wound care follow-up (6) Delirium due to another medical condition, acute, hyperactive Is this a current diagnosis for this admission?: Yes Plan: See above (7) Multifocal pneumonia Is this a current diagnosis for this admission?: Yes Plan: COVID negative. Completed antibiotics Immunocompromised patient: On immunomodulatory drugs for rheumatoid arthritis. Chest CT is more concerning for pulmonary edema or interstitial lung disease. Additionally, there is clearly a baseline of advanced COPD/emphysema. (8) Opiate withdrawal Is this a current diagnosis for this admission?: Yes Plan: Stable scheduled narcotics restarted Has morphine pump in abdomen (9) Protein-energy malnutrition Qualifiers: Protein-calorie malnutrition severity: severe Qualified Code(s): E43 - Unspecified severe protein-calorie malnutrition Is this a current diagnosis for this admission?: Yes Plan: Nutrition consult (10) Sepsis with acute organ dysfunction and septic shock Qualifiers: Sepsis type: sepsis due to unspecified organism Severe sepsis acute organ dysfunction type: acute renal failure Acute renal failure type: with acute tubular necrosis Qualified Code(s): A41.9 - Sepsis, unspecified organism; R65.21 - Severe sepsis with septic shock; N17.0 - Acute kidney failure with tubular necrosis Is this a current diagnosis for this admission?: Yes Plan: Off pressors. Completed cefepime/azithromycin Resolved (11) RAISSA (acute kidney injury) Is this a current diagnosis for this admission?: Yes Plan: Underwent temporary hemodialysis, per nephrology he is not a candidate for long-term dialysis due to severe dementia Nephrology consulted Presumed prerenal, given IV fluids Trend BMP (12) Anxiety disorder Qualifiers: Phobia type: social phobia, unspecified Is this a current diagnosis for this admission?: Yes (13) Atrial fibrillation Qualifiers: Atrial fibrillation type: unspecified chronic Qualified Code(s): I48.20 - Chronic atrial fibrillation, unspecified; I48.2 - Chronic atrial fibrillation Is this a current diagnosis for this admission?: Yes Plan: Rate controlled on current cardiac medications Not on chronic anticoagulation, high fall risk, high bleeding risk (14) BPH (benign prostatic hyperplasia) Qualifiers: Lower urinary tract symptom presence: unspecified whether lower urinary tract symptoms present Qualified Code(s): N40.0 - Benign prostatic hyperplasia without lower urinary tract symptoms Is this a current diagnosis for this admission?: Yes Plan: Flomax (15) Chronic pain disorder Is this a current diagnosis for this admission?: Yes Plan: Takes chronic scheduled oxycodone at home 4 times a day, has abdominal morphine pump (16) Hyponatremia Is this a current diagnosis for this admission?: Yes Plan: Resolved with IV fluid resuscitation (17) Prolonged QT interval Is this a current diagnosis for this admission?: Yes Plan: QTC greater than 500 on admission Avoid QT prolonging medications - Plan Summary Summary: Patient will be admitted to the [facility] where he received routine supportive and symptomatic cares. He will be treated with high-volume IV fluids and blood pressure support utilizing pressor agents as needed. He will receive supplemental oxygen as needed to maintain an adequate O2 saturation. He will receive IV antibiotics utilizing cefepime and azithromycin. He will receive a pulmonary toilet utilizing Xopenex, Atrovent and Pulmicort delivered via nebulizer. He will receive IV steroids utilizing Decadron 2 mg IV every 8 hours. He will receive Ativan 1 mg IV every 4 hours as needed for anxiety or restlessness. Further evaluation of his hematemesis/guaiac positive stool will be arranged once he is more stable. He will be continued on his chronic pain control utilizing his implanted morphine [employer] pump as per his usual dose scheduling if possible. His usual home meds will be restarted, if appropriate, once his medication list has been verified and reconciled. He will be treated with a cardiac diet and encouraged to take oral fluids. - Time Time Spent with patient: 35 or more minutes Medications reviewed and adjusted accordingly: Yes Anticipated Discharge Disposition: Jail Facility Anticipated Discharge Timeframe: within 72 hours - Inpatient Certification Based on my medical assessment, after consideration of the patient's comorbidities, presenting symptoms, or acuity I expect that the services needed warrant INPATIENT care.: Yes I certify that my determination is in accordance with my understanding of Medicare's requirements for reasonable and necessary INPATIENT services [42 CFR 412.3e].: Yes Medical Necessity: Significant Comorbidiites Make Outpatient Treatment Too Risky, Need Close Monitoring Due to Risk of Patient Decompensation, Need For IV Fluids, Risk of Complication if Not Cared For in Hospital, Risk of Diagnosis Which Will Require Inpatient Eval/Care/Monitoring
[2020-06-13 16:37] VITALS: BP 118/81
[2020-06-13] MEDS ORDERED: NALOXONE HCL INJ/PF 0.4 MG/1 ML SDV ONE (17:30)
--- NOTE | 2020-06-13 18:06 | Progress Note ---
Provider Note Provider Note: Saw patient during a rapid response call. Patient once again obtunded, breathing well but remains an aspiration risk which may have happened. Given dilaudid for pain 'all over". Given a total of 0.4 mg of Narcan and started breathing more rapidly and woke up some but remained obtunded. Able to reach daughter by Dr Faria who agreed to make him comfort care. I completely support this as he has fairly severe dementia, frequently aspirates and really does not understand his situation. He is in the end stages of dementia and will end his life now in relative comfort.
--- NOTE | 2020-06-13 18:14 | Progress Note ---
Provider Note Provider Note: Rapid response called for patient not responded immediately. Patient was unresponsive with weak breathing on BiPAP, very weak pulse. Patient appears acutely extremely ill. Looks to be at the end of his life. I spoke to the patient's best friend on the phone who gave me his daughter's phone number and I spoke to her as well. She stated that she and patient agree that he would be DNR/DNI and after explaining how acutely ill he was she stated he would certainly not want to be resuscitated with intubation or any heroic measures. She also stated she would like him to be made comfortable and stop all aggressive measures and not have any escalation of care. Dr. Leger was present during the rapid response and he agreed with my assessment and plan. We have ordered comfort measures only and patient will have availability for visitors per hospital policy while on comfort measures.
--- NOTE | 2020-06-14 18:05 | Death Summary ---
Summary Date : 06/13/20 Autopsy: No Resuscitation Status: Comfort Measures Only - Final Diagnosis (1) Acute metabolic encephalopathy Is this a current diagnosis for this admission?: Yes (2) Acute respiratory failure with hypoxia Is this a current diagnosis for this admission?: Yes (3) CHF (congestive heart failure) Is this a current diagnosis for this admission?: Yes (4) Chronic obstructive pulmonary disease Is this a current diagnosis for this admission?: Yes (5) Decubitus ulcer of coccygeal region, unstageable Is this a current diagnosis for this admission?: Yes (6) Delirium due to another medical condition, acute, hyperactive Is this a current diagnosis for this admission?: Yes (7) Multifocal pneumonia Is this a current diagnosis for this admission?: Yes (8) Opiate withdrawal Is this a current diagnosis for this admission?: Yes (9) Protein-energy malnutrition Is this a current diagnosis for this admission?: Yes (10) Sepsis with acute organ dysfunction and septic shock Is this a current diagnosis for this admission?: Yes (11) RAISSA (acute kidney injury) Is this a current diagnosis for this admission?: Yes (12) Anxiety disorder Is this a current diagnosis for this admission?: Yes (13) Atrial fibrillation Is this a current diagnosis for this admission?: Yes (14) BPH (benign prostatic hyperplasia) Is this a current diagnosis for this admission?: Yes (15) Chronic pain disorder Is this a current diagnosis for this admission?: Yes (16) Hyponatremia Is this a current diagnosis for this admission?: Yes (17) Prolonged QT interval Is this a current diagnosis for this admission?: Yes Hospital Course:: Per Admitting Physician: "CHERRY ROLDAN is a 69 year old male who presented the emergency room with a 3-day history of fever. He admits a persistent severe (subjective) fever with accompanying chills and associated anorexia, nausea and vomiting with small amounts of hematemesis over the course of the last 3 days. He denies other associated or accompanying signs and symptoms. He admits prior similar episodes with infections. He has not identified any aggravating or ameliorating factors for his fever. In the emergency room he was found to have a temperature 101 F and was noted to be hypotensive with a systolic blood pressure in the 70s to 80s. His chest x-ray revealed a multifocal bilateral pneumonia and his renal function studies demonstrated an acute kidney injury. Lactic acid levels were normal. He received high-volume fluids and initial antibiotic therapy in the emergency room. Patient was subsequently admitted to the hospital for further evaluation and treatment per the sepsis protocol." Patient transferred out of ICU overnight. Admitted with septic shock due to multifocal bilateral pneumonia, acute metabolic encephalopathy/delirium, RAISSA, hyponatremia, large unstageable sacral decubitus ulcer, chronic A. fib, COPD, rheumatoid arthritis, narcotics dependency. Treated with cefepime and azithromycin. Sent to ICU for progressive respiratory failure, maintained on positive pressure without intubation. Nephrology consulted and patient was started on dialysis. Sent back to medical floor when hemodynamically stable and breathing improved. COVID negative. Patient is on chronic amiodarone for chronic A. fib and there was consideration of possible pulmonary toxicity. This will need to be followed up with pulmonology outpatient. Patient has longstanding narcotics dependency and underwent mild to moderate narcotics withdrawal while in the hospital. Patient has an intra-abdominal morphine pump reportedly. Patient continues to require intermittent BiPAP on the floor. He is clearly severely demented and is a rather poor historian. Patient cannot articulate complaints today. I think it would be worthwhile to have him evaluated for hospice given his prolonged complicated hospitalization with severe chronic comorbidities. Blood cultures from 06/03 are negative as well as negative urine cultures. Patient is completed his antibiotic course. If he does not go home with hospice, I recommend he go to SNF for extensive physical therapy. Rapid response called for patient not responded immediately. Patient was unresponsive with weak breathing on BiPAP, very weak pulse. Patient appears acutely extremely ill. Looks to be at the end of his life. I spoke to the patient's best friend on the phone who gave me his daughter's phone number and I spoke to her as well. She stated that she and patient agree that he would be DNR/DNI and after explaining how acutely ill he was she stated he would certainly not want to be resuscitated with intubation or any heroic measures. She also stated she would like him to be made comfortable and stop all aggressive measures and not have any escalation of care. Dr. Leger was present during the rapid response and he agreed with my assessment and plan. We have ordered comfort measures only and patient will have availability for visitors per hospital policy while on comfort measures. (1) Acute metabolic encephalopathy Is this a current diagnosis for this admission?: Yes Plan: Multifactorial: Sepsis, respiratory failure, steroids, chronic narcotics Treat underlying cause of infection, reduce offending medications as able and appropriate Has underlying severe dementia as well which is likely amplified by the above medical problems May be appropriate for hospice evaluation PT/OT/ST (2) Acute respiratory failure with hypoxia Is this a current diagnosis for this admission?: Yes Plan: Continued on positive pressure which was started in the ICU Very slow gradual improvement, wean oxygen as able to maintain oxygen saturation 89 to 92% and COPD Duo nebs as needed Bronchial hygiene Needs pulmonology follow-up and repeat PFTs to evaluate for amiodarone toxicity (3) CHF (congestive heart failure) Is this a current diagnosis for this admission?: Yes Plan: Not in acute exacerbation Continue home meds, held lisinopril due to renal failure (4) Chronic obstructive pulmonary disease Qualifiers: COPD type: unspecified COPD Qualified Code(s): J44.9 - Chronic obstructive pulmonary disease, unspecified Is this a current diagnosis for this admission?: Yes Plan: DuoNeb/Pulmicort scheduled Systemic steroids completed (5) Decubitus ulcer of coccygeal region, unstageable Is this a current diagnosis for this admission?: Yes Plan: Present on admission. A consequence of his poor living environement. Unlikely patient would survive aggressive intervention/surgery Consider MRI of sacrum/pelvis High risk to develop chronic osteomyelitis if ulcer progresses Needs outpatient wound care follow-up (6) Delirium due to another medical condition, acute, hyperactive Is this a current diagnosis for this admission?: Yes Plan: See above (7) Multifocal pneumonia Is this a current diagnosis for this admission?: Yes Plan: COVID negative. Completed antibiotics Immunocompromised patient: On immunomodulatory drugs for rheumatoid arthritis. Chest CT is more concerning for pulmonary edema or interstitial lung disease. Additionally, there is clearly a baseline of advanced COPD/emphysema. (8) Opiate withdrawal Is this a current diagnosis for this admission?: Yes Plan: Stable scheduled narcotics restarted Has morphine pump in abdomen (9) Protein-energy malnutrition Qualifiers: Protein-calorie malnutrition severity: severe Qualified Code(s): E43 - Unspecified severe protein-calorie malnutrition Is this a current diagnosis for this admission?: Yes Plan: Nutrition consult (10) Sepsis with acute organ dysfunction and septic shock Qualifiers: Sepsis type: sepsis due to unspecified organism Severe sepsis acute organ dysfunction type: acute renal failure Acute renal failure type: with acute tubular necrosis Qualified Code(s): A41.9 - Sepsis, unspecified organism; R65.21 - Severe sepsis with septic shock; N17.0 - Acute kidney failure with tubular necrosis Is this a current diagnosis for this admission?: Yes Plan: Off pressors. Completed cefepime/azithromycin Resolved (11) RAISSA (acute kidney injury) Is this a current diagnosis for this admission?: Yes Plan: Underwent temporary hemodialysis, per nephrology he is not a candidate for long-term dialysis due to severe dementia Nephrology consulted Presumed prerenal, given IV fluids Trend BMP (12) Anxiety disorder Qualifiers: Phobia type: social phobia, unspecified Is this a current diagnosis for this admission?: Yes (13) Atrial fibrillation Qualifiers: Atrial fibrillation type: unspecified chronic Qualified Code(s): I48.20 - Chronic atrial fibrillation, unspecified; I48.2 - Chronic atrial fibrillation Is this a current diagnosis for this admission?: Yes Plan: Rate controlled on current cardiac medications Not on chronic anticoagulation, high fall risk, high bleeding risk (14) BPH (benign prostatic hyperplasia) Qualifiers: Lower urinary tract symptom presence: unspecified whether lower urinary tract symptoms present Qualified Code(s): N40.0 - Benign prostatic hyperplasia without lower urinary tract symptoms Is this a current diagnosis for this admission?: Yes Plan: Flomax (15) Chronic pain disorder Is this a current diagnosis for this admission?: Yes Plan: Takes chronic scheduled oxycodone at home 4 times a day, has abdominal morphine pump (16) Hyponatremia Is this a current diagnosis for this admission?: Yes Plan: Resolved with IV fluid resuscitation (17) Prolonged QT interval Is this a current diagnosis for this admission?: Yes Plan: QTC greater than 500 on admission Avoid QT prolonging medications
== END 2020-06-13 19:32 | DRG 871 ==
LOC: ER 09:47 → EH 23:55 → 3S 06-04 04:38 → ICU 06-06 01:28 → 4N 06-12 20:21
PROVIDERS: ADMIT Emergency Medicine; ATTEND Anesthesiology
PROC: 05JY3ZZ Inspection of Upper Vein, Percutaneous Approach (ICD-10-PCS; 2020-06-03)
PROC: 02HV33Z Insertion of Infusion Device into Superior Vena Cava, Percutaneous Approach (ICD-10-PCS; 2020-06-04)
PROC: 5A09557 Assistance with Respiratory Ventilation, Greater than 96 Consecutive Hours, Continuous Positive Airway Pressure (ICD-10-PCS; principal; 2020-06-05)
PROC: 5A1D70Z Performance of Urinary Filtration, Intermittent, Less than 6 Hours Per Day (ICD-10-PCS; 2020-06-06)
DX: A41.9 Sepsis, unspecified organism (principal); G93.41 Metabolic encephalopathy; J96.01 Acute respiratory failure with hypoxia; R65.21 Severe sepsis with septic shock; J18.9 Pneumonia, unspecified organism; E43 Unspecified severe protein-calorie malnutrition; N17.0 Acute kidney failure with tubular necrosis; J44.0 Chronic obstructive pulmonary disease with (acute) lower respiratory infection; F11.23 Opioid dependence with withdrawal; E87.1 Hypo-osmolality and hyponatremia; I13.0 Hypertensive heart and chronic kidney disease with heart failure and stage 1 through stage 4 chronic kidney disease, or unspecified chronic kidney disease; I48.11 Longstanding persistent atrial fibrillation; Z68.1 Body mass index [BMI] 19.9 or less, adult; I50.9 Heart failure, unspecified; L89.150 Pressure ulcer of sacral region, unstageable; Z78.1 Physical restraint status; Z11.59 Encounter for screening for other viral diseases; N40.0 Benign prostatic hyperplasia without lower urinary tract symptoms; R94.31 Abnormal electrocardiogram [ECG] [EKG]; Z66 Do not resuscitate; F40.10 Social phobia, unspecified; E78.5 Hyperlipidemia, unspecified; I95.89 Other hypotension; E86.1 Hypovolemia; E83.42 Hypomagnesemia; M06.89 Other specified rheumatoid arthritis, multiple sites; N18.9 Chronic kidney disease, unspecified; Z87.891 Personal history of nicotine dependence; Z79.899 Other long term (current) drug therapy; Z98.1 Arthrodesis status
CPT/HCPCS: 36415; 36573; 36600; 51702; 71045; 71250; 74019; 74176; 80048; 80053; 80162; 81001; 82040; 82270; 82330; 82550; 82553; 82803; 82962; 83605; 83735; 83880; 84100; 84134; 84484; 85025; 85027; 85610; 86317; 86704; 86850; 86900; 86901; 87040; 87086; 87340; 87522; 87635; 92950; 93005; 93010; 94640; 94660; 96361; 96365; 96367; 96375; 99221; 99291; C1769; C9113; C9803; J0456; J0610; J0692; J1100; J1160; J1170; J1265; J1642; J1644; J1815; J1940; J2060; J2270; J2405; J2930; J3010; J3370; J3475; J3480; J3490; J7030; J7060; J7120; P9047